=== PATIENT | male | born 1955 | race Caucasian/White ===

== ENCOUNTER 2021-08-26 13:26 | Inpatient (IN) | payer MEDICARE, SELFPAY ==
[2021-08-26] VITALS (12 sets, daily range): BP systolic 113–240; BP diastolic 55–108; PULSE 53–100; RESP 10–28; TEMP 36.1–36.6; O2SAT 91–100; BMI 18.3
--- NOTE | ~2021-08-26 | XR_ITS ---
EXAMINATION: XR CHEST CLINICAL INFORMATION: Stroke COMPARISON: None TECHNIQUE: Frontal view of the chest was obtained. FINDINGS: Cardiac silhouette is normal in size. Atherosclerotic disease of the aortic arch. Lungs are adequately aerated. Linear opacity of the right upper lung is most suggestive of scarring. There is no lobar consolidation. No pleural effusion or pneumothorax. Degenerative changes of the spine. XR/XR chest 1V IMPRESSION: No acute pulmonary pathology.
--- NOTE | ~2021-08-26 | CT_ITS ---
EXAMINATION: CT HEAD WITHOUT CONTRAST (STROKE PROTOCOL) CLINICAL INFORMATION: Stroke protocol. Bizarre behavior. Altered mental status. Transient weakness. COMPARISON: None TECHNIQUE: Contiguous axial imaging was performed from the skull base to vertex without intravenous administration of contrast. Exam is limited due to motion. This CT examination was performed using dose optimization techniques as appropriate, variously including the following: *Automated exposure control *Adjustment of mA and/or kV according to patient size (this includes techniques or standardized protocols for targeted exams where dose is matched to indication/reason for exam; i.e. extremities or head) *Use of iterative reconstruction technique DLP: 1749 mGy-cm FINDINGS: There is no intracranial hemorrhage, hematoma, or extra-axial fluid collection. The ventricles are normal in size. There is no hydrocephalus, edema, or mass effect. The rmairez-white matter differentiation appears symmetric. There is no acute infarct or mass lesion. The calvarium appears intact. There is no pneumocephalus or orbital emphysema. The visualized sinuses and middle ears and mastoid air cells show no significant mucosal thickening. There are no air-fluid levels. CT/CT head for stroke IMPRESSION: Limited exam due to motion. No acute findings. This critical result was discussed with Mookie Frank at 1358 hours on 08/26/2021. It was ascertained that the content and urgency of the report was understood at the time of direct communication.
--- NOTE | 2021-08-26 13:36 | ECG_ITS ---
Test Reason : ALTERED MENTAL STATUS Blood Pressure : / mmHG Vent. Rate : 070 BPM Atrial Rate : 070 BPM P-R Int : 144 ms QRS Dur : 084 ms QT Int : 432 ms P-R-T Axes : 081 -76 041 degrees QTc Int : 466 ms Normal sinus rhythm Left axis deviation Possible Lateral infarct , age undetermined Abnormal ECG No previous ECGs available Referred By: Mookie Frank Electronically Signed By:LEX FLORES MD
--- NOTE | 2021-08-26 13:42 | PC.NURSE ---
per ems, pt was found at a gas station he had reportedly been visiting since 0700 this am. per ems, the store clerks became concerned when pt was still at gas station and behaviors are all of a sudden erratic and behaviors abnormal from earlier encounters with him. per ems, ems first contact approx 1315 and pt appearing with slurred speech and erratic, combative behavior.
[2021-08-26 14:07] LABS: Glucose, Whole Blood 82 mg/dL (60-115)
[2021-08-26 14:23] LABS: MANUAL DIFF FLAG NO
[2021-08-26 14:24] LABS: Prothrombin Time Whole Bld POC 14.1 sec (11.1-13.5); ~PT, ~INR - Anti Coag Clinic 1.2 (0.9-1.1)
[2021-08-26 14:35] LABS: Ammonia 29 umol/L (13-55); INTERNATIONAL NORM RATIO 1.1 (0.9-1.1)
[2021-08-26 14:37] LABS: Basophils Percent Auto 0.4 % (0-2); Eosinophils Absolute Auto 0.2 X10*3/uL (0.0-0.4); Eosinophils Percent Auto 2.7 % (0-4); Hematocrit 30.9 % (42.0-52.0); Hemoglobin 10.6 g/dl (14.0-18.0); Imm Gran Abs Auto 0.07 X10*3/uL (0.00-0.03); Lymphocytes Absolute Auto 0.8 X10*3/uL (1.2-4.9); Lymphocytes Percent Auto 11.1 % (20-40); Mean Corpuscular HGB Conc 34.3 g/dl (31.0-36.0); Mean Corpuscular Hemoglobin 31.9 pg (27.0-33.0); Mean Corpuscular Volume 93.1 fL (80.0-98.0); Mean Platelet Volume 9.6 fL (9.4-12.4); Monocytes Absolute Auto 0.7 X10*3/uL (0.1-1.2); Monocytes Percent Auto 9.8 % (2-11); Neutrophils Absolute Auto 5.5 x10*3/uL (2.0-8.3); Platelet Count 198 X10*3/uL (160-400); Red Blood Count 3.32 X10*6/uL (4.60-5.80); Red Cell Distribution Width 13.4 % (11.0-16.0); White Blood Count 7.3 X10*3/uL (4.8-10.8)
[2021-08-26 14:38] LABS: Partial Thromboplastin Time 30.9 SEC (24.1-38.0)
[2021-08-26 14:39] LABS: Lactic Acid 1.1 mmol/L (0.5-2.0)
[2021-08-26 14:41] LABS: Ethanol < 10 mg/dL
[2021-08-26 14:43] LABS: Stroke Lab Use COMPLETE
[2021-08-26 14:45] LABS: Amphetamine Screen Urine Not Detected (Not Detect); Barbiturates, Urine Not Detected (Not Detect); Benzodiazepines Screen Urine Not Detected (Not Detect); Cannabinoid Screen Urine Not Detected (Not Detect); Cocaine Screen Urine Not Detected (Not Detect); Fentanyl, urine Not Detected (Not Detect); Opiate Screen Urine Not Detected (Not Detect); Phencyclidine Screen Urine Not Detected (Not Detect)
[2021-08-26 14:49] LABS: Troponin-I High Sensitivity 7.9 ng/L (<3.5-35.0)
[2021-08-26 14:51] LABS: Anion Gap 15 (12-20); Blood Urea Nitrogen 20 mg/dL (9-16); Calcium 9.4 mg/dL (8.4-10.2); Carbon Dioxide 24 mmol/L (22-29); Chloride 107 mmol/L (96-108); Creatinine Clr Calc Pharmacy 73.3; Estimated Glomerular Filt Rate > 60; Glucose Random 84 mg/dL (60-115); Potassium 3.6 mmol/L (3.3-5.1); Sodium 142 mmol/L (135-145)
[2021-08-26 14:52] LABS: COVID-19 Test Negative (Negative); IDNOW Serial# 16C4AD1C
--- NOTE | 2021-08-26 15:11 | ED.GENADULT ---
HPI - General Adult General Chief complaint: Altered Mental Status Stated complaint: ?stroke Time Seen by Provider: 08/26/21 13:35 Source: patient, EMS and police Mode of arrival: EMS Limitations: altered mental status History of Present Illness HPI narrative: 66 years old male who came in by EMS and police after found wandering in the street with erratic behavior, patient has been talking uninterruptedly. Patient initially came in as a stroke protocol, but neuro exam are intact with no weakness or numbness. Patient was found in the gas station since 7 in the morning acting erratically talking to himself and bystander called the police and EMS to bring him to the hospital, no source to obtain an accurate history on this patient. Never been in our hospital and no old record on this patient. Related Data Allergies Allergy/AdvReac Type Severity Reaction Status Date / Time No Known Allergies Allergy Verified 08/26/21 13:36 Review of Systems Review of Systems: Yes Unobtainable due to mental condition PMFSH Social History Social History Alcohol intake: unknown Patient Tobacco Use Status: Tobacco use Unknown Use of substances other than those prescribed or required for medical reasons: Unknown Physical Exam ED Vital Signs: Vital Signs - 24 hr 08/26/21 13:58 08/26/21 14:30 Temperature 97.9 F Pulse Rate 96 66 Respiratory Rate 18 24 H Blood Pressure 117/69 113/58 L Pulse Oximetry 97 100 BMI result Body Mass Index 18.3 Vital signs have been reviewed as appeared to be correct. Blood pressure normal. Heart rate normal. Respiration rate normal. Temperature normal. Oxygen saturation normal. Appearance: Alert. Oriented X2 to place and person.. No acute distress. Head: Normal external exam. Normocephalic. Atraumatic. No Andrew signs noted. No raccoon eyes noted Eyes: PERRLA. EOMI. Conjunctiva and sclera normal. Eyelids normal. ENT: TM's Normal. Pharynx normal. Uvula midline. Moist mucous membranes. No trismus noted. No drooling noted. No muffled voice noted. Neck: Normal inspection. Neck supple. FROM. No adenopathy. Thyroid Normal. No meningeal signs. No neck mass noted. CVS: Normal heart rate and rhythm. Heart sound normal. No murmurs noted. Pulses normal throughout. Respiratory: No respiratory distress. Painless inspiration. Breath sounds normal. No wheezes/rales/rhonchi noted. Chest nontender. No accessory muscle usage noted or decreased air movement noted. Abdomen: Soft and nontender. Bowel sounds normal in all 4 quadrants. No distention noted. No organomegaly noted. No visible injury noted. Back: No CVA tenderness. Full range of motion noted. Skin: Skin warm and dry. Normal skin color. Normal skin turgor. No rashes/lesions/lacerations noted. Extremities: No lower extremity edema. Extremities exhibit normal range of motion. Extremities nontender. Neuro: Oriented X [address] and person[address] Cranial nerve exam: II-XII are grossly intact No motor deficit. No sensory deficit. Reflexes normal. Course Course Course Narrative: assessment and plan. 66-year-old male came in with acute mental status change and erratic behavior, CPK is elevated with no signs of trauma, no neurological deficit except for change mental status. Will admit for IV hydration and monitoring mental status. Medical Decision Making Lab Data Lab results reviewed: Yes I reviewed the patient's lab results. Result diagrams: 08/26/21 14:10 08/26/21 14:10 Labs: Lab Results 08/26/21 08/26/21 08/26/21 Range/Units 14:03 14:07 14:10 WBC 7.3 (4.8-10.8) X10*3/uL RBC 3.32 L (4.60-5.80) X10*6/uL Hgb 10.6 L (14.0-18.0) g/dl Hct 30.9 L (42.0-52.0) % MCV 93.1 (80.0-98.0) fL MCH 31.9 (27.0-33.0) pg MCHC 34.3 (31.0-36.0) g/dl RDW 13.4 (11.0-16.0) % Plt Count 198 (160-400) X10*3/uL MPV 9.6 (9.4-12.4) fL Immature Gran % (Auto) 1.0 H (0.0-0.4) % Neut % (Auto) 75.0 H (45-73) % Lymph % (Auto) 11.1 L (20-40) % [place] % (Auto) 9.8 (2-11) % Eos % (Auto) 2.7 (0-4) % Baso % (Auto) 0.4 (0-2) % Lymph # (Auto) 0.8 L (1.2-4.9) X10*3/uL [place] # (Auto) 0.7 (0.1-1.2) X10*3/uL Eos # (Auto) 0.2 (0.0-0.4) X10*3/uL Baso # (Auto) 0.0 (0.0-0.2) X10*3/uL Abs Immat Gran (auto) 0.07 H (0.00-0.03) X10*3/uL Absolute Neuts (auto) 5.5 (2.0-8.3) x10*3/uL Absolute Nucleated RBC 0.000 (0.0-0.012) X10*3/uL Nucleated RBC % (auto) 0.0 (0.0-0.2) /100WBC PT (9.9-13.0) SEC Whole Blood PT 14.1 H (11.1-13.5) sec INR (0.9-1.1) Whole Blood INR 1.2 H (0.9-1.1) APTT (24.1-38.0) SEC Sodium (135-145) mmol/L Potassium (3.3-5.1) mmol/L Chloride (96-108) mmol/L Carbon Dioxide (22-29) mmol/L Anion Gap (12-20) BUN (9-16) mg/dL Creatinine (0.5-1.4) mg/dL Estim Creat Clear Calc Estimated GFR POC Glucose 82 (60-115) mg/dL Random Glucose (60-115) mg/dL Lactic Acid (0.5-2.0) mmol/L Calcium (8.4-10.2) mg/dL Ammonia (13-55) umol/L Total Creatine Kinase (38-174) U/L Troponin I High Sens (<3.5-35.0) ng/L Urine Opiates Screen (Not Detect) Urine Fentanyl Screen (Not Detect) Ur Barbiturates Screen (Not Detect) Ur Phencyclidine Scrn (Not Detect) Ur Amphetamines Screen (Not Detect) U Benzodiazepines Scrn (Not Detect) Urine Cocaine Screen (Not Detect) U Marijuana (THC) Screen (Not Detect) Ethyl Alcohol mg/dL COVID-19 (ELVIS) (Negative) COVID-19 Clin Com 08/26/21 08/26/21 08/26/21 Range/Units 14:10 14:10 14:10 WBC (4.8-10.8) X10*3/uL RBC (4.60-5.80) X10*6/uL Hgb (14.0-18.0) g/dl Hct (42.0-52.0) % MCV (80.0-98.0) fL MCH (27.0-33.0) pg MCHC (31.0-36.0) g/dl RDW (11.0-16.0) % Plt Count (160-400) X10*3/uL MPV (9.4-12.4) fL Immature Gran % (Auto) (0.0-0.4) % Neut % (Auto) (45-73) % Lymph % (Auto) (20-40) % [place] % (Auto) (2-11) % Eos % (Auto) (0-4) % Baso % (Auto) (0-2) % Lymph # (Auto) (1.2-4.9) X10*3/uL [place] # (Auto) (0.1-1.2) X10*3/uL Eos # (Auto) (0.0-0.4) X10*3/uL Baso # (Auto) (0.0-0.2) X10*3/uL Abs Immat Gran (auto) (0.00-0.03) X10*3/uL Absolute Neuts (auto) (2.0-8.3) x10*3/uL Absolute Nucleated RBC (0.0-0.012) X10*3/uL Nucleated RBC % (auto) (0.0-0.2) /100WBC PT 13.0 (9.9-13.0) SEC Whole Blood PT (11.1-13.5) sec INR 1.1 (0.9-1.1) Whole Blood INR (0.9-1.1) APTT 30.9 (24.1-38.0) SEC Sodium 142 (135-145) mmol/L Potassium 3.6 (3.3-5.1) mmol/L Chloride 107 (96-108) mmol/L Carbon Dioxide 24 (22-29) mmol/L Anion Gap 15 (12-20) BUN 20 H (9-16) mg/dL Creatinine 0.86 (0.5-1.4) mg/dL Estim Creat Clear Calc 73.3 Estimated GFR > 60 POC Glucose (60-115) mg/dL Random Glucose 84 (60-115) mg/dL Lactic Acid (0.5-2.0) mmol/L Calcium 9.4 (8.4-10.2) mg/dL Ammonia (13-55) umol/L Total Creatine Kinase 2455 H (38-174) U/L Troponin I High Sens 7.9 (<3.5-35.0) ng/L Urine Opiates Screen (Not Detect) Urine Fentanyl Screen (Not Detect) Ur Barbiturates Screen (Not Detect) Ur Phencyclidine Scrn (Not Detect) Ur Amphetamines Screen (Not Detect) U Benzodiazepines Scrn (Not Detect) Urine Cocaine Screen (Not Detect) U Marijuana (THC) Screen (Not Detect) Ethyl Alcohol mg/dL COVID-19 (ELVIS) (Negative) COVID-19 Clin Com 08/26/21 08/26/21 08/26/21 Range/Units 14:10 14:10 14:10 WBC (4.8-10.8) X10*3/uL RBC (4.60-5.80) X10*6/uL Hgb (14.0-18.0) g/dl Hct (42.0-52.0) % MCV (80.0-98.0) fL MCH (27.0-33.0) pg MCHC (31.0-36.0) g/dl RDW (11.0-16.0) % Plt Count (160-400) X10*3/uL MPV (9.4-12.4) fL Immature Gran % (Auto) (0.0-0.4) % Neut % (Auto) (45-73) % Lymph % (Auto) (20-40) % [place] % (Auto) (2-11) % Eos % (Auto) (0-4) % Baso % (Auto) (0-2) % Lymph # (Auto) (1.2-4.9) X10*3/uL [place] # (Auto) (0.1-1.2) X10*3/uL Eos # (Auto) (0.0-0.4) X10*3/uL Baso # (Auto) (0.0-0.2) X10*3/uL Abs Immat Gran (auto) (0.00-0.03) X10*3/uL Absolute Neuts (auto) (2.0-8.3) x10*3/uL Absolute Nucleated RBC (0.0-0.012) X10*3/uL Nucleated RBC % (auto) (0.0-0.2) /100WBC PT (9.9-13.0) SEC Whole Blood PT (11.1-13.5) sec INR (0.9-1.1) Whole Blood INR (0.9-1.1) APTT (24.1-38.0) SEC Sodium (135-145) mmol/L Potassium (3.3-5.1) mmol/L Chloride (96-108) mmol/L Carbon Dioxide (22-29) mmol/L Anion Gap (12-20) BUN (9-16) mg/dL Creatinine (0.5-1.4) mg/dL Estim Creat Clear Calc Estimated GFR POC Glucose (60-115) mg/dL Random Glucose (60-115) mg/dL Lactic Acid (0.5-2.0) mmol/L Calcium (8.4-10.2) mg/dL Ammonia 29 (13-55) umol/L Total Creatine Kinase (38-174) U/L Troponin I High Sens (<3.5-35.0) ng/L Urine Opiates Screen Not Detected (Not Detect) Urine Fentanyl Screen Not Detected (Not Detect) Ur Barbiturates Screen Not Detected (Not Detect) Ur Phencyclidine Scrn Not Detected (Not Detect) Ur Amphetamines Screen Not Detected (Not Detect) U Benzodiazepines Scrn Not Detected (Not Detect) Urine Cocaine Screen Not Detected (Not Detect) U Marijuana (THC) Screen Not Detected (Not Detect) Ethyl Alcohol mg/dL COVID-19 (ELVIS) Negative (Negative) COVID-19 Clin Com See Note 05/14/22 05/14/22 Range/Units 14:14 14:14 WBC (4.8-10.8) X10*3/uL RBC (4.60-5.80) X10*6/uL Hgb (14.0-18.0) g/dl Hct (42.0-52.0) % MCV (80.0-98.0) fL MCH (27.0-33.0) pg MCHC (31.0-36.0) g/dl RDW (11.0-16.0) % Plt Count (160-400) X10*3/uL MPV (9.4-12.4) fL Immature Gran % (Auto) (0.0-0.4) % Neut % (Auto) (45-73) % Lymph % (Auto) (20-40) % [place] % (Auto) (2-11) % Eos % (Auto) (0-4) % Baso % (Auto) (0-2) % Lymph # (Auto) (1.2-4.9) X10*3/uL [place] # (Auto) (0.1-1.2) X10*3/uL Eos # (Auto) (0.0-0.4) X10*3/uL Baso # (Auto) (0.0-0.2) X10*3/uL Abs Immat Gran (auto) (0.00-0.03) X10*3/uL Absolute Neuts (auto) (2.0-8.3) x10*3/uL Absolute Nucleated RBC (0.0-0.012) X10*3/uL Nucleated RBC % (auto) (0.0-0.2) /100WBC PT (9.9-13.0) SEC Whole Blood PT (11.1-13.5) sec INR (0.9-1.1) Whole Blood INR (0.9-1.1) APTT (24.1-38.0) SEC Sodium (135-145) mmol/L Potassium (3.3-5.1) mmol/L Chloride (96-108) mmol/L Carbon Dioxide (22-29) mmol/L Anion Gap (12-20) BUN (9-16) mg/dL Creatinine (0.5-1.4) mg/dL Estim Creat Clear Calc Estimated GFR POC Glucose (60-115) mg/dL Random Glucose (60-115) mg/dL Lactic Acid 1.1 (0.5-2.0) mmol/L Calcium (8.4-10.2) mg/dL Ammonia (13-55) umol/L Total Creatine Kinase (38-174) U/L Troponin I High Sens (<3.5-35.0) ng/L Urine Opiates Screen (Not Detect) Urine Fentanyl Screen (Not Detect) Ur Barbiturates Screen (Not Detect) Ur Phencyclidine Scrn (Not Detect) Ur Amphetamines Screen (Not Detect) U Benzodiazepines Scrn (Not Detect) Urine Cocaine Screen (Not Detect) U Marijuana (THC) Screen (Not Detect) Ethyl Alcohol < 10 mg/dL COVID-19 (ELVIS) (Negative) COVID-19 Clin Com Imaging Data Chest x-ray: Attestation: I personally reviewed and interpreted this imaging study as follows: My impression: No acute pulmonary pathology. CT scan - head: Attestation: I personally reviewed and interpreted this imaging study as follows: Radiologist's impression: Limited examination secondary to movement but no acute finding. ECG Data Attestation: I personally reviewed and interpreted this ECG as follows: Interpretation: Normal sinus rhythm at 70 beats per minutes, left axis deviation, normal intervals, no ST-T changes. Discharge Plan Discharge Clinical Impression: Altered mental status, Rhabdomyolysis Patient Disposition: Admitted As Inpatient
[2021-08-26] MEDS: 0.9 % Sodium Chloride 1,000 ML 999 ML IV (15:32)
--- NOTE | 2021-08-26 16:36 | PHA.MEDREC ---
Pharmacy Consult ? Medication Reconciliation Pharmacy has completed the medication reconciliation. Unable to attain medication history from patient due to AMS. Pharmacy reported most recent medication Vraylar 1.5 mg BIdDx 30 last filled 07/04/2021. Other maintenance medication include Aspirin 81 filled 06/05/21, Valacyclovir 500 mg x 90 days on 03/13/21, Divalproex x 90 on 12/30/20. Jenna Teresa, PharmD
[2021-08-26] MEDS: LORazepam 2 MG/ML VIAL IVPUSH (16:41)
--- NOTE | 2021-08-26 16:43 | P.HPHOSP_ITS ---
History of Present Illness Date of Service: 08/26/21 Chief Complaint: confusion History as per ED as patient is completely altered and is speaking nonsensically, with inappropriate sentences that are not relevant to the questions being asked. 66yo M brought in by EMS and police, found wandering around the streets [place] a [place] acting erratically and speaking gibberish. No focal motor findings. No record of this patient in our EHR. I looked him up in the [facility] EHR. He was admitted there from 05/25-06/06/21 for acute psychosis and carries diagnoses of bipolar-type schizoaffective disorder and alcohol use disorder. Supposed to be on valproate and cariprazine. CT head normal. Noted to have rhabdomyolysis with CPK of 2455. Serum creatinine normal at 0.86. Urine toxicology was negative. Notably, at the prior admission at [facility], he ingested some kind of homemade edible [cannabinoid?] susbstance. Review of Systems Review of Systems: Yes Unobtainable due to mental status [facility] Medical History (Updated 08/26/21 @ 16:56 by Lupe Rosario MD) Alcohol use with alcohol-induced disorder Schizoaffective disorder Schizoaffective disorder, bipolar type Pertinent family history: Pt unable to provide history. Above PMHx gleaned from [facility] EHR. Social History Alcohol intake: unknown Patient Tobacco Use Status: Tobacco use Unknown Use of substances other than those prescribed or required for medical reasons: Unknown Advance Directives: No Advance Directives Information Provided: No Narrative: per [facility] records he smokes 1/2 ppd Meds Allergies Allergy/AdvReac Type Severity Reaction Status Date / Time No Known Allergies Allergy Verified 08/26/21 13:36 Active Medications: Current Medications Enoxaparin Sodium (Enoxaparin Sodium 40 Mg/0.4 Ml Syringe) 40 mg SUBCUT Q24H IAN Thiamine HCl 200 mg/ Sodium (Chloride) 102 mls @ 204 mls/hr IV Q8H IAN Sodium Chloride (Ns) 1,000 mls @ 125 mls/hr IVCONT .Q8H IAN Ondansetron HCl (Ondansetron Hcl 4 Mg/2 Ml Vial) 4 mg IVPUSH Q8H PRN PRN Reason: Nausea and Vomiting Pharmacy Consult (Consult Rx Perform Med Rec) 1 each MISCELLANE ONCE PRN PRN Reason: Consult order Sodium Chloride (0.9 % Sodium Chloride Flush 3 Ml Syringe) 3 ml IVFLUSH QSHIFT [facility] Home Medications Medication Instructions Recorded Confirmed Last Taken Type No Known Home Meds 08/26/21 08/26/21 Unknown History Physical Exam Vital Signs and Narrative: Vital Signs: Last Vital Signs Temp 97.9 F 08/26/21 14:30 Pulse 66 08/26/21 14:30 Resp 24 H 08/26/21 14:30 BP 113/58 L 08/26/21 14:30 Pulse Ox 100 08/26/21 14:30 BMI result Body Mass Index 18.3 Gen: in no acute distress, disheveled HEENT: sclera anicteric, moist mucus membranes Neck: supple Lungs: clear to auscultation bilaterally Heart: regular rate and rhythm, no murmurs Abd: soft, non-tender, non-distended Ext: no edema Skin: warm/well-perfused Neuro: disoriented Psych: inappropriate sentences bordering on word salad, pressured speech, impaired insight Results Labs CBC and Chem 7: 08/26/21 14:10 08/26/21 14:10 Labs: Laboratory Results - last 24 hr 08/26/21 08/26/21 08/26/21 14:03 14:07 14:10 MCV 93.1 MCH 31.9 MCHC 34.3 RDW 13.4 Plt Count 198 MPV 9.6 Immature Gran % (Auto) 1.0 H Neut % (Auto) 75.0 H Lymph % (Auto) 11.1 L [place] % (Auto) 9.8 Eos % (Auto) 2.7 Baso % (Auto) 0.4 Lymph # (Auto) 0.8 L [place] # (Auto) 0.7 Eos # (Auto) 0.2 Baso # (Auto) 0.0 Abs Immat Gran (auto) 0.07 H Absolute Neuts (auto) 5.5 Absolute Nucleated RBC 0.000 Nucleated RBC % (auto) 0.0 PT Whole Blood PT 14.1 H INR Whole Blood INR 1.2 H APTT Anion Gap Estim Creat Clear Calc Estimated GFR POC Glucose 82 Random Glucose Lactic Acid Calcium Ammonia Total Creatine Kinase Troponin I High Sens Urine Opiates Screen Urine Fentanyl Screen Ur Barbiturates Screen Ur Phencyclidine Scrn Ur Amphetamines Screen U Benzodiazepines Scrn Urine Cocaine Screen U Marijuana (THC) Screen Ethyl Alcohol COVID-19 (ELVIS) COVID-19 [place] 08/26/21 08/26/21 08/26/21 14:10 14:10 14:10 MCV MCH MCHC RDW Plt Count MPV Immature Gran % (Auto) Neut % (Auto) Lymph % (Auto) [place] % (Auto) Eos % (Auto) Baso % (Auto) Lymph # (Auto) [place] # (Auto) Eos # (Auto) Baso # (Auto) Abs Immat Gran (auto) Absolute Neuts (auto) Absolute Nucleated RBC Nucleated RBC % (auto) PT 13.0 Whole Blood PT INR 1.1 Whole Blood INR APTT 30.9 Anion Gap 15 Estim Creat Clear Calc 73.3 Estimated GFR > 60 POC Glucose Random Glucose 84 Lactic Acid Calcium 9.4 Ammonia Total Creatine Kinase 2455 H Troponin I High Sens 7.9 Urine Opiates Screen Urine Fentanyl Screen Ur Barbiturates Screen Ur Phencyclidine Scrn Ur Amphetamines Screen U Benzodiazepines Scrn Urine Cocaine Screen U Marijuana (THC) Screen Ethyl Alcohol COVID-19 (ELVIS) COVID-[place] 08/26/21 08/26/21 08/26/21 14:10 14:10 14:10 MCV MCH MCHC RDW Plt Count MPV Immature Gran % (Auto) Neut % (Auto) Lymph % (Auto) [place] % (Auto) Eos % (Auto) Baso % (Auto) Lymph # (Auto) [place] # (Auto) Eos # (Auto) Baso # (Auto) Abs Immat Gran (auto) Absolute Neuts (auto) Absolute Nucleated RBC Nucleated RBC % (auto) PT Whole Blood PT INR Whole Blood INR APTT Anion Gap Estim Creat Clear Calc Estimated GFR POC Glucose Random Glucose Lactic Acid Calcium Ammonia 29 Total Creatine Kinase Troponin I High Sens Urine Opiates Screen Not Detected Urine Fentanyl Screen Not Detected Ur Barbiturates Screen Not Detected Ur Phencyclidine Scrn Not Detected Ur Amphetamines Screen Not Detected U Benzodiazepines Scrn Not Detected Urine Cocaine Screen Not Detected U Marijuana (THC) Screen Not Detected Ethyl Alcohol COVID-19 (ELVIS) Negative COVID-News[facility] See Note 08/26/21 08/26/21 14:14 14:14 MCV MCH MCHC RDW Plt Count MPV Immature Gran % (Auto) Neut % (Auto) Lymph % (Auto) [place] % (Auto) Eos % (Auto) Baso % (Auto) Lymph # (Auto) [place] # (Auto) Eos # (Auto) Baso # (Auto) Abs Immat Gran (auto) Absolute Neuts (auto) Absolute Nucleated RBC Nucleated RBC % (auto) PT Whole Blood PT INR Whole Blood INR APTT Anion Gap Estim Creat Clear Calc Estimated GFR POC Glucose Random Glucose Lactic Acid 1.1 Calcium Ammonia Total Creatine Kinase Troponin I High Sens Urine Opiates Screen Urine Fentanyl Screen Ur Barbiturates Screen Ur Phencyclidine Scrn Ur Amphetamines Screen U Benzodiazepines Scrn Urine Cocaine Screen U Marijuana (THC) Screen Ethyl Alcohol < 10 COVID-19 (ELVIS) COVID-19 Clin Com Imaging Radiologist's Impressions: Impressions Head CT 08/26/21 13:43 IMPRESSION: Limited exam due to motion. No acute findings. This critical result was discussed with Mookie Frank at 1358 hours on 08/26/2021. It was ascertained that the content and urgency of the report was understood at the time of direct communication. Chest X-Ray 08/26/21 14:55 IMPRESSION: No acute pulmonary pathology. Assessment and Plan (1) Altered mental status: Status: Acute (2) Rhabdomyolysis: Status: Acute (3) Schizoaffective disorder: Status: Acute Plan 66yo M with bipolar-type schizoaffective disorder, previously admitted to [facility] inpatient psychiatry in May for psychosis, brought in by EMS and law enforcement after found wandering in the streets and with incomprehensible speech. Found to have elevated CPK. # encephalopathy vs. decompensated bipolar-type schizoaffective disorder - will admit to [facility] and complete medical workup with LFTs, ammonia, RPR, HIV, B12 but ultimately I think this is all psychiatric in nature and he will need psychiatry evaluation and inpatient geriatric psychiatric care for psychosis/florid susie - treat presumptively for Wernicke-Korsakoff syndrome with IV thiamine; check B1 level - no contact listed in our system; in [facility], the emergency contact is listed as Chelsey Giles at [phone]. I left a message at that number to call back. # rhabdomyolysis - IV normal saline, recheck CPK in am # AUD - thiamine as above, watch for withdrawal symptoms # tobacco abuse - prn nicotine # VTE ppx - LMWH # code - full by default I anticipate that the patient will stay at least 2 midnights in hospital due to the above reasons. It is not reasonable or safe to care for them in a less acute setting. Quality Stroke Does the patient have a stroke diagnosis?: No VTE Prior VTE?: No VTE Risk Level:: Medical - moderate - high VTE Device Contraindication: N/A - Device Ordered VTE Drug Contraindication: N/A - Med Ordered
[2021-08-26] MEDS: Thiamine HCL 200 MG in 0.9 % Sodium Chloride 100 ML 204 MG IV (16:54)
[2021-08-26] MEDS: 0.9 % Sodium Chloride 1,000 ML 125 ML IVCONT (16:54)
--- NOTE | 2021-08-26 16:57 | PC.NURSE ---
1640: Pt became extremely agitated and remained confused with conversation. Pt hyperverbal with noted flight of ideas. Pt orientated to place and person only.
--- NOTE | 2021-08-26 17:20 | PC.NURSE ---
Contact made to hospitalist regarding unsafe behaviors and poor theraputic response to IVP Ativan. Plan at this time is to medicate with IM zyprexa.
[2021-08-26 18:18] LABS: Ammonia 68 umol/L (13-55)
--- NOTE | 2021-08-26 18:23 | PC.NURSE ---
Contact Made to MD Rosario, pt medicated with IM 5mg zyprexa for severe agitiation. Pt remains uncooperative and un-redirectable at this time. sitter remains at bedside.
[2021-08-26 18:26] LABS: Alanine Aminotransferase 110 U/L (0-40); Albumin Level 3.5 g/dL (3.5-5.0); Alkaline Phosphatase 113 U/L (39-117); Aspartate Amino Transferase 151 U/L (5-37); Bilirubin Direct 0.5 mg/dL (0.0-0.5); Total Protein 5.9 g/dL (6.5-8.0); Troponin-I High Sensitivity 6.9 ng/L (<3.5-35.0)
[2021-08-26 18:31] LABS: Osmolality, Serum 296 mosm/kg (281-305)
[2021-08-26 18:35] LABS: Valproate < 2.0 mcg/mL (50.0-100.0)
[2021-08-26 18:39] LABS: Procalcitonin 0.02 ng/mL
[2021-08-26 18:40] LABS: TSH reflex Free T4 3.91 uIU/mL (0.32-4.0)
[2021-08-26 18:45] LABS: Acetaminophen LAB < 1 mcg/mL (<30); Salicylate < 5.0 mg/dL (15-30)
--- NOTE | 2021-08-26 20:37 | PC.NURSE ---
Monitoring intermittent Bradycardia. No new orders.
--- NOTE | 2021-08-27 | ECG_ITS ---
Test Reason : BRADYCARDIA Blood Pressure : / mmHG Vent. Rate : 059 BPM Atrial Rate : 059 BPM P-R Int : 154 ms QRS Dur : 072 ms QT Int : 474 ms P-R-T Axes : 080 -85 -54 degrees QTc Int : 469 ms Poor data quality Sinus bradycardia with sinus arrhythmia Left axis deviation Low voltage QRS Inferior infarct , age undetermined Cannot rule out Anterior infarct (cited on or before 26-AUG-2021) Abnormal ECG When compared with ECG of 26-AUG-2021 14:20, Poor data quality in current ECG precludes serial comparison Referred By: Akbar Lanier Electronically Signed By:LEX FLORES MD
--- NOTE | 2021-08-27 00:04 | PC.NURSE ---
Patient's apical pulse is running into low 30's and 40's. Hospitalist made aware. Report from HERMANN Damico was that patient was medicated with Zyprexa for agitation. This film writer was told per MD that patient needed to have pacer pads placed.
--- NOTE | 2021-08-27 00:17 | PC.NURSE ---
Patient ordered for pacers and when I walked in the room he was at the end of the bed trying to get out. Patient wanted to pee and was unwilling to listen that he could not get out of bed to go to the bathroom and had to use the urinal. Housekeeping told to get a hospital bed with an alarm because patient is high risk for fall.
[2021-08-27] MEDS: Thiamine HCL 200 MG in 0.9 % Sodium Chloride 100 ML 204 MG IV ×3 (01:00→18:13)
[2021-08-27 01:26] VITALS: BP 124/38; PULSE 44; RESP 14
[2021-08-27 04:36] VITALS: PULSE 41; RESP 12; O2SAT 94
[2021-08-27] MEDS: 0.9 % Sodium Chloride Flush 3 ML SYRINGE IVFLUSH (07:32)
[2021-08-27] MEDS: 0.9 % Sodium Chloride 1,000 ML 125 ML IVCONT ×2 (07:32→17:39)
[2021-08-27 07:39] LABS: Anion Gap 15 (12-20); Blood Urea Nitrogen 15 mg/dL (9-16); Calcium 9.1 mg/dL (8.4-10.2); Carbon Dioxide 25 mmol/L (22-29); Chloride 110 mmol/L (96-108); Creatinine Clr Calc Pharmacy 92.7; Estimated Glomerular Filt Rate > 60; Glucose Random 65 mg/dL (60-115); Potassium 3.4 mmol/L (3.3-5.1); Sodium 147 mmol/L (135-145)
[2021-08-27 07:40] VITALS: BP 144/68; PULSE 53; RESP 13; O2SAT 96
[2021-08-27 08:13] LABS: Magnesium 1.8 mg/dL (1.6-2.6)
--- NOTE | 2021-08-27 08:39 | PC.NURSE ---
pt desat when asleep, placed on 2L NC
--- NOTE | 2021-08-27 09:34 | MHC.CM.ED ---
Per Dr Rosario, patient was recently at [facility]. Patient has never been to [facility]. Demographics information and HCP obtained from [facility] and put in chart. Continue to monitor for d/c needs.
--- NOTE | 2021-08-27 09:58 | PC.NURSE ---
pt requested urinal. missed urinal all together, what urine did end up in it pt dumped on himself when he crushed the urinal against his body. bed linens changed.
--- NOTE | 2021-08-27 10:05 | HO.PM.IMPN ---
Subjective Subjective Date of Service: 08/27/21 Interval History: Thoughts still very disorganized. Denies any ingestion of any substance. 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 His favorite composer is himself. Grandiose. Admits he doesn't take Depakote, for reasons that are beyond your ability as a general practitioner to understand . 1 dose of IM olanzapine yesterday for agitation. Currently calm. ROS unreliable. Review of Systems Review of Systems: Yes Unobtainable due to mental status Physical Exam Vital Signs: Vital Signs: Last Vital Signs Temp 96.9 F 08/26/21 22:19 Pulse 53 08/27/21 07:40 Resp 13 08/27/21 07:40 BP 144/68 H 08/27/21 07:40 Pulse Ox 96 08/27/21 07:40 BMI result Body Mass Index 18.3 Gen: in no acute distress, disheveled HEENT: sclera anicteric, moist mucus membranes Neck: supple Lungs: clear to auscultation bilaterally Heart: regular rate and rhythm, no murmurs Abd: soft, non-tender, non-distended Ext: no edema Skin: warm/well-perfused Neuro: disoriented Psych: pressured speech, impaired insight, grandiose ? Objective Data Active Medications Enoxaparin Sodium (Enoxaparin Sodium 40 Mg/0.4 Ml Syringe) 40 mg SUBCUT Q24H [facility] Last Admin: 08/26/21 18:22 Dose: Not Given Documented by: MARGE Non-Admin Reason: Agitation Thiamine HCl 200 mg/ Sodium (Chloride) 102 mls @ 204 mls/hr IV Q8H [facility] Last Admin: 08/27/21 09:51 Dose: 204 mls/hr Documented by: MAE Sodium Chloride (Ns) 1,000 mls @ 125 mls/hr IVCONT .Q8H [facility] Last Admin: 08/27/21 07:32 Dose: 125 mls/hr Documented by: MAE Nicotine Polacrilex (Nicotine Polacrilex 2 Mg Gum) 2 mg BUCCAL Q2H PRN PRN Reason: nicotine cravings Ondansetron HCl (Ondansetron Hcl 4 Mg/2 Ml Vial) 4 mg IVPUSH Q8H PRN PRN Reason: Nausea and Vomiting Pharmacy Consult (Consult Rx Perform Med Rec) 1 each MISCELLANE ONCE PRN PRN Reason: Consult order Sodium Chloride (0.9 % Sodium Chloride Flush 3 Ml Syringe) 3 ml IVFLUSH QSHIFT [facility] Last Admin: 08/27/21 07:32 Dose: 3 ml Documented by: MAE Labs CBC & Chem 7: 08/26/21 14:10 08/27/21 05:42 Labs: Laboratory Results - last 24 hr 08/26/21 08/26/21 08/26/21 14:03 14:07 14:10 MCV 93.1 MCH 31.9 MCHC 34.3 RDW 13.4 Plt Count 198 MPV 9.6 Immature Gran % (Auto) 1.0 H Neut % (Auto) 75.0 H Lymph % (Auto) 11.1 L [place] % (Auto) 9.8 Eos % (Auto) 2.7 Baso % (Auto) 0.4 Lymph # (Auto) 0.8 L [place] # (Auto) 0.7 Eos # (Auto) 0.2 Baso # (Auto) 0.0 Abs Immat Gran (auto) 0.07 H Absolute Neuts (auto) 5.5 Absolute Nucleated RBC 0.000 Nucleated RBC % (auto) 0.0 PT Whole Blood PT 14.1 H INR Whole Blood INR 1.2 H APTT Anion Gap Estim Creat Clear Calc Estimated GFR POC Glucose 82 Random Glucose Osmolality Lactic Acid Calcium Magnesium Total Bilirubin Direct Bilirubin AST ALT Alkaline Phosphatase Ammonia Total Creatine Kinase Troponin I High Sens C-Reactive Protein Total Protein Albumin Procalcitonin TSH Salicylates Urine Opiates Screen Urine Fentanyl Screen Acetaminophen Ur Barbiturates Screen Valproic Acid Ur Phencyclidine Scrn Ur Amphetamines Screen U Benzodiazepines Scrn Urine Cocaine Screen U Marijuana (THC) Screen Ethyl Alcohol COVID-19 ([facility]) COVID-19 Clin Com 08/26/21 08/26/21 08/26/21 14:10 14:10 14:10 MCV MCH MCHC RDW Plt Count MPV Immature Gran % (Auto) Neut % (Auto) Lymph % (Auto) [place] % (Auto) Eos % (Auto) Baso % (Auto) Lymph # (Auto) [place] # (Auto) Eos # (Auto) Baso # (Auto) Abs Immat Gran (auto) Absolute Neuts (auto) Absolute Nucleated RBC Nucleated RBC % (auto) PT 13.0 Whole Blood PT INR 1.1 Whole Blood INR APTT 30.9 Anion Gap 15 Estim Creat Clear Calc 73.3 Estimated GFR > 60 POC Glucose Random Glucose 84 Osmolality Lactic Acid Calcium 9.4 Magnesium Total Bilirubin Direct Bilirubin AST ALT Alkaline Phosphatase Ammonia Total Creatine Kinase 2455 H Troponin I High Sens 7.9 C-Reactive Protein Total Protein Albumin Procalcitonin TSH Salicylates Urine Opiates Screen Urine Fentanyl Screen Acetaminophen Ur Barbiturates Screen Valproic Acid Ur Phencyclidine Scrn Ur Amphetamines Screen U Benzodiazepines Scrn Urine Cocaine Screen U Marijuana (THC) Screen Ethyl Alcohol COVID-19 ([facility]) COVID-19 [employer] 08/26/21 08/26/21 08/26/21 14:10 14:10 14:10 MCV MCH MCHC RDW Plt Count MPV Immature Gran % (Auto) Neut % (Auto) Lymph % (Auto) [place] % (Auto) Eos % (Auto) Baso % (Auto) Lymph # (Auto) [place] # (Auto) Eos # (Auto) Baso # (Auto) Abs Immat Gran (auto) Absolute Neuts (auto) Absolute Nucleated RBC Nucleated RBC % (auto) PT Whole Blood PT INR Whole Blood INR APTT Anion Gap Estim Creat Clear Calc Estimated GFR POC Glucose Random Glucose Osmolality Lactic Acid Calcium Magnesium Total Bilirubin Direct Bilirubin AST ALT Alkaline Phosphatase Ammonia 29 Total Creatine Kinase Troponin I High Sens C-Reactive Protein Total Protein Albumin Procalcitonin TSH Salicylates Urine Opiates Screen Not Detected Urine Fentanyl Screen Not Detected Acetaminophen Ur Barbiturates Screen Not Detected Valproic Acid Ur Phencyclidine Scrn Not Detected Ur Amphetamines Screen Not Detected U Benzodiazepines Scrn Not Detected Urine Cocaine Screen Not Detected U Marijuana (THC) Screen Not Detected Ethyl Alcohol COVID-19 ([facility]) Negative COVID-19 [employer] See Note 08/26/21 08/26/21 08/26/21 14:14 14:14 17:47 MCV MCH MCHC RDW Plt Count MPV Immature Gran % (Auto) Neut % (Auto) Lymph % (Auto) [place] % (Auto) Eos % (Auto) Baso % (Auto) Lymph # (Auto) [place] # (Auto) Eos # (Auto) Baso # (Auto) Abs Immat Gran (auto) Absolute Neuts (auto) Absolute Nucleated RBC Nucleated RBC % (auto) PT Whole Blood PT INR Whole Blood INR APTT Anion Gap Estim Creat Clear Calc Estimated GFR POC Glucose Random Glucose Osmolality 296 Lactic Acid 1.1 Calcium Magnesium Total Bilirubin Direct Bilirubin AST ALT Alkaline Phosphatase Ammonia Total Creatine Kinase Troponin I High Sens C-Reactive Protein Total Protein Albumin Procalcitonin TSH Salicylates Urine Opiates Screen Urine Fentanyl Screen Acetaminophen Ur Barbiturates Screen Valproic Acid Ur Phencyclidine Scrn Ur Amphetamines Screen U Benzodiazepines Scrn Urine Cocaine Screen U Marijuana (THC) Screen Ethyl Alcohol < 10 COVID-19 ([facility]VIS) COVID-19 [employer] Com 08/26/21 08/26/21 08/26/21 17:47 17:47 17:47 MCV MCH MCHC RDW Plt Count MPV Immature Gran % (Auto) Neut % (Auto) Lymph % (Auto) [place] % (Auto) Eos % (Auto) Baso % (Auto) Lymph # (Auto) [place] # (Auto) Eos # (Auto) Baso # (Auto) Abs Immat Gran (auto) Absolute Neuts (auto) Absolute Nucleated RBC Nucleated RBC % (auto) PT Whole Blood PT INR Whole Blood INR APTT Anion Gap Estim Creat Clear Calc Estimated GFR POC Glucose Random Glucose Osmolality Lactic Acid Calcium Magnesium Total Bilirubin Direct Bilirubin AST ALT Alkaline Phosphatase Ammonia 68 H Total Creatine Kinase Troponin I High Sens C-Reactive Protein Total Protein Albumin Procalcitonin 0.02 TSH Salicylates Urine Opiates Screen Urine Fentanyl Screen Acetaminophen Ur Barbiturates Screen Valproic Acid < 2.0 L Ur Phencyclidine Scrn Ur Amphetamines Screen U Benzodiazepines Scrn Urine Cocaine Screen U Marijuana (THC) Screen Ethyl Alcohol COVID-19 ([facility]) COVID-19 [employer] Com 08/26/21 08/26/21 08/27/21 17:48 17:48 05:42 MCV MCH MCHC RDW Plt Count MPV Immature Gran % (Auto) Neut % (Auto) Lymph % (Auto) [place] % (Auto) Eos % (Auto) Baso % (Auto) Lymph # (Auto) [place] # (Auto) Eos # (Auto) Baso # (Auto) Abs Immat Gran (auto) Absolute Neuts (auto) Absolute Nucleated RBC Nucleated RBC % (auto) PT Whole Blood PT INR Whole Blood INR APTT Anion Gap 15 Estim Creat Clear Calc 92.7 Estimated GFR > 60 POC Glucose Random Glucose 65 Osmolality Lactic Acid Calcium 9.1 Magnesium 1.8 Total Bilirubin 1.0 Direct Bilirubin 0.5 AST 151 H ALT 110 H Alkaline Phosphatase 113 Ammonia Total Creatine Kinase 1304 H D Troponin I High Sens 6.9 C-Reactive Protein 1.60 H Total Protein 5.9 L Albumin 3.5 Procalcitonin TSH 3.91 Salicylates < 5.0 L Urine Opiates Screen Urine Fentanyl Screen Acetaminophen < 1 Ur Barbiturates Screen Valproic Acid Ur Phencyclidine Scrn Ur Amphetamines Screen U Benzodiazepines Scrn Urine Cocaine Screen U Marijuana (THC) Screen Ethyl Alcohol COVID-19 ([facility]) COVID-19 Clin Com Assessment and Plan (1) Schizoaffective disorder: Status: Acute (2) Alcohol use with alcohol-induced disorder: Status: Acute (3) Altered mental status: Status: Acute (4) Rhabdomyolysis: Status: Acute Plan hospital d#2 66yo M with bipolar-type schizoaffective disorder, previously admitted [place] [facility] in [place] for psychosis, brought in by EMS and law enforcement after found wandering in the streets and with incomprehensible speech.? Found to have elevated CPK. # decompensated bipolar-type schizoaffective disorder - pending psychiatry evaluation, will need inpatient geriatric psychiatric care for psychosis/florid susie - treating presumptively for Wernicke-Korsakoff syndrome with IV thiamine; check B1 level # rhabdomyolysis - continue IV normal saline, recheck CPK in am # transaminasemia - suspect due to EtOH or cross-reactivity with rhabdomyolysis, but will screen for HBV/HCV and recheck LFTs in AM # normocytic anemia - check B12/FA # AUD - thiamine as above, watch for withdrawal symptoms # tobacco abuse - prn nicotine # VTE ppx - LMWH In my clinical judgment, the patient requires continued hospitalization for the following reasons: IV hydration for rhabdomyolysis, inpatient psychiatric evaluation/care Quality Stroke Does the patient have a stroke diagnosis?: No VTE Prior VTE?: No VTE Risk Level:: Medical - moderate - high VTE Device Contraindication: N/A - Device Ordered VTE Drug Contraindication: N/A - Med Ordered
--- NOTE | 2021-08-27 13:34 | PM.CNCAR ---
History of Present Illness History of Present Illness Date of Service: 08/27/21 Requesting physician: Akbar Lanier Consult reason: other (Sinus bradycardia) Chief complaint: Rhabdomyolysis, encephalopathy Narrative: I was requested to see this patient because of noted overnight sinus bradycardia. This was while patient was sleeping. Patient also received olanzapine. At sleeping time heart rate dipped into 35 beats per minute. No pauses. While I went in to interview was sleeping his heart rate was in the 50s. When I woke him up and he was conversational heart rate went up to 70 beats per minute. He has had no recent lightheadedness or syncope. Patient brought in for psychiatric issues. Continues to have flight of ideas at this point time and does not provide any coherent history. Review of Systems Review of Systems: Yes Unobtainable due to mental status Neurologic: Reports confusion Psychiatric: Psychiatric: Reports confusion [facility] Past Medical History Medical History Alcohol use with alcohol-induced disorder Schizoaffective disorder Schizoaffective disorder, bipolar type Social History Social History Alcohol intake: unknown Patient Tobacco Use Status: Tobacco use Unknown Use of substances other than those prescribed or required for medical reasons: Unknown Advance Directives: No Advance Directives Information Provided: No Meds Allergies Allergy/AdvReac Type Severity Reaction Status Date / Time No Known Allergies Allergy Verified 08/26/21 13:36 Active Medications: Current Medications Enoxaparin Sodium (Enoxaparin Sodium 40 Mg/0.4 Ml Syringe) 40 mg SUBCUT Q24H [facility] Last Admin: 08/26/21 18:22 Dose: Not Given Documented by: Thiamine HCl 200 mg/ Sodium (Chloride) 102 mls @ 204 mls/hr IV Q8H [facility] Last Infusion: 08/27/21 10:57 Dose: Infused Documented by: Sodium Chloride (Ns) 1,000 mls @ 125 mls/hr IVCONT .Q8H [facility] Last Admin: 08/27/21 07:32 Dose: 125 mls/hr Documented by: Nicotine Polacrilex (Nicotine Polacrilex 2 Mg Gum) 2 mg BUCCAL Q2H PRN PRN Reason: nicotine cravings Ondansetron HCl (Ondansetron Hcl 4 Mg/2 Ml Vial) 4 mg IVPUSH Q8H PRN PRN Reason: Nausea and Vomiting Pharmacy Consult (Consult Rx Perform Med Rec) 1 each MISCELLANE ONCE PRN PRN Reason: Consult order Sodium Chloride (0.9 % Sodium Chloride Flush 3 Ml Syringe) 3 ml IVFLUSH QSHIFT [facility] Last Admin: 08/27/21 07:32 Dose: 3 ml Documented by: Home Medications Medication Instructions Recorded Confirmed Last Taken Type No Known Home Meds 08/26/21 08/26/21 Unknown History Physical Exam Vital Signs: Vital Signs: Last Vital Signs Temp 96.9 F 08/26/21 22:19 Pulse 53 08/27/21 07:40 Resp 13 08/27/21 07:40 BP 144/68 H 08/27/21 07:40 Pulse Ox 96 08/27/21 07:40 BMI result Body Mass Index 18.3 Const: General: cooperative, comfortable, no acute distress, alert, awake, confusion and poor hygiene Nutritional Appearance: thin Orientation/consciousness: confusion HEENT: Head: Yes normocephalic and Yes atraumatic Neck: Neck: Yes trachea midline, Yes supple and Yes no JVD Chest: Chest palpation & inspection: normal inspection of the chest Resp: Effort & Inspection: normal respiratory effort Auscultation: clear to auscultation bilaterally Cardio: Jugular venous distension: no JVD Palpation: normal PMI Rate: regular rate Rhythm: regular rhythm Heart sounds: S1 normal heart sound present, S2 normal heart sound present, no click, no gallops and no murmurs GI: Auscultation: normal bowel sounds Skin: General skin exam: no rashes or lesions noted Neuro: General: no focal motor deficits and confusion Extrem: General: Yes no clubbing, cyanosis or edema Objective Labs and Meds Result diagrams: 08/26/21 14:10 08/27/21 05:42 Lab results: Laboratory Results - last 24 hr 08/26/21 08/26/21 08/26/21 14:03 14:07 14:10 WBC 7.3 RBC 3.32 L Hgb 10.6 L Hct 30.9 L MCV 93.1 MCH 31.9 MCHC 34.3 RDW 13.4 Plt Count 198 MPV 9.6 Immature Gran % (Auto) 1.0 H Neut % (Auto) 75.0 H Lymph % (Auto) 11.1 L [place] % (Auto) 9.8 Eos % (Auto) 2.7 Baso % (Auto) 0.4 Lymph # (Auto) 0.8 L [place] # (Auto) 0.7 Eos # (Auto) 0.2 Baso # (Auto) 0.0 Abs Immat Gran (auto) 0.07 H Absolute Neuts (auto) 5.5 Absolute Nucleated RBC 0.000 Nucleated RBC % (auto) 0.0 PT Whole Blood PT 14.1 H INR Whole Blood INR 1.2 H APTT Sodium Potassium Chloride Carbon Dioxide Anion Gap BUN Creatinine Estim Creat Clear Calc Estimated GFR POC Glucose 82 Random Glucose Osmolality Lactic Acid Calcium Magnesium Total Bilirubin Direct Bilirubin AST ALT Alkaline Phosphatase Ammonia Total Creatine Kinase Troponin I High Sens C-Reactive Protein Total Protein Albumin Procalcitonin TSH Salicylates Urine Opiates Screen Urine Fentanyl Screen Acetaminophen Ur Barbiturates Screen Valproic Acid Ur Phencyclidine Scrn Ur Amphetamines Screen U Benzodiazepines Scrn Urine Cocaine Screen U Marijuana (THC) Screen Ethyl Alcohol COVID-19 ([facility]) COVID-[employer] 08/26/21 08/26/21 08/26/21 14:10 14:10 14:10 WBC RBC Hgb Hct MCV MCH MCHC RDW Plt Count MPV Immature Gran % (Auto) Neut % (Auto) Lymph % (Auto) [place] % (Auto) Eos % (Auto) Baso % (Auto) Lymph # (Auto) [place] # (Auto) Eos # (Auto) Baso # (Auto) Abs Immat Gran (auto) Absolute Neuts (auto) Absolute Nucleated RBC Nucleated RBC % (auto) PT 13.0 Whole Blood PT INR 1.1 Whole Blood INR APTT 30.9 Sodium 142 Potassium 3.6 Chloride 107 Carbon Dioxide 24 Anion Gap 15 BUN 20 H Creatinine 0.86 Estim Creat Clear Calc 73.3 Estimated GFR > 60 POC Glucose Random Glucose 84 Osmolality Lactic Acid Calcium 9.4 Magnesium Total Bilirubin Direct Bilirubin AST ALT Alkaline Phosphatase Ammonia Total Creatine Kinase 2455 H Troponin I High Sens 7.9 C-Reactive Protein Total Protein Albumin Procalcitonin TSH Salicylates Urine Opiates Screen Urine Fentanyl Screen Acetaminophen Ur Barbiturates Screen Valproic Acid Ur Phencyclidine Scrn Ur Amphetamines Screen U Benzodiazepines Scrn Urine Cocaine Screen U Marijuana (THC) Screen Ethyl Alcohol COVID-19 ([facility]) COVID-[employer] 08/26/21 08/26/21 08/26/21 14:10 14:10 14:10 WBC RBC Hgb Hct MCV MCH MCHC RDW Plt Count MPV Immature Gran % (Auto) Neut % (Auto) Lymph % (Auto) [place] % (Auto) Eos % (Auto) Baso % (Auto) Lymph # (Auto) [place] # (Auto) Eos # (Auto) Baso # (Auto) Abs Immat Gran (auto) Absolute Neuts (auto) Absolute Nucleated RBC Nucleated RBC % (auto) PT Whole Blood PT INR Whole Blood INR APTT Sodium Potassium Chloride Carbon Dioxide Anion Gap BUN Creatinine Estim Creat Clear Calc Estimated GFR POC Glucose Random Glucose Osmolality Lactic Acid Calcium Magnesium Total Bilirubin Direct Bilirubin AST ALT Alkaline Phosphatase Ammonia 29 Total Creatine Kinase Troponin I High Sens C-Reactive Protein Total Protein Albumin Procalcitonin TSH Salicylates Urine Opiates Screen Not Detected Urine Fentanyl Screen Not Detected Acetaminophen Ur Barbiturates Screen Not Detected Valproic Acid Ur Phencyclidine Scrn Not Detected Ur Amphetamines Screen Not Detected U Benzodiazepines Scrn Not Detected Urine Cocaine Screen Not Detected U Marijuana (THC) Screen Not Detected Ethyl Alcohol COVID-19 ([facility]) Negative COVID-19 [employer] See Note 08/26/21 08/26/21 08/26/21 14:14 14:14 17:47 WBC RBC Hgb Hct MCV MCH MCHC RDW Plt Count MPV Immature Gran % (Auto) Neut % (Auto) Lymph % (Auto) [place] % (Auto) Eos % (Auto) Baso % (Auto) Lymph # (Auto) [place] # (Auto) Eos # (Auto) Baso # (Auto) Abs Immat Gran (auto) Absolute Neuts (auto) Absolute Nucleated RBC Nucleated RBC % (auto) PT Whole Blood PT INR Whole Blood INR APTT Sodium Potassium Chloride Carbon Dioxide Anion Gap BUN Creatinine Estim Creat Clear Calc Estimated GFR POC Glucose Random Glucose Osmolality 296 Lactic Acid 1.1 Calcium Magnesium Total Bilirubin Direct Bilirubin AST ALT Alkaline Phosphatase Ammonia Total Creatine Kinase Troponin I High Sens C-Reactive Protein Total Protein Albumin Procalcitonin TSH Salicylates Urine Opiates Screen Urine Fentanyl Screen Acetaminophen Ur Barbiturates Screen Valproic Acid Ur Phencyclidine Scrn Ur Amphetamines Screen U Benzodiazepines Scrn Urine Cocaine Screen U Marijuana (THC) Screen Ethyl Alcohol < 10 COVID-19 ([facility]) COVID-19 [employer] 05/08/26/21 08/26/21 17:47 17:47 17:47 WBC RBC Hgb Hct MCV MCH MCHC RDW Plt Count MPV Immature Gran % (Auto) Neut % (Auto) Lymph % (Auto) [place] % (Auto) Eos % (Auto) Baso % (Auto) Lymph # (Auto) [place] # (Auto) Eos # (Auto) Baso # (Auto) Abs Immat Gran (auto) Absolute Neuts (auto) Absolute Nucleated RBC Nucleated RBC % (auto) PT Whole Blood PT INR Whole Blood INR APTT Sodium Potassium Chloride Carbon Dioxide Anion Gap BUN Creatinine Estim Creat Clear Calc Estimated GFR POC Glucose Random Glucose Osmolality Lactic Acid Calcium Magnesium Total Bilirubin Direct Bilirubin AST ALT Alkaline Phosphatase Ammonia 68 H Total Creatine Kinase Troponin I High Sens C-Reactive Protein Total Protein Albumin Procalcitonin 0.02 TSH Salicylates Urine Opiates Screen Urine Fentanyl Screen Acetaminophen Ur Barbiturates Screen Valproic Acid < 2.0 L Ur Phencyclidine Scrn Ur Amphetamines Screen U Benzodiazepines Scrn Urine Cocaine Screen U Marijuana (THC) Screen Ethyl Alcohol COVID-19 ([facility]) COVID-19 Clin Com 08/26/21 08/26/21 08/27/21 17:48 17:48 05:42 WBC RBC Hgb Hct MCV MCH MCHC RDW Plt Count MPV Immature Gran % (Auto) Neut % (Auto) Lymph % (Auto) [place] % (Auto) Eos % (Auto) Baso % (Auto) Lymph # (Auto) [place] # (Auto) Eos # (Auto) Baso # (Auto) Abs Immat Gran (auto) Absolute Neuts (auto) Absolute Nucleated RBC Nucleated RBC % (auto) PT Whole Blood PT INR Whole Blood INR APTT Sodium 147 H Potassium 3.4 Chloride 110 H Carbon Dioxide 25 Anion Gap 15 BUN 15 Creatinine 0.68 Estim Creat Clear Calc 92.7 Estimated GFR > 60 POC Glucose Random Glucose 65 Osmolality Lactic Acid Calcium 9.1 Magnesium 1.8 Total Bilirubin 1.0 Direct Bilirubin 0.5 AST 151 H ALT 110 H Alkaline Phosphatase 113 Ammonia Total Creatine Kinase 1304 H D Troponin I High Sens 6.9 C-Reactive Protein 1.60 H Total Protein 5.9 L Albumin 3.5 Procalcitonin TSH 3.91 Salicylates < 5.0 L Urine Opiates Screen Urine Fentanyl Screen Acetaminophen < 1 Ur Barbiturates Screen Valproic Acid Ur Phencyclidine Scrn Ur Amphetamines Screen U Benzodiazepines Scrn Urine Cocaine Screen U Marijuana (THC) Screen Ethyl Alcohol COVID-19 ([facility]) COVID-19 Clin Com Imaging Radiologist's impression: Impressions Head CT 08/26/21 13:43 IMPRESSION: Limited exam due to motion. No acute findings. This critical result was discussed with Mookie Frank at 1358 hours on 08/26/2021. It was ascertained that the content and urgency of the report was understood at the time of direct communication. Chest X-Ray 08/26/21 14:55 IMPRESSION: No acute pulmonary pathology. Assessment and Plan (1) Sinus bradycardia: Status: Acute Sinus bradycardia in this elderly man who was brought in for psychiatric disorder, noted only while he was asleep. His heart rate on arousal as well as with conversation increases easily into 70s. There are no clear significant pauses noted. There are no hemodynamic compromise. Patient has no symptoms of syncope or near-syncope recently. He also received olanzapine which is reported sometimes to cause bradycardia. I do not think this bradycardia is pathological and appears to be more physiological. At this point time no interventions required. Avoid rate lowering medications this gentleman. Will sign of the case. Thank you for allowing me to partake in his care Procedures Date of Service Date of Service: 08/27/21
--- NOTE | 2021-08-27 15:34 | PC.NURSE ---
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 he did request lunch and water which he ate and drank. pt is accepting of redirection and interventions
--- NOTE | 2021-08-27 15:49 | MHC.CM.PN ---
unablde to reach hcp or family members dc plan tbd at this time
--- NOTE | 2021-08-27 17:08 | PC.NURSE ---
liban fitch (sister) [phone]
--- NOTE | 2021-08-27 17:40 | PC.NURSE ---
pt abruptly stood up at bedside, peed in water pitcher and on floor. pt re-directable to bed. replaced cardiac stickers and anastacio which was wet.
[2021-08-27 18:09] VITALS: BP 112/90; PULSE 52; RESP 10; O2SAT 94
[2021-08-27] MEDS: Enoxaparin Sodium 40 MG/0.4 ML SYRINGE SUBCUT (18:13)
[2021-08-27 19:04] VITALS: BP 115/62; PULSE 67; RESP 16; TEMP 36.2; O2SAT 99
[2021-08-27] MEDS: traZODone HCL 50 MG TABLET PO (20:17)
[2021-08-27 23:32] VITALS: BP 116/75; PULSE 72; RESP 18; TEMP 37; O2SAT 100
--- NOTE | 2021-08-28 01:57 | PC.NURSE ---
At beginning of shift patient was very agitated, trying to walk to bathroom and very unsteady. When asked to be careful, patient urinated on the floor and was swinging his arms, yelling get away from me! Pt. very confused, irritable, expressing manic behaviors changing subjects quickly and unable to re-direct. Security called up to floor to assist with de-escalation. MD made aware and order for 50mg PO trazadone ordered. After much encouragement, education and explanation from nurse and security patient did take the PO medicine compliantly. However, still restless and needing frequent re-direction. 1:1 sitter placed. Pt. doing better with this but still requiring re-direction and education. Pt. is unsteady on his feet but also very resistive to care. Will continue to monitor and reassess.
[2021-08-28 07:28] LABS: HIV AB/AG Nonreactive (Nonreactive); HIV Num 1 0.06 S/CO (0.00-0.99)
[2021-08-28 07:55] LABS: Syphilis Screen Nonreactive (Nonreactive)
[2021-08-28 07:57] VITALS: BP 106/56; PULSE 70; RESP 18; TEMP 36.1; O2SAT 99
[2021-08-28 08:16] LABS: Folate 16.3 ng/mL (> or = 4.0)
[2021-08-28 08:36] LABS: Vitamin B12 1285 pg/mL (200-900)
[2021-08-28] MEDS: 0.9 % Sodium Chloride Flush 3 ML SYRINGE IVFLUSH (08:38)
[2021-08-28 09:43] LABS: Hematocrit 32.6 % (42.0-52.0); Hemoglobin 11.2 g/dl (14.0-18.0); Mean Corpuscular HGB Conc 34.4 g/dl (31.0-36.0); Mean Corpuscular Hemoglobin 31.7 pg (27.0-33.0); Mean Corpuscular Volume 92.4 fL (80.0-98.0); Mean Platelet Volume 9.2 fL (9.4-12.4); Platelet Count 193 X10*3/uL (160-400); Red Blood Count 3.53 X10*6/uL (4.60-5.80); Red Cell Distribution Width 13.7 % (11.0-16.0); White Blood Count 7.4 X10*3/uL (4.8-10.8)
[2021-08-28 10:08] LABS: Alanine Aminotransferase 97 U/L (0-40); Albumin Level 3.3 g/dL (3.5-5.0); Alkaline Phosphatase 126 U/L (39-117); Anion Gap 11 (12-20); Aspartate Amino Transferase 99 U/L (5-37); Bilirubin Total 0.7 mg/dL (0.0-1.0); Blood Urea Nitrogen 30 mg/dL (9-16); Calcium 8.8 mg/dL (8.4-10.2); Carbon Dioxide 29 mmol/L (22-29); Chloride 104 mmol/L (96-108); Creatinine Clr Calc Pharmacy 65.7; Estimated Glomerular Filt Rate > 60; Glucose Random 214 mg/dL (60-115); Potassium 3.3 mmol/L (3.3-5.1); Sodium 141 mmol/L (135-145); Total Protein 5.5 g/dL (6.5-8.0)
[2021-08-28 10:26] LABS: HBS Num1 7.59 mIU/mL (0-7.99); HBc Num1 0.05 S/CO (0.00-0.79); HBsAGNum1 0.24 S/CO (0.00-0.99); Hepatitis B Core Antibody Nonreactive (Nonreactive); Hepatitis B Surface Antigen Negative (Negative); ~HepC Num1 0.05 S/CO (0.00-0.79); ~Hepatitis B Surface Antibody NONREACTIVE (Nonreactive); ~Hepatitis C Antibody Nonreactive (Nonreactive)
--- NOTE | 2021-08-28 10:41 | PM.DS ---
DS: Providers Provider Date of Service: 08/28/21 Date of admission: 08/26/21 17:04 Date of discharge: 08/28/21 Primary care physician: Kinga Patrick MD Consults: 08/26/21 16:48 Consult to Psychiatry Routine Consulting Provider: Psych Covering Reason for consultation: completely altered. schizoaffective/bipolar, at [facility] 05/25-06/06/21, 08/27/21 00:25 Consult to Cardiology Routine Consulting Provider: Rayo De La Rosa Reason for consultation: Bradycardia 08/28/21 07:42 Consult to Psychiatry Stat Consulting Provider: Psych Covering Reason for consultation: 2nd request. pt with florid susie/schizoaffective 08/28/21 07:43 BHN [Consult to Crisis] Stat Reason for consultation: florid susie/ schizoaffective Consult to Care Team Stat Comment: Reason for consultation: florid susie/ schizoaffective DS: Diagnosis Discharge Diagnosis (1) Schizoaffective disorder: Status: Acute (2) Alcohol use with alcohol-induced disorder: Status: Acute (3) Rhabdomyolysis: Status: Acute (4) Bipolar affective, manic: Status: Acute (5) Sinus bradycardia: Status: Acute DS: Summary Hospital Course Hospital Course: from my admission H+P, 08/26/21 History as per ED as patient is completely altered and is speaking nonsensically, with inappropriate sentences that are not relevant to the questions being asked. 66yo M brought in by EMS and police, found wandering around the streets near a [place] acting erratically and speaking gibberish. No focal motor findings.? No record of this patient in our EHR.? I looked him up in the [facility] EHR.? He was admitted there from 05/25-06/06/21 for acute psychosis and carries diagnoses of bipolar-type schizoaffective disorder and alcohol use disorder.? Supposed to be on valproate and cariprazine. CT head normal.? Noted to have rhabdomyolysis with CPK of 2455.? Serum creatinine normal at 0.86.? Urine toxicology was negative.? Notably, at the prior admission at [facility], he ingested some kind of homemade edible [cannabinoid?] susbstance This 66yo M with bipolar-type schizoaffective disorder came in with pressured speech, grandiosity, and erratic behavior. He was admitted to the medical service for IV hydration for mild rhabdomyolysis without renal injury. He was also given IV thiamine given history of alcohol use disorder to treat any component of Wernicke-Korsakoff syndrome. Ultimately, though, his presentation was more consistent with decompensation of his schizoaffective disorder. He admitted to not taking his psychiatric medications. He had persistent, florid manic symptoms. He was transferred to Psychiatry for inpatient stabilization. Time Spent with Patient Time attestation: Total time spent providing and/or coordinating discharge services: Discharge coordination time: Greater than 30 minutes Quality: Safe Use of Opioids Does Pt have an Active Cancer Diagnosis on the Problem List?: No Quality: Stroke Does the patient have a stroke diagnosis?: No Physical Exam Vital Signs: Vital Signs: Last Vital Signs Temp 96.9 F 08/28/21 07:57 Pulse 70 08/28/21 07:57 Resp 18 08/28/21 07:57 BP 106/56 L 08/28/21 07:57 Pulse Ox 99 08/28/21 07:57 BMI result Body Mass Index 18.3 Gen: in no acute distress, disheveled HEENT: sclera anicteric, moist mucus membranes Neck: supple Lungs: clear to auscultation bilaterally Heart: regular rate and rhythm, no murmurs Abd: soft, non-tender, non-distended Ext: no edema Skin: warm/well-perfused Neuro: disoriented Psych: pressured speech, impaired insight, grandiose ? DS: Data Data Completed and Pending Completed studies during hospitalization [Text1]: Laboratory Results WBC 7.4 X10*3/uL (4.8-10.8) 08/28/21 09:36 RBC 3.53 X10*6/uL (4.60-5.80) L 08/28/21 09:36 Hgb 11.2 g/dl (14.0-18.0) L 08/28/21 09:36 Hct 32.6 % (42.0-52.0) L 08/28/21 09:36 MCV 92.4 fL (80.0-98.0) 08/28/21 09:36 MCH 31.7 pg (27.0-33.0) 08/28/21 09:36 MCHC 34.4 g/dl (31.0-36.0) 08/28/21 09:36 RDW 13.7 % (11.0-16.0) 08/28/21 09:36 Plt Count 193 X10*3/uL (160-400) 08/28/21 09:36 MPV 9.2 fL (9.4-12.4) L 08/28/21 09:36 Immature Gran % (Auto) 1.0 % (0.0-0.4) H 08/26/21 14:10 Neut % (Auto) 75.0 % (45-73) H 08/26/21 14:10 Lymph % (Auto) 11.1 % (20-40) L 08/26/21 14:10 [place] % (Auto) 9.8 % (2-11) 08/26/21 14:10 Eos % (Auto) 2.7 % (0-4) 08/26/21 14:10 Baso % (Auto) 0.4 % (0-2) 08/26/21 14:10 Lymph # (Auto) 0.8 X10*3/uL (1.2-4.9) L 08/26/21 14:10 [place] # (Auto) 0.7 X10*3/uL (0.1-1.2) 08/26/21 14:10 Eos # (Auto) 0.2 X10*3/uL (0.0-0.4) 08/26/21 14:10 Baso # (Auto) 0.0 X10*3/uL (0.0-0.2) 08/26/21 14:10 Abs Immat Gran (auto) 0.07 X10*3/uL (0.00-0.03) H 08/26/21 14:10 Absolute Neuts (auto) 5.5 x10*3/uL (2.0-8.3) 08/26/21 14:10 Absolute Nucleated RBC 0.000 X10*3/uL (0.0-0.012) 08/28/21 09:36 Nucleated RBC % (auto) 0.0 /100WBC (0.0-0.2) 08/28/21 09:36 PT 13.0 SEC (9.9-13.0) 08/26/21 14:10 Whole Blood PT 14.1 sec (11.1-13.5) H 08/26/21 14:07 INR 1.1 (0.9-1.1) 08/26/21 14:10 Whole Blood INR 1.2 (0.9-1.1) H 08/26/21 14:07 APTT 30.9 SEC (24.1-38.0) 08/26/21 14:10 Sodium 141 mmol/L (135-145) 08/28/21 09:36 Potassium 3.3 mmol/L (3.3-5.1) 08/28/21 09:36 Chloride 104 mmol/L (96-108) 08/28/21 09:36 Carbon Dioxide 29 mmol/L (22-29) 08/28/21 09:36 Anion Gap 11 (12-20) L 08/28/21 09:36 BUN 30 mg/dL (9-16) H D 08/28/21 09:36 Creatinine 0.96 mg/dL (0.5-1.4) 08/28/21 09:36 Estim Creat Clear Calc 65.7 08/28/21 09:36 Estimated GFR > 60 08/28/21 09:36 POC Glucose 82 mg/dL (60-115) 08/26/21 14:03 Random Glucose 214 mg/dL (60-115) H D 08/28/21 09:36 Osmolality 296 mosm/kg (281-305) 08/26/21 17:47 Lactic Acid 1.1 mmol/L (0.5-2.0) 08/26/21 14:14 Calcium 8.8 mg/dL (8.4-10.2) 08/28/21 09:36 Magnesium 1.8 mg/dL (1.6-2.6) 08/27/21 05:42 Total Bilirubin 0.7 mg/dL (0.0-1.0) 08/28/21 09:36 Direct Bilirubin 0.5 mg/dL (0.0-0.5) 08/26/21 17:48 AST 99 U/L (5-37) H 08/28/21 09:36 ALT 97 U/L (0-40) H 08/28/21 09:36 Alkaline Phosphatase 126 U/L (39-117) H 08/28/21 09:36 Ammonia 68 umol/L (13-55) H 08/26/21 17:47 Total Creatine Kinase 1009 U/L (38-174) H 08/28/21 09:36 Troponin I High Sens 6.9 ng/L (<3.5-35.0) 08/26/21 17:48 C-Reactive Protein 1.60 mg/dL (< or = 0.50) H 08/26/21 17:48 Total Protein 5.5 g/dL (6.5-8.0) L 08/28/21 09:36 Albumin 3.3 g/dL (3.5-5.0) L 08/28/21 09:36 Vitamin B12 1285 pg/mL (200-900) H 08/26/21 17:48 Folate 16.3 ng/mL (> or = 4.0) 08/27/21 05:42 Procalcitonin 0.02 ng/mL 08/26/21 17:47 TSH 3.91 uIU/mL (0.32-4.0) 08/26/21 17:48 Salicylates < 5.0 mg/dL (15-30) L 08/26/21 17:48 Urine Opiates Screen Not Detected (Not Detect) 08/26/21 14:10 Urine Fentanyl Screen Not Detected (Not Detect) 08/26/21 14:10 Acetaminophen < 1 mcg/mL (<30) 08/26/21 17:48 Ur Barbiturates Screen Not Detected (Not Detect) 08/26/21 14:10 Valproic Acid < 2.0 mcg/mL (50.0-100.0) L 08/26/21 17:47 Ur Phencyclidine Scrn Not Detected (Not Detect) 08/26/21 14:10 Ur Amphetamines Screen Not Detected (Not Detect) 08/26/21 14:10 U Benzodiazepines Scrn Not Detected (Not Detect) 08/26/21 14:10 Urine Cocaine Screen Not Detected (Not Detect) 08/26/21 14:10 U Marijuana (THC) Screen Not Detected (Not Detect) 08/26/21 14:10 Ethyl Alcohol < 10 mg/dL 08/26/21 14:14 T.pallidum Ab (EIA) Nonreactive (Nonreactive) 08/26/21 17:47 COVID-19 (ELVIS) Negative (Negative) 08/26/21 14:10 COVID-19 Clin Com See Note 05/14/22 14:10 Hep Bs Antigen Negative (Negative) 08/28/21 09:36 Hep Bs Antibody NONREACTIVE (Nonreactive) 08/28/21 09:36 Hep B Core Total Ab Nonreactive (Nonreactive) 08/28/21 09:36 Hepatitis C Ab (EIA) Nonreactive (Nonreactive) 08/28/21 09:36 HIV 1&2 Ab/P24 Ag 4thGn Nonreactive (Nonreactive) 08/26/21 17:[address] 08/26/21 13:43 IMPRESSION: Limited exam due to motion. No acute findings. This critical result was discussed with Mookie Frank at 1358 hours on 08/26/2021. It was ascertained that the content and urgency of the report was understood at the time of direct communication. Chest X-Ray 08/26/21 14:55 IMPRESSION: No acute pulmonary pathology. Discharge Plan Discharge Patient Disposition: Xfer Psychiatric Hosp Discharge Diagnosis: psychosis, susie, rhabdomyolysis, alcohol use disorder Referrals: Kinga Patrick MD [Primary Care Provider] - 1 Week Gen Callahan MD [Physician] - 1 Week Discharge Medications: New nicotine (polacrilex) 2 mg Gum 2 mg buccal Q2H PRN (Reason: nicotine cravings) Qty: 50 0RF thiamine mononitrate (vit B1) 100 mg tablet 100 mg PO DAILY Qty: 30 0RF Discharge Orders: Discharge Order (Routine); Ordered 08/28/21 Ordered By: Lupe Rosario Diet: advance to usual diet Activity on Discharge: As tolerated Stand Alone Forms: Patient Portal Discharge page Care Plan Goals: psychiatric stabilization Health Concerns: psychosis, susie, rhabdomyolysis, alcohol use disorder Plan of Treatment: inpatient psychiatry for stabilization take thiamine 100 mg daily and avoid alcohol quit smoking Assessment: See Discharge Summary Patient Instructions: Psychotic Disorder (DC)
[2021-08-28 11:13] VITALS: BP 124/63; PULSE 75; RESP 17; TEMP 36.1; O2SAT 95
--- NOTE | 2021-08-28 11:52 | MHC.CM.PN ---
PT TO BE TRANSFERRED TO [facility]
[2021-08-28 15:24] VITALS: BP 114/67; PULSE 75; RESP 14; TEMP 37; O2SAT 100
--- NOTE | 2021-08-28 15:39 | PC.NURSE ---
Pt restless and anxious this shift. Pacing and walking continuously around room. Continuously talking to sitter. Not making 100% sense in his conversation. 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 Dr Rosario aware. Awaiting Psych bed
--- NOTE | 2021-08-28 20:10 | P.HPPS_ITS ---
HPI Chief Complaint: Rhabdomyolysis, encephalopathy [facility] Medical History Alcohol use with alcohol-induced disorder Schizoaffective disorder Schizoaffective disorder, bipolar type Diagnostics Vital Signs (24Hr): Vital Signs - 24 hr 08/27/21 23:32 08/28/21 07:57 08/28/21 11:13 Temperature 98.6 F 96.9 F 96.9 F Pulse Rate 72 70 75 Respiratory Rate 18 18 17 Blood Pressure 116/75 106/56 L 124/63 Pulse Oximetry 100 99 95 08/28/21 15:24 Temperature 98.6 F Pulse Rate 75 Respiratory Rate 14 Blood Pressure 114/67 Pulse Oximetry 100 BMI result Body Mass Index 18.3 Labs Results: 08/28/21 09:36 08/28/21 09:36 Labs: Laboratory Results - last 48 hr 08/26/21 08/26/21 08/26/21 17:47 17:47 17:48 WBC RBC Hgb Hct MCV MCH MCHC RDW Plt Count MPV Absolute Nucleated RBC Nucleated RBC % (auto) Sodium Potassium Chloride Carbon Dioxide Anion Gap BUN Creatinine Estim Creat Clear Calc Estimated GFR Random Glucose Calcium Magnesium Total Bilirubin AST ALT Alkaline Phosphatase Total Creatine Kinase Total Protein Albumin Vitamin B12 1285 H Folate T.pallidum Ab (EIA) Nonreactive Hep Bs Antigen Hep Bs Antibody Hep B Core Total Ab Hepatitis C Ab (EIA) HIV 1&2 Ab/P24 Ag 4thGn Nonreactive 08/27/21 08/27/21 08/28/21 05:42 05:42 09:36 WBC RBC Hgb Hct MCV MCH MCHC RDW Plt Count MPV Absolute Nucleated RBC Nucleated RBC % (auto) Sodium 147 H 141 Potassium 3.4 3.3 Chloride 110 H 104 Carbon Dioxide 25 29 Anion Gap 15 11 L BUN 15 30 H D Creatinine 0.68 0.96 Estim Creat Clear Calc 92.7 65.7 Estimated GFR > 60 > 60 Random Glucose 65 214 H D Calcium 9.1 8.8 Magnesium 1.8 Total Bilirubin 0.7 AST 99 H ALT 97 H Alkaline Phosphatase 126 H Total Creatine Kinase 1304 H D 1009 H Total Protein 5.5 L Albumin 3.3 L Vitamin B12 Folate 16.3 T.pallidum Ab (EIA) Hep Bs Antigen Hep Bs Antibody Hep B Core Total Ab Hepatitis C Ab (EIA) HIV 1&2 Ab/P24 Ag 4thGn 08/28/21 08/28/21 09:36 09:36 WBC 7.4 RBC 3.53 L Hgb 11.2 L Hct 32.6 L MCV 92.4 MCH 31.7 MCHC 34.4 RDW 13.7 Plt Count 193 MPV 9.2 L Absolute Nucleated RBC 0.000 Nucleated RBC % (auto) 0.0 Sodium Potassium Chloride Carbon Dioxide Anion Gap BUN Creatinine Estim Creat Clear Calc Estimated GFR Random Glucose Calcium Magnesium Total Bilirubin AST ALT Alkaline Phosphatase Total Creatine Kinase Total Protein Albumin Vitamin B12 Folate T.pallidum Ab (EIA) Hep Bs Antigen Negative Hep Bs Antibody NONREACTIVE Hep B Core Total Ab Nonreactive Hepatitis C Ab (EIA) Nonreactive HIV 1&2 Ab/P24 Ag 4thGn Imaging Radiology Impressions: ITS Impressions Head CT 08/26/21 13:43 IMPRESSION: Limited exam due to motion. No acute findings. This critical result was discussed with Mookie Frank at 1358 hours on 08/26/2021. It was ascertained that the content and urgency of the report was understood at the time of direct communication. Chest X-Ray 08/26/21 14:55 IMPRESSION: No acute pulmonary pathology. Meds/Allergies Meds Home Medications Cariprazine (Cariprazine Hcl 1.5 Mg Capsule) 1.5 mg PO DAILY IAN Folic Acid (Folic Acid 1 Mg Tablet) 1 mg PO DAILY IAN Pyridoxine HCl (Pyridoxine Hcl (Vitamin B6) 50 Mg Tablet) 25 mg PO DAILY IAN Allergies Allergies Allergy/AdvReac Type Severity Reaction Status Date / Time No Known Allergies Allergy Verified 08/26/21 13:36
[2021-09-07 05:22] LABS: Vitamin B1 >1200 nmol/L (8-30)
== END 2021-08-28 18:07 | DRG 558 ==
LOC: HO.ED 16:56 → HO.EDOVER 17:05 → HO.IMC 08-27 17:18
PROVIDERS: Admitting Provider Family Medicine; Emergency Provider Emergency Medicine; PCP Internal Medicine; Visit Provider Family Medicine
DX: M62.82 Rhabdomyolysis (principal); F10.150 Alcohol abuse with alcohol-induced psychotic disorder with delusions; F25.0 Schizoaffective disorder, bipolar type; F17.200 Nicotine dependence, unspecified, uncomplicated; R00.1 Bradycardia, unspecified; Z20.822 Contact with and (suspected) exposure to COVID-19; Z91.14 Patient's other noncompliance with medication regimen; Z79.899 Other long term (current) drug therapy
CPT/HCPCS: 36415; 70450; 71045; 80048; 80053; 80076; 80143; 80164; 80179; 80307; 82077; 82140; 82550; 82607; 82746; 82947; 83605; 83735; 83930; 84145; 84425; 84443; 84484; 85025; 85027; 85610; 85730; 86140; 86704; 86706; 86780; 86803; 87040; 87340; 87389; 87635; 93005; 96361; 96374; 99285; J1650; J2060; J3411

== ENCOUNTER 2021-08-28 17:29 | Inpatient (IN) | payer MEDICARE, SELFPAY ==
--- NOTE | ~2021-08-28 | MR_ITS ---
EXAMINATION: MR BRAIN WITHOUT CONTRAST CLINICAL INFORMATION: Wernicke-Korsakoff syndrome COMPARISON: CT head from 08/26/2021. TECHNIQUE: MRI of the brain was obtained using routine sequences without contrast. FINDINGS: Moderately motion degraded exam. No focal restricted diffusion is demonstrated to suggest acute or subacute cerebral ischemia. No evidence of acute or chronic hemorrhagic products on heme-sensitive imaging. Scattered periventricular and deep white matter T2 FLAIR hyperintensities consistent with mild underlying microangiopathy. Proportional prominence of the ventricles and sulcal spaces without evidence of obstructive hydrocephalus. The third ventricle measures up to 1.1 cm in diameter. Prominent CSF space within the anterior aspect of the left middle cranial fossa, measuring 4.1 x 2.4 x 2.8 cm. The posterior callosal angle is normal (95 degrees) when measured on a corrected coronal image, orthogonal to the anterior commissure-posterior commissure line. No additional abnormal mass effect. No midline shift. Normal appearance of the pituitary gland. Normal positioning of the cerebellar tonsils. Normal arterial and venous vascular flow voids are present. Normal, homogeneous marrow signal. Mild mucosal thickening of the paranasal sinuses. No signal abnormalities within the mastoids. MR/MR head/brain wo con IMPRESSION: 1. No acute intracranial abnormalities. 2. Mild underlying microangiopathy. No parenchymal signal abnormalities to strongly correlate with Wernicke-Korsakoff syndrome. 3. Moderate generalized cerebral volume loss.
[2021-08-28 19:40] VITALS: BP 114/71; PULSE 92; TEMP 37
--- NOTE | 2021-08-29 01:02 | PC.ADMIT ---
A single, white, male aged 66 years was [facility] 1900 as a CV following referral from [facility] and CARE team. Pt has no previous admissions here, but is known to [employer] who have not heard from pt for about one year following a period of daily calls. Pt was brought to [facility] on 08/26/21 via EMS after bystanders had observed the pt at a gas station behaving erratically and talking to himself for hours. Pt reported he was locked out of his car but was unable to understand how he had come to the hospital. Pt was admitted to [facility] for rhabdomyolysis. Pt has a history of bipolar d/o and daily Etoh use. Pt disrobed in bedroom shortly after arrival and initially was refusing assistance putting on clothing. Pt's roommate had to be moved to another room because of the disrobing. Pt was very hyperverbal and spoke in loose associations while standing naked in the room with one hand covering his genitals and gesturing emphatically with the other hand. Pt denied SI/HI and said he can seek out help from staff. Pt denied pain. Pt declined offer of PRN seroquel to help with agitation and racing thoughts. Pt was unable to participate fully in the admission due to mental status. Pt had reported in the previous assessment that he had not consumed alcohol for a period of weeks and [facility] staff did not observe any withdrawal symptoms. Medical issues are an unknown at this time due to pt being a poor historian. Yjter-pl-Xdyyi done, treatment plan done and admission orders obtained. Pt is resting in room on 15 minute safety checks at this time.
--- NOTE | 2021-08-29 01:38 | P.HPPS_ITS ---
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 He presented to [facility] on 08/26/21 after being found wandering around the streets near a gas station acting erratically and speaking gibberish. Head CT was normal. Pt was found to have CPK of 2455. Utox was negative. Pt was medically admitted for IV hydration for mild rhabdomyolysis without renal injury.? He was also given IV thiamine given history of alcohol use disorder to treat any component of Wernicke- Korsakoff syndrome. On the medical floor, pt was noted to have had persistent, florid manic symptoms prompting this current psych admission.? Per CARE team caitlyn, at baseline pt is ?jovial? and often about yarsani themes. He has hx of daily alcohol use, hypomania, and med non-adherence. Pt lacks insight into his situation.? I attempted to evaluate the pt, however he was largely unintelligible, tangential, and with racing thoughts. He was found standing in his bathroom doorway naked. He was unable to participate in interview.? Past Psychiatric History: -Past meds: Depakote 500 mg QHS, vraylar 3 mg. -Pt recently seen at [facility] 06/06/21 for acute psychosis, admitted to [facility], was re-started on vraylar 1.5 mg but has been non-adherent. 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 However, unable to sustain employment due to his alcohol use. -Reports he resides alone and housing is stable and safe to return. -, for nine years, has two children. Estranged from family. Says he has a guru. Diagnostics Vital Signs (24Hr): Vital Signs - 24 hr 08/28/21 19:40 Temperature 98.6 F Pulse Rate 92 Blood Pressure 114/71 Meds/Allergies Meds Home Medications Acetaminophen (Acetaminophen 325 Mg Tablet) 650 mg PO Q6H PRN PRN Reason: Headache/Pain Mild Scale (1-3) Al Hydroxide/Mg Hydroxide (Magnesium Hydrox/Alum Hydrox 30 Ml Oral.Susp) 30 ml PO Q6H PRN PRN Reason: Heartburn/Nausea Cariprazine (Cariprazine Hcl 1.5 Mg Capsule) 1.5 mg PO DAILY [facility] Last Admin: 09/04/21 08:35 Dose: Not Given Documented by: Folic Acid (Folic Acid 1 Mg Tablet) 1 mg PO DAILY [facility] Last Admin: 09/04/21 08:25 Dose: 1 mg Documented by: Hydroxyzine HCl (Hydroxyzine Hcl 25 Mg Tablet) 25 mg PO Q6H PRN PRN Reason: Anxiety Last Admin: 09/03/21 22:18 Dose: 25 mg Documented by: Magnesium Hydroxide (Milk Of Magnesia 30 Ml Oral.Susp) 30 ml PO DAILY PRN PRN Reason: Constipation Multivitamins/Vitamin C (Multivitamin Tablet) 1 tab PO DAILY [facility] Last Admin: 09/04/21 08:25 Dose: 1 tab Documented by: Nicotine Polacrilex (Nicotine Polacrilex 2 Mg Gum) 2 mg BUCCAL Q2H PRN PRN Reason: nicotine cravings Quetiapine Fumarate (Quetiapine Fumarate 50 Mg Tablet) 50 mg PO BEDTIME PRN PRN Reason: sleep, agitation Last Admin: 09/03/21 22:26 Dose: 50 mg Documented by: Quetiapine Fumarate (Quetiapine Fumarate 50 Mg Tablet) 50 mg PO BID [facility] Last Admin: 09/03/21 22:16 Dose: 50 mg Documented by: Quetiapine Fumarate (Quetiapine Fumarate 25 Mg Tablet) 25 mg PO BID [facility] Last Admin: 09/04/21 08:36 Dose: Not Given Documented by: Thiamine HCl (Thiamine Hcl 100 Mg Tablet) 50 mg PO DAILY [facility] Last Admin: 09/04/21 08:25 Dose: 50 mg Documented by: Thiamine HCl (Thiamine Hcl 100 Mg Tablet) 100 mg PO DAILY [facility] Last Admin: 09/03/21 09:37 Dose: Not Given Documented by: Trazodone HCl (Trazodone Hcl 50 Mg Tablet) 50 mg PO BEDTIME PRN PRN Reason: Insomnia Last Admin: 09/04/21 00:25 Dose: 50 mg Documented by: Allergies Allergies Allergy/AdvReac Type Severity Reaction Status Date / Time No Known Allergies Allergy Verified 08/26/21 13:36 Mental Status Exam Mental Status Exam Narrative: A but not oriented to situation. Found naked standing in bathroom doorway, thin older adult male. Poor eye contact, inattentive. No Tics or Tremors. No abnormal involuntary movements. Somewhat agitated/ activated, nonsensical. Pressured speech, spontaneous with regular rate and rhythm, normal volume and prosody. No prolonged speech latency or dysarthria. Mood is [did not state], affect is anxious. No imminent safety concerns. Unable to assess if pt is having hallucinations. Thoughts are tangential, unintelligible. Has cognitive/ memory impairment due to chronic daily drinking. Insight/ Judgment limited/ poor. 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 He presented to [facility] on 08/26/21 after being found wandering around the streets near a gas station acting erratically and speaking gibberish. Head CT was normal. Utox was negative. Ethyl alcohol negative. Pt was medically admitted for IV hydration for mild rhabdomyolysis without renal injury.?Also given IV thiamine given history of alcohol use disorder to treat any component of Wernicke-Korsakoff syndrome. On the medical floor, pt was noted to have had persistent, florid manic symptoms prompting this current psych admission.? Plan: UA not ordered, will obtain. Will re-start vraylar at 1.5 mg QD. Will start thiamine, folic acid, multivitamin.? Q15 min safety checks, CV Monitor response to medications. Monitor for safety in the milieu. Discharge on stabilization. Patient seen. Chart reviewed. Discussed with team. Obtain collateral contact info?as needed Patient educated on: other Reason for continued inpatient stay Substantial Risk for: inability to function, rapid decompensation and med/psych decompensation
[2021-08-29 06:00] VITALS: BP 118/74; PULSE 96; RESP 18; TEMP 36.9; O2SAT 96
[2021-08-29] MEDS: Thiamine HCL 100 MG TABLET 50 MG PO (08:56)
[2021-08-29] MEDS: Multivitamin TABLET 1 TAB PO (08:56)
[2021-08-29] MEDS: Folic Acid 1 MG TABLET PO (08:56)
[2021-08-29 08:59] LABS: Estimated Average Glucose 108 mg/dL; Hemoglobin A1c % 5.4 %
[2021-08-29 09:21] LABS: Cholesterol 151 mg/dL; HDL Cholesterol 55 mg/dL; LDL Cholesterol Calculated 56 mg/dl; Magnesium 1.9 mg/dL (1.6-2.6); Triglycerides 200 mg/dL
[2021-08-29 09:33] LABS: Free T4 (Free Thyroxine) 0.94 ng/dL (0.71-1.85); Thyroid Stimulating Hormone 4.41 uIU/mL (0.32-4.0)
[2021-08-29 10:07] LABS: Folate 6.7 ng/mL (> or = 4.0); Vitamin B12 1006 pg/mL (200-900)
[2021-08-29] MEDS: Thiamine HCL 100 MG TABLET PO (12:24)
--- NOTE | 2021-08-29 15:19 | HO.PSYCHPN ---
Subjective Subjective Date of Service: 08/29/21 Reason For Visit: Psychotic, AUD Interim History: the patient was transferred from an Psychiatric Unit to the [facility] unit. On interview the patient was nonsensical and mostly word salad but he was very pleasant and cooperative, trying to fall over the interview. He denies new symptoms he states that he had a hard time trying to find olive oil l and he was worried about his next meal. Medication Compliance: Yes Side effects from medications: No Review of Systems Acute medical concerns: No Medical Review of Systems: unchanged Mental Status Exam Mental Status Exam Patient Appearance: Disheveled Patient Orientation: Person and Place Level of Consciousness: Awake Patient Behavior: Cooperative Mood Description: Happy Affect Description: Labile Patient Cognition Impaired: Yes Ability to Follow Directions: Fair Speech Pattern: Impoverished and Garbled Thought Process: Illogical and Word Salad Thought Content: positive for [place] and positive for Poverty of Content Judgement: Poor Diagnostics Vital Signs (24Hr): Vital Signs - 24 hr 08/28/21 19:40 08/29/21 06:00 Temperature 98.6 F 98.4 F Pulse Rate 92 96 Respiratory Rate 18 Blood Pressure 114/71 118/74 Pulse Oximetry 96 Labs Labs: Laboratory Results - last 48 hr 08/29/21 08/29/21 08/29/21 07:56 07:56 07:56 Estimat Average Glucose 108 Hemoglobin A1c % 5.4 Magnesium 1.9 Triglycerides 200 Cholesterol 151 LDL Cholesterol, Calc 56 HDL Cholesterol 55 Vitamin B12 1006 H Folate 6.7 TSH 4.41 H Free T4 0.94 Medications Medications Current Medications Acetaminophen (Acetaminophen 325 Mg Tablet) 650 mg PO Q6H PRN PRN Reason: Headache/Pain Mild Scale (1-3) Al Hydroxide/Mg Hydroxide (Magnesium Hydrox/Alum Hydrox 30 Ml Oral.Susp) 30 ml PO Q6H PRN PRN Reason: Heartburn/Nausea Cariprazine (Cariprazine Hcl 1.5 Mg Capsule) 1.5 mg PO DAILY [facility] Last Admin: 08/29/21 12:20 Dose: Not Given Documented by: Folic Acid (Folic Acid 1 Mg Tablet) 1 mg PO DAILY [facility] Last Admin: 08/29/21 08:56 Dose: 1 mg Documented by: Hydroxyzine HCl (Hydroxyzine Hcl 25 Mg Tablet) 25 mg PO Q6H PRN PRN Reason: Anxiety Magnesium Hydroxide (Milk Of Magnesia 30 Ml Oral.Susp) 30 ml PO DAILY PRN PRN Reason: Constipation Multivitamins/Vitamin C (Multivitamin Tablet) 1 tab PO DAILY [facility] Last Admin: 08/29/21 08:56 Dose: 1 tab Documented by: Nicotine Polacrilex (Nicotine Polacrilex 2 Mg Gum) 2 mg BUCCAL Q2H PRN PRN Reason: nicotine cravings Quetiapine Fumarate (Quetiapine Fumarate 50 Mg Tablet) 50 mg PO BEDTIME PRN PRN Reason: sleep, agitation Thiamine HCl (Thiamine Hcl 100 Mg Tablet) 50 mg PO DAILY [facility] Last Admin: 08/29/21 08:56 Dose: 50 mg Documented by: Thiamine HCl (Thiamine Hcl 100 Mg Tablet) 100 mg PO DAILY [facility] Last Admin: 08/29/21 12:24 Dose: 100 mg Documented by: Trazodone HCl (Trazodone Hcl 50 Mg Tablet) 50 mg PO BEDTIME PRN PRN Reason: Insomnia Allergies Allergies Allergy/AdvReac Type Severity Reaction Status Date / Time No Known Allergies Allergy Verified 08/26/21 13:36 Assessment & Plan Assessment & Plan (1) Alcohol use with alcohol-induced disorder: Status: Acute Code(s): F10.99 - Alcohol use, unspecified with unspecified alcohol-induced disorder (2) Schizoaffective disorder, bipolar type: Status: Acute Code(s): F25.0 - Schizoaffective disorder, bipolar type Plan Dank is a 66 yo male who carries a dx of AUD, schizoaffective disorder bipolar type, and 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 He presented to [facility] ED on 08/26/21 after being found wandering around the streets [place] acting erratically and speaking gibberish. Head CT was normal. Utox was negative. Ethyl alcohol negative. Pt was medically admitted for IV hydration for mild rhabdomyolysis without renal injury.?Also given IV thiamine given history of alcohol use disorder to treat any component of Wernicke-Korsakoff syndrome. On the medical floor, pt was noted to have had persistent, florid manic symptoms prompting this current psych admission.? Plan: UA not ordered, will obtain. Will re-start vraylar at 1.5 mg QD. Will start thiamine, folic acid, multivitamin.? Q15 min safety checks, CV Monitor response to medications. Monitor for safety in the milieu. Discharge on stabilization. Patient seen. Chart reviewed. Discussed with team. Obtain collateral contact info?as needed I spent __20____ minutes with the patient and/or on the patient floor today, greater than?50% of which was spent counseling/coordinating care. Reason for contiued inpatient stay Substantial Risk for: inability to function, rapid decompensation and med/psych decompensation
--- NOTE | 2021-08-29 16:27 | PC.NURSE ---
patient is a 66 y/o male who is a transfer from . Pt arrived to the unit on 12b. pt alert and oriented to self only, confused, incoherent and illogical. pt's speech is clear however rambling and nonsensical. pt ambulates independently w/strong and steady gait. pt appears hemodynamically stable.
[2021-08-30 07:05] VITALS: BP 120/74; PULSE 92; RESP 19; TEMP 36.3; O2SAT 98
[2021-08-30] MEDS: Cariprazine HCl 1.5 MG CAPSULE PO (08:31)
[2021-08-30] MEDS: Multivitamin TABLET 1 TAB PO (08:31)
[2021-08-30] MEDS: Folic Acid 1 MG TABLET PO (08:31)
[2021-08-30] MEDS: Thiamine HCL 100 MG TABLET 50 MG PO (08:32)
[2021-08-30] MEDS: Thiamine HCL 100 MG TABLET PO (08:32)
--- NOTE | 2021-08-30 11:38 | P.PNPSI_ITS ---
Subjective Subjective Date of Service: 08/30/21 Reason For Visit: Psychotic, AUD Subjective Notes: Section 12B Interim History: The nursing staff reported the patient has been pleasant and cooperative but with word salad, unable to provide meaningful information. He has been fully compliant with medications. On interview, the patient was confused pleasant and disorganized but later he was angry and irritable. The social media content manager will try to gather collateral information but apparently he was a diuretic psychiatric unit at [facility] on 2020. Mental Status Exam Mental Status Exam Patient Appearance: Disheveled Patient Orientation: Person Level of Consciousness: Disoriented and Restless Patient Behavior: Hyperactive and Cooperative Mood Description: Cheerful Affect Description: Labile Patient Cognition Impaired: Yes Ability to Follow Directions: Fair Speech Pattern: Garbled, Rambling and Cofabulation Hallucinations: None Delusions: Not Present Thought Process: Illogical Thought Content: positive for Loose Associations Judgement: Poor Diagnostics Vital Signs (24Hr): Vital Signs - 24 hr 08/30/21 07:05 Temperature 97.3 F Pulse Rate 92 Respiratory Rate 19 Blood Pressure 120/74 Pulse Oximetry 98 Labs Labs: Laboratory Results - last 48 hr 08/29/21 08/29/21 08/29/21 07:56 07:56 07:56 Estimat Average Glucose 108 Hemoglobin A1c % 5.4 Magnesium 1.9 Triglycerides 200 Cholesterol 151 LDL Cholesterol, Calc 56 HDL Cholesterol 55 Vitamin B12 1006 H Folate 6.7 TSH 4.41 H Free T4 0.94 Medications Medications Current Medications Acetaminophen (Acetaminophen 325 Mg Tablet) 650 mg PO Q6H PRN PRN Reason: Headache/Pain Mild Scale (1-3) Al Hydroxide/Mg Hydroxide (Magnesium Hydrox/Alum Hydrox 30 Ml Oral.Susp) 30 ml PO Q6H PRN PRN Reason: Heartburn/Nausea Cariprazine (Cariprazine Hcl 1.5 Mg Capsule) 1.5 mg PO DAILY [facility] Last Admin: 08/30/21 08:31 Dose: 1.5 mg Documented by: Folic Acid (Folic Acid 1 Mg Tablet) 1 mg PO DAILY [facility] Last Admin: 08/30/21 08:31 Dose: 1 mg Documented by: Hydroxyzine HCl (Hydroxyzine Hcl 25 Mg Tablet) 25 mg PO Q6H PRN PRN Reason: Anxiety Magnesium Hydroxide (Milk Of Magnesia 30 Ml Oral.Susp) 30 ml PO DAILY PRN PRN Reason: Constipation Multivitamins/Vitamin C (Multivitamin Tablet) 1 tab PO DAILY [facility] Last Admin: 08/30/21 08:31 Dose: 1 tab Documented by: Nicotine Polacrilex (Nicotine Polacrilex 2 Mg Gum) 2 mg BUCCAL Q2H PRN PRN Reason: nicotine cravings Quetiapine Fumarate (Quetiapine Fumarate 50 Mg Tablet) 50 mg PO BEDTIME PRN PRN Reason: sleep, agitation Thiamine HCl (Thiamine Hcl 100 Mg Tablet) 50 mg PO DAILY [facility] Last Admin: 08/30/21 08:32 Dose: 50 mg Documented by: Thiamine HCl (Thiamine Hcl 100 Mg Tablet) 100 mg PO DAILY [facility] Last Admin: 08/30/21 08:32 Dose: 100 mg Documented by: Trazodone HCl (Trazodone Hcl 50 Mg Tablet) 50 mg PO BEDTIME PRN PRN Reason: Insomnia Allergies Allergies Allergy/AdvReac Type Severity Reaction Status Date / Time No Known Allergies Allergy Verified 08/26/21 13:36 Assessment & Plan Assessment & Plan (1) Alcohol use with alcohol-induced disorder: Status: Acute Code(s): F10.99 - Alcohol use, unspecified with unspecified alcohol-induced disorder (2) Schizoaffective disorder, bipolar type: Status: Acute Code(s): F25.0 - Schizoaffective disorder, bipolar type Plan Dank is a 66 yo male who carries a dx of AUD, schizoaffective disorder bipolar type, and 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 He presented to [facility] on 08/26/21 after being found wandering around the streets near a [place] station acting erratically and speaking gibberish. Head CT was normal. Utox was negative. Ethyl alcohol negative. Pt was medically admitted for IV hydration for mild rhabdomyolysis without renal injury.?Also given IV thiamine given history of alcohol use disorder to treat any component of Wernicke-Korsakoff syndrome. On the medical floor, pt was noted to have had persistent, florid manic symptoms prompting this current psych admission.? Plan: 1. Continue same treatment. 2. MRI brain to rule out Wernicke-Korsakoff syndrome I spent __20____ minutes with the patient and/or on the patient floor today, greater than?50% of which was spent counseling/coordinating care. Reason for contiued inpatient stay Substantial Risk for: inability to function, rapid decompensation and med/psych decompensation
[2021-08-30 21:15] VITALS: BP 160/83; PULSE 90; TEMP 36.6; O2SAT 98
--- NOTE | 2021-08-31 02:21 | PC.NURSE ---
Security called at approximately 2300 because pt. went into room and became agitated because paper towel dispenser was not full. Patient's voice got louder. He began slamming door and kicked bedroom door closed. Staff unable to de-escalate pt. Security came and brought paper towels to pt. He was receptive to their presence and his behavior began to calm down. Security talked with pt. for about 10 minutes. Pt. stayed in room with door shut after. He could be heard self-dialoguing but was not disruptive. Pt. then went to bed and has been sleeping since about midnight.
[2021-08-31 06:00] VITALS: BP 111/67; PULSE 92; RESP 18; TEMP 36.4; O2SAT 100
[2021-08-31] MEDS: Thiamine HCL 100 MG TABLET PO (09:24)
[2021-08-31] MEDS: Thiamine HCL 100 MG TABLET 50 MG PO (09:24)
[2021-08-31] MEDS: Folic Acid 1 MG TABLET PO (09:24)
[2021-08-31] MEDS: Multivitamin TABLET 1 TAB PO (09:25)
[2021-08-31] MEDS: OLANZapine 10 MG VIAL IM (12:35)
--- NOTE | 2021-08-31 14:15 | PC.NURSE ---
Pt escalated with aggressive behaviors, yelling out and grabbing at people/belongings. Pt offered PRN and refused. Pt given 10mg olanzapine IM at 1225, for behaviors with positive effect.
--- NOTE | 2021-08-31 14:19 | PC.NURSE ---
Message left for NCP Raysa Amaro to report IM given to pt for behaviors.
[2021-08-31 14:22] VITALS: BMI 18.3
--- NOTE | 2021-08-31 15:53 | HO.PSYCHPN ---
Subjective Subjective Date of Service: 08/31/21 Reason For Visit: Psychotic, AUD Subjective Notes: Conditional Voluntary ( By healthcare proxy) Interim History: the patient has been grossly disorganized and agitated in the afternoon. He refused to take p.o. medications. Since he was unable to deescalate we needed to medicated IM with Zyprexa 5 mg p.o. q.h.s. with some improvement. He refused Ativan p.o.. The nursing staff reported the last night he refused all his medications he was agitated and he was kicking doors security was called and he deescalated. On interview, the patient was severely disorganized with word salad unable to be logical Mental Status Exam Mental Status Exam Patient Appearance: Disheveled Patient Orientation: Person Level of Consciousness: Restless Patient Behavior: Posturing Mood Description: Withdrawn Affect Description: Labile Patient Cognition Impaired: Yes Ability to Follow Directions: Poor Speech Pattern: Clear, Spontaneous Speech and Rambling Hallucinations: None Delusions: Bizarre Thought Process: Incoherent, Racing and Illogical Thought Content: positive for [place] and positive for Poverty of Content Judgement: Poor Diagnostics Vital Signs (24Hr): Vital Signs - 24 hr 08/30/21 21:15 08/31/21 06:00 Temperature 97.9 F 97.5 F Pulse Rate 90 92 Respiratory Rate 18 Blood Pressure 160/83 H 111/67 Pulse Oximetry 98 100 BMI result Body Mass Index 18.3 Medications Medications Current Medications Acetaminophen (Acetaminophen 325 Mg Tablet) 650 mg PO Q6H PRN PRN Reason: Headache/Pain Mild Scale (1-3) Al Hydroxide/Mg Hydroxide (Magnesium Hydrox/Alum Hydrox 30 Ml Oral.Susp) 30 ml PO Q6H PRN PRN Reason: Heartburn/Nausea Cariprazine (Cariprazine Hcl 1.5 Mg Capsule) 1.5 mg PO DAILY [facility] Last Admin: 08/31/21 09:54 Dose: Not Given Documented by: Folic Acid (Folic Acid 1 Mg Tablet) 1 mg PO DAILY [facility] Last Admin: 08/31/21 09:24 Dose: 1 mg Documented by: Hydroxyzine HCl (Hydroxyzine Hcl 25 Mg Tablet) 25 mg PO Q6H PRN PRN Reason: Anxiety Magnesium Hydroxide (Milk Of Magnesia 30 Ml Oral.Susp) 30 ml PO DAILY PRN PRN Reason: Constipation Multivitamins/Vitamin C (Multivitamin Tablet) 1 tab PO DAILY [facility] Last Admin: 08/31/21 09:25 Dose: 1 tab Documented by: Nicotine Polacrilex (Nicotine Polacrilex 2 Mg Gum) 2 mg BUCCAL Q2H PRN PRN Reason: nicotine cravings Quetiapine Fumarate (Quetiapine Fumarate 50 Mg Tablet) 50 mg PO BEDTIME PRN PRN Reason: sleep, agitation Quetiapine Fumarate (Quetiapine Fumarate 50 Mg Tablet) 50 mg PO BID [facility] Last Admin: 08/31/21 09:54 Dose: Not Given Documented by: Quetiapine Fumarate (Quetiapine Fumarate 25 Mg Tablet) 25 mg PO BID [facility] Last Admin: 08/31/21 09:54 Dose: Not Given Documented by: Thiamine HCl (Thiamine Hcl 100 Mg Tablet) 50 mg PO DAILY [facility] Last Admin: 08/31/21 09:24 Dose: 50 mg Documented by: Thiamine HCl (Thiamine Hcl 100 Mg Tablet) 100 mg PO DAILY [facility] Last Admin: 08/31/21 09:24 Dose: 100 mg Documented by: Trazodone HCl (Trazodone Hcl 50 Mg Tablet) 50 mg PO BEDTIME PRN PRN Reason: Insomnia Allergies Allergies Allergy/AdvReac Type Severity Reaction Status Date / Time No Known Allergies Allergy Verified 08/26/21 13:36 Assessment & Plan Assessment & Plan (1) Alcohol use with alcohol-induced disorder: Status: Acute Code(s): F10.99 - Alcohol use, unspecified with unspecified alcohol-induced disorder (2) Schizoaffective disorder, bipolar type: Status: Acute Code(s): F25.0 - Schizoaffective disorder, bipolar type Plan the patient is an elderly male with history of alcohol use disorder and schizoaffective disorder admitted for psychotic symptoms. Plan Continue Seroquel and encourage compliance. 2. Gather collateral information. 3. We found the healthcare proxy and he signed a conditional voluntary. I spent __20____ minutes with the patient and/or on the patient floor today, greater than?50% of which was spent counseling/coordinating care. Reason for contiued inpatient stay Substantial Risk for: harm to self, harm to others, inability to function, rapid decompensation and med/psych decompensation
--- NOTE | 2021-08-31 17:46 | PC.NURSE ---
Pt's HCP called back, advised pt received IM of 10 mg Olanzapine for aggressive behaviors.
[2021-08-31 19:53] VITALS: BP 131/77; PULSE 114; RESP 18; TEMP 36.6; O2SAT 99
[2021-09-01 07:45] VITALS: BP 137/82; PULSE 99; RESP 18; TEMP 35.9; O2SAT 99
[2021-09-01] MEDS: Thiamine HCL 100 MG TABLET 50 MG PO (08:17)
[2021-09-01] MEDS: Thiamine HCL 100 MG TABLET PO (08:18)
[2021-09-01 10:59] VITALS: BMI 18.3
--- NOTE | 2021-09-01 11:09 | MHC.CLN ---
NUTRITION PATIENT AT HIGH NUTRITIONAL RISK DUE TO BMI=18.3 AND IS 76% OF IBW. USUALLY EATS WELL PER STAFF. ADDING ENSURE BID TO PROVIDE ADDITIONAL [address]ALS, [address] TO FOLLOW FOR INTAKE AND WEIGHTS.
--- NOTE | 2021-09-01 16:02 | HO.PSYCHPN ---
Subjective Subjective Date of Service: 09/01/21 Reason For Visit: Psychotic, AUD Subjective Notes: Conditional Voluntary ( by healthcare proxy) Interim History: the nursing staff reported the patient gets agitated at times, he has been noncompliant with medications. Yesterday he needed an IM medication since he was unable to deescalate. He has been yelling at night and he has refused all his medications. On interview the patient had word salad but he expressed that he does not want antipsychotics. Her sister called reported that he seems to be highly functional and he has being having manic episodes since his early 20s. At this point probably he has Wernicke-Korsakoff syndrome Mental Status Exam Mental Status Exam Patient Appearance: Well Grooomed Patient Orientation: Person Level of Consciousness: Awake, Disoriented and Restless Patient Behavior: Belligerent, Distractible and Uncooperative Mood Description: Anxious and Apprehensive Affect Description: Labile Patient Cognition Impaired: Yes Ability to Follow Directions: Poor Speech Pattern: Monotone and Pressured Hallucinations: None Delusions: Paranoid Ideation and Thought Insert/Delete Thought Process: Illogical and Word Salad Thought Content: positive for [place] and positive for Poverty of Content Judgement: Fair Diagnostics Vital Signs (24Hr): Vital Signs - 24 hr 08/31/21 19:53 09/01/21 07:45 Temperature 97.8 F 96.6 F L Pulse Rate 114 H 99 Respiratory Rate 18 18 Blood Pressure 131/77 137/82 Pulse Oximetry 99 99 BMI result Body Mass Index 18.3 Medications Medications Current Medications Acetaminophen (Acetaminophen 325 Mg Tablet) 650 mg PO Q6H PRN PRN Reason: Headache/Pain Mild Scale (1-3) Al Hydroxide/Mg Hydroxide (Magnesium Hydrox/Alum Hydrox 30 Ml Oral.Susp) 30 ml PO Q6H PRN PRN Reason: Heartburn/Nausea Cariprazine (Cariprazine Hcl 1.5 Mg Capsule) 1.5 mg PO DAILY [facility] Last Admin: 09/01/21 08:24 Dose: Not Given Documented by: Folic Acid (Folic Acid 1 Mg Tablet) 1 mg PO DAILY [facility] Last Admin: 09/01/21 08:24 Dose: Not Given Documented by: Hydroxyzine HCl (Hydroxyzine Hcl 25 Mg Tablet) 25 mg PO Q6H PRN PRN Reason: Anxiety Magnesium Hydroxide (Milk Of Magnesia 30 Ml Oral.Susp) 30 ml PO DAILY PRN PRN Reason: Constipation Multivitamins/Vitamin C (Multivitamin Tablet) 1 tab PO DAILY [facility] Last Admin: 09/01/21 08:24 Dose: Not Given Documented by: Nicotine Polacrilex (Nicotine Polacrilex 2 Mg Gum) 2 mg BUCCAL Q2H PRN PRN Reason: nicotine cravings Quetiapine Fumarate (Quetiapine Fumarate 50 Mg Tablet) 50 mg PO BEDTIME PRN PRN Reason: sleep, agitation Quetiapine Fumarate (Quetiapine Fumarate 50 Mg Tablet) 50 mg PO BID [facility] Last Admin: 09/01/21 08:21 Dose: Not Given Documented by: Quetiapine Fumarate (Quetiapine Fumarate 25 Mg Tablet) 25 mg PO BID [facility] Last Admin: 09/01/21 08:21 Dose: Not Given Documented by: Thiamine HCl (Thiamine Hcl 100 Mg Tablet) 50 mg PO DAILY [facility] Last Admin: 09/01/21 08:17 Dose: 50 mg Documented by: Thiamine HCl (Thiamine Hcl 100 Mg Tablet) 100 mg PO DAILY [facility] Last Admin: 09/01/21 08:18 Dose: 100 mg Documented by: Trazodone HCl (Trazodone Hcl 50 Mg Tablet) 50 mg PO BEDTIME PRN PRN Reason: Insomnia Allergies Allergies Allergy/AdvReac Type Severity Reaction Status Date / Time No Known Allergies Allergy Verified 08/26/21 13:36 Assessment & Plan Assessment & Plan (1) Alcohol use with alcohol-induced disorder: Status: Acute Code(s): F10.99 - Alcohol use, unspecified with unspecified alcohol-induced disorder (2) Schizoaffective disorder, bipolar type: Status: Acute Code(s): F25.0 - Schizoaffective disorder, bipolar type Plan the patient is an elderly male with history of alcohol use disorder and schizoaffective disorder admitted for psychotic symptoms. Plan Continue Seroquel and encourage compliance. 2. Gather collateral information. 3. We found the healthcare proxy and he signed a conditional voluntary. I spent ___20___ minutes with the patient and/or on the patient floor today, greater than?50% of which was spent counseling/coordinating care. Reason for contiued inpatient stay Substantial Risk for: inability to function, rapid decompensation and med/psych decompensation
[2021-09-01 18:00] VITALS: RESP 18
[2021-09-02 09:18] VITALS: BP 140/74; PULSE 100; RESP 16; TEMP 36.5; O2SAT 99
[2021-09-02] MEDS: QUEtiapine Fumarate 50 MG TABLET PO (11:51)
--- NOTE | 2021-09-02 14:04 | HO.PSYCHPN ---
Subjective Subjective Date of Service: 09/02/21 Reason For Visit: Psychotic Subjective Notes: Conditional Voluntary Healthcare Proxy: Yes Interim History: patient presents is extremely pressured and disorganized speech. Internally preoccupied. Very poor sleep. Is eating and drinking. Very poor boundaries and does upset other patients. Unable to stay on topic. No evidence of SI or HI. Poor medication adherence Medication Compliance: No Side effects from medications: No Attending Groups: No Review of Systems Review of Systems nil new Mental Status Exam Mental Status Exam Narrative: with older than stated age. Disheveled. Hospital clothing. Mobilizing without difficulty. Very pressured with loosening of association and unable to stay on topic. Difficulty with intrusiveness. Internally preoccupied. No evidence of SI or HI. Insight and judgment poor Diagnostics Vital Signs (24Hr): Vital Signs - 24 hr 09/01/21 18:00 09/02/21 09:18 Temperature 97.7 F Pulse Rate 100 Respiratory Rate 18 16 Blood Pressure 140/74 H Pulse Oximetry 99 BMI result Body Mass Index 18.3 Medications Medications Current Medications Acetaminophen (Acetaminophen 325 Mg Tablet) 650 mg PO Q6H PRN PRN Reason: Headache/Pain Mild Scale (1-3) Al Hydroxide/Mg Hydroxide (Magnesium Hydrox/Alum Hydrox 30 Ml Oral.Susp) 30 ml PO Q6H PRN PRN Reason: Heartburn/Nausea Cariprazine (Cariprazine Hcl 1.5 Mg Capsule) 1.5 mg PO DAILY [facility] Last Admin: 09/02/21 11:55 Dose: Not Given Documented by: Folic Acid (Folic Acid 1 Mg Tablet) 1 mg PO DAILY [facility] Last Admin: 09/02/21 11:55 Dose: Not Given Documented by: Hydroxyzine HCl (Hydroxyzine Hcl 25 Mg Tablet) 25 mg PO Q6H PRN PRN Reason: Anxiety Magnesium Hydroxide (Milk Of Magnesia 30 Ml Oral.Susp) 30 ml PO DAILY PRN PRN Reason: Constipation Multivitamins/Vitamin C (Multivitamin Tablet) 1 tab PO DAILY [facility] Last Admin: 09/02/21 11:56 Dose: Not Given Documented by: Nicotine Polacrilex (Nicotine Polacrilex 2 Mg Gum) 2 mg BUCCAL Q2H PRN PRN Reason: nicotine cravings Quetiapine Fumarate (Quetiapine Fumarate 50 Mg Tablet) 50 mg PO BEDTIME PRN PRN Reason: sleep, agitation Quetiapine Fumarate (Quetiapine Fumarate 50 Mg Tablet) 50 mg PO BID [facility] Last Admin: 09/02/21 11:51 Dose: 50 mg Documented by: Quetiapine Fumarate (Quetiapine Fumarate 25 Mg Tablet) 25 mg PO BID [facility] Last Admin: 09/02/21 11:56 Dose: Not Given Documented by: Thiamine HCl (Thiamine Hcl 100 Mg Tablet) 50 mg PO DAILY [facility] Last Admin: 09/02/21 11:56 Dose: Not Given Documented by: Thiamine HCl (Thiamine Hcl 100 Mg Tablet) 100 mg PO DAILY [facility] Last Admin: 09/02/21 11:56 Dose: Not Given Documented by: Trazodone HCl (Trazodone Hcl 50 Mg Tablet) 50 mg PO BEDTIME PRN PRN Reason: Insomnia Allergies Allergies Allergy/AdvReac Type Severity Reaction Status Date / Time No Known Allergies Allergy Verified 08/26/21 13:36 Assessment & Plan Assessment & Plan (1) Alcohol use with alcohol-induced disorder: Status: Acute Code(s): F10.99 - Alcohol use, unspecified with unspecified alcohol-induced disorder (2) Schizoaffective disorder, bipolar type: Status: Acute Code(s): F25.0 - Schizoaffective disorder, bipolar type Plan the patient is an elderly male with history of alcohol use disorder and schizoaffective disorder admitted for psychotic symptoms. Plan Continue Seroquel and encourage compliance. 2. Gather collateral information. 3. We found the healthcare proxy and he signed a conditional voluntary. 09/02/2021: Primary team trying to work with patient and healthcare proxy regarding medication plan and adherence. No changes to same I spent minutes with the patient and/or on the patient floor today, greater than?50% of which was spent counseling/coordinating care. Reason for contiued inpatient stay Substantial Risk for: inability to function
[2021-09-02 18:00] VITALS: RESP 20
[2021-09-03] VITALS (14 sets, daily range): BP systolic 97; BP diastolic 57; PULSE 108; RESP 16–19; O2SAT 98
[2021-09-03] MEDS: OLANZapine 10 MG VIAL 5 MG IM (00:24)
--- NOTE | 2021-09-03 01:06 | PC.NURSE ---
Medication restraint.Patient given Olanzapine 5 mg IM at right deltoid muscle at 0024h due to pt. is hitting, yelling, swearing, disruptive and banging the berg and actively responding to internal stimuli.All attempts to decrease agitation were ineffective.No hold was required and Pt. was seen by hospitalist following injection at 0038h. Allowed for initial sets of vital signs but refusing additional VS. Offered food and accepted, pending effects of medication, currently in the hallway responding to internal stimuli.
--- NOTE | 2021-09-03 06:03 | PM.EVENT ---
Event Note Date of Service: 09/03/21 Event Note: Agitation: Patient was a stated dating; patient received IM Zyprexa per psychiatric team. [id number] evaluation was done. Exam benign.
[2021-09-03] MEDS: OLANZapine 10 MG VIAL IM (08:12)
--- NOTE | 2021-09-03 09:10 | PC.NURSE ---
Medication restraint administered at 08:12. Patient was given Olanzapine 10 mg IM. Patient became increasingly agitated with no precipitating factors. Patient was observed yelling at staff and peers. Had his watch wrapped in hand with the face of the watch laying across knuckles and threatening staff. Patient was swinging a necklace around toward staff and peers. Then approached another patient and was face to face with a peer and continued to whisper into their ear and touch their shoulder Patient was unable to take the redirection offered by staff. Was offered food and beverage, P.O meds, 1:1 with staff with no effect. Security was present during restraining. Dr. Yadiel Rocha examined the patient at 0857. Patient refused vital signs after restraint. Respirations were noted at 17 breath per minute. Patient was in no acute distress not or reported.Will continue to monitor.
--- NOTE | 2021-09-03 09:16 | MHC.PM.REST ---
Restraint Documentation Date of Service: 09/03/21 Time of Documentation: 09:16 Current Situation: After assessment of the patient, a review of the pertinent medical record and a discussion with nursing staff, I feel the patient requires a restrain intervention. Physically threatening towards staff and patients. Utilizing jewelry as a weapon. Not responding to verbal support or deescalation. Decline PO medications. IM Zyprexa 10mg given at 0812 with security support. Face to face exam took place at 0857. Remains frustrated, threatening, intimidating. Reaction To: Aggressive towards staff and patients Medical Condition: unremarkable Behavioral State: ongoing agitation, intimidating towards staff and patients Continued Need: Will require another IM restraint. Refusing PO medications. Demanding discharge. Threatening. Will give haldol 5mg IM and Benadryl 50mg IM
[2021-09-03] MEDS: Haloperidol Lactate 5 MG/ML VIAL IM (10:30)
[2021-09-03] MEDS: diphenhydrAMINE HCL 50 MG/ML VIAL IM (10:30)
--- NOTE | 2021-09-03 10:55 | PC.NURSE ---
Medication restraint administered at 10:30. Patient was given Haldol 5 mg IM and Benadryl 50 mg IM.. Patient became increasingly agitated with no precipitating factors. Patient was observed yelling at staff and peers. Patient charged at a staff member accusing her of having his watch, which then he proceeded to start pushing furniture at the staff member in an aggressive manner. Patient was punching doors around the unit. Was standing at the entrance door to nurses station yelling and pulling on the door handle to enter the nurses station, blocking staff from entering or exiting. Patient was verbally aggressive towards peers.? Patient was unable to take the redirection offered by staff. Patient was offered Food and beverage, P.O meds, 1:1 with staff, fresh air break, walks with staff offered, and change of activity all with no effect. Security was present during restraining. Dr. Yadiel Rocha examined the patient at 10:35. Patient refused vital signs after restraint. Respirations were noted at 17 breath per minute. Patient was in no acute distress not or reported. Will continue to monitor.
--- NOTE | 2021-09-03 11:27 | MHC.PM.REST ---
Restraint Documentation Date of Service: 09/03/21 Current Situation: After assessment of the patient, a review of the pertinent medical record and a discussion with nursing staff, I feel the patient requires a restrain intervention. Aggressive and threatening to patients, staff, water bottle as weapon, not responding to redirection, de escalation, declining PO medications. IM haldol 5mg and Benadryl 50mg IM given at 1030 with security support. Health Psychologist saw patient for face to face at 1035- mobile, hyper verbal, no medical of physical concerns noted Reaction To: Aggressive and threatening to patients, staff, water bottle as weapon, not responding to redirection, de escalation, declining PO medications. IM haldol 5mg and Benadryl 50mg IM given with security support Medical Condition: fair Behavioral State: Aggressive and threatening to patients, staff, water bottle as weapon, not responding to redirection, de escalation, declining PO medications. IM haldol 5mg and Benadryl 50mg IM given with security support Continued Need: one time medication restraint
--- NOTE | 2021-09-03 11:39 | HO.PSYCHPN ---
Subjective Subjective Date of Service: 09/03/21 Reason For Visit: Psychotic Interim History: See restraint notes. Has required 2 x IM this morning- aggressive, agitated, threatening. IM zyprexa 10mg at 0812. Haldol 5mg and benadryl 50mg IM at 1030. Also received zyprexa 5mg IM around midnight Medication Compliance: No Side effects from medications: No Review of Systems Acute medical concerns: No Mental Status Exam Mental Status Exam Narrative: Agitated, pressured, threatening. No insight. Diagnostics Vital Signs (24Hr): Vital Signs - 24 hr 09/02/21 18:00 09/03/21 08:40 Respiratory Rate 20 17 BMI result Body Mass Index 18.3 Medications Medications Current Medications Acetaminophen (Acetaminophen 325 Mg Tablet) 650 mg PO Q6H PRN PRN Reason: Headache/Pain Mild Scale (1-3) Al Hydroxide/Mg Hydroxide (Magnesium Hydrox/Alum Hydrox 30 Ml Oral.Susp) 30 ml PO Q6H PRN PRN Reason: Heartburn/Nausea Cariprazine (Cariprazine Hcl 1.5 Mg Capsule) 1.5 mg PO DAILY [facility] Last Admin: 09/03/21 09:36 Dose: Not Given Documented by: Folic Acid (Folic Acid 1 Mg Tablet) 1 mg PO DAILY [facility] Last Admin: 09/03/21 09:36 Dose: Not Given Documented by: Hydroxyzine HCl (Hydroxyzine Hcl 25 Mg Tablet) 25 mg PO Q6H PRN PRN Reason: Anxiety Magnesium Hydroxide (Milk Of Magnesia 30 Ml Oral.Susp) 30 ml PO DAILY PRN PRN Reason: Constipation Multivitamins/Vitamin C (Multivitamin Tablet) 1 tab PO DAILY [facility] Last Admin: 09/03/21 09:36 Dose: Not Given Documented by: Nicotine Polacrilex (Nicotine Polacrilex 2 Mg Gum) 2 mg BUCCAL Q2H PRN PRN Reason: nicotine cravings Quetiapine Fumarate (Quetiapine Fumarate 50 Mg Tablet) 50 mg PO BEDTIME PRN PRN Reason: sleep, agitation Quetiapine Fumarate (Quetiapine Fumarate 50 Mg Tablet) 50 mg PO BID [facility] Last Admin: 09/03/21 09:37 Dose: Not Given Documented by: Quetiapine Fumarate (Quetiapine Fumarate 25 Mg Tablet) 25 mg PO BID [facility] Last Admin: 09/03/21 09:37 Dose: Not Given Documented by: Thiamine HCl (Thiamine Hcl 100 Mg Tablet) 50 mg PO DAILY [facility] Last Admin: 09/03/21 09:37 Dose: Not Given Documented by: Thiamine HCl (Thiamine Hcl 100 Mg Tablet) 100 mg PO DAILY [facility] Last Admin: 09/03/21 09:37 Dose: Not Given Documented by: Trazodone HCl (Trazodone Hcl 50 Mg Tablet) 50 mg PO BEDTIME PRN PRN Reason: Insomnia Allergies Allergies Allergy/AdvReac Type Severity Reaction Status Date / Time No Known Allergies Allergy Verified 08/26/21 13:36 Assessment & Plan Assessment & Plan (1) Alcohol use with alcohol-induced disorder: Status: Acute Code(s): F10.99 - Alcohol use, unspecified with unspecified alcohol-induced disorder (2) Schizoaffective disorder, bipolar type: Status: Acute Code(s): F25.0 - Schizoaffective disorder, bipolar type Plan the patient is an elderly male with history of alcohol use disorder and schizoaffective disorder admitted for psychotic symptoms. Plan Continue Seroquel and encourage compliance. 2. Gather collateral information. 3. We found the healthcare proxy and he signed a conditional voluntary. 09/03/2021: Encourage medications. Has required IM restraint x 2 today. Primary team trying to work with patient and healthcare proxy regarding medication plan and adherence. No changes to same I spent minutes with the patient and/or on the patient floor today, greater than?50% of which was spent counseling/coordinating care. Reason for contiued inpatient stay Substantial Risk for: harm to others
[2021-09-03] MEDS: LORazepam 2 MG/ML VIAL IM (13:31)
--- NOTE | 2021-09-03 13:35 | MHC.PM.REST ---
Restraint Documentation Date of Service: 09/03/21 Current Situation: After assessment of the patient, a review of the pertinent medical record and a discussion with nursing staff, I feel the patient requires a restrain intervention. Very recent significant aggression towards staff. Escalating, intrusive, loud, hostile. Not responding to redirection or open to PO medications. Based off recent behavior and current presentation, is an imminent danger to others. Received zyprexa 10mg IM at 0812, Haldol 5mg and Benadryl 50mg IM at 1030. Gave ativan 2mg IM at 1331. No immediate physical concerns Reaction To: Very recent significant aggression towards staff. Escalating, intrusive, loud, hostile. Not responding to redirection or open to PO medications. Based off recent behavior and current presentation, is an imminent danger to others. Received zyprexa 10mg IM at 0812, Haldol 5mg and Benadryl 50mg IM at 1030. Gave ativan 2mg IM at 1331. Medical Condition: Unremarkable. Talking. Mobile. Alert. Behavioral State: Very recent significant aggression towards staff. Escalating, intrusive, loud, hostile. Not responding to redirection or open to PO medications. Based off recent behavior and current presentation, is an imminent danger to others. Received zyprexa 10mg IM at 0812, Haldol 5mg and Benadryl 50mg IM at 1030. Gave ativan 2mg IM at 1331. Continued Need: see above. 1 x intervention
--- NOTE | 2021-09-03 13:50 | PC.NURSE ---
Medication restraint administered at 13:31. Patient was given Lorazepam 2 mg IM.. Patient became increasingly agitated with no precipitating factors. Patient was observed yelling at staff and peers. Patient charged at a patient and visitor on the unit and was verbally aggressive towards the visitor and patient. Patient was observed to be intrusive. Patient was punching the top of the glass at the nurses station. Told this RN ?It is a promise I will kick your ass?. Patient frequently trying to touch staff. Patient was verbally aggressive towards peers.? Patient was unable to take the redirection offered by staff. Was offered food and beverage, P.O meds, 1:1 with staff, fresh air break, and change of activity all with no effect, sensory. Security was present during restraining. Dr. Yadiel Rocha examined the patient at 13:35. Patient refused vital signs after restraint. Respirations were noted at 19 breath per minute. Patient was in no acute distress not or reported. Will continue to monitor.
--- NOTE | 2021-09-03 15:44 | PC.NURSE ---
Patient is observed napping in his bed. Respirations are noted at 16 breaths per minute.
--- NOTE | 2021-09-03 15:51 | PC.NURSE ---
Health care proxy was attempted to be contacted at [phone] two times to inform of recent restraints. Both attempts at contact were unsuccessful.
--- NOTE | 2021-09-03 18:19 | HO.HSGERICON ---
History of Present Illness Data of Consult Service Date: 09/03/21 Primary Care Provider: Unknown Physician HPI Reason for consult: Fall 66-year-old male admitted to [facility] exhibiting aggressive behavior. Medicated with Zyprexa 10 mg at a weight 100 Haldol 5/Benadryl 50 at 10:30 and Ativan 2 mg at 13:30. Staff noted urine on the floor during checks and abrasion on patient's forehead. Call to assess. Patient mumbling nonsensically agitated not redirectable Review of Systems Review of Systems: [facility] Medical History Alcohol use with alcohol-induced disorder Schizoaffective disorder Schizoaffective disorder, bipolar type Social History Household Members: Unknown / Unable to assess Housing: Unknown / Unable to assess Do you presently have visiting nurse or other home services: No Unable to assess alcohol history related to: Unable to respond and Unknown Alcohol intake: unknown Patient Tobacco Use Status: Tobacco use Unknown Years Smoked: Unknown; pt unable to participate due to mental status. Frequency of e-Cigarette/Vaping Use: Unknown; pt unable to participate due to mental status. Patient Interested in Nicotine Replacement: No (Unknown; pt unable to participate due to mental status.) Patient Given Instructions on How to Stop Smoking: Yes (Unknown; pt unable to participate due to mental status.) Date Education Initiated: 08/28/21 Use of substances other than those prescribed or required for medical reasons: Unknown Last Used Substance Other:: Unknown; pt unable to participate due to mental status. Currently Displaying Signs/Symptoms of Drug Intoxication Withdrawal: No Other Past Substance Use Problem:: Unknown; pt unable to participate due to mental status. Do you feel safe in your current relationship?: No Current Relationship Spiritual Healthcare Practices: Unknown; pt unable to participate due to mental status. [facility] Practices: Unknown; pt unable to participate due to mental status. Cultural Healthcare Practices: Unknown; pt unable to participate due to mental status. Advance Directives: No Advance Directives Information Provided: No Advance Directives on File: No Do you have thoughts of harming others: None Do you have a plan to hurt others: No Plan Recently lost weight without trying: Unsure service: No Sexual orientation: Don't Know Meds Allergies Allergy/AdvReac Type Severity Reaction Status Date / Time No Known Allergies Allergy Verified 08/26/21 13:36 Active Medications: Current Medications Acetaminophen (Acetaminophen 325 Mg Tablet) 650 mg PO Q6H PRN PRN Reason: Headache/Pain Mild Scale (1-3) Al Hydroxide/Mg Hydroxide (Magnesium Hydrox/Alum Hydrox 30 Ml Oral.Susp) 30 ml PO Q6H PRN PRN Reason: Heartburn/Nausea Cariprazine (Cariprazine Hcl 1.5 Mg Capsule) 1.5 mg PO DAILY [facility] Last Admin: 09/03/21 09:36 Dose: Not Given Documented by: Folic Acid (Folic Acid 1 Mg Tablet) 1 mg PO DAILY [facility] Last Admin: 09/03/21 09:36 Dose: Not Given Documented by: Hydroxyzine HCl (Hydroxyzine Hcl 25 Mg Tablet) 25 mg PO Q6H PRN PRN Reason: Anxiety Magnesium Hydroxide (Milk Of Magnesia 30 Ml Oral.Susp) 30 ml PO DAILY PRN PRN Reason: Constipation Multivitamins/Vitamin C (Multivitamin Tablet) 1 tab PO DAILY [facility] Last Admin: 09/03/21 09:36 Dose: Not Given Documented by: Nicotine Polacrilex (Nicotine Polacrilex 2 Mg Gum) 2 mg BUCCAL Q2H PRN PRN Reason: nicotine cravings Quetiapine Fumarate (Quetiapine Fumarate 50 Mg Tablet) 50 mg PO BEDTIME PRN PRN Reason: sleep, agitation Quetiapine Fumarate (Quetiapine Fumarate 50 Mg Tablet) 50 mg PO BID [facility] Last Admin: 09/03/21 09:37 Dose: Not Given Documented by: Quetiapine Fumarate (Quetiapine Fumarate 25 Mg Tablet) 25 mg PO BID [facility] Last Admin: 09/03/21 09:37 Dose: Not Given Documented by: Thiamine HCl (Thiamine Hcl 100 Mg Tablet) 50 mg PO DAILY [facility] Last Admin: 09/03/21 09:37 Dose: Not Given Documented by: Thiamine HCl (Thiamine Hcl 100 Mg Tablet) 100 mg PO DAILY [facility] Last Admin: 09/03/21 09:37 Dose: Not Given Documented by: Trazodone HCl (Trazodone Hcl 50 Mg Tablet) 50 mg PO BEDTIME PRN PRN Reason: Insomnia Assessment and Plan (1) Alcohol use with alcohol-induced disorder: Status: Acute (2) Schizoaffective disorder, bipolar type: Status: Acute Plan 66-year-old male with history of alcohol use in the backdrop of schizophrenia requiring sedation due to danger to self and others. Appears to have slipped in urine striking head; no loss of consciousness noted. At this point in time he is moving about the room; he is not redirectable; he is agitated and physically aggressive to staff. Advised RN to call covering psych for restraint order as the patient is a danger to self and certainly to the staff. No indication for CT scan of the head at this time; patient would require conscious sedation to achieve exam; currently his neuro exam does not warrant it. Nursing will observe and call if issues Physical Exam Vital Signs: Last Vital Signs Temp 97.7 F 09/02/21 09:18 Pulse 100 09/02/21 09:18 Resp 18 09/03/21 14:16 BP 140/74 H 09/02/21 09:18 Pulse Ox 99 09/02/21 09:18 BMI result Body Mass Index 18.3 Const Other: Belligerent HENMT Other: Abrasion over left eye; no palpable bony tenderness Neuro Other: Cranial nerves 2-12 were grossly intact as tested; motor was 5/5 all extremities. Agitated combative with staff Cranial nerves: Yes CN's II-XII intact bilaterally
--- NOTE | 2021-09-03 19:23 | PC.NURSE ---
Unwitnessed fall: Patient was found in bed on routine checks with laceration to left forehead. Egg shaped lump observed on left side of forehead. Patient observed to be soaked in urine. Patient refused vital signs. Patient allowed laceration to be cleaned and to be cleaned up with clean dry clothes and red high fall risk socks placed on the patient. . Hospitalist Gary Garduno notified and saw patient, Psychiatrist Yadiel Rocha notified, nursing farm management supervisor notified. Patient was placed on 1:1 for safety. Neuro checks q2 hours initiated per protocol.
[2021-09-03] MEDS: QUEtiapine Fumarate 25 MG TABLET PO (22:15)
[2021-09-03] MEDS: QUEtiapine Fumarate 50 MG TABLET PO ×2 (22:16→22:26)
[2021-09-03] MEDS: hydrOXYzine HCL 25 MG TABLET PO (22:18)
[2021-09-04] MEDS: traZODone HCL 50 MG TABLET PO (00:25)
--- NOTE | 2021-09-04 03:05 | PC.NURSE ---
At approximately 2145, the sitter reported the patient got up from the bed very quickly and impulsively from the side of the bed closest to the window. The patient fell on his right side. The sitter and RN assisted patient to a standing position and allowed for assistance, but once up pt became very agitated and resistive to care. Pt. refuses vital signs. There is a small abrasion on the right shoulder with scant bloody drainage. Pt. refused to allow RN to cleanse the area. Pt. swatted at staff trying to assist pt to put pants on. Security called to assist. Dr. Rocha notified. No new orders. Chief Operator aware of incident. VS obtained at 2228 because patient refused at time of incident. HR108, RR16, BP 95/57, O2 sat 98% on RA. Incident report entered.?
[2021-09-04 06:00] VITALS: BP 122/66; PULSE 87; RESP 18; TEMP 36.3; O2SAT 100
[2021-09-04] MEDS: Thiamine HCL 100 MG TABLET 50 MG PO (08:25)
[2021-09-04] MEDS: Folic Acid 1 MG TABLET PO (08:25)
[2021-09-04] MEDS: Multivitamin TABLET 1 TAB PO (08:25)
[2021-09-04] MEDS: Thiamine HCL 100 MG TABLET PO (10:52)
--- NOTE | 2021-09-04 11:18 | MHC.CLN ---
F/U DIET=REGULAR WITH ENSURE BID. SUPPLEMENT PROVIDES 700 KCALS, 40 G PROTEIN. STAFF REPORTS THAT PATENT EATING OK. NO NEW NUTRITION INTERVENTIONS. NO NEW WEIGHT. RD TO FOLLOW FOR INTAKE AND WEIGHTS.
--- NOTE | 2021-09-04 17:16 | P.PNPSI_ITS ---
Subjective Subjective Date of Service: 09/04/21 Reason For Visit: Psychotic Interim History: Patient seen and discussed with team. Patient evaluated today and upon interview he is found in his room, naked with a blanket wrapped around his waist. Says his mood is poor. He is mostly nonsens ical, Wants more of illumination. He is not oriented to place or situation, asks if he is at [facility] or [facility] and says You know I stumbled into this? He requires redirection, per staff he is not sleeping, agitated at times, self dialoguing into the night, intrusive with other pts, loud. He has had minimal benefit on IM medication for agitation. Medication Compliance: Intermittent Review of Systems Acute medical concerns: No Medical Review of Systems: unchanged Mental Status Exam Mental Status Exam Narrative: Patient Appearance:?Disheveled Patient Orientation:?Person and Situation Level of Consciousness:?Disoriented, Restless and Inappropriate Patient Behavior:?Guarded, Talkative and Aggressive Mood Description:?Elated Affect Description:?Labile Patient Cognition Impaired:?Yes Ability to Follow Directions:?Poor Speech Pattern:?Impoverished Hallucinations:?Auditory Delusions:?Paranoid Ideation and Grandiose Thought Process:?Illogical and Word Salad Thought Content:?positive for Circumstantial and positive for Poverty of Content Judgment:?Poor Diagnostics Vital Signs (24Hr): Vital Signs - 24 hr 09/03/21 22:28 09/04/21 06:00 Temperature 97.3 F Pulse Rate 108 H 87 Respiratory Rate 16 18 Blood Pressure 97/57 L 122/66 Pulse Oximetry 98 100 BMI result Body Mass Index 18.3 Medications Medications Current Medications Acetaminophen (Acetaminophen 325 Mg Tablet) 650 mg PO Q6H PRN PRN Reason: Headache/Pain Mild Scale (1-3) Al Hydroxide/Mg Hydroxide (Magnesium Hydrox/Alum Hydrox 30 Ml Oral.Susp) 30 ml PO Q6H PRN PRN Reason: Heartburn/Nausea Cariprazine (Cariprazine Hcl 1.5 Mg Capsule) 1.5 mg PO DAILY [facility] Last Admin: 09/04/21 08:35 Dose: Not Given Documented by: Folic Acid (Folic Acid 1 Mg Tablet) 1 mg PO DAILY [facility] Last Admin: 09/04/21 08:25 Dose: 1 mg Documented by: Hydroxyzine HCl (Hydroxyzine Hcl 25 Mg Tablet) 25 mg PO Q6H PRN PRN Reason: Anxiety Last Admin: 09/03/21 22:18 Dose: 25 mg Documented by: Magnesium Hydroxide (Milk Of Magnesia 30 Ml Oral.Susp) 30 ml PO DAILY PRN PRN Reason: Constipation Multivitamins/Vitamin C (Multivitamin Tablet) 1 tab PO DAILY [facility] Last Admin: 09/04/21 08:25 Dose: 1 tab Documented by: Nicotine Polacrilex (Nicotine Polacrilex 2 Mg Gum) 2 mg BUCCAL Q2H PRN PRN Reason: nicotine cravings Quetiapine Fumarate (Quetiapine Fumarate 50 Mg Tablet) 50 mg PO BEDTIME PRN PRN Reason: sleep, agitation Last Admin: 09/03/21 22:26 Dose: 50 mg Documented by: Quetiapine Fumarate (Quetiapine Fumarate 50 Mg Tablet) 50 mg PO BID [facility] Last Admin: 09/04/21 09:22 Dose: Not Given Documented by: Quetiapine Fumarate (Quetiapine Fumarate 25 Mg Tablet) 25 mg PO BID [facility] Last Admin: 09/04/21 08:36 Dose: Not Given Documented by: Thiamine HCl (Thiamine Hcl 100 Mg Tablet) 50 mg PO DAILY [facility] Last Admin: 09/04/21 08:25 Dose: 50 mg Documented by: Thiamine HCl (Thiamine Hcl 100 Mg Tablet) 100 mg PO DAILY [facility] Last Admin: 09/04/21 10:52 Dose: 100 mg Documented by: Trazodone HCl (Trazodone Hcl 50 Mg Tablet) 50 mg PO BEDTIME PRN PRN Reason: Insomnia Last Admin: 09/04/21 00:25 Dose: 50 mg Documented by: Allergies Allergies Allergy/AdvReac Type Severity Reaction Status Date / Time No Known Allergies Allergy Verified 08/26/21 13:36 Assessment & Plan Assessment & Plan (1) Alcohol use with alcohol-induced disorder: Status: Acute Code(s): F10.99 - Alcohol use, unspecified with unspecified alcohol-induced disorder (2) Schizoaffective disorder, bipolar type: Status: Acute Code(s): F25.0 - Schizoaffective disorder, bipolar type Plan Dank is a 66 yo male who carries a dx of AUD, schizoaffective disorder bipolar type, and 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 He presented to [facility] ED on 08/26/21 after being found wandering around the streets [place] acting erratically and speaking gibberish. Head CT was normal. Utox was negative. Ethyl alcohol negative. Pt was medically admitted for IV hydration for mild rhabdomyolysis without renal injury.?Also given IV thiamine given history of alcohol use disorder to treat any component of Wernicke-Korsakoff syndrome. On the medical floor, pt was noted to have had persistent, florid manic symptoms prompting this current psych admission.? Plan: UA not ordered, will obtain. Will re-start vraylar at 1.5 mg QD. Will start thiamine, folic acid, multivitamin.? Q15 min safety checks, CV Monitor response to medications. Monitor for safety in the milieu. Discharge on stabilization. Patient seen. Chart reviewed. Discussed with team. Obtain collateral contact info?as needed 09/04: No med changes I spent minutes with the patient and/or on the patient floor today, greater than?50% of which was spent counseling/coordinating care. Patient educated on: other Reason for contiued inpatient stay Substantial Risk for: inability to function and med/psych decompensation
[2021-09-04 18:00] VITALS: BP 138/64; PULSE 83; RESP 16; TEMP 36.2; O2SAT 100
--- NOTE | 2021-09-04 22:30 | PC.NURSE ---
pt encountered talking on phone attempting to reach [place] police dept. pt is disheveled and rambling about how all these psychiatric medications have poisoned him. his speech is rapid and a flight of ideas is quite evident. at this time pt declines scheduled seroquel and prn medications.
--- NOTE | 2021-09-04 23:59 | PC.NURSE ---
pt continues with self dialoguing. he is ranting about how one neighbor is plotting against him. he states that she will flush her toilet at the exact moment he flushes his own toilet. according to the patient this intentional practice has caused plumbing issues for him. his stories are immense and fragmented. he talks about going to [employer] and working in the [employer]
[2021-09-05 07:05] VITALS: BP 123/71; PULSE 99; RESP 18; TEMP 36.4; O2SAT 97
[2021-09-05] MEDS: Multivitamin TABLET 1 TAB PO (09:02)
--- NOTE | 2021-09-05 16:58 | P.PNPSI_ITS ---
Subjective Subjective Date of Service: 09/05/21 Reason For Visit: Psychotic Subjective Notes: Conditional Voluntary Interim History: the nursing staff reported the patient has been agitated, grossly disorganized and refusing medications. Apparently, Zyprexa has not healed in to much. The nursing staff reported that he has been up since 03:00 o'clock in the morning but he was common cooperative. Yesterday, he call several times to 911 and talk with the [facility] police department so they have to turn of the telephone. on interview, he was grossly disorganized Mental Status Exam Mental Status Exam Patient Appearance: Disheveled Patient Orientation: Person Level of Consciousness: Appropriate Patient Behavior: Guarded, Talkative and Suspicious Mood Description: Withdrawn and Hostile Affect Description: Constricted Patient Cognition Impaired: Yes Ability to Follow Directions: Fair Speech Pattern: Impoverished, Cofabulation and Inappropriate Hallucinations: Auditory Delusions: Paranoid Ideation Thought Process: Word Salad Thought Content: positive for [place] and positive for Poverty of Content Judgement: Fair Diagnostics Vital Signs (24Hr): Vital Signs - 24 hr 09/04/21 18:00 09/05/21 07:05 Temperature 97.2 F 97.6 F Pulse Rate 83 99 Respiratory Rate 16 18 Blood Pressure 138/64 123/71 Pulse Oximetry 100 97 BMI result Body Mass Index 18.3 Medications Medications Current Medications Acetaminophen (Acetaminophen 325 Mg Tablet) 650 mg PO Q6H PRN PRN Reason: Headache/Pain Mild Scale (1-3) Al Hydroxide/Mg Hydroxide (Magnesium Hydrox/Alum Hydrox 30 Ml Oral.Susp) 30 ml PO Q6H PRN PRN Reason: Heartburn/Nausea Folic Acid (Folic Acid 1 Mg Tablet) 1 mg PO DAILY [facility] Last Admin: 09/05/21 10:04 Dose: Not Given Documented by: Hydroxyzine HCl (Hydroxyzine Hcl 25 Mg Tablet) 25 mg PO Q6H PRN PRN Reason: Anxiety Last Admin: 09/03/21 22:18 Dose: 25 mg Documented by: Magnesium Hydroxide (Milk Of Magnesia 30 Ml Oral.Susp) 30 ml PO DAILY PRN PRN Reason: Constipation Multivitamins/Vitamin C (Multivitamin Tablet) 1 tab PO DAILY [facility] Last Admin: 09/05/21 09:02 Dose: 1 tab Documented by: Nicotine Polacrilex (Nicotine Polacrilex 2 Mg Gum) 2 mg BUCCAL Q2H PRN PRN Reason: nicotine cravings Quetiapine Fumarate (Quetiapine Fumarate 50 Mg Tablet) 50 mg PO BEDTIME PRN PRN Reason: sleep, agitation Last Admin: 09/03/21 22:26 Dose: 50 mg Documented by: Quetiapine Fumarate (Quetiapine Fumarate 50 Mg Tablet) 50 mg PO BID [facility] Last Admin: 09/05/21 10:04 Dose: Not Given Documented by: Quetiapine Fumarate (Quetiapine Fumarate 25 Mg Tablet) 25 mg PO BID [facility] Last Admin: 09/05/21 10:04 Dose: Not Given Documented by: Thiamine HCl (Thiamine Hcl 100 Mg Tablet) 50 mg PO DAILY [facility] Last Admin: 09/05/21 10:04 Dose: Not Given Documented by: Thiamine HCl (Thiamine Hcl 100 Mg Tablet) 100 mg PO DAILY [facility] Last Admin: 09/05/21 10:04 Dose: Not Given Documented by: Trazodone HCl (Trazodone Hcl 50 Mg Tablet) 50 mg PO BEDTIME PRN PRN Reason: Insomnia Last Admin: 09/04/21 00:25 Dose: 50 mg Documented by: Allergies Allergies Allergy/AdvReac Type Severity Reaction Status Date / Time No Known Allergies Allergy Verified 08/26/21 13:36 Assessment & Plan Assessment & Plan (1) Alcohol use with alcohol-induced disorder: Status: Acute Code(s): F10.99 - Alcohol use, unspecified with unspecified alcohol-induced disorder (2) Schizoaffective disorder, bipolar type: Status: Acute Code(s): F25.0 - Schizoaffective disorder, bipolar type Plan Dank is a 66 yo male who carries a dx of AUD, schizoaffective disorder bipolar type, and 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 He presented to [facility] on 08/26/21 after being found wandering around the streets [place] station acting erratically and speaking gibberish. Head CT was normal. Utox was negative. Ethyl alcohol negative. Pt was medically admitted for IV hydration for mild rhabdomyolysis without renal injury.?Also given IV thiamine given history of alcohol use disorder to treat any component of Wernicke-Korsakoff syndrome. On the medical floor, pt was noted to have had persistent, florid manic symptoms prompting this current psych admission.? Plan: UA not ordered, will obtain. Will re-start vraylar at 1.5 mg QD. Will start thiamine, folic acid, multivitamin.? Q15 min safety checks, CV Monitor response to medications. Monitor for safety in the milieu. Discharge on stabilization. Patient seen. Chart reviewed. Discussed with team. Obtain collateral contact info?as needed I spent ___20___ minutes with the patient and/or on the patient floor today, greater than?50% of which was spent counseling/coordinating care. Reason for contiued inpatient stay Substantial Risk for: inability to function, rapid decompensation and med/psych decompensation
[2021-09-05 20:45] VITALS: BP 139/66; PULSE 100; RESP 18; TEMP 36.4; O2SAT 97
[2021-09-05 22:26] LABS: Glucose, Whole Blood 103 mg/dL (60-115)
[2021-09-05] MEDS: QUEtiapine Fumarate 50 MG TABLET PO (23:16)
--- NOTE | 2021-09-05 23:22 | PC.NURSE ---
Pt only accepted 50mg of scheduled Risperdal, refusing the 25mg tablet after multiple attempts of administering. Patient was getting in HEAD WAITER's space and squaring up, not accepting redirection, Security was called to escort patient to his room. Patient only stayed in room 15 minutes before he came out back into the kitchen area; remained manic, hyperverbal, nonstop self-dialoguing.
[2021-09-06] MEDS: OLANZapine 10 MG VIAL IM (02:10)
[2021-09-06 02:15] VITALS: BP 137/81; PULSE 110; RESP 20; TEMP 36.6; O2SAT 96
[2021-09-06 02:30] VITALS: RESP 22; TEMP 36.1
--- NOTE | 2021-09-06 02:43 | PC.NURSE ---
Medication restraint administered at 0210. Patient was given Olanzapine 10mg IM to left deltoid. Patient had been manic self-dialoguing throughout the shift; angry and adversarial toward staff, intrusive to fellow patients and staff. . Pt observed yelling and verbally aggressive toward staff. at staff and peers. Patient trying to open doors to offices, then scaled plexiglass at nurses station to grab papers behind the Nurses Station. Patient was unable to take the redirection offered. Offered multiple snacks and fluids. Offered and refused PO medications; staff offered 1:1, attempted to allow personal space in the sensory room, offered multiple distraction and sensory activities, all with no effect. Security was present during restraint. Patient independently sat in a chair and did not need to be physically held for IM.. Hospitalist Dr. Lanier came to unit and examined patient @0225. Patient allowed for vital signs to be obtained at 0215: BP 137/81, HR 110, Temp 97.8, Respiration 20. Refusing further vitals signs to be obtained. Patient is currently in his room, up and down from bed, unsteady on his feet; continues to become agitated with staff attempting to assist him; intermittently yelling and continues to self-dialogue. On 5 minute safety checks. No acute distress noted at this time. Will continue to monitor for safety.
[2021-09-06 02:45] VITALS: RESP 18
[2021-09-06 03:05] VITALS: BP 139/85; PULSE 102; RESP 18; TEMP 36.2; O2SAT 96
[2021-09-06] MEDS: Acetaminophen 325 MG TABLET 650 MG PO (04:26)
--- NOTE | 2021-09-06 08:18 | P.PNPSI_ITS ---
Subjective Subjective Date of Service: 09/06/21 Reason For Visit: Psychotic Subjective Notes: Conditional Voluntary Interim History: The nursing staff reported the patient refused his medications in the morning. His speech remains incoherent and he has not stop talking since early this morning and he had become louder. Yesterday he become more louder and eventually in the evening he needed to be medicated with Zyprexa 10 mg IM but it seems that he does not work, it sedated is slightly but he still grossly disorganized. On interview, the patient was and coherent he wanted not to take any antipsychotics. Yesterday we had a meeting with her sister and she reported that he received care at [facility] in [place] a few months ago. Mental Status Exam Mental Status Exam Patient Appearance: Disheveled Patient Orientation: Person and Situation Level of Consciousness: Disoriented, Restless and Inappropriate Patient Behavior: Guarded, Talkative and Aggressive Mood Description: Elated Affect Description: Labile Patient Cognition Impaired: Yes Ability to Follow Directions: Poor Speech Pattern: Impoverished Hallucinations: Auditory Delusions: Paranoid Ideation and Grandiose Thought Process: Illogical and Word Salad Thought Content: positive for [place] and positive for Poverty of Content Judgement: Poor Diagnostics Vital Signs (24Hr): Vital Signs - 24 hr 09/05/21 20:45 09/06/21 02:15 09/06/21 02:30 Temperature 97.6 F 97.8 F 96.9 F Pulse Rate 100 110 H Respiratory Rate 18 20 22 H Blood Pressure 139/66 137/81 Pulse Oximetry 97 96 09/06/21 02:45 09/06/21 03:05 Temperature 97.2 F Pulse Rate 102 H Respiratory Rate 18 18 Blood Pressure 139/85 Pulse Oximetry 96 BMI result Body Mass Index 18.3 Labs Labs: Laboratory Results - last 48 hr 09/05/21 22:21 POC Glucose 103 Medications Medications Current Medications Acetaminophen (Acetaminophen 325 Mg Tablet) 650 mg PO Q6H PRN PRN Reason: Headache/Pain Mild Scale (1-3) Last Admin: 09/06/21 04:26 Dose: 650 mg Documented by: Al Hydroxide/Mg Hydroxide (Magnesium Hydrox/Alum Hydrox 30 Ml Oral.Susp) 30 ml PO Q6H PRN PRN Reason: Heartburn/Nausea Folic Acid (Folic Acid 1 Mg Tablet) 1 mg PO DAILY [facility] Last Admin: 09/05/21 10:04 Dose: Not Given Documented by: Hydroxyzine HCl (Hydroxyzine Hcl 25 Mg Tablet) 25 mg PO Q6H PRN PRN Reason: Anxiety Last Admin: 09/03/21 22:18 Dose: 25 mg Documented by: Magnesium Hydroxide (Milk Of Magnesia 30 Ml Oral.Susp) 30 ml PO DAILY PRN PRN Reason: Constipation Multivitamins/Vitamin C (Multivitamin Tablet) 1 tab PO DAILY [facility] Last Admin: 09/05/21 09:02 Dose: 1 tab Documented by: Nicotine Polacrilex (Nicotine Polacrilex 2 Mg Gum) 2 mg BUCCAL Q2H PRN PRN Reason: nicotine cravings Quetiapine Fumarate (Quetiapine Fumarate 50 Mg Tablet) 50 mg PO BEDTIME PRN PRN Reason: sleep, agitation Last Admin: 09/03/21 22:26 Dose: 50 mg Documented by: Quetiapine Fumarate (Quetiapine Fumarate 50 Mg Tablet) 50 mg PO BID [facility] Last Admin: 09/05/21 23:16 Dose: 50 mg Documented by: Quetiapine Fumarate (Quetiapine Fumarate 25 Mg Tablet) 25 mg PO BID [facility] Last Admin: 09/05/21 23:19 Dose: Not Given Documented by: Thiamine HCl (Thiamine Hcl 100 Mg Tablet) 50 mg PO DAILY [facility] Last Admin: 09/05/21 10:04 Dose: Not Given Documented by: Thiamine HCl (Thiamine Hcl 100 Mg Tablet) 100 mg PO DAILY [facility] Last Admin: 09/05/21 10:04 Dose: Not Given Documented by: Trazodone HCl (Trazodone Hcl 50 Mg Tablet) 50 mg PO BEDTIME PRN PRN Reason: Insomnia Last Admin: 09/04/21 00:25 Dose: 50 mg Documented by: Allergies Allergies Allergy/AdvReac Type Severity Reaction Status Date / Time No Known Allergies Allergy Verified 08/26/21 13:36 Assessment & Plan Assessment & Plan (1) Alcohol use with alcohol-induced disorder: Status: Acute Code(s): F10.99 - Alcohol use, unspecified with unspecified alcohol-induced disorder (2) Schizoaffective disorder, bipolar type: Status: Acute Code(s): F25.0 - Schizoaffective disorder, bipolar type Plan Dank is a 66 yo male who carries a dx of AUD, schizoaffective disorder bipolar type, and 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 He presented to [facility] on 08/26/21 after being found wandering around the streets [place] a [place] station acting erratically and speaking gibberish. Head CT was normal. Utox was negative. Ethyl alcohol negative. Pt was medically admitted for IV hydration for mild rhabdomyolysis without renal injury.?Also given IV thiamine given history of alcohol use disorder to treat any component of Wernicke-Korsakoff syndrome. On the medical floor, pt was noted to have had persistent, florid manic symptoms prompting this current psych admission.? Plan: 1. D/C Seroquel since it is not helping him. 2. Start Risperdal 1 mg p.o. t.i.d.. 3. In case of agitation we will not stay use Zyprexa IM, we will use Haldol or Thorazine. 4. Encourage compliance. I spent ___20___ minutes with the patient and/or on the patient floor today, greater than?50% of which was spent counseling/coordinating care. Informed Consent: does not understand Reason for contiued inpatient stay Substantial Risk for: harm to others, inability to function, rapid decompensation and med/psych decompensation
[2021-09-06 08:55] VITALS: BP 147/67; PULSE 93; RESP 18; TEMP 36.6; O2SAT 100
--- NOTE | 2021-09-06 14:15 | MHC.CLN ---
F/U DIET=REGULAR WITH ENSURE BID. SUPPLEMENT PROVIDES 700 KCALS, 40 G PROTEIN. CONTINUES WITH BEHAVIORS. NO NEW NUTRITION INTERVENTIONS. RD TO FOLLOW WEEKLY.
[2021-09-06 19:30] VITALS: BP 140/69; PULSE 109; RESP 20; O2SAT 98
[2021-09-06] MEDS: risperiDONE 1 MG TABLET PO ×2 (20:49→23:03)
[2021-09-06] MEDS: Nicotine Polacrilex 2 MG GUM BUCCAL (20:49)
[2021-09-07 06:00] VITALS: BP 119/57; PULSE 105; RESP 18; TEMP 36.4; O2SAT 97
[2021-09-07 07:00] VITALS: BMI 18.6
[2021-09-07] MEDS: Thiamine HCL 100 MG TABLET 50 MG PO (08:56)
[2021-09-07] MEDS: Multivitamin TABLET 1 TAB PO (08:56)
[2021-09-07] MEDS: risperiDONE 1 MG TABLET PO ×2 (08:56→22:30)
[2021-09-07] MEDS: Thiamine HCL 100 MG TABLET PO (08:56)
[2021-09-07] MEDS: Folic Acid 1 MG TABLET PO (08:56)
--- NOTE | 2021-09-07 13:35 | HO.PSYCHPN ---
Subjective Subjective Date of Service: 09/07/21 Reason For Visit: Psychotic Subjective Notes: Conditional Voluntary Interim History: The nursing staff reported that the patient has been awake nearly all night, disorganized. He took Risperdal. On interview, he was grossly manic and disorganized but he stated that he can take Thorazine and I started 50 mg at hs. Mental Status Exam Mental Status Exam Patient Appearance: Appropriate Patient Orientation: Person Level of Consciousness: Awake Patient Behavior: Cooperative Mood Description: Expansive Affect Description: Labile Patient Cognition Impaired: Yes Ability to Follow Directions: Fair Speech Pattern: Impoverished, Rambling and Loud Hallucinations: Auditory Delusions: Paranoid Ideation and Grandiose Thought Process: Distracted and Word Salad Thought Content: positive for Loose Associations and positive for Disorganized Judgement: Poor Diagnostics Vital Signs (24Hr): Vital Signs - 24 hr 09/06/21 19:30 Pulse Rate 109 H Respiratory Rate 20 Blood Pressure 140/69 H Pulse Oximetry 98 BMI result Body Mass Index 18.3 Labs Labs: Laboratory Results - last 48 hr 09/05/21 22:21 POC Glucose 103 Medications Medications Current Medications Acetaminophen (Acetaminophen 325 Mg Tablet) 650 mg PO Q6H PRN PRN Reason: Headache/Pain Mild Scale (1-3) Last Admin: 09/06/21 04:26 Dose: 650 mg Documented by: Al Hydroxide/Mg Hydroxide (Magnesium Hydrox/Alum Hydrox 30 Ml Oral.Susp) 30 ml PO Q6H PRN PRN Reason: Heartburn/Nausea Chlorpromazine HCl (Chlorpromazine Hcl 25 Mg Tablet) 50 mg PO BEDTIME [facility] Chlorpromazine HCl (Chlorpromazine Hcl 25 Mg Tablet) 25 mg PO Q6H PRN PRN Reason: Psychosis Folic Acid (Folic Acid 1 Mg Tablet) 1 mg PO DAILY [facility] Last Admin: 09/07/21 08:56 Dose: 1 mg Documented by: Hydroxyzine HCl (Hydroxyzine Hcl 25 Mg Tablet) 25 mg PO Q6H PRN PRN Reason: Anxiety Last Admin: 09/03/21 22:18 Dose: 25 mg Documented by: Magnesium Hydroxide (Milk Of Magnesia 30 Ml Oral.Susp) 30 ml PO DAILY PRN PRN Reason: Constipation Multivitamins/Vitamin C (Multivitamin Tablet) 1 tab PO DAILY [facility] Last Admin: 09/07/21 08:56 Dose: 1 tab Documented by: Nicotine Polacrilex (Nicotine Polacrilex 2 Mg Gum) 2 mg BUCCAL Q2H PRN PRN Reason: nicotine cravings Last Admin: 09/06/21 20:49 Dose: 2 mg Documented by: Quetiapine Fumarate (Quetiapine Fumarate 50 Mg Tablet) 50 mg PO BEDTIME PRN PRN Reason: sleep, agitation Last Admin: 09/03/21 22:26 Dose: 50 mg Documented by: Risperidone (Risperidone 1 Mg Tablet) 1 mg PO TID [facility] Last Admin: 09/07/21 08:56 Dose: 1 mg Documented by: Thiamine HCl (Thiamine Hcl 100 Mg Tablet) 50 mg PO DAILY [facility] Last Admin: 09/07/21 08:56 Dose: 50 mg Documented by: Thiamine HCl (Thiamine Hcl 100 Mg Tablet) 100 mg PO DAILY [facility] Last Admin: 09/07/21 08:56 Dose: 100 mg Documented by: Trazodone HCl (Trazodone Hcl 50 Mg Tablet) 50 mg PO BEDTIME PRN PRN Reason: Insomnia Last Admin: 09/04/21 00:25 Dose: 50 mg Documented by: Allergies Allergies Allergy/AdvReac Type Severity Reaction Status Date / Time No Known Allergies Allergy Verified 08/26/21 13:36 Assessment & Plan Assessment & Plan (1) Alcohol use with alcohol-induced disorder: Status: Acute Code(s): F10.99 - Alcohol use, unspecified with unspecified alcohol-induced disorder (2) Schizoaffective disorder, bipolar type: Status: Acute Code(s): F25.0 - Schizoaffective disorder, bipolar type Plan Dank is a 66 yo male who carries a dx of AUD, schizoaffective disorder bipolar type, and 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 He presented to [facility] on 08/26/21 after being found wandering around the streets [place] acting erratically and speaking gibberish. Head CT was normal. Utox was negative. Ethyl alcohol negative. Pt was medically admitted for IV hydration for mild rhabdomyolysis without renal injury.?Also given IV thiamine given history of alcohol use disorder to treat any component of Wernicke-Korsakoff syndrome. On the medical floor, pt was noted to have had persistent, florid manic symptoms prompting this current psych admission.? Plan: 1. Keep Risperdal 1 mg po tid 2. Add Thorazine 50 mg po qhs. 3. Family meeting tomorrow. I spent minutes with the patient and/or on the patient floor today, greater than?50% of which was spent counseling/coordinating care. Reason for contiued inpatient stay Substantial Risk for: harm to self, harm to others, inability to function, rapid decompensation and med/psych decompensation
[2021-09-07] MEDS: chlorproMAZINE HCl 25 MG TABLET PO (15:00)
[2021-09-07 22:37] VITALS: BP 102/56; PULSE 89; RESP 16; TEMP 36.6; O2SAT 96
[2021-09-08] MEDS: chlorproMAZINE HCl 25 MG TABLET PO ×2 (00:10→16:14)
[2021-09-08 08:00] VITALS: BP 139/69; PULSE 70; RESP 18; TEMP 36.2; O2SAT 100
[2021-09-08] MEDS: Multivitamin TABLET 1 TAB PO (08:02)
[2021-09-08] MEDS: risperiDONE 1 MG TABLET PO ×3 (08:02→21:10)
[2021-09-08] MEDS: Folic Acid 1 MG TABLET PO (08:02)
[2021-09-08] MEDS: Thiamine HCL 100 MG TABLET 50 MG PO (08:02)
[2021-09-08] MEDS: Thiamine HCL 100 MG TABLET PO (08:03)
--- NOTE | 2021-09-08 15:16 | P.PNPSI_ITS ---
Subjective Subjective Date of Service: 09/08/21 Reason For Visit: Psychotic Subjective Notes: Conditional Voluntary Interim History: The nursing staff reported the patient has been disorganized, manic and psychotic. Even though, since we started Risperdal and he has been partially compliant with this, he is slightly better. He agreed to take Thorazine as a p.r.n.. On interview, the patient is still disorganized, with flight of ideas and loose of associations. He agreed to take medications. The marriage and family social worker reported that we will contact his family for a few admission of his healthcare proxy. The patient has a long history of alcohol use disorder he looks very pale, he agreed to do blood work tomorrow morning. Mental Status Exam Mental Status Exam Patient Appearance: Well Grooomed Patient Orientation: Person and Situation Level of Consciousness: Awake Patient Behavior: Cooperative Mood Description: Labile Affect Description: Elated and Apprehensive Patient Cognition Impaired: Yes Ability to Follow Directions: Poor Speech Pattern: Rapid, Excited and Poor Articulation Hallucinations: Auditory Delusions: Paranoid Ideation and Grandiose Thought Process: Illogical and Word Salad Thought Content: positive for [place] and positive for Poverty of Content Judgement: Poor Diagnostics Vital Signs (24Hr): Vital Signs - 24 hr 09/07/21 22:37 09/08/21 08:00 Temperature 97.8 F 97.1 F Pulse Rate 89 70 Respiratory Rate 16 18 Blood Pressure 102/56 L 139/69 Pulse Oximetry 96 100 BMI result Body Mass Index 18.6 Medications Medications Current Medications Acetaminophen (Acetaminophen 325 Mg Tablet) 650 mg PO Q6H PRN PRN Reason: Headache/Pain Mild Scale (1-3) Last Admin: 09/06/21 04:26 Dose: 650 mg Documented by: Al Hydroxide/Mg Hydroxide (Magnesium Hydrox/Alum Hydrox 30 Ml Oral.Susp) 30 ml PO Q6H PRN PRN Reason: Heartburn/Nausea Chlorpromazine HCl (Chlorpromazine Hcl 25 Mg Tablet) 50 mg PO BEDTIME [facility] Last Admin: 09/07/21 22:31 Dose: Not Given Documented by: Chlorpromazine HCl (Chlorpromazine Hcl 25 Mg Tablet) 25 mg PO Q6H PRN PRN Reason: Psychosis Last Admin: 09/08/21 00:10 Dose: 25 mg Documented by: Folic Acid (Folic Acid 1 Mg Tablet) 1 mg PO DAILY [facility] Last Admin: 09/08/21 08:02 Dose: 1 mg Documented by: Hydroxyzine HCl (Hydroxyzine Hcl 25 Mg Tablet) 25 mg PO Q6H PRN PRN Reason: Anxiety Last Admin: 09/03/21 22:18 Dose: 25 mg Documented by: Magnesium Hydroxide (Milk Of Magnesia 30 Ml Oral.Susp) 30 ml PO DAILY PRN PRN Reason: Constipation Multivitamins/Vitamin C (Multivitamin Tablet) 1 tab PO DAILY [facility] Last Admin: 09/08/21 08:02 Dose: 1 tab Documented by: Nicotine Polacrilex (Nicotine Polacrilex 2 Mg Gum) 2 mg BUCCAL Q2H PRN PRN Reason: nicotine cravings Last Admin: 09/06/21 20:49 Dose: 2 mg Documented by: Quetiapine Fumarate (Quetiapine Fumarate 50 Mg Tablet) 50 mg PO BEDTIME PRN PRN Reason: sleep, agitation Last Admin: 09/03/21 22:26 Dose: 50 mg Documented by: Risperidone (Risperidone 1 Mg Tablet) 1 mg PO TID [facility] Last Admin: 09/08/21 14:14 Dose: 1 mg Documented by: Thiamine HCl (Thiamine Hcl 100 Mg Tablet) 50 mg PO DAILY [facility] Last Admin: 09/08/21 08:02 Dose: 50 mg Documented by: Thiamine HCl (Thiamine Hcl 100 Mg Tablet) 100 mg PO DAILY [facility] Last Admin: 09/08/21 08:03 Dose: 100 mg Documented by: Trazodone HCl (Trazodone Hcl 50 Mg Tablet) 50 mg PO BEDTIME PRN PRN Reason: Insomnia Last Admin: 09/04/21 00:25 Dose: 50 mg Documented by: Allergies Allergies Allergy/AdvReac Type Severity Reaction Status Date / Time No Known Allergies Allergy Verified 08/26/21 13:36 Assessment & Plan Assessment & Plan (1) Alcohol use with alcohol-induced disorder: Status: Acute Code(s): F10.99 - Alcohol use, unspecified with unspecified alcohol-induced disorder (2) Schizoaffective disorder, bipolar type: Status: Acute Code(s): F25.0 - Schizoaffective disorder, bipolar type An Weems is a 66 yo male who carries a dx of AUD, schizoaffective disorder bipolar type, and 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 He presented to [facility] on 05/14/22 after being found wandering around the streets [place] acting erratically and speaking gibberish. Head CT was normal. Utox was negative. Ethyl alcohol negative. Pt was medically admitted for IV hydration for mild rhabdomyolysis without renal injury.?Also given IV thiamine given history of alcohol use disorder to treat any component of Wernicke-Korsakoff syndrome. On the medical floor, pt was noted to have had persistent, florid manic symptoms prompting this current psych admission.? Plan: 1. Keep Risperdal 1 mg po tid 2. Add Thorazine 50 mg po qhs. 3. Family meeting tomorrow. 4. Blood work tomorrow morning I spent ___20___ minutes with the patient and/or on the patient floor today, greater than?50% of which was spent counseling/coordinating care. Reason for contiued inpatient stay Substantial Risk for: inability to function, rapid decompensation and med/psych decompensation
[2021-09-08 18:00] VITALS: BP 133/63; PULSE 108; RESP 16; TEMP 36.2; O2SAT 98
[2021-09-08] MEDS: chlorproMAZINE HCl 25 MG TABLET 50 MG PO (21:08)
[2021-09-09] MEDS: chlorproMAZINE HCl 25 MG TABLET PO ×2 (03:04→23:24)
[2021-09-09 07:22] LABS: MANUAL DIFF FLAG NO
[2021-09-09 07:24] LABS: Basophils Percent Auto 0.4 % (0-2); Eosinophils Absolute Auto 0.1 X10*3/uL (0.0-0.4); Eosinophils Percent Auto 1.4 % (0-4); Hematocrit 26.6 % (42.0-52.0); Imm Gran Abs Auto 0.04 X10*3/uL (0.00-0.03); Imm Gran Pct Auto 0.5 % (0.0-0.4); Lymphocytes Absolute Auto 1.1 X10*3/uL (1.2-4.9); Lymphocytes Percent Auto 14.2 % (20-40); Mean Corpuscular HGB Conc 33.8 g/dl (31.0-36.0); Mean Corpuscular Hemoglobin 32.3 pg (27.0-33.0); Mean Corpuscular Volume 95.3 fL (80.0-98.0); Mean Platelet Volume 8.8 fL (9.4-12.4); Monocytes Absolute Auto 0.6 X10*3/uL (0.1-1.2); Monocytes Percent Auto 7.6 % (2-11); Neutrophils Absolute Auto 5.9 x10*3/uL (2.0-8.3); Neutrophils Percent Auto 75.9 % (45-73); Platelet Count 186 X10*3/uL (160-400); Red Blood Count 2.79 X10*6/uL (4.60-5.80); Red Cell Distribution Width 15.1 % (11.0-16.0); White Blood Count 7.8 X10*3/uL (4.8-10.8)
[2021-09-09 07:40] LABS: Estimated Average Glucose 105 mg/dL; Hemoglobin A1c % 5.3 %
--- NOTE | 2021-09-09 07:50 | HO.PSYCHPN ---
Subjective Subjective Date of Service: 09/09/21 Reason For Visit: Psychotic Subjective Notes: Conditional Voluntary Interim History: The nursing staff reported that the patient has been grossly manic and disorganized, self dialoguing, non-stop talking. He refused Thorazine 75 mg (50 and 25 PRN). We discussed options and I D/Luis Eduardo Thorazine 50 mg. Still grossly manic and disorganized, compliant with Risperdal. Medication Compliance: Intermittent Side effects from medications: No Attending Groups: No Review of Systems Acute medical concerns: No Medical Review of Systems: unchanged Mental Status Exam Mental Status Exam Patient Appearance: Appropriate Patient Orientation: Person and Place Level of Consciousness: Disoriented and Restless Patient Behavior: Guarded and Suspicious Mood Description: Withdrawn Affect Description: Labile Patient Cognition Impaired: Yes Ability to Follow Directions: Poor Speech Pattern: Rambling and Rapid Hallucinations: Auditory and Visual Delusions: Paranoid Ideation and Grandiose Perceptual Disturbances: Hallucinations Thought Process: Racing, Illogical and Word Salad Thought Content: positive for [place] and positive for Poverty of Content Judgement: Fair Diagnostics Vital Signs (24Hr): Vital Signs - 24 hr 09/08/21 08:00 09/08/21 18:00 Temperature 97.1 F 97.2 F Pulse Rate 70 108 H Respiratory Rate 18 16 Blood Pressure 139/69 133/63 Pulse Oximetry 100 98 BMI result Body Mass Index 18.6 Labs Results: 09/09/21 07:18 09/09/21 07:18 Labs: Laboratory Results - last 48 hr 09/09/21 09/09/21 07:18 07:18 WBC 7.8 RBC 2.79 L D Hgb 9.0 L Hct 26.6 L MCV 95.3 MCH 32.3 MCHC 33.8 RDW 15.1 Plt Count 186 MPV 8.8 L Immature Gran % (Auto) 0.5 H Neut % (Auto) 75.9 H Lymph % (Auto) 14.2 L [place] % (Auto) 7.6 Eos % (Auto) 1.4 Baso % (Auto) 0.4 Lymph # (Auto) 1.1 L [place] # (Auto) 0.6 Eos # (Auto) 0.1 Baso # (Auto) 0.0 Abs Immat Gran (auto) 0.04 H Absolute Neuts (auto) 5.9 Absolute Nucleated RBC 0.000 Nucleated RBC % (auto) 0.0 Estimat Average Glucose 105 Hemoglobin A1c % 5.3 Medications Medications Current Medications Acetaminophen (Acetaminophen 325 Mg Tablet) 650 mg PO Q6H PRN PRN Reason: Headache/Pain Mild Scale (1-3) Last Admin: 09/06/21 04:26 Dose: 650 mg Documented by: Al Hydroxide/Mg Hydroxide (Magnesium Hydrox/Alum Hydrox 30 Ml Oral.Susp) 30 ml PO Q6H PRN PRN Reason: Heartburn/Nausea Chlorpromazine HCl (Chlorpromazine Hcl 25 Mg Tablet) 50 mg PO BEDTIME [facility] Last Admin: 09/08/21 21:08 Dose: 50 mg Documented by: Chlorpromazine HCl (Chlorpromazine Hcl 25 Mg Tablet) 25 mg PO Q6H PRN PRN Reason: Psychosis Last Admin: 09/09/21 03:04 Dose: 25 mg Documented by: Folic Acid (Folic Acid 1 Mg Tablet) 1 mg PO DAILY [facility] Last Admin: 09/08/21 08:02 Dose: 1 mg Documented by: Hydroxyzine HCl (Hydroxyzine Hcl 25 Mg Tablet) 25 mg PO Q6H PRN PRN Reason: Anxiety Last Admin: 09/03/21 22:18 Dose: 25 mg Documented by: Magnesium Hydroxide (Milk Of Magnesia 30 Ml Oral.Susp) 30 ml PO DAILY PRN PRN Reason: Constipation Multivitamins/Vitamin C (Multivitamin Tablet) 1 tab PO DAILY [facility] Last Admin: 09/08/21 08:02 Dose: 1 tab Documented by: Nicotine Polacrilex (Nicotine Polacrilex 2 Mg Gum) 2 mg BUCCAL Q2H PRN PRN Reason: nicotine cravings Last Admin: 09/06/21 20:49 Dose: 2 mg Documented by: Quetiapine Fumarate (Quetiapine Fumarate 50 Mg Tablet) 50 mg PO BEDTIME PRN PRN Reason: sleep, agitation Last Admin: 09/03/21 22:26 Dose: 50 mg Documented by: Risperidone (Risperidone 1 Mg Tablet) 1 mg PO TID [facility] Last Admin: 09/08/21 21:10 Dose: 1 mg Documented by: Thiamine HCl (Thiamine Hcl 100 Mg Tablet) 50 mg PO DAILY [facility] Last Admin: 09/08/21 08:02 Dose: 50 mg Documented by: Thiamine HCl (Thiamine Hcl 100 Mg Tablet) 100 mg PO DAILY [facility] Last Admin: 09/08/21 08:03 Dose: 100 mg Documented by: Trazodone HCl (Trazodone Hcl 50 Mg Tablet) 50 mg PO BEDTIME PRN PRN Reason: Insomnia Last Admin: 09/04/21 00:25 Dose: 50 mg Documented by: Allergies Allergies Allergy/AdvReac Type Severity Reaction Status Date / Time No Known Allergies Allergy Verified 08/26/21 13:36 Assessment & Plan Assessment & Plan (1) Alcohol use with alcohol-induced disorder: Status: Acute Code(s): F10.99 - Alcohol use, unspecified with unspecified alcohol-induced disorder (2) Schizoaffective disorder, bipolar type: Status: Acute Code(s): F25.0 - Schizoaffective disorder, bipolar type Plan Dank is a 66 yo male who carries a dx of AUD, schizoaffective disorder bipolar type, and 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 He presented to [facility] ED on 08/26/21 after being found wandering around the streets [place] acting erratically and speaking gibberish. Head CT was normal. Utox was negative. Ethyl alcohol negative. Pt was medically admitted for IV hydration for mild rhabdomyolysis without renal injury.?Also given IV thiamine given history of alcohol use disorder to treat any component of Wernicke-Korsakoff syndrome. On the medical floor, pt was noted to have had persistent, florid manic symptoms prompting this current psych admission.? Plan: 1. Keep Risperdal 1 mg po tid 2. D/C Thorazine 50 mg po qhs. 3. F/U bloodwork I spent __20____ minutes with the patient and/or on the patient floor today, greater than?50% of which was spent counseling/coordinating care. Reason for contiued inpatient stay Substantial Risk for: inability to function, rapid decompensation and med/psych decompensation
[2021-09-09 07:55] LABS: Alanine Aminotransferase 38 U/L (0-40); Alkaline Phosphatase 102 U/L (39-117); Anion Gap 9 (12-20); Aspartate Amino Transferase 31 U/L (5-37); Bilirubin Direct 0.2 mg/dL (0.0-0.5); Bilirubin Total 0.5 mg/dL (0.0-1.0); Blood Urea Nitrogen 28 mg/dL (9-16); Carbon Dioxide 27 mmol/L (22-29); Chloride 110 mmol/L (96-108); Cholesterol 128 mg/dL; Estimated Glomerular Filt Rate > 60; Glucose Random 76 mg/dL (60-115); HDL Cholesterol 54 mg/dL; LDL Cholesterol Calculated 64 mg/dl; Potassium 4.1 mmol/L (3.3-5.1); Sodium 142 mmol/L (135-145); Total Protein 5.1 g/dL (6.5-8.0); Triglycerides 50 mg/dL
[2021-09-09 08:00] VITALS: BP 108/59; PULSE 98; RESP 18; TEMP 35.9; O2SAT 96
[2021-09-09 08:11] LABS: Thyroid Stimulating Hormone 2.05 uIU/mL (0.32-4.0)
[2021-09-09] MEDS: Thiamine HCL 100 MG TABLET 50 MG PO (08:24)
[2021-09-09] MEDS: risperiDONE 1 MG TABLET PO ×3 (08:24→22:00)
[2021-09-09] MEDS: Multivitamin TABLET 1 TAB PO (08:24)
[2021-09-09] MEDS: Thiamine HCL 100 MG TABLET PO (08:25)
[2021-09-09] MEDS: Folic Acid 1 MG TABLET PO (08:25)
[2021-09-09 15:10] LABS: Appearance Urine CLEAR; Color Urine YELLOW; Glucose Urine UA NEG (NEG); Leukocyte Esterase Urine NEG (NEG); Nitrite Urine NEG (NEG); Specific Gravity - Urine 1.015 (1.005-1.025); Urine Blood NEG (NEG); Urine Ketones 5 MG/DL (NEG); Urine Protein NEG (NEG-TRACE)
[2021-09-09 19:27] VITALS: BP 152/69; PULSE 115; RESP 18; TEMP 36.6; O2SAT 100
[2021-09-09] MEDS: chlorproMAZINE HCl 25 MG TABLET 50 MG PO (20:33)
[2021-09-10] MEDS: Acetaminophen 325 MG TABLET 650 MG PO (01:13)
[2021-09-10 08:00] VITALS: BP 135/80; PULSE 99; RESP 18; TEMP 35.9; O2SAT 97
[2021-09-10] MEDS: Thiamine HCL 100 MG TABLET 50 MG PO (08:46)
[2021-09-10] MEDS: Folic Acid 1 MG TABLET PO (08:47)
[2021-09-10] MEDS: risperiDONE 1 MG TABLET PO ×3 (08:47→20:41)
[2021-09-10] MEDS: Thiamine HCL 100 MG TABLET PO (08:47)
[2021-09-10] MEDS: Multivitamin TABLET 1 TAB PO (08:47)
--- NOTE | 2021-09-10 09:39 | HO.PSYCHPN ---
Subjective Subjective Date of Service: 09/10/21 Reason For Visit: Psychotic Subjective Notes: Conditional Voluntary Interim History: The nursing staff reported the patient slept only 1 hour. His refuse Seroquel p.r.n. but he took Thorazine. He has remained manic, hyperverbal, disorganized. On interview the patient remains grossly disorganized but he is compliant with Risperdal. Medication Compliance: Intermittent Mental Status Exam Mental Status Exam Patient Appearance: Appropriate Patient Orientation: Person Level of Consciousness: Restless Patient Behavior: Suspicious Mood Description: Elated Affect Description: Labile Patient Cognition Impaired: Yes Ability to Follow Directions: Fair Speech Pattern: Rapid and Loud Hallucinations: Auditory Delusions: Paranoid Ideation and Grandiose Thought Process: Racing and Illogical Thought Content: positive for Poverty of Content Judgement: Poor Diagnostics Vital Signs (24Hr): Vital Signs - 24 hr 09/09/21 19:27 Temperature 97.9 F Pulse Rate 115 H Respiratory Rate 18 Blood Pressure 152/69 H Pulse Oximetry 100 BMI result Body Mass Index 18.6 Labs Results: 09/09/21 07:18 09/09/21 07:18 Labs: Laboratory Results - last 48 hr 09/09/21 09/09/21 09/09/21 07:18 07:18 07:18 WBC 7.8 RBC 2.79 L D Hgb 9.0 L Hct 26.6 L MCV 95.3 MCH 32.3 MCHC 33.8 RDW 15.1 Plt Count 186 MPV 8.8 L Immature Gran % (Auto) 0.5 H Neut % (Auto) 75.9 H Lymph % (Auto) 14.2 L [place] % (Auto) 7.6 Eos % (Auto) 1.4 Baso % (Auto) 0.4 Lymph # (Auto) 1.1 L [place] # (Auto) 0.6 Eos # (Auto) 0.1 Baso # (Auto) 0.0 Abs Immat Gran (auto) 0.04 H Absolute Neuts (auto) 5.9 Absolute Nucleated RBC 0.000 Nucleated RBC % (auto) 0.0 Sodium 142 Potassium 4.1 D Chloride 110 H Carbon Dioxide 27 Anion Gap 9 L BUN 28 H Creatinine 0.80 Estim Creat Clear Calc 78.0 Estimated GFR > 60 Random Glucose 76 D Estimat Average Glucose 105 Hemoglobin A1c % 5.3 Calcium 9.0 Total Bilirubin 0.5 Direct Bilirubin 0.2 AST 31 D ALT 38 Alkaline Phosphatase 102 Total Protein 5.1 L Albumin 3.0 L Triglycerides 50 Cholesterol 128 LDL Cholesterol, Calc 64 HDL Cholesterol 54 TSH 2.05 Urine Color Urine Appearance Urine pH Ur Specific [place] Urine Protein Urine Glucose (UA) Urine Ketones Urine Blood Urine Nitrite Ur Leukocyte Esterase 09/09/21 14:45 WBC RBC Hgb Hct MCV MCH MCHC RDW Plt Count MPV Immature Gran % (Auto) Neut % (Auto) Lymph % (Auto) [place] % (Auto) Eos % (Auto) Baso % (Auto) Lymph # (Auto) [place] # (Auto) Eos # (Auto) Baso # (Auto) Abs Immat Gran (auto) Absolute Neuts (auto) Absolute Nucleated RBC Nucleated RBC % (auto) Sodium Potassium Chloride Carbon Dioxide Anion Gap BUN Creatinine Estim Creat Clear Calc Estimated GFR Random Glucose Estimat Average Glucose Hemoglobin A1c % Calcium Total Bilirubin Direct Bilirubin AST ALT Alkaline Phosphatase Total Protein Albumin Triglycerides Cholesterol LDL Cholesterol, Calc HDL Cholesterol TSH Urine Color YELLOW Urine Appearance CLEAR Urine pH 6.0 Ur Specific [place] 1.015 Urine Protein NEG Urine Glucose (UA) NEG Urine Ketones 5 Urine Blood NEG Urine Nitrite NEG Ur Leukocyte Esterase NEG Medications Medications Current Medications Acetaminophen (Acetaminophen 325 Mg Tablet) 650 mg PO Q6H PRN PRN Reason: Headache/Pain Mild Scale (1-3) Last Admin: 09/10/21 01:13 Dose: 650 mg Documented by: Al Hydroxide/Mg Hydroxide (Magnesium Hydrox/Alum Hydrox 30 Ml Oral.Susp) 30 ml PO Q6H PRN PRN Reason: Heartburn/Nausea Chlorpromazine HCl (Chlorpromazine Hcl 25 Mg Tablet) 50 mg PO BEDTIME [facility] Last Admin: 09/09/21 20:33 Dose: 50 mg Documented by: Chlorpromazine HCl (Chlorpromazine Hcl 25 Mg Tablet) 25 mg PO Q6H PRN PRN Reason: Psychosis Last Admin: 09/09/21 23:24 Dose: 25 mg Documented by: Folic Acid (Folic Acid 1 Mg Tablet) 1 mg PO DAILY [facility] Last Admin: 09/10/21 08:47 Dose: 1 mg Documented by: Hydroxyzine HCl (Hydroxyzine Hcl 25 Mg Tablet) 25 mg PO Q6H PRN PRN Reason: Anxiety Last Admin: 09/03/21 22:18 Dose: 25 mg Documented by: Magnesium Hydroxide (Milk Of Magnesia 30 Ml Oral.Susp) 30 ml PO DAILY PRN PRN Reason: Constipation Multivitamins/Vitamin C (Multivitamin Tablet) 1 tab PO DAILY [facility] Last Admin: 09/10/21 08:47 Dose: 1 tab Documented by: Nicotine Polacrilex (Nicotine Polacrilex 2 Mg Gum) 2 mg BUCCAL Q2H PRN PRN Reason: nicotine cravings Last Admin: 09/06/21 20:49 Dose: 2 mg Documented by: Risperidone (Risperidone 1 Mg Tablet) 1 mg PO TID [facility] Last Admin: 09/10/21 08:47 Dose: 1 mg Documented by: Thiamine HCl (Thiamine Hcl 100 Mg Tablet) 100 mg PO DAILY [facility] Last Admin: 09/10/21 08:47 Dose: 100 mg Documented by: Trazodone HCl (Trazodone Hcl 50 Mg Tablet) 50 mg PO BEDTIME PRN PRN Reason: Insomnia Last Admin: 09/04/21 00:25 Dose: 50 mg Documented by: Allergies Allergies Allergy/AdvReac Type Severity Reaction Status Date / Time No Known Allergies Allergy Verified 08/26/21 13:36 Assessment & Plan Assessment & Plan (1) Alcohol use with alcohol-induced disorder: Status: Acute Code(s): F10.99 - Alcohol use, unspecified with unspecified alcohol-induced disorder (2) Schizoaffective disorder, bipolar type: Status: Acute Code(s): F25.0 - Schizoaffective disorder, bipolar type Plan Dank is a 66 yo male who carries a dx of AUD, schizoaffective disorder bipolar type, and 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 He presented to [facility] on 08/26/21 after being found wandering around the streets [place] acting erratically and speaking gibberish. Head CT was normal. Utox was negative. Ethyl alcohol negative. Pt was medically admitted for IV hydration for mild rhabdomyolysis without renal injury.?Also given IV thiamine given history of alcohol use disorder to treat any component of Wernicke-Korsakoff syndrome. On the medical floor, pt was noted to have had persistent, florid manic symptoms prompting this current psych admission.? Plan: 1. Keep Risperdal 1 mg po tid 2. D/C Thorazine 50 mg po qhs. D/C Seroquel PRN 3. F/U bloodwork I spent __20____ minutes with the patient and/or on the patient floor today, greater than?50% of which was spent counseling/coordinating care. Reason for contiued inpatient stay Substantial Risk for: inability to function, rapid decompensation and med/psych decompensation
[2021-09-10 19:28] VITALS: BP 156/72; PULSE 111; RESP 18; TEMP 36.6; O2SAT 100
[2021-09-10] MEDS: chlorproMAZINE HCl 25 MG TABLET 50 MG PO (21:17)
[2021-09-11] MEDS: Acetaminophen 325 MG TABLET 650 MG PO ×2 (01:26→21:19)
--- NOTE | 2021-09-11 08:01 | P.PNPSI_ITS ---
Subjective Subjective Date of Service: 09/11/21 Reason For Visit: Psychotic Subjective Notes: Conditional Voluntary Interim History: The nursing staff reported the patient has been talking to himself self dialogue in with a sporadic outburst but overall last night he slept much better. On interview the patient was still disorganized but it seems that he is slightly better since Risperdal was started. He stated that he is going to stay here to get better and keep taking Risperdal. Mental Status Exam Mental Status Exam Patient Appearance: Appropriate Patient Orientation: Person and Situation Level of Consciousness: Awake Patient Behavior: Guarded and Wandering Mood Description: Euphoric Affect Description: Labile Patient Cognition Impaired: No Ability to Follow Directions: Good Speech Pattern: Clear Hallucinations: Auditory Delusions: Paranoid Ideation and Grandiose Thought Process: Illogical and Word Salad Thought Content: positive for [place] and positive for Circumstantial Judgement: Fair Diagnostics Vital Signs (24Hr): Vital Signs - 24 hr 09/10/21 19:28 Temperature 97.8 F Pulse Rate 111 H Respiratory Rate 18 Blood Pressure 156/72 H Pulse Oximetry 100 BMI result Body Mass Index 18.6 Labs Results: 09/09/21 07:18 09/09/21 07:18 Labs: Laboratory Results - last 48 hr 09/09/21 09/09/21 07:18 14:45 TSH 2.05 Urine Color YELLOW Urine Appearance CLEAR Urine pH 6.0 Ur Specific [place] 1.015 Urine Protein NEG Urine Glucose (UA) NEG Urine Ketones 5 Urine Blood NEG Urine Nitrite NEG Ur Leukocyte Esterase NEG Medications Medications Current Medications Acetaminophen (Acetaminophen 325 Mg Tablet) 650 mg PO Q6H PRN PRN Reason: Headache/Pain Mild Scale (1-3) Last Admin: 09/11/21 01:26 Dose: 650 mg Documented by: Al Hydroxide/Mg Hydroxide (Magnesium Hydrox/Alum Hydrox 30 Ml Oral.Susp) 30 ml PO Q6H PRN PRN Reason: Heartburn/Nausea Chlorpromazine HCl (Chlorpromazine Hcl 25 Mg Tablet) 50 mg PO BEDTIME [facility] Last Admin: 09/10/21 21:17 Dose: 50 mg Documented by: Chlorpromazine HCl (Chlorpromazine Hcl 25 Mg Tablet) 25 mg PO Q6H PRN PRN Reason: Psychosis Last Admin: 09/09/21 23:24 Dose: 25 mg Documented by: Folic Acid (Folic Acid 1 Mg Tablet) 1 mg PO DAILY [facility] Last Admin: 09/10/21 08:47 Dose: 1 mg Documented by: Hydroxyzine HCl (Hydroxyzine Hcl 25 Mg Tablet) 25 mg PO Q6H PRN PRN Reason: Anxiety Last Admin: 09/03/21 22:18 Dose: 25 mg Documented by: Magnesium Hydroxide (Milk Of Magnesia 30 Ml Oral.Susp) 30 ml PO DAILY PRN PRN Reason: Constipation Multivitamins/Vitamin C (Multivitamin Tablet) 1 tab PO DAILY [facility] Last Admin: 09/10/21 08:47 Dose: 1 tab Documented by: Nicotine Polacrilex (Nicotine Polacrilex 2 Mg Gum) 2 mg BUCCAL Q2H PRN PRN Reason: nicotine cravings Last Admin: 09/06/21 20:49 Dose: 2 mg Documented by: Risperidone (Risperidone 1 Mg Tablet) 1 mg PO TID [facility] Last Admin: 09/10/21 20:41 Dose: 1 mg Documented by: Thiamine HCl (Thiamine Hcl 100 Mg Tablet) 100 mg PO DAILY [facility] Last Admin: 09/10/21 08:47 Dose: 100 mg Documented by: Trazodone HCl (Trazodone Hcl 50 Mg Tablet) 50 mg PO BEDTIME PRN PRN Reason: Insomnia Last Admin: 09/04/21 00:25 Dose: 50 mg Documented by: Allergies Allergies Allergy/AdvReac Type Severity Reaction Status Date / Time No Known Allergies Allergy Verified 08/26/21 13:36 Assessment & Plan Assessment & Plan (1) Alcohol use with alcohol-induced disorder: Status: Acute Code(s): F10.99 - Alcohol use, unspecified with unspecified alcohol-induced disorder (2) Schizoaffective disorder, bipolar type: Status: Acute Code(s): F25.0 - Schizoaffective disorder, bipolar type An Weems is a 66 yo male who carries a dx of AUD, schizoaffective disorder bipolar type, and 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 He presented to [facility] ED on after being found wandering around the streets [place] a [place] acting erratically and speaking gibberish. Head CT was normal. Utox was negative. Ethyl alcohol negative. Pt was medically admitted for IV hydration for mild rhabdomyolysis without renal injury.?Also given IV thiamine given history of alcohol use disorder to treat any component of Wernicke-Korsakoff syndrome. On the medical floor, pt was noted to have had persistent, florid manic symptoms prompting this current psych admission.? Plan: 1. Keep Risperdal 1 mg po tid 2. D/C Thorazine 50 mg po qhs. D/C Seroquel PRN 3. Bloodwork without major changes. I spent ___20___ minutes with the patient and/or on the patient floor today, greater than?50% of which was spent counseling/coordinating care. Reason for contiued inpatient stay Substantial Risk for: inability to function, rapid decompensation and med/psych decompensation
[2021-09-11 08:22] VITALS: BP 137/72; PULSE 111; RESP 17; TEMP 35.6; O2SAT 97
[2021-09-11] MEDS: Thiamine HCL 100 MG TABLET PO (08:23)
[2021-09-11] MEDS: Folic Acid 1 MG TABLET PO (08:23)
[2021-09-11] MEDS: Multivitamin TABLET 1 TAB PO (08:24)
[2021-09-11] MEDS: risperiDONE 1 MG TABLET PO ×3 (08:24→19:53)
[2021-09-11 18:00] VITALS: BP 142/72; PULSE 99; RESP 17; TEMP 35.9; O2SAT 100
[2021-09-11] MEDS: chlorproMAZINE HCl 25 MG TABLET 50 MG PO (19:53)
[2021-09-11] MEDS: traZODone HCL 50 MG TABLET PO (21:19)
[2021-09-12 07:35] VITALS: BP 142/69; PULSE 94; RESP 18; O2SAT 100
[2021-09-12] MEDS: Folic Acid 1 MG TABLET PO (08:22)
[2021-09-12] MEDS: risperiDONE 1 MG TABLET PO ×3 (08:22→19:55)
[2021-09-12] MEDS: Thiamine HCL 100 MG TABLET PO (08:22)
[2021-09-12] MEDS: Multivitamin TABLET 1 TAB PO (08:22)
[2021-09-12 10:58] LABS: COVID-19 Test Positive (Negative); IDNOW Serial# 16C4AD1C
[2021-09-12 12:51] VITALS: BP 114/65; PULSE 104; TEMP 37.2; O2SAT 90
--- NOTE | 2021-09-12 15:19 | P.PNPSI_ITS ---
Subjective Subjective Date of Service: 09/12/21 Reason For Visit: Psychotic Subjective Notes: Conditional Voluntary Interim History: The nursing staff reported the patient has been hyperverbal, intrusive but medication compliant. He has been pacing and wandering, talking to himself he has been perseverative using alcohol Saturday so for COVID. He slept only 2 hours last night. On interview the patient was restless with pressured speech but slightly better Mental Status Exam Mental Status Exam Patient Appearance: Appropriate Patient Orientation: Person Level of Consciousness: Restless Patient Behavior: Talkative and Avoidant Mood Description: Cheerful and Labile Affect Description: Elated Patient Cognition Impaired: Yes Ability to Follow Directions: Fair Speech Pattern: Rapid Hallucinations: Auditory Delusions: Paranoid Ideation and Grandiose Thought Process: Illogical Thought Content: positive for [place] Judgement: Poor Diagnostics Vital Signs (24Hr): Vital Signs - 24 hr 09/11/21 18:00 09/12/21 07:35 09/12/21 12:51 Temperature 96.7 F L 99 F Pulse Rate 99 94 104 H Respiratory Rate 17 18 Blood Pressure 142/72 H 142/69 H 114/65 Pulse Oximetry 100 100 90 L BMI result Body Mass Index 18.6 Labs Results: 09/09/21 07:18 09/09/21 07:18 Labs: Laboratory Results - last 48 hr 09/12/21 10:35 COVID-19 ([facility]) Positive A COVID-19 Clin Com See Note Medications Medications Current Medications Acetaminophen (Acetaminophen 325 Mg Tablet) 650 mg PO Q6H PRN PRN Reason: Headache/Pain Mild Scale (1-3) Last Admin: 09/11/21 21:19 Dose: 650 mg Documented by: Al Hydroxide/Mg Hydroxide (Magnesium Hydrox/Alum Hydrox 30 Ml Oral.Susp) 30 ml PO Q6H PRN PRN Reason: Heartburn/Nausea Chlorpromazine HCl (Chlorpromazine Hcl 25 Mg Tablet) 50 mg PO BEDTIME [facility] Last Admin: 09/11/21 19:53 Dose: 50 mg Documented by: Chlorpromazine HCl (Chlorpromazine Hcl 25 Mg Tablet) 25 mg PO Q6H PRN PRN Reason: Psychosis Last Admin: 09/09/21 23:24 Dose: 25 mg Documented by: Folic Acid (Folic Acid 1 Mg Tablet) 1 mg PO DAILY [facility] Last Admin: 09/12/21 08:22 Dose: 1 mg Documented by: Hydroxyzine HCl (Hydroxyzine Hcl 25 Mg Tablet) 25 mg PO Q6H PRN PRN Reason: Anxiety Last Admin: 09/03/21 22:18 Dose: 25 mg Documented by: Magnesium Hydroxide (Milk Of Magnesia 30 Ml Oral.Susp) 30 ml PO DAILY PRN PRN Reason: Constipation Multivitamins/Vitamin C (Multivitamin Tablet) 1 tab PO DAILY [facility] Last Admin: 09/12/21 08:22 Dose: 1 tab Documented by: Nicotine Polacrilex (Nicotine Polacrilex 2 Mg Gum) 2 mg BUCCAL Q2H PRN PRN Reason: nicotine cravings Last Admin: 09/06/21 20:49 Dose: 2 mg Documented by: Risperidone (Risperidone 1 Mg Tablet) 1 mg PO TID [facility] Last Admin: 09/12/21 08:22 Dose: 1 mg Documented by: Thiamine HCl (Thiamine Hcl 100 Mg Tablet) 100 mg PO DAILY [facility] Last Admin: 09/12/21 08:22 Dose: 100 mg Documented by: Trazodone HCl (Trazodone Hcl 50 Mg Tablet) 50 mg PO BEDTIME PRN PRN Reason: Insomnia Last Admin: 09/11/21 21:19 Dose: 50 mg Documented by: Allergies Allergies Allergy/AdvReac Type Severity Reaction Status Date / Time No Known Allergies Allergy Verified 08/26/21 13:36 Assessment & Plan Assessment & Plan (1) Alcohol use with alcohol-induced disorder: Status: Acute Code(s): F10.99 - Alcohol use, unspecified with unspecified alcohol-induced disorder (2) Schizoaffective disorder, bipolar type: Status: Acute Code(s): F25.0 - Schizoaffective disorder, bipolar type Plan Dank is a 66 yo male who carries a dx of AUD, schizoaffective disorder bipolar type, and 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 He presented to [facility] on 08/26/21 after being found wandering around the streets [place] acting erratically and speaking gibberish. Head CT was normal. Utox was negative. Ethyl alcohol negative. Pt was medically admitted for IV hydration for mild rhabdomyolysis without renal injury.?Also given IV thiamine given history of alcohol use disorder to treat any component of Wernicke-Korsakoff syndrome. On the medical floor, pt was noted to have had persistent, florid manic symptoms prompting this current psych admission.? Plan: 1. Keep Risperdal 1 mg po tid 2. D/C Thorazine 50 mg po qhs. D/C Seroquel PRN 3. Bloodwork without major changes. 4. COVID-19 protocol since the patient came up positive I spent __20____ minutes with the patient and/or on the patient floor today, greater than?50% of which was spent counseling/coordinating care. Reason for contiued inpatient stay Substantial Risk for: inability to function, rapid decompensation and med/psych decompensation
[2021-09-12 15:56] VITALS: BP 143/62; PULSE 115; RESP 18; TEMP 37.9; O2SAT 95
[2021-09-12] MEDS: Acetaminophen 325 MG TABLET 650 MG PO (16:10)
[2021-09-12] MEDS: chlorproMAZINE HCl 25 MG TABLET 50 MG PO (19:55)
[2021-09-12 21:29] VITALS: BP 124/65; PULSE 102; RESP 17; TEMP 38.2; O2SAT 92
[2021-09-13 08:45] VITALS: BP 114/53; PULSE 109; RESP 16; TEMP 37.6; O2SAT 96
[2021-09-13] MEDS: Folic Acid 1 MG TABLET PO (09:29)
[2021-09-13] MEDS: risperiDONE 1 MG TABLET PO ×3 (09:29→21:24)
[2021-09-13] MEDS: Multivitamin TABLET 1 TAB PO (09:29)
[2021-09-13] MEDS: Thiamine HCL 100 MG TABLET PO (09:29)
[2021-09-13] MEDS: Acetaminophen 325 MG TABLET 650 MG PO ×2 (10:44→21:25)
--- NOTE | 2021-09-13 10:45 | MHC.CLN ---
F/U SHOWS FAVORABLE WEIGHT GAIN OF APPROX 2 POUNDS SINCE ADM. BMI=18.6. COVID POSITIVE. CONTINUE REGULAR DIET WITH ENSURE BID. SUPPLEMENT PROVIDES ADDITIONAL 700 KCALS, 40 GRAMS PROTEIN. ENCOURAGE INAKE OF MEALS AND SUPPLEMENT ABLE.
--- NOTE | 2021-09-13 11:05 | PC.NURSE ---
Unable to reach HCP To update on pt.'s Covid positive status. Left message to call facility.
--- NOTE | 2021-09-13 12:15 | HO.PSYCHPN ---
Subjective Subjective Date of Service: 09/13/21 Reason For Visit: Psychotic Subjective Notes: Conditional Voluntary Interim History: The nursing staff reported that the patient has less word salad, he has been cooperative with the COVID protocol. He he had fever 103 and he has been compliant with treatment. On interview the patient was resting in his bed pleasantly confused and psychotic. Mental Status Exam Mental Status Exam Patient Appearance: Appropriate Patient Orientation: Person and Situation Level of Consciousness: Awake Patient Behavior: Guarded Mood Description: Constricted Affect Description: Calm Patient Cognition Impaired: Yes Ability to Follow Directions: Good Speech Pattern: Clear Hallucinations: Auditory Delusions: Paranoid Ideation Thought Process: Illogical Thought Content: positive for Disoriented Judgement: Fair Diagnostics Vital Signs (24Hr): Vital Signs - 24 hr 09/12/21 12:51 09/12/21 15:56 09/12/21 21:29 Temperature 99 F 100.3 F 100.8 F H Pulse Rate 104 H 115 H 102 H Respiratory Rate 18 17 Blood Pressure 114/65 143/62 H 124/65 Pulse Oximetry 90 L 95 92 09/13/21 08:45 Temperature 99.7 F Pulse Rate 109 H Respiratory Rate 16 Blood Pressure 114/53 L Pulse Oximetry 96 BMI result Body Mass Index 18.6 Labs Results: 09/09/21 07:18 09/09/21 07:18 Labs: Laboratory Results - last 48 hr 09/12/21 10:35 COVID-19 ([facility]) Positive A COVID-19 Clin Com See Note Medications Medications Current Medications Acetaminophen (Acetaminophen 325 Mg Tablet) 650 mg PO Q6H PRN PRN Reason: Headache/Pain Mild Scale (1-3) Last Admin: 09/13/21 10:44 Dose: 650 mg Documented by: Al Hydroxide/Mg Hydroxide (Magnesium Hydrox/Alum Hydrox 30 Ml Oral.Susp) 30 ml PO Q6H PRN PRN Reason: Heartburn/Nausea Chlorpromazine HCl (Chlorpromazine Hcl 25 Mg Tablet) 50 mg PO BEDTIME [facility] Last Admin: 09/12/21 19:55 Dose: 50 mg Documented by: Chlorpromazine HCl (Chlorpromazine Hcl 25 Mg Tablet) 25 mg PO Q6H PRN PRN Reason: Psychosis Last Admin: 09/09/21 23:24 Dose: 25 mg Documented by: Folic Acid (Folic Acid 1 Mg Tablet) 1 mg PO DAILY [facility] Last Admin: 09/13/21 09:29 Dose: 1 mg Documented by: Hydroxyzine HCl (Hydroxyzine Hcl 25 Mg Tablet) 25 mg PO Q6H PRN PRN Reason: Anxiety Last Admin: 09/03/21 22:18 Dose: 25 mg Documented by: Magnesium Hydroxide (Milk Of Magnesia 30 Ml Oral.Susp) 30 ml PO DAILY PRN PRN Reason: Constipation Multivitamins/Vitamin C (Multivitamin Tablet) 1 tab PO DAILY [facility] Last Admin: 09/13/21 09:29 Dose: 1 tab Documented by: Nicotine Polacrilex (Nicotine Polacrilex 2 Mg Gum) 2 mg BUCCAL Q2H PRN PRN Reason: nicotine cravings Last Admin: 09/06/21 20:49 Dose: 2 mg Documented by: Risperidone (Risperidone 1 Mg Tablet) 1 mg PO TID [facility] Last Admin: 09/13/21 09:29 Dose: 1 mg Documented by: Thiamine HCl (Thiamine Hcl 100 Mg Tablet) 100 mg PO DAILY [facility] Last Admin: 09/13/21 09:29 Dose: 100 mg Documented by: Trazodone HCl (Trazodone Hcl 50 Mg Tablet) 50 mg PO BEDTIME PRN PRN Reason: Insomnia Last Admin: 09/11/21 21:19 Dose: 50 mg Documented by: Allergies Allergies Allergy/AdvReac Type Severity Reaction Status Date / Time No Known Allergies Allergy Verified 08/26/21 13:36 Assessment & Plan Assessment & Plan (1) Alcohol use with alcohol-induced disorder: Status: Acute Code(s): F10.99 - Alcohol use, unspecified with unspecified alcohol-induced disorder (2) Schizoaffective disorder, bipolar type: Status: Acute Code(s): F25.0 - Schizoaffective disorder, bipolar type Plan Dank is a 66 yo male who carries a dx of AUD, schizoaffective disorder bipolar type, and 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 He presented to [facility] [place] [facility] on [place]/26/21 after being found wandering around the streets [place] acting erratically and speaking gibberish. Head CT was normal. Utox was negative. Ethyl alcohol negative. Pt was medically admitted for IV hydration for mild rhabdomyolysis without renal injury.?Also given IV thiamine given history of alcohol use disorder to treat any component of Wernicke-Korsakoff syndrome. On the medical floor, pt was noted to have had persistent, florid manic symptoms prompting this current psych admission.? Plan: 1. Keep Risperdal 1 mg po tid 2. D/C Thorazine 50 mg po qhs. D/C Seroquel PRN 3. Bloodwork without major changes. 4. COVID-19 protocol since the patient came up positive I spent ___30___ minutes with the patient and/or on the patient floor today, greater than?50% of which was spent counseling/coordinating care. Reason for contiued inpatient stay Substantial Risk for: inability to function, rapid decompensation and med/psych decompensation
--- NOTE | 2021-09-13 14:57 | PC.NURSE ---
MORATAYA attempted to engage patient in 1:1 treatment however both times MORATAYA approached patient he was sleeping or on the phone.
[2021-09-13 17:00] VITALS: BP 129/59; PULSE 102; RESP 16; TEMP 37.3; O2SAT 99
[2021-09-13 21:00] VITALS: BP 121/65; PULSE 104; RESP 18; TEMP 36.6; O2SAT 96
[2021-09-14 04:21] VITALS: BP 120/70; PULSE 100; RESP 20; TEMP 37.1; O2SAT 99
[2021-09-14 07:50] VITALS: BP 123/60; PULSE 63; RESP 18; TEMP 36.7; O2SAT 96
[2021-09-14] MEDS: Thiamine HCL 100 MG TABLET PO (08:27)
[2021-09-14] MEDS: Folic Acid 1 MG TABLET PO (08:27)
[2021-09-14] MEDS: Multivitamin TABLET 1 TAB PO (08:27)
[2021-09-14] MEDS: risperiDONE 1 MG TABLET PO ×3 (08:28→20:10)
[2021-09-14 13:00] VITALS: BP 146/68; PULSE 120; RESP 18; TEMP 37.2; O2SAT 96
--- NOTE | 2021-09-14 18:08 | P.PNPSI_ITS ---
Subjective Subjective Date of Service: 09/14/21 Reason For Visit: Psychotic Interim History: Patient seen and discussed with team. Down to Q15 min checks. Sleeping better.? Patient evaluated today and upon interview pt is self dialoguing non-stop but he is pleasant, eating dinner. Per pt, I'll tell you how pleased i am to be here. Thought content is on hospital treatment, says Risperdal 1 mg three times a day seems to be the ticket to function with a high degree of proficiency. Pt knows the date. Says he feels safe. Mental Status Exam Mental Status Exam Narrative: Patient Appearance:?Appropriate Patient Orientation:?Person and Situation Level of Consciousness:?Awake Patient Behavior:?Guarded Mood Description:?Constricted Affect Description:?Calm Patient Cognition Impaired:?Yes Ability to Follow Directions:?Good Speech Pattern:?Clear Hallucinations:?Auditory Delusions:?Paranoid Ideation Thought Process:?Illogical Thought Content:?positive for Disoriented Judgement:?Fair Diagnostics Vital Signs (24Hr): Vital Signs - 24 hr 09/13/21 21:00 09/14/21 04:21 09/14/21 07:50 Temperature 97.9 F 98.7 F 98.1 F Pulse Rate 104 H 100 63 Respiratory Rate 18 20 18 Blood Pressure 121/65 120/70 123/60 Pulse Oximetry 96 99 96 09/14/21 13:00 Temperature 99.0 F Pulse Rate 120 H Respiratory Rate 18 Blood Pressure 146/68 H Pulse Oximetry 96 BMI result Body Mass Index 18.6 Labs Results: 09/09/21 07:18 09/09/21 07:18 Medications Medications Current Medications Acetaminophen (Acetaminophen 325 Mg Tablet) 650 mg PO Q6H PRN PRN Reason: Headache/Pain Mild Scale (1-3) Last Admin: 09/13/21 21:25 Dose: 650 mg Documented by: Al Hydroxide/Mg Hydroxide (Magnesium Hydrox/Alum Hydrox 30 Ml Oral.Susp) 30 ml PO Q6H PRN PRN Reason: Heartburn/Nausea Chlorpromazine HCl (Chlorpromazine Hcl 25 Mg Tablet) 50 mg PO BEDTIME [facility] Last Admin: 09/13/21 21:32 Dose: Not Given Documented by: Chlorpromazine HCl (Chlorpromazine Hcl 25 Mg Tablet) 25 mg PO Q6H PRN PRN Reason: Psychosis Last Admin: 09/09/21 23:24 Dose: 25 mg Documented by: Folic Acid (Folic Acid 1 Mg Tablet) 1 mg PO DAILY [facility] Last Admin: 09/14/21 08:27 Dose: 1 mg Documented by: Hydroxyzine HCl (Hydroxyzine Hcl 25 Mg Tablet) 25 mg PO Q6H PRN PRN Reason: Anxiety Last Admin: 09/03/21 22:18 Dose: 25 mg Documented by: Magnesium Hydroxide (Milk Of Magnesia 30 Ml Oral.Susp) 30 ml PO DAILY PRN PRN Reason: Constipation Multivitamins/Vitamin C (Multivitamin Tablet) 1 tab PO DAILY [facility] Last Admin: 09/14/21 08:27 Dose: 1 tab Documented by: Nicotine Polacrilex (Nicotine Polacrilex 2 Mg Gum) 2 mg BUCCAL Q2H PRN PRN Reason: nicotine cravings Last Admin: 09/06/21 20:49 Dose: 2 mg Documented by: Risperidone (Risperidone 1 Mg Tablet) 1 mg PO TID [facility] Last Admin: 09/14/21 14:26 Dose: 1 mg Documented by: Thiamine HCl (Thiamine Hcl 100 Mg Tablet) 100 mg PO DAILY [facility] Last Admin: 09/14/21 08:27 Dose: 100 mg Documented by: Trazodone HCl (Trazodone Hcl 50 Mg Tablet) 50 mg PO BEDTIME PRN PRN Reason: Insomnia Last Admin: 09/11/21 21:19 Dose: 50 mg Documented by: Allergies Allergies Allergy/AdvReac Type Severity Reaction Status Date / Time No Known Allergies Allergy Verified 08/26/21 13:36 Assessment & Plan Assessment & Plan (1) Alcohol use with alcohol-induced disorder: Status: Acute Code(s): F10.99 - Alcohol use, unspecified with unspecified alcohol-induced disorder (2) Schizoaffective disorder, bipolar type: Status: Acute Code(s): F25.0 - Schizoaffective disorder, bipolar type An Weems is a 66 yo male who carries a dx of AUD, schizoaffective disorder bipolar type, and 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 He presented to [facility] [place] [facility] on 08/26/21 after being found wandering around the streets [place] acting erratically and speaking gibberish. Head CT was normal. Utox was negative. Ethyl alcohol negative. Pt was medically admitted for IV hydration for mild rhabdomyolysis without renal injury.?Also given IV thiamine given history o f alcohol use disorder to treat any component of Wernicke-Korsakoff syndrome. On the medical floor, pt was noted to have had persistent, florid manic symptoms prompting this current psych admission.? Plan: 1. Keep Risperdal 1 mg po tid 2. D/C Thorazine 50 mg po qhs. D/C Seroquel PRN 3. Bloodwork without major changes. 4. COVID-19 protocol since the patient came up positive I spent minutes with the patient and/or on the patient floor today, greater than?50% of which was spent counseling/coordinating care. Patient educated on: other Reason for contiued inpatient stay Substantial Risk for: inability to function, rapid decompensation and med/psych decompensation
[2021-09-14] MEDS: chlorproMAZINE HCl 25 MG TABLET 50 MG PO (20:10)
[2021-09-14] MEDS: Acetaminophen 325 MG TABLET 650 MG PO (20:40)
[2021-09-14 21:00] VITALS: BP 122/59; PULSE 104; RESP 20; TEMP 37.3; O2SAT 96
[2021-09-15] MEDS: Acetaminophen 325 MG TABLET 650 MG PO ×3 (02:59→20:26)
[2021-09-15 04:02] VITALS: BP 130/80; PULSE 88; RESP 18; TEMP 36.6; O2SAT 99
[2021-09-15] MEDS: Thiamine HCL 100 MG TABLET PO (08:31)
[2021-09-15] MEDS: Folic Acid 1 MG TABLET PO (08:31)
[2021-09-15] MEDS: Multivitamin TABLET 1 TAB PO (08:31)
[2021-09-15] MEDS: risperiDONE 1 MG TABLET PO ×3 (08:31→20:35)
[2021-09-15 08:36] VITALS: BP 118/61; PULSE 86; RESP 18; TEMP 36.1; O2SAT 99
--- NOTE | 2021-09-15 09:50 | P.PNPSI_ITS ---
Subjective Subjective Date of Service: 09/15/21 Reason For Visit: Psychotic Subjective Notes: Conditional Voluntary Interim History: the nursing staff reported the patient has been self dialogue in, disorganized but with better ADL less and more come. Yesterday he slept only 2 hours. His vital signs are stable no new fever. The social organization professor reported the family is moving to get affirmed healthcare proxy. On interview the patient is still manic and psychotic but easily redirectable. Mental Status Exam Mental Status Exam Patient Appearance: Appropriate Patient Orientation: Person and Situation Level of Consciousness: Awake and Restless Patient Behavior: Cooperative, Anxious and Good Eye Contact Mood Description: Withdrawn Affect Description: Labile Patient Cognition Impaired: Yes Ability to Follow Directions: Fair Speech Pattern: Rapid and Animated Hallucinations: Auditory Delusions: Paranoid Ideation Thought Process: Illogical Thought Content: positive for [place] and positive for Poverty of Content Judgement: Fair Diagnostics Vital Signs (24Hr): Vital Signs - 24 hr 09/14/21 13:00 09/14/21 21:00 09/15/21 04:02 Temperature 99.0 F 99.1 F 98 F Pulse Rate 120 H 104 H 88 Respiratory Rate 18 20 18 Blood Pressure 146/68 H 122/59 L 130/80 Pulse Oximetry 96 96 99 09/15/21 08:36 Temperature 97 F Pulse Rate 86 Respiratory Rate 18 Blood Pressure 118/61 Pulse Oximetry 99 BMI result Body Mass Index 18.6 Labs Results: 09/09/21 07:18 09/09/21 07:18 Medications Medications Current Medications Acetaminophen (Acetaminophen 325 Mg Tablet) 650 mg PO Q6H PRN PRN Reason: Headache/Pain Mild Scale (1-3) Last Admin: 09/15/21 02:59 Dose: 650 mg Documented by: Al Hydroxide/Mg Hydroxide (Magnesium Hydrox/Alum Hydrox 30 Ml Oral.Susp) 30 ml PO Q6H PRN PRN Reason: Heartburn/Nausea Chlorpromazine HCl (Chlorpromazine Hcl 25 Mg Tablet) 50 mg PO BEDTIME [facility] Last Admin: 09/14/21 20:10 Dose: 25 mg Documented by: Chlorpromazine HCl (Chlorpromazine Hcl 25 Mg Tablet) 25 mg PO Q6H PRN PRN Reason: Psychosis Last Admin: 09/09/21 23:24 Dose: 25 mg Documented by: Folic Acid (Folic Acid 1 Mg Tablet) 1 mg PO DAILY [facility] Last Admin: 09/15/21 08:31 Dose: 1 mg Documented by: Hydroxyzine HCl (Hydroxyzine Hcl 25 Mg Tablet) 25 mg PO Q6H PRN PRN Reason: Anxiety Last Admin: 09/03/21 22:18 Dose: 25 mg Documented by: Magnesium Hydroxide (Milk Of Magnesia 30 Ml Oral.Susp) 30 ml PO DAILY PRN PRN Reason: Constipation Multivitamins/Vitamin C (Multivitamin Tablet) 1 tab PO DAILY [facility] Last Admin: 09/15/21 08:31 Dose: 1 tab Documented by: Nicotine Polacrilex (Nicotine Polacrilex 2 Mg Gum) 2 mg BUCCAL Q2H PRN PRN Reason: nicotine cravings Last Admin: 09/06/21 20:49 Dose: 2 mg Documented by: Risperidone (Risperidone 1 Mg Tablet) 1 mg PO TID [facility] Last Admin: 09/15/21 08:31 Dose: 1 mg Documented by: Thiamine HCl (Thiamine Hcl 100 Mg Tablet) 100 mg PO DAILY [facility] Last Admin: 09/15/21 08:31 Dose: 100 mg Documented by: Trazodone HCl (Trazodone Hcl 50 Mg Tablet) 50 mg PO BEDTIME PRN PRN Reason: Insomnia Last Admin: 09/11/21 21:19 Dose: 50 mg Documented by: Allergies Allergies Allergy/AdvReac Type Severity Reaction Status Date / Time No Known Allergies Allergy Verified 08/26/21 13:36 Assessment & Plan Assessment & Plan (1) Alcohol use with alcohol-induced disorder: Status: Acute Code(s): F10.99 - Alcohol use, unspecified with unspecified alcohol-induced disorder (2) Schizoaffective disorder, bipolar type: Status: Acute Code(s): F25.0 - Schizoaffective disorder, bipolar type Plan Dank is a 66 yo male who carries a dx of AUD, schizoaffective disorder bipolar type, and 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 He presented to [facility] [place] [facility] on 08/26/21 after being found wandering around the streets [place] acting erratically and speaking gibberish. Head CT was normal. Utox was negative . Ethyl alcohol negative. Pt was medically admitted for IV hydration for mild rhabdomyolysis without renal injury.?Also given IV thiamine given history of alcohol use disorder to treat any component of Wernicke-Korsakoff syndrome. On the medical floor, pt was noted to have had persistent, florid manic symptoms prompting this current psych admission.? Plan: 1. Keep Risperdal 1 mg po tid 2. D/C Thorazine 50 mg po qhs. D/C Seroquel PRN 3. Bloodwork without major changes. 4. COVID-19 protocol since the patient came up positive I spent __20____ minutes with the patient and/or on the patient floor today, greater than?50% of which was spent counseling/coordinating care. Reason for contiued inpatient stay Substantial Risk for: inability to function, rapid decompensation and med/psych decompensation
[2021-09-15 13:39] VITALS: BP 137/65; PULSE 84; RESP 16; TEMP 36.4; O2SAT 100
[2021-09-15 17:00] VITALS: BP 127/60; PULSE 95; RESP 16; TEMP 36.3; O2SAT 97
[2021-09-15] MEDS: chlorproMAZINE HCl 25 MG TABLET PO (20:57)
[2021-09-16 07:58] VITALS: BP 124/71; PULSE 89; RESP 17; TEMP 36.6; O2SAT 95
[2021-09-16] MEDS: Multivitamin TABLET 1 TAB PO (07:59)
[2021-09-16] MEDS: risperiDONE 1 MG TABLET PO ×3 (07:59→20:28)
[2021-09-16] MEDS: Thiamine HCL 100 MG TABLET PO (07:59)
[2021-09-16] MEDS: Folic Acid 1 MG TABLET PO (07:59)
--- NOTE | 2021-09-16 10:49 | P.PNPSI_ITS ---
Subjective Subjective Date of Service: 09/16/21 Reason For Visit: Psychotic Subjective Notes: Conditional Voluntary Healthcare Proxy: No Guardianship: No Medical Problems Affecting Mental Status: Yes Interim History: Patient was seen and discussed in rounds today. He is a fall risk. He is on 5 minute checks. Continues to have symptoms of psychosis and responding to internal stimuli. He is med compliant. He appears to have improved with rest present on. No complaints or side effects. No changes were made Review of Systems COVID positive Review of Systems Review of Systems Yes Unobtainable due to mental status Mental Status Exam Mental Status Exam Patient Appearance: Appropriate Patient Orientation: Person and Situation Level of Consciousness: Awake and Restless Patient Behavior: Cooperative, Anxious and Good Eye Contact Mood Description: Withdrawn Affect Description: Labile Patient Cognition Impaired: Yes Ability to Follow Directions: Fair Speech Pattern: Rapid and Animated Hallucinations: Auditory Delusions: Paranoid Ideation Thought Process: Illogical Thought Content: positive for [place] and positive for Poverty of Content Judgement: Fair Diagnostics Vital Signs (24Hr): Vital Signs - 24 hr 09/15/21 13:39 09/15/21 17:00 09/16/21 07:58 Temperature 97.5 F 97.3 F 97.8 F Pulse Rate 84 95 89 Respiratory Rate 16 16 17 Blood Pressure 137/65 127/60 124/71 Pulse Oximetry 100 97 95 BMI result Body Mass Index 18.6 Labs Results: 09/09/21 07:18 09/09/21 07:18 Medications Medications Current Medications Acetaminophen (Acetaminophen 325 Mg Tablet) 650 mg PO Q6H PRN PRN Reason: Headache/Pain Mild Scale (1-3) Last Admin: 09/15/21 20:26 Dose: 650 mg Documented by: Al Hydroxide/Mg Hydroxide (Magnesium Hydrox/Alum Hydrox 30 Ml Oral.Susp) 30 ml PO Q6H PRN PRN Reason: Heartburn/Nausea Chlorpromazine HCl (Chlorpromazine Hcl 25 Mg Tablet) 50 mg PO BEDTIME [facility] Last Admin: 09/15/21 22:26 Dose: Not Given Documented by: Chlorpromazine HCl (Chlorpromazine Hcl 25 Mg Tablet) 25 mg PO Q6H PRN PRN Reason: Psychosis Last Admin: 09/15/21 20:57 Dose: 25 mg Documented by: Folic Acid (Folic Acid 1 Mg Tablet) 1 mg PO DAILY [facility] Last Admin: 09/16/21 07:59 Dose: 1 mg Documented by: Hydroxyzine HCl (Hydroxyzine Hcl 25 Mg Tablet) 25 mg PO Q6H PRN PRN Reason: Anxiety Last Admin: 09/03/21 22:18 Dose: 25 mg Documented by: Magnesium Hydroxide (Milk Of Magnesia 30 Ml Oral.Susp) 30 ml PO DAILY PRN PRN Reason: Constipation Multivitamins/Vitamin C (Multivitamin Tablet) 1 tab PO DAILY [facility] Last Admin: 09/16/21 07:59 Dose: 1 tab Documented by: Nicotine Polacrilex (Nicotine Polacrilex 2 Mg Gum) 2 mg BUCCAL Q2H PRN PRN Reason: nicotine cravings Last Admin: 09/06/21 20:49 Dose: 2 mg Documented by: Risperidone (Risperidone 1 Mg Tablet) 1 mg PO TID [facility] Last Admin: 09/16/21 07:59 Dose: 1 mg Documented by: Thiamine HCl (Thiamine Hcl 100 Mg Tablet) 100 mg PO DAILY [facility] Last Admin: 09/16/21 07:59 Dose: 100 mg Documented by: Trazodone HCl (Trazodone Hcl 50 Mg Tablet) 50 mg PO BEDTIME PRN PRN Reason: Insomnia Last Admin: 09/11/21 21:19 Dose: 50 mg Documented by: Allergies Allergies Allergy/AdvReac Type Severity Reaction Status Date / Time No Known Allergies Allergy Verified 08/26/21 13:36 Assessment & Plan Assessment & Plan (1) Alcohol use with alcohol-induced disorder: Status: Acute Code(s): F10.99 - Alcohol use, unspecified with unspecified alcohol-induced disorder (2) Schizoaffective disorder, bipolar type: Status: Acute Code(s): F25.0 - Schizoaffective disorder, bipolar type Plan Dank is a 66 yo male who carries a dx of AUD, schizoaffective disorder bipolar type, and 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 He presented to [facility] [place] [facility] on 08/26/21 after being found wandering around the streets [place] acting erratically and speaking gibberish. Head CT was normal. Utox was negative. Ethyl alcohol negative. Pt was medically admitted for IV hydration for mild rhabdomyolysis without renal injury.?Also given IV thiamine given history of alcohol use disorder to treat any component of Wernicke-Korsakoff syndrome. On the medical floor, pt was noted to have had persistent, florid manic symptoms prompting this current psych admission.? Plan: 1. Keep Risperdal 1 mg po tid 2. D/C Thorazine 50 mg po qhs. D/C Seroquel PRN 3. Bloodwork without major changes. 4. COVID-19 protocol since the patient came up positive Six/force: Continue current regimen and plan I spent minutes with the patient and/or on the patient floor today, greater than?50% of which was spent counseling/coordinating care. Reason for contiued inpatient stay Substantial Risk for: inability to function
[2021-09-16 13:00] VITALS: BP 148/66; PULSE 93; RESP 18; TEMP 36.2; O2SAT 99
[2021-09-16] MEDS: Acetaminophen 325 MG TABLET 650 MG PO (15:07)
[2021-09-16 16:46] VITALS: PULSE 81; TEMP 36.9; O2SAT 100
[2021-09-16] MEDS: chlorproMAZINE HCl 25 MG TABLET 50 MG PO (20:28)
[2021-09-16 21:00] VITALS: BP 154/66; PULSE 86; RESP 22; TEMP 36.4; O2SAT 97
[2021-09-17] MEDS: Acetaminophen 325 MG TABLET 650 MG PO ×2 (04:49→14:21)
[2021-09-17 04:58] VITALS: TEMP 36.4
[2021-09-17 08:44] VITALS: BP 147/73; PULSE 89; RESP 17; O2SAT 100
[2021-09-17] MEDS: Folic Acid 1 MG TABLET PO (08:45)
[2021-09-17] MEDS: Multivitamin TABLET 1 TAB PO (08:45)
[2021-09-17] MEDS: risperiDONE 1 MG TABLET PO ×3 (08:45→21:09)
[2021-09-17] MEDS: Thiamine HCL 100 MG TABLET PO (08:46)
--- NOTE | 2021-09-17 08:57 | P.PNPSI_ITS ---
Subjective Subjective Date of Service: 09/17/21 Reason For Visit: Psychotic Subjective Notes: Conditional Voluntary Interim History: Patient was seen and discussed in rounds today. Records and plans were reviewed. He continues to be hyper verbal, tangential and circumstantial. Episodes of irritability. He has been refusing the nighttime Thorazine, stating that he should not be on 50 mg and only on 25 mg. I did change the dose for now. Eating adequately. No other complaints. No additional changes Review of Systems Review of Systems Yes Unobtainable due to mental status Mental Status Exam Mental Status Exam Patient Appearance: Appropriate Patient Orientation: Person and Situation Level of Consciousness: Awake and Restless Patient Behavior: Cooperative, Anxious and Good Eye Contact Mood Description: Withdrawn Affect Description: Labile Patient Cognition Impaired: Yes Ability to Follow Directions: Fair Speech Pattern: Rapid and Animated Hallucinations: Auditory Delusions: Paranoid Ideation Thought Process: Illogical Thought Content: positive for [place] and positive for Poverty of Content Judgement: Fair Diagnostics Vital Signs (24Hr): Vital Signs - 24 hr 09/16/21 13:00 09/16/21 16:46 09/16/21 21:00 Temperature 97.2 F 98.4 F 97.6 F Pulse Rate 93 81 86 Respiratory Rate 18 22 H Blood Pressure 148/66 H 154/66 H Pulse Oximetry 99 100 97 09/17/21 04:58 09/17/21 08:44 Temperature 97.6 F Pulse Rate 89 Respiratory Rate 17 Blood Pressure 147/73 H Pulse Oximetry 100 BMI result Body Mass Index 18.6 Labs Results: 09/09/21 07:18 09/09/21 07:18 Medications Medications Current Medications Acetaminophen (Acetaminophen 325 Mg Tablet) 650 mg PO Q6H PRN PRN Reason: Headache/Pain Mild Scale (1-3) Last Admin: 09/17/21 04:49 Dose: 650 mg Documented by: Al Hydroxide/Mg Hydroxide (Magnesium Hydrox/Alum Hydrox 30 Ml Oral.Susp) 30 ml PO Q6H PRN PRN Reason: Heartburn/Nausea Chlorpromazine HCl (Chlorpromazine Hcl 25 Mg Tablet) 25 mg PO Q6H PRN PRN Reason: Psychosis Last Admin: 09/15/21 20:57 Dose: 25 mg Documented by: Chlorpromazine HCl (Chlorpromazine Hcl 25 Mg Tablet) 25 mg PO BEDTIME IAN Folic Acid (Folic Acid 1 Mg Tablet) 1 mg PO DAILY [facility] Last Admin: 09/17/21 08:45 Dose: 1 mg Documented by: Hydroxyzine HCl (Hydroxyzine Hcl 25 Mg Tablet) 25 mg PO Q6H PRN PRN Reason: Anxiety Last Admin: 09/03/21 22:18 Dose: 25 mg Documented by: Magnesium Hydroxide (Milk Of Magnesia 30 Ml Oral.Susp) 30 ml PO DAILY PRN PRN Reason: Constipation Multivitamins/Vitamin C (Multivitamin Tablet) 1 tab PO DAILY [facility] Last Admin: 09/17/21 08:45 Dose: 1 tab Documented by: Nicotine Polacrilex (Nicotine Polacrilex 2 Mg Gum) 2 mg BUCCAL Q2H PRN PRN Reason: nicotine cravings Last Admin: 09/06/21 20:49 Dose: 2 mg Documented by: Risperidone (Risperidone 1 Mg Tablet) 1 mg PO TID [facility] Last Admin: 09/17/21 08:45 Dose: 1 mg Documented by: Thiamine HCl (Thiamine Hcl 100 Mg Tablet) 100 mg PO DAILY [facility] Last Admin: 09/17/21 08:46 Dose: 100 mg Documented by: Trazodone HCl (Trazodone Hcl 50 Mg Tablet) 50 mg PO BEDTIME PRN PRN Reason: Insomnia Last Admin: 09/11/21 21:19 Dose: 50 mg Documented by: Allergies Allergies Allergy/AdvReac Type Severity Reaction Status Date / Time No Known Allergies Allergy Verified 08/26/21 13:36 Assessment & Plan Assessment & Plan (1) Alcohol use with alcohol-induced disorder: Status: Acute Code(s): F10.99 - Alcohol use, unspecified with unspecified alcohol-induced disorder (2) Schizoaffective disorder, bipolar type: Status: Acute Code(s): F25.0 - Schizoaffective disorder, bipolar type An Weems is a 66 yo male who carries a dx of AUD, schizoaffective disorder bipolar type, and 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 He presented to [facility] [place] ED on 08/26/21 after being found wandering around the streets [place] a [place] acting erratically and speaking gibberish. Head CT was normal. Utox was negative. Ethyl alcohol negative. Pt was medically admitted for IV hydration for mild rhabdomyolysis without renal injury.?Also given IV thiamine given history of alcohol use disorder to treat any component of Wernicke-Korsakoff syndrome. On the medical floor, pt was noted to have had persistent, florid manic symptoms prompting this current psych admission.? Plan: 1. Keep Risperdal 1 mg po tid 2. D/C Thorazine 50 mg po qhs. D/C Seroquel PRN 3. Bloodwork without major changes. 4. COVID-19 protocol since the patient came up positive 09/16: Continue current regimen and plan 09/17: Continue current plans and regimen. Decrease a chest Thorazine to 25 mg I spent minutes with the patient and/or on the patient floor today, greater than?50% of which was spent counseling/coordinating care. Reason for contiued inpatient stay Substantial Risk for: inability to function
[2021-09-17 13:00] VITALS: PULSE 88; TEMP 36.7; O2SAT 100
[2021-09-17] MEDS: chlorproMAZINE HCl 25 MG TABLET PO ×2 (17:54→21:09)
[2021-09-17 21:00] VITALS: BP 151/68; PULSE 83; RESP 20; TEMP 36.6; O2SAT 98
[2021-09-18 07:45] VITALS: BP 144/63; PULSE 74; RESP 16; TEMP 36.7; O2SAT 99
[2021-09-18] MEDS: Thiamine HCL 100 MG TABLET PO (08:16)
[2021-09-18] MEDS: Multivitamin TABLET 1 TAB PO (08:16)
[2021-09-18] MEDS: Folic Acid 1 MG TABLET PO (08:16)
[2021-09-18] MEDS: risperiDONE 1 MG TABLET PO ×2 (08:16→17:18)
[2021-09-18] MEDS: Acetaminophen 325 MG TABLET 650 MG PO ×2 (10:56→18:56)
[2021-09-18 13:00] VITALS: BP 160/70; PULSE 95; RESP 16; TEMP 36; O2SAT 97
--- NOTE | 2021-09-18 13:18 | P.PNPSI_ITS ---
Subjective Subjective Date of Service: 09/18/21 Reason For Visit: Psychotic Subjective Notes: Conditional Voluntary Interim History: The nursing staff reported that the patient remains manic with fast speech, irritability but yesterday he slept 6 hours. He tested positive to COVID but so far his vital signs are stable and there is no active symptoms. Yesterday his Thorazine was lowered to 25 mg p.o. q.h.s.. On interview the patient remains manic but less disorganized. Now his speech is slightly more coherent but he is posturing and internally preocupied.. Mental Status Exam Mental Status Exam Patient Appearance: Appropriate Patient Orientation: Person Level of Consciousness: Restless Patient Behavior: Appropriate Mood Description: Withdrawn Affect Description: Constricted Patient Cognition Impaired: Yes Ability to Follow Directions: Fair Speech Pattern: Clear Hallucinations: Auditory Delusions: Paranoid Ideation and Grandiose Thought Process: Illogical and Distracted Thought Content: positive for [place], positive for Poverty of Content and positive for Loose Associations Judgement: Fair Diagnostics Vital Signs (24Hr): Vital Signs - 24 hr 09/17/21 21:00 09/18/21 07:45 Temperature 98 F 98.1 F Pulse Rate 83 74 Respiratory Rate 20 16 Blood Pressure 151/68 H 144/63 H Pulse Oximetry 98 99 BMI result Body Mass Index 18.6 Labs Results: 09/09/21 07:18 09/09/21 07:18 Medications Medications Current Medications Acetaminophen (Acetaminophen 325 Mg Tablet) 650 mg PO Q6H PRN PRN Reason: Headache/Pain Mild Scale (1-3) Last Admin: 09/18/21 10:56 Dose: 650 mg Documented by: Al Hydroxide/Mg Hydroxide (Magnesium Hydrox/Alum Hydrox 30 Ml Oral.Susp) 30 ml PO Q6H PRN PRN Reason: Heartburn/Nausea Chlorpromazine HCl (Chlorpromazine Hcl 25 Mg Tablet) 25 mg PO Q6H PRN PRN Reason: Psychosis Last Admin: 09/17/21 17:54 Dose: 25 mg Documented by: Chlorpromazine HCl (Chlorpromazine Hcl 25 Mg Tablet) 25 mg PO BEDTIME IAN Last Admin: 09/17/21 21:09 Dose: 25 mg Documented by: Folic Acid (Folic Acid 1 Mg Tablet) 1 mg PO DAILY IAN Last Admin: 09/18/21 08:16 Dose: 1 mg Documented by: Hydroxyzine HCl (Hydroxyzine Hcl 25 Mg Tablet) 25 mg PO Q6H PRN PRN Reason: Anxiety Last Admin: 09/03/21 22:18 Dose: 25 mg Documented by: Magnesium Hydroxide (Milk Of Magnesia 30 Ml Oral.Susp) 30 ml PO DAILY PRN PRN Reason: Constipation Multivitamins/Vitamin C (Multivitamin Tablet) 1 tab PO DAILY [facility] Last Admin: 09/18/21 08:16 Dose: 1 tab Documented by: Nicotine Polacrilex (Nicotine Polacrilex 2 Mg Gum) 2 mg BUCCAL Q2H PRN PRN Reason: nicotine cravings Last Admin: 09/06/21 20:49 Dose: 2 mg Documented by: Risperidone (Risperidone 1 Mg Tablet) 1 mg PO TID [facility] Last Admin: 09/18/21 08:16 Dose: 1 mg Documented by: Thiamine HCl (Thiamine Hcl 100 Mg Tablet) 100 mg PO DAILY [facility] Last Admin: 09/18/21 08:16 Dose: 100 mg Documented by: Trazodone HCl (Trazodone Hcl 50 Mg Tablet) 50 mg PO BEDTIME PRN PRN Reason: Insomnia Last Admin: 09/11/21 21:19 Dose: 50 mg Documented by: Allergies Allergies Allergy/AdvReac Type Severity Reaction Status Date / Time No Known Allergies Allergy Verified 08/26/21 13:36 Assessment & Plan Assessment & Plan (1) Alcohol use with alcohol-induced disorder: Status: Acute Code(s): F10.99 - Alcohol use, unspecified with unspecified alcohol-induced disorder (2) Schizoaffective disorder, bipolar type: Status: Acute Code(s): F25.0 - Schizoaffective disorder, bipolar type An Weems is a 66 yo male who carries a dx of AUD, schizoaffective disorder bipolar type, and 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 He [place] [facility] [place] after being found wandering around the streets [place] a [place] station acting erratically and speaking gibberish. Head CT was normal. Utox was negative. Ethyl alcohol negative. Pt was medically admitted for IV hydration for mild rhabdomyolysis without renal injury.?Also given IV thiamine given history of alcohol use disorder to treat any component of Wernicke-Korsakoff syndrome. On the medical floor, pt was noted to have had persistent, florid manic symptoms prompting this current psych admission.? Plan: 1. Keep Risperdal 1 mg po tid 2. D/C Thorazine 50 mg po qhs. D/C Seroquel PRN 3. Bloodwork without major changes. 4. COVID-19 protocol since the patient came up positive I spent ___20___ minutes with the patient and/or on the patient floor today, greater than?50% of which was spent counseling/coordinating care. Informed Consent: understands Reason for contiued inpatient stay Substantial Risk for: inability to function, rapid decompensation and med/psych decompensation
[2021-09-18 17:44] VITALS: BP 146/67; PULSE 93; RESP 16; TEMP 36.9; O2SAT 99
[2021-09-18 21:10] VITALS: BP 165/76; PULSE 93; RESP 20; TEMP 37.1; O2SAT 99
[2021-09-18] MEDS: chlorproMAZINE HCl 25 MG TABLET PO (21:17)
[2021-09-18] MEDS: risperiDONE 2 MG TABLET PO (21:17)
[2021-09-19] MEDS: chlorproMAZINE HCl 25 MG TABLET PO ×2 (00:38→20:00)
[2021-09-19] MEDS: traZODone HCL 50 MG TABLET PO (02:59)
[2021-09-19] MEDS: Multivitamin TABLET 1 TAB PO (08:56)
[2021-09-19] MEDS: Thiamine HCL 100 MG TABLET PO (08:56)
[2021-09-19] MEDS: Folic Acid 1 MG TABLET PO (08:56)
[2021-09-19] MEDS: risperiDONE 1 MG TABLET PO ×2 (08:56→18:19)
[2021-09-19 09:00] VITALS: BP 129/60; PULSE 99; RESP 18; TEMP 36.8; O2SAT 98
--- NOTE | 2021-09-19 13:28 | P.PNPSI_ITS ---
Subjective Subjective Date of Service: 09/19/21 Reason For Visit: Psychotic Subjective Notes: Conditional Voluntary and 3 Day Interim History: The nursing staff reported the patient remains hyperverbal, manic but cooperative. Last night he slept only 3 hours with trazodone. The social work administrator talk to his brother regarding affirmed healthcare proxy and 80 some pr ocess fine now. Today, the patient signed a 3 day notice I will he looked still manic and psychotic, but not with word salad at this moment. Later he resigned the 3 day notice, he is confused with the affrimation of the HCP. Mental Status Exam Mental Status Exam Patient Appearance: Appropriate Patient Orientation: Person Level of Consciousness: Awake Patient Behavior: Guarded and Suspicious Mood Description: Withdrawn Affect Description: Labile Patient Cognition Impaired: Yes Ability to Follow Directions: Fair Speech Pattern: Impoverished and Rapid Hallucinations: Auditory Delusions: Paranoid Ideation Thought Process: Incoherent, Distracted and Evasive Thought Content: positive for Poverty of Content Judgement: Poor Diagnostics Vital Signs (24Hr): Vital Signs - 24 hr 09/18/21 17:44 09/18/21 21:10 09/19/21 09:00 Temperature 98.5 F 98.8 F 98.3 F Pulse Rate 93 93 99 Respiratory Rate 16 20 18 Blood Pressure 146/67 H 165/76 H 129/60 Pulse Oximetry 99 99 98 BMI result Body Mass Index 18.6 Labs Results: 09/09/21 07:18 09/09/21 07:18 Medications Medications Current Medications Acetaminophen (Acetaminophen 325 Mg Tablet) 650 mg PO Q6H PRN PRN Reason: Headache/Pain Mild Scale (1-3) Last Admin: 09/18/21 18:56 Dose: 650 mg Documented by: Al Hydroxide/Mg Hydroxide (Magnesium Hydrox/Alum Hydrox 30 Ml Oral.Susp) 30 ml PO Q6H PRN PRN Reason: Heartburn/Nausea Chlorpromazine HCl (Chlorpromazine Hcl 25 Mg Tablet) 25 mg PO Q6H PRN PRN Reason: Psychosis Last Admin: 09/19/21 00:38 Dose: 25 mg Documented by: Chlorpromazine HCl (Chlorpromazine Hcl 25 Mg Tablet) 25 mg PO BEDTIME IAN Last Admin: 09/18/21 21:17 Dose: 25 mg Documented by: Folic Acid (Folic Acid 1 Mg Tablet) 1 mg PO DAILY [facility] Last Admin: 09/19/21 08:56 Dose: 1 mg Documented by: Hydroxyzine HCl (Hydroxyzine Hcl 25 Mg Tablet) 25 mg PO Q6H PRN PRN Reason: Anxiety Last Admin: 09/03/21 22:18 Dose: 25 mg Documented by: Magnesium Hydroxide (Milk Of Magnesia 30 Ml Oral.Susp) 30 ml PO DAILY PRN PRN Reason: Constipation Multivitamins/Vitamin C (Multivitamin Tablet) 1 tab PO DAILY [facility] Last Admin: 09/19/21 08:56 Dose: 1 tab Documented by: Nicotine Polacrilex (Nicotine Polacrilex 2 Mg Gum) 2 mg BUCCAL Q2H PRN PRN Reason: nicotine cravings Last Admin: 09/06/21 20:49 Dose: 2 mg Documented by: Risperidone (Risperidone 1 Mg Tablet) 1 mg PO BID@0800,1700 [facility] Last Admin: 09/19/21 08:56 Dose: 1 mg Documented by: Risperidone (Risperidone 2 Mg Tablet) 2 mg PO BEDTIME [facility] Last Admin: 09/18/21 21:17 Dose: 2 mg Documented by: Thiamine HCl (Thiamine Hcl 100 Mg Tablet) 100 mg PO DAILY [facility] Last Admin: 09/19/21 08:56 Dose: 100 mg Documented by: Trazodone HCl (Trazodone Hcl 50 Mg Tablet) 50 mg PO BEDTIME PRN PRN Reason: Insomnia Last Admin: 09/19/21 02:59 Dose: 50 mg Documented by: Allergies Allergies Allergy/AdvReac Type Severity Reaction Status Date / Time No Known Allergies Allergy Verified 08/26/21 13:36 Assessment & Plan Assessment & Plan (1) Alcohol use with alcohol-induced disorder: Status: Acute Code(s): F10.99 - Alcohol use, unspecified with unspecified alcohol-induced disorder (2) Schizoaffective disorder, bipolar type: Status: Acute Code(s): F25.0 - Schizoaffective disorder, bipolar type An Weems is a 66 yo male who carries a dx of AUD, schizoaffective disorder bipolar type, and 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 He presented to [facility] on 0 08/26/21 after being found wandering around the streets [place] acting erratically and speaking gibberish. Head CT was normal. Utox was negative. Ethyl alcohol negative. Pt was medically admitted for IV hydration for mild rhabdomyolysis without renal injury.?Also given IV thiamine given history of alcohol use disorder to treat any component of Wernicke-Korsakoff syndrome. On the medical floor, pt was noted to have had persistent, florid manic symptoms prompting this current psych admission.? Plan: 1. Keep Risperdal 1 mg po tid 2. D/C Thorazine 50 mg po qhs. D/C Seroquel PRN 3. Bloodwork without major changes. 4. COVID-19 protocol since the patient came up positive I spent __20____ minutes with the patient and/or on the patient floor today, greater than?50% of which was spent counseling/coordinating care. Reason for contiued inpatient stay Substantial Risk for: inability to function, rapid decompensation and med/psych decompensation
[2021-09-19 17:00] VITALS: BP 142/68; PULSE 80; RESP 18; TEMP 36.9; O2SAT 98
[2021-09-19] MEDS: risperiDONE 2 MG TABLET PO (20:00)
[2021-09-19 21:00] VITALS: BP 144/65; PULSE 93; RESP 18; TEMP 37.3; O2SAT 97
[2021-09-20] MEDS: Acetaminophen 325 MG TABLET 650 MG PO ×2 (03:24→17:00)
[2021-09-20 05:00] VITALS: BP 103/51; PULSE 84; RESP 18; TEMP 36.8; O2SAT 95
[2021-09-20] MEDS: Folic Acid 1 MG TABLET PO (08:24)
[2021-09-20] MEDS: risperiDONE 1 MG TABLET PO ×2 (08:24→17:00)
[2021-09-20] MEDS: Thiamine HCL 100 MG TABLET PO (08:24)
[2021-09-20] MEDS: Multivitamin TABLET 1 TAB PO (08:24)
[2021-09-20 08:35] VITALS: BP 134/61; PULSE 94; RESP 16; TEMP 36.5; O2SAT 99
--- NOTE | 2021-09-20 11:25 | MHC.CLN ---
F/U APPEARS TO BE EATING WELL. BMI=18.7. COVID POSITIVE. CONTINUE REGULAR DIET WITH ENSURE BID. SUPPLEMENT PROVIDES ADDITIONAL 700 KCALS, 40 GRAMS PROTEIN. ENCOURAGE INTAKE OF MEALS AND SUPPLEMENT ABLE.
--- NOTE | 2021-09-20 13:38 | P.PNPSI_ITS ---
Subjective Subjective Date of Service: 09/20/21 Reason For Visit: Psychotic Subjective Notes: Conditional Voluntary Interim History: The nursing staff reported the patient called able well because he was looking for his car keys. The social sciences chair reported that the contact the family and apparently the car keys are safe on her sister's place. The patient has been seen by the staff more pleasant and cooperative, self dialogue in but less than before. He is scheduled for a permission of healthcare proxy for next Saturday. On interview the patient remains psychotic with disorganized thought process but more easily redirectable. We discussed the possibility of an MRI head and he agreed To rule out Wernicke-Korsakoff syndrome. Mental Status Exam Mental Status Exam Patient Appearance: Appropriate Patient Orientation: Person and Situation Level of Consciousness: Awake Patient Behavior: Guarded and Suspicious Mood Description: Withdrawn Affect Description: Labile Patient Cognition Impaired: Yes Ability to Follow Directions: Fair Speech Pattern: Clear Hallucinations: None Delusions: Paranoid Ideation and Grandiose Thought Process: Distracted and Evasive Thought Content: positive for [place], positive for Poverty of Content and positive for Loose Associations Judgement: Fair Diagnostics Vital Signs (24Hr): Vital Signs - 24 hr 09/19/21 17:00 09/19/21 21:00 09/20/21 05:00 Temperature 98.4 F 99.2 F 98.3 F Pulse Rate 80 93 84 Respiratory Rate 18 18 18 Blood Pressure 142/68 H 144/65 H 103/51 L Pulse Oximetry 98 97 95 Oxygen Delivery Method Room Air Room Air Room Air 09/20/21 08:35 Temperature 97.7 F Pulse Rate 94 Respiratory Rate 16 Blood Pressure 134/61 Pulse Oximetry 99 Oxygen Delivery Method Room Air BMI result Body Mass Index 18.6 Labs Results: 09/09/21 07:18 09/09/21 07:18 Medications Medications Current Medications Acetaminophen (Acetaminophen 325 Mg Tablet) 650 mg PO Q6H PRN PRN Reason: Headache/Pain Mild Scale (1-3) Last Admin: 09/20/21 03:24 Dose: 650 mg Al Hydroxide/Mg Hydroxide (Magnesium Hydrox/Alum Hydrox 30 Ml Oral.Susp) 30 ml PO Q6H PRN PRN Reason: Heartburn/Nausea Chlorpromazine HCl (Chlorpromazine Hcl 25 Mg Tablet) 25 mg PO Q6H PRN PRN Reason: Psychosis Last Admin: 09/19/21 00:38 Dose: 25 mg Chlorpromazine HCl (Chlorpromazine Hcl 25 Mg Tablet) 25 mg PO BEDTIME IAN Last Admin: 09/19/21 20:00 Dose: 25 mg Folic Acid (Folic Acid 1 Mg Tablet) 1 mg PO DAILY IAN Last Admin: 09/20/21 08:24 Dose: 1 mg Hydroxyzine HCl (Hydroxyzine Hcl 25 Mg Tablet) 25 mg PO Q6H PRN PRN Reason: Anxiety Last Admin: 09/03/21 22:18 Dose: 25 mg Magnesium Hydroxide (Milk Of Magnesia 30 Ml Oral.Susp) 30 ml PO DAILY PRN PRN Reason: Constipation Multivitamins/Vitamin C (Multivitamin Tablet) 1 tab PO DAILY I[facility] Last Admin: 09/20/21 08:24 Dose: 1 tab Nicotine Polacrilex (Nicotine Polacrilex 2 Mg Gum) 2 mg BUCCAL Q2H PRN PRN Reason: nicotine cravings Last Admin: 09/06/21 20:49 Dose: 2 mg Risperidone (Risperidone 1 Mg Tablet) 1 mg PO BID@0800,1700 [facility] Last Admin: 09/20/21 08:24 Dose: 1 mg Risperidone (Risperidone 2 Mg Tablet) 2 mg PO BEDTIME IAN Last Admin: 09/19/21 20:00 Dose: 2 mg Thiamine HCl (Thiamine Hcl 100 Mg Tablet) 100 mg PO DAILY [facility] Last Admin: 09/20/21 08:24 Dose: 100 mg Trazodone HCl (Trazodone Hcl 50 Mg Tablet) 50 mg PO BEDTIME PRN PRN Reason: Insomnia Last Admin: 09/19/21 02:59 Dose: 50 mg Allergies Allergies Allergy/AdvReac Type Severity Reaction Status Date / Time No Known Allergies Allergy Verified 08/26/21 13:36 Assessment & Plan Assessment & Plan (1) Alcohol use with alcohol-induced disorder: Status: Acute Code(s): F10.99 - Alcohol use, unspecified with unspecified alcohol-induced disorder (2) Schizoaffective disorder, bipolar type: Status: Acute Code(s): F25.0 - Schizoaffective disorder, bipolar type Plan Dank is a 66 yo male who carries a dx of AUD, schizoaffective disorder bipolar type, and 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 He presented to [facility] ED on 08/26/21 after being found wandering around the streets [place] a [place] acting erratically and speaking gibberish. Head CT was normal. Utox was negative. Ethyl alcohol negative. Pt was medically admitted for IV hydration for mild rhabdomyolysis without renal injury.?Also given IV thiamine given history of alcohol use disorder to treat any component of Wernicke-Korsakoff syndrome. On the medical floor, pt was noted to have had persistent, florid manic symptoms prompting this current psych admission.? Plan: 1. Keep Risperdal 1 mg po tid 2. D/C Thorazine 50 mg po qhs. D/C Seroquel PRN 3. Bloodwork without major changes. 4. COVID-19 protocol since the patient came up positive 5. MRI head without contrast to rule out Wernicke-Korsakoff syndrome, to see mammillary bodies I spent ___20___ minutes with the patient and/or on the patient floor today, greater than?50% of which was spent counseling/coordinating care. Reason for contiued inpatient stay Substantial Risk for: inability to function, rapid decompensation and med/psych decompensation
[2021-09-20 14:34] VITALS: BP 149/67; PULSE 94; RESP 16; TEMP 36.8; O2SAT 100
--- NOTE | 2021-09-20 15:12 | P.CONHOSP_ITS ---
History of Present Illness Data of Consult Service Date: 09/20/21 Requesting physician: Miguel Chin Primary Care Provider: Unknown Physician HPI Reason for consult: lower extremity edema 66-year-old male developed bilateral asymptomatic lower extremity edema without history. When queried he states this has happened before and is self limited. Able to give a concise history regarding this edema Review of Systems Review of Systems: denies chest pain Denies shortness of breath Denies nausea vomiting diarrhea Denies fever chills PMFSH Medical History Alcohol use with alcohol-induced disorder Schizoaffective disorder Schizoaffective disorder, bipolar type Sinus bradycardia Social History Household Members: Unknown / Unable to assess Housing: Unknown / Unable to assess Do you presently have visiting nurse or other home services: No Unable to assess alcohol history related to: Unable to respond and Unknown Alcohol intake: unknown Patient Tobacco Use Status: Tobacco use Unknown Years Smoked: Unknown; pt unable to participate due to mental status. Frequency of e-Cigarette/Vaping Use: Unknown; pt unable to participate due to mental status. Patient Interested in Nicotine Replacement: No (Unknown; pt unable to participate due to mental status.) Patient Given Instructions on How to Stop Smoking: Yes (Unknown; pt unable to participate due to mental status.) Date Education Initiated: 08/28/21 Use of substances other than those prescribed or required for medical reasons: Unknown Last Used Substance Other:: Unknown; pt unable to participate due to mental status. Currently Displaying Signs/Symptoms of Drug Intoxication Withdrawal: No Other Past Substance Use Problem:: Unknown; pt unable to participate due to mental status. Do you feel safe in your current relationship?: No Current Relationship Spiritual Healthcare Practices: Unknown; pt unable to participate due to mental status. [facility] Practices: Unknown; pt unable to participate due to mental status. Cultural Healthcare Practices: Unknown; pt unable to participate due to mental status. Advance Directives: No Advance Directives Information Provided: No Advance Directives on File: No Do you have thoughts of harming others: None Do you have a plan to hurt others: No Plan Recently lost weight without trying: Unsure service: No Sexual orientation: Don't Know Meds Allergies Allergy/AdvReac Type Severity Reaction Status Date / Time No Known Allergies Allergy Verified 08/26/21 13:36 Active Medications: Current Medications Acetaminophen (Acetaminophen 325 Mg Tablet) 650 mg PO Q6H PRN PRN Reason: Headache/Pain Mild Scale (1-3) Last Admin: 09/20/21 03:24 Dose: 650 mg Al Hydroxide/Mg Hydroxide (Magnesium Hydrox/Alum Hydrox 30 Ml Oral.Susp) 30 ml PO Q6H PRN PRN Reason: Heartburn/Nausea Chlorpromazine HCl (Chlorpromazine Hcl 25 Mg Tablet) 25 mg PO Q6H PRN PRN Reason: Psychosis Last Admin: 09/19/21 00:38 Dose: 25 mg Chlorpromazine HCl (Chlorpromazine Hcl 25 Mg Tablet) 25 mg PO BEDTIME [facility] Last Admin: 09/19/21 20:00 Dose: 25 mg Folic Acid (Folic Acid 1 Mg Tablet) 1 mg PO DAILY [facility] Last Admin: 09/20/21 08:24 Dose: 1 mg Hydroxyzine HCl (Hydroxyzine Hcl 25 Mg Tablet) 25 mg PO Q6H PRN PRN Reason: Anxiety Last Admin: 09/03/21 22:18 Dose: 25 mg Magnesium Hydroxide (Milk Of Magnesia 30 Ml Oral.Susp) 30 ml PO DAILY PRN PRN Reason: Constipation Multivitamins/Vitamin C (Multivitamin Tablet) 1 tab PO DAILY [facility] Last Admin: 09/20/21 08:24 Dose: 1 tab Nicotine Polacrilex (Nicotine Polacrilex 2 Mg Gum) 2 mg BUCCAL Q2H PRN PRN Reason: nicotine cravings Last Admin: 09/06/21 20:49 Dose: 2 mg Risperidone (Risperidone 1 Mg Tablet) 1 mg PO BID@0800,1700 [facility] Last Admin: 09/20/21 08:24 Dose: 1 mg Risperidone (Risperidone 2 Mg Tablet) 2 mg PO BEDTIME [facility] Last Admin: 09/19/21 20:00 Dose: 2 mg Thiamine HCl (Thiamine Hcl 100 Mg Tablet) 100 mg PO DAILY [facility] Last Admin: 09/20/21 08:24 Dose: 100 mg Trazodone HCl (Trazodone Hcl 50 Mg Tablet) 50 mg PO BEDTIME PRN PRN Reason: Insomnia Last Admin: 09/19/21 02:59 Dose: 50 mg Physical Exam Vital Signs and Narrative: Vital Signs: Last Vital Signs Temp 98.2 F 09/20/21 14:34 Pulse 94 09/20/21 14:34 Resp 16 09/20/21 14:34 BP 149/67 H 09/20/21 14:34 Pulse Ox 100 09/20/21 14:34 O2 Del Method 09/20/21 14:34 BMI result Body Mass Index 18.6 Const: Other: no acute distress Resp: Other: clear to auscultation bilaterally no rales rhonchi or wheezes Cardio: Other: no S4; positive S1-S2; no S3 murmurs rubs or gallops Extrem: Other: 1+ edema bilaterally; calfs soft Results Labs CBC and Chem 7: 09/09/21 07:18 09/09/21 07:18 Assessment and Plan (1) Dependent edema: Status: Acute Plan 66-year-old male admitted with schizoaffective 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 Believe this to be dependent edema. Ask staff to examine legs 1st thing in the morning before patient arises. If edema improves would do nothing to treat. Will follow up with staff
[2021-09-20 18:00] VITALS: BP 136/63; PULSE 102; RESP 18; TEMP 37.1; O2SAT 99
[2021-09-20] MEDS: risperiDONE 2 MG TABLET PO (21:02)
[2021-09-20] MEDS: chlorproMAZINE HCl 25 MG TABLET PO (21:03)
[2021-09-21] MEDS: Acetaminophen 325 MG TABLET 650 MG PO (05:38)
[2021-09-21 07:45] VITALS: BP 132/62; PULSE 85; RESP 16; TEMP 36.3; O2SAT 98
[2021-09-21] MEDS: risperiDONE 1 MG TABLET PO (08:47)
[2021-09-21] MEDS: Thiamine HCL 100 MG TABLET PO (08:47)
[2021-09-21] MEDS: Multivitamin TABLET 1 TAB PO (08:47)
[2021-09-21] MEDS: Folic Acid 1 MG TABLET PO (08:47)
[2021-09-21 13:04] VITALS: BMI 21.0
[2021-09-21 13:46] VITALS: BP 133/69; PULSE 100; RESP 16; TEMP 36.7; O2SAT 99
--- NOTE | 2021-09-21 15:08 | P.PNPSI_ITS ---
Subjective Subjective Date of Service: 09/21/21 Reason For Visit: Psychotic Subjective Notes: Conditional Voluntary Interim History: the nursing staff reported that the patient has been can uncooperative in the last 24 hours. He has been more coherent and he has asked for Tylenol for headaches. Yesterday we order an MRI that came within normal limits no evidence of Wernicke-Korsakoff or destruction of mammillary bodies. On interview the patient was pleasant and cooperative and he agreed to the plan to change all the Risperdal at bedtime. Mental Status Exam Mental Status Exam Patient Appearance: Well Grooomed Patient Orientation: Person Level of Consciousness: Awake Patient Behavior: Guarded and Talkative Mood Description: Appropriate Affect Description: Constricted and Labile Patient Cognition Impaired: Yes Ability to Follow Directions: Good Speech Pattern: Clear Hallucinations: Auditory Delusions: Paranoid Ideation and Grandiose Thought Process: Distracted Thought Content: positive for [place] and positive for Poverty of Content Judgement: Fair Diagnostics Vital Signs (24Hr): Vital Signs - 24 hr 09/20/21 18:00 09/21/21 07:45 09/21/21 13:46 Temperature 98.8 F 97.3 F 98.0 F Pulse Rate 102 H 85 100 Respiratory Rate 18 16 16 Blood Pressure 136/63 132/62 133/69 Pulse Oximetry 99 98 99 Oxygen Delivery Method Room Air Room Air Room Air BMI result Body Mass Index 21.0 Labs Results: 09/09/21 07:18 09/09/21 07:18 Imaging Radiology Impressions: ITS Impressions Brain MRI 09/20/21 17:57 IMPRESSION: 1. No acute intracranial abnormalities. 2. Mild underlying microangiopathy. No parenchymal signal abnormalities to strongly correlate with Wernicke-Korsakoff syndrome. 3. Moderate generalized cerebral volume loss. Medications Medications Current Medications Acetaminophen (Acetaminophen 325 Mg Tablet) 650 mg PO Q6H PRN PRN Reason: Headache/Pain Mild Scale (1-3) Last Admin: 09/21/21 05:38 Dose: 650 mg Al Hydroxide/Mg Hydroxide (Magnesium Hydrox/Alum Hydrox 30 Ml Oral.Susp) 30 ml PO Q6H PRN PRN Reason: Heartburn/Nausea Chlorpromazine HCl (Chlorpromazine Hcl 25 Mg Tablet) 25 mg PO Q6H PRN PRN Reason: Psychosis Last Admin: 09/19/21 00:38 Dose: 25 mg Chlorpromazine HCl (Chlorpromazine Hcl 25 Mg Tablet) 25 mg PO BEDTIME [facility] Last Admin: 09/20/21 21:03 Dose: 25 mg Folic Acid (Folic Acid 1 Mg Tablet) 1 mg PO DAILY [facility] Last Admin: 09/21/21 08:47 Dose: 1 mg Hydroxyzine HCl (Hydroxyzine Hcl 25 Mg Tablet) 25 mg PO Q6H PRN PRN Reason: Anxiety Last Admin: 09/03/21 22:18 Dose: 25 mg Magnesium Hydroxide (Milk Of Magnesia 30 Ml Oral.Susp) 30 ml PO DAILY PRN PRN Reason: Constipation Multivitamins/Vitamin C (Multivitamin Tablet) 1 tab PO DAILY [facility] Last Admin: 09/21/21 08:47 Dose: 1 tab Nicotine Polacrilex (Nicotine Polacrilex 2 Mg Gum) 2 mg BUCCAL Q2H PRN PRN Reason: nicotine cravings Last Admin: 09/06/21 20:49 Dose: 2 mg Risperidone (Risperidone 2 Mg Tablet) 4 mg PO BEDTIME [facility] Thiamine HCl (Thiamine Hcl 100 Mg Tablet) 100 mg PO DAILY [facility] Last Admin: 09/21/21 08:47 Dose: 100 mg Trazodone HCl (Trazodone Hcl 50 Mg Tablet) 50 mg PO BEDTIME PRN PRN Reason: Insomnia Last Admin: 09/19/21 02:59 Dose: 50 mg Allergies Allergies Allergy/AdvReac Type Severity Reaction Status Date / Time No Known Allergies Allergy Verified 08/26/21 13:36 Assessment & Plan Assessment & Plan (1) Dependent edema: Status: Acute Code(s): R60.9 - Edema, unspecified Plan 66-year-old male admitted with schizoaffective 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 Believe this to be dependent edema. Ask staff to examine legs 1st thing in the morning before patient arises. If edema improves would do nothing to treat. Will follow up with staff Plan 1. Change Risperdal to 4 mg p.o. q.h.s. I spent ___20___ minutes with the patient and/or on the patient floor today, greater than?50% of which was spent counseling/coordinating care. Reason for contiued inpatient stay Substantial Risk for: inability to function, rapid decompensation and med/psych decompensation
[2021-09-21 17:00] VITALS: BP 151/69; PULSE 94; TEMP 37.3; O2SAT 98
[2021-09-21] MEDS: chlorproMAZINE HCl 25 MG TABLET PO (20:16)
[2021-09-21] MEDS: risperiDONE 2 MG TABLET 4 MG PO (20:17)
[2021-09-22 05:00] VITALS: BP 120/55; PULSE 89; RESP 18; TEMP 36.8; O2SAT 98
[2021-09-22] MEDS: Folic Acid 1 MG TABLET PO (07:53)
[2021-09-22] MEDS: Multivitamin TABLET 1 TAB PO (07:54)
[2021-09-22] MEDS: Thiamine HCL 100 MG TABLET PO (07:54)
[2021-09-22 07:56] VITALS: BP 126/62; PULSE 91; RESP 16; TEMP 36.6; O2SAT 97
--- NOTE | 2021-09-22 11:17 | HO.PSYCHPN ---
Subjective Subjective Date of Service: 09/22/21 Reason For Visit: Psychotic Subjective Notes: Conditional Voluntary Interim History: the nursing staff reported the patient has been compliant with his treatment still he is confused, hyperverbal and with manic symptoms. But he is by far more organized in we compared from admission that he had more salad. Today we will have permission of healthcare proxy. At this moment the patient does not have full capacity to take all his informed decisions and he will need a healthcare proxy. Mental Status Exam Mental Status Exam Patient Appearance: Well Grooomed Patient Orientation: Person and Situation Level of Consciousness: Awake Patient Behavior: Cooperative Mood Description: Withdrawn Affect Description: Constricted Patient Cognition Impaired: Yes Ability to Follow Directions: Good Speech Pattern: Clear Memory Description: Intact Hallucinations: Auditory Delusions: Grandiose Thought Process: Racing Thought Content: positive for [place] Judgement: Fair Diagnostics Vital Signs (24Hr): Vital Signs - 24 hr 09/21/21 13:46 09/21/21 17:00 09/22/21 05:00 Temperature 98.0 F 99.1 F 98.2 F Pulse Rate 100 94 89 Respiratory Rate 16 18 Blood Pressure 133/69 151/69 H 120/55 L Pulse Oximetry 99 98 98 Oxygen Delivery Method Room Air Room Air Room Air 09/22/21 07:56 Temperature 97.8 F Pulse Rate 91 Respiratory Rate 16 Blood Pressure 126/62 Pulse Oximetry 97 Oxygen Delivery Method Room Air BMI result Body Mass Index 21.0 Labs Results: 09/09/21 07:18 09/09/21 07:18 Imaging Radiology Impressions: ITS Impressions Brain MRI 09/20/21 17:57 IMPRESSION: 1. No acute intracranial abnormalities. 2. Mild underlying microangiopathy. No parenchymal signal abnormalities to strongly correlate with Wernicke-Korsakoff syndrome. 3. Moderate generalized cerebral volume loss. Medications Medications Current Medications Acetaminophen (Acetaminophen 325 Mg Tablet) 650 mg PO Q6H PRN PRN Reason: Headache/Pain Mild Scale (1-3) Last Admin: 09/21/21 05:38 Dose: 650 mg Al Hydroxide/Mg Hydroxide (Magnesium Hydrox/Alum Hydrox 30 Ml Oral.Susp) 30 ml PO Q6H PRN PRN Reason: Heartburn/Nausea Chlorpromazine HCl (Chlorpromazine Hcl 25 Mg Tablet) 25 mg PO Q6H PRN PRN Reason: Psychosis Last Admin: 09/19/21 00:38 Dose: 25 mg Chlorpromazine HCl (Chlorpromazine Hcl 25 Mg Tablet) 25 mg PO BEDTIME [facility] Last Admin: 09/21/21 20:16 Dose: 25 mg Folic Acid (Folic Acid 1 Mg Tablet) 1 mg PO DAILY [facility] Last Admin: 09/22/21 07:53 Dose: 1 mg Hydroxyzine HCl (Hydroxyzine Hcl 25 Mg Tablet) 25 mg PO Q6H PRN PRN Reason: Anxiety Last Admin: 09/03/21 22:18 Dose: 25 mg Magnesium Hydroxide (Milk Of Magnesia 30 Ml Oral.Susp) 30 ml PO DAILY PRN PRN Reason: Constipation Multivitamins/Vitamin C (Multivitamin Tablet) 1 tab PO DAILY [facility] Last Admin: 09/22/21 07:54 Dose: 1 tab Nicotine Polacrilex (Nicotine Polacrilex 2 Mg Gum) 2 mg BUCCAL Q2H PRN PRN Reason: nicotine cravings Last Admin: 09/06/21 20:49 Dose: 2 mg Risperidone (Risperidone 2 Mg Tablet) 4 mg PO BEDTIME [facility] Last Admin: 09/21/21 20:17 Dose: 4 mg Thiamine HCl (Thiamine Hcl 100 Mg Tablet) 100 mg PO DAILY [facility] Last Admin: 09/22/21 07:54 Dose: 100 mg Trazodone HCl (Trazodone Hcl 50 Mg Tablet) 50 mg PO BEDTIME PRN PRN Reason: Insomnia Last Admin: 09/19/21 02:59 Dose: 50 mg Allergies Allergies Allergy/AdvReac Type Severity Reaction Status Date / Time No Known Allergies Allergy Verified 08/26/21 13:36 Assessment & Plan Assessment & Plan (1) Dependent edema: Status: Acute Code(s): R60.9 - Edema, unspecified Plan 66-year-old male admitted with schizoaffective 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 Believe this to be dependent edema. Ask staff to examine legs 1st thing in the morning before patient arises. If edema improves would do nothing to treat. Will follow up with staff Plan 1. Change Risperdal to 4 mg p.o. q.h.s. I spent __20____ minutes with the patient and/or on the patient floor today, greater than?50% of which was spent counseling/coordinating care. Reason for contiued inpatient stay Substantial Risk for: inability to function, rapid decompensation and med/psych decompensation
[2021-09-22 13:56] VITALS: BP 130/60; PULSE 99; RESP 16; TEMP 36.8; O2SAT 97
[2021-09-22 20:07] VITALS: BP 139/67; PULSE 87; RESP 17; TEMP 37.1; O2SAT 99
[2021-09-22] MEDS: risperiDONE 2 MG TABLET 4 MG PO (22:05)
[2021-09-22] MEDS: chlorproMAZINE HCl 25 MG TABLET PO (22:05)
--- NOTE | 2021-09-23 09:03 | HO.PSYCHPN ---
Subjective Subjective Date of Service: 09/23/21 Reason For Visit: Psychotic Interim History: Pt in bed, reports he is resting and would like to continue napping. He denies SI/HI. 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 Per nursing, residual paranoia but improved hygine and overall organization. No behavioral concerns. Medication Compliance: Yes Side effects from medications: No Review of Systems Review of Systems denies chest pain Denies shortness of breath Denies nausea vomiting diarrhea Denies fever chills Yes Unobtainable due to mental status Mental Status Exam Mental Status Exam Narrative: Patient Appearance:?Appropriate Patient Orientation:?Person and Situation Level of Consciousness:?Awake Patient Behavior:?Guarded Mood Description:?Constricted Affect Description:?Calm Patient Cognition Impaired:?Yes Ability to Follow Directions:?Good Speech Pattern:?Clear Hallucinations:?Auditory Delusions:?Paranoid Ideation Thought Process:?Illogical Thought Content:?positive for Disoriented Judgement:?Fair Patient Appearance: Well Grooomed Patient Orientation: Person and Situation Level of Consciousness: Awake Patient Behavior: Cooperative Mood Description: Withdrawn Affect Description: Constricted Patient Cognition Impaired: Yes Ability to Follow Directions: Good Speech Pattern: Clear Memory Description: Intact Diagnostics Vital Signs (24Hr): Vital Signs - 24 hr 09/24/21 21:00 Temperature 98.6 F Pulse Rate 97 Respiratory Rate 18 Blood Pressure 121/59 L Pulse Oximetry 98 Oxygen Delivery Method Room Air BMI result Body Mass Index 21.0 Labs Results: 09/09/21 07:18 09/09/21 07:18 Imaging Radiology Impressions: ITS Impressions Brain MRI 09/20/21 17:57 IMPRESSION: 1. No acute intracranial abnormalities. 2. Mild underlying microangiopathy. No parenchymal signal abnormalities to strongly correlate with Wernicke-Korsakoff syndrome. 3. Moderate generalized cerebral volume loss. Medications Medications Current Medications Acetaminophen (Acetaminophen 325 Mg Tablet) 650 mg PO Q6H PRN PRN Reason: Headache/Pain Mild Scale (1-3) Last Admin: 09/24/21 22:41 Dose: 650 mg Al Hydroxide/Mg Hydroxide (Magnesium Hydrox/Alum Hydrox 30 Ml Oral.Susp) 30 ml PO Q6H PRN PRN Reason: Heartburn/Nausea Chlorpromazine HCl (Chlorpromazine Hcl 25 Mg Tablet) 25 mg PO Q6H PRN PRN Reason: Psychosis Last Admin: 09/23/21 09:13 Dose: 25 mg Chlorpromazine HCl (Chlorpromazine Hcl 25 Mg Tablet) 25 mg PO BEDTIME [facility] Last Admin: 09/24/21 21:49 Dose: 25 mg Folic Acid (Folic Acid 1 Mg Tablet) 1 mg PO DAILY [facility] Last Admin: 09/24/21 08:27 Dose: 1 mg Hydroxyzine HCl (Hydroxyzine Hcl 25 Mg Tablet) 25 mg PO Q6H PRN PRN Reason: Anxiety Last Admin: 09/03/21 22:18 Dose: 25 mg Magnesium Hydroxide (Milk Of Magnesia 30 Ml Oral.Susp) 30 ml PO DAILY PRN PRN Reason: Constipation Multivitamins/Vitamin C (Multivitamin Tablet) 1 tab PO DAILY [facility] Last Admin: 09/24/21 08:27 Dose: 1 tab Nicotine Polacrilex (Nicotine Polacrilex 2 Mg Gum) 2 mg BUCCAL Q2H PRN PRN Reason: nicotine cravings Last Admin: 09/06/21 20:49 Dose: 2 mg Risperidone (Risperidone 2 Mg Tablet) 4 mg PO BEDTIME [facility] Last Admin: 09/24/21 21:49 Dose: 4 mg Thiamine HCl (Thiamine Hcl 100 Mg Tablet) 100 mg PO DAILY [facility] Last Admin: 09/24/21 08:27 Dose: 100 mg Trazodone HCl (Trazodone Hcl 50 Mg Tablet) 50 mg PO BEDTIME PRN PRN Reason: Insomnia Last Admin: 09/19/21 02:59 Dose: 50 mg Allergies Allergies Allergy/AdvReac Type Severity Reaction Status Date / Time No Known Allergies Allergy Verified 08/26/21 13:36 Assessment & Plan Assessment & Plan (1) Dependent edema: Status: Acute Code(s): R60.9 - Edema, unspecified Plan 66-year-old male admitted with schizoaffective 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 Believe this to be dependent edema. Ask staff to examine legs 1st thing in the morning before patient arises. If edema improves would do nothing to treat. Will follow up with staff Plan 1. Change Risperdal to 4 mg p.o. q.h.s. 09/23 continue current medications I spent minutes with the patient and/or on the patient floor today, greater than?50% of which was spent counseling/coordinating care. Reason for contiued inpatient stay Substantial Risk for: inability to function
[2021-09-23] MEDS: Thiamine HCL 100 MG TABLET PO (09:13)
[2021-09-23] MEDS: Folic Acid 1 MG TABLET PO (09:13)
[2021-09-23] MEDS: Multivitamin TABLET 1 TAB PO (09:13)
[2021-09-23] MEDS: chlorproMAZINE HCl 25 MG TABLET PO ×2 (09:13→21:27)
[2021-09-23 09:16] VITALS: BP 140/64; PULSE 99; RESP 18; TEMP 36.3; O2SAT 99
[2021-09-23 19:24] VITALS: BP 143/63; PULSE 99; RESP 16; TEMP 37.6; O2SAT 99
[2021-09-23] MEDS: risperiDONE 2 MG TABLET 4 MG PO (21:27)
[2021-09-24 06:00] VITALS: BP 117/59; PULSE 93; RESP 18; TEMP 36.5; O2SAT 99
[2021-09-24] MEDS: Multivitamin TABLET 1 TAB PO (08:27)
[2021-09-24] MEDS: Folic Acid 1 MG TABLET PO (08:27)
[2021-09-24] MEDS: Thiamine HCL 100 MG TABLET PO (08:27)
--- NOTE | 2021-09-24 09:05 | HO.PSYCHPN ---
Subjective Subjective Date of Service: 09/24/21 Reason For Visit: Psychotic Subjective Notes: Conditional Voluntary Interim History: Pt more visible today. He reports doing well. He reports he has accepted the fact that he has to take psychotropic medications. He reports dry mouth related to medications. He denies SI/HI. He reports yesterday he was feeling saddened as he remember friend who . No behavioral concerns. Medication Compliance: Yes Side effects from medications: No Review of Systems Review of Systems denies chest pain Denies shortness of breath Denies nausea vomiting diarrhea Denies fever chills Yes Unobtainable due to mental status Mental Status Exam Mental Status Exam Narrative: Patient Appearance:?Appropriate Patient Orientation:?Person and Situation Level of Consciousness:?Awake Patient Behavior:?Guarded Mood Description:?Constricted Affect Description:?Calm Patient Cognition Impaired:?Yes Ability to Follow Directions:?Good Speech Pattern:?Clear Hallucinations:?Auditory Delusions:?Paranoid Ideation Thought Process:?Illogical Thought Content:?positive for Disoriented Judgement:?Fair Patient Appearance: Well Grooomed Patient Orientation: Person and Situation Level of Consciousness: Awake Patient Behavior: Cooperative Mood Description: Withdrawn Affect Description: Constricted Patient Cognition Impaired: Yes Ability to Follow Directions: Good Speech Pattern: Clear Memory Description: Intact Diagnostics Vital Signs (24Hr): Vital Signs - 24 hr 09/24/21 21:00 Temperature 98.6 F Pulse Rate 97 Respiratory Rate 18 Blood Pressure 121/59 L Pulse Oximetry 98 Oxygen Delivery Method Room Air BMI result Body Mass Index 21.0 Labs Results: 09/09/21 07:18 09/09/21 07:18 Imaging Radiology Impressions: ITS Impressions Brain MRI 09/20/21 17:57 IMPRESSION: 1. No acute intracranial abnormalities. 2. Mild underlying microangiopathy. No parenchymal signal abnormalities to strongly correlate with Wernicke-Korsakoff syndrome. 3. Moderate generalized cerebral volume loss. Medications Medications Current Medications Acetaminophen (Acetaminophen 325 Mg Tablet) 650 mg PO Q6H PRN PRN Reason: Headache/Pain Mild Scale (1-3) Last Admin: 09/24/21 22:41 Dose: 650 mg Al Hydroxide/Mg Hydroxide (Magnesium Hydrox/Alum Hydrox 30 Ml Oral.Susp) 30 ml PO Q6H PRN PRN Reason: Heartburn/Nausea Chlorpromazine HCl (Chlorpromazine Hcl 25 Mg Tablet) 25 mg PO Q6H PRN PRN Reason: Psychosis Last Admin: 09/23/21 09:13 Dose: 25 mg Chlorpromazine HCl (Chlorpromazine Hcl 25 Mg Tablet) 25 mg PO BEDTIME [facility] Last Admin: 09/24/21 21:49 Dose: 25 mg Folic Acid (Folic Acid 1 Mg Tablet) 1 mg PO DAILY [facility] Last Admin: 09/24/21 08:27 Dose: 1 mg Hydroxyzine HCl (Hydroxyzine Hcl 25 Mg Tablet) 25 mg PO Q6H PRN PRN Reason: Anxiety Last Admin: 09/03/21 22:18 Dose: 25 mg Magnesium Hydroxide (Milk Of Magnesia 30 Ml Oral.Susp) 30 ml PO DAILY PRN PRN Reason: Constipation Multivitamins/Vitamin C (Multivitamin Tablet) 1 tab PO DAILY [facility] Last Admin: 09/24/21 08:27 Dose: 1 tab Nicotine Polacrilex (Nicotine Polacrilex 2 Mg Gum) 2 mg BUCCAL Q2H PRN PRN Reason: nicotine cravings Last Admin: 09/06/21 20:49 Dose: 2 mg Risperidone (Risperidone 2 Mg Tablet) 4 mg PO BEDTIME [facility] Last Admin: 09/24/21 21:49 Dose: 4 mg Thiamine HCl (Thiamine Hcl 100 Mg Tablet) 100 mg PO DAILY [facility] Last Admin: 09/24/21 08:27 Dose: 100 mg Trazodone HCl (Trazodone Hcl 50 Mg Tablet) 50 mg PO BEDTIME PRN PRN Reason: Insomnia Last Admin: 09/19/21 02:59 Dose: 50 mg Allergies Allergies Allergy/AdvReac Type Severity Reaction Status Date / Time No Known Allergies Allergy Verified 08/26/21 13:36 Assessment & Plan Assessment & Plan (1) Dependent edema: Status: Acute Code(s): R60.9 - Edema, unspecified Plan 66-year-old male admitted with schizoaffective 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 Believe this to be dependent edema. Ask staff to examine legs 1st thing in the morning before patient arises. If edema improves would do nothing to treat. Will follow up with staff Plan 1. Change Risperdal to 4 mg p.o. q.h.s. 09/23 continue current medications 09/24 continue current medications, asks for lower dose of prn thorazine I spent minutes with the patient and/or on the patient floor today, greater than?50% of which was spent counseling/coordinating care. Reason for contiued inpatient stay Substantial Risk for: inability to function
[2021-09-24 21:00] VITALS: BP 121/59; PULSE 97; RESP 18; TEMP 37; O2SAT 98
[2021-09-24] MEDS: risperiDONE 2 MG TABLET 4 MG PO (21:49)
[2021-09-24] MEDS: chlorproMAZINE HCl 25 MG TABLET PO (21:49)
[2021-09-24] MEDS: Acetaminophen 325 MG TABLET 650 MG PO (22:41)
[2021-09-25 07:45] VITALS: BP 135/68; PULSE 111; RESP 14; TEMP 36.6; O2SAT 99
[2021-09-25] MEDS: Multivitamin TABLET 1 TAB PO (08:23)
[2021-09-25] MEDS: Thiamine HCL 100 MG TABLET PO (08:23)
[2021-09-25] MEDS: Folic Acid 1 MG TABLET PO (08:23)
--- NOTE | 2021-09-25 08:51 | PC.NURSE ---
This RN reported all VS taken on this day at 0745, to Dr. Chin via tiger text.
--- NOTE | 2021-09-25 13:06 | HO.PSYCHPN ---
Subjective Subjective Date of Service: 09/25/21 Reason For Visit: Psychotic Subjective Notes: Conditional Voluntary Interim History: the healthcare proxy was affirmed. The patient remains manic with racing thoughts but more redirectable than before. Still his speech is fast and his thought process is disorganized at times but he is by far much better. On interview the patient denies new symptoms Mental Status Exam Mental Status Exam Patient Appearance: Well Grooomed Patient Orientation: Person and Situation Level of Consciousness: Awake Patient Behavior: Talkative and Cooperative Mood Description: Withdrawn Affect Description: Calm Patient Cognition Impaired: No Ability to Follow Directions: Good Speech Pattern: Clear and Rapid Hallucinations: None Delusions: Grandiose Thought Process: Racing, Distracted and Evasive Thought Content: positive for [place] and positive for Poverty of Content Judgement: Fair Diagnostics Vital Signs (24Hr): Vital Signs - 24 hr 09/24/21 21:00 09/25/21 07:45 Temperature 98.6 F 97.9 F Pulse Rate 97 111 H Respiratory Rate 18 14 Blood Pressure 121/59 L 135/68 Pulse Oximetry 98 99 Oxygen Delivery Method Room Air Room Air BMI result Body Mass Index 21.0 Labs Results: 09/09/21 07:18 09/09/21 07:18 Imaging Radiology Impressions: ITS Impressions Brain MRI 09/20/21 17:57 IMPRESSION: 1. No acute intracranial abnormalities. 2. Mild underlying microangiopathy. No parenchymal signal abnormalities to strongly correlate with Wernicke-Korsakoff syndrome. 3. Moderate generalized cerebral volume loss. Medications Medications Current Medications Acetaminophen (Acetaminophen 325 Mg Tablet) 650 mg PO Q6H PRN PRN Reason: Headache/Pain Mild Scale (1-3) Last Admin: 09/24/21 22:41 Dose: 650 mg Al Hydroxide/Mg Hydroxide (Magnesium Hydrox/Alum Hydrox 30 Ml Oral.Susp) 30 ml PO Q6H PRN PRN Reason: Heartburn/Nausea Chlorpromazine HCl (Chlorpromazine Hcl 25 Mg Tablet) 25 mg PO BEDTIME [facility] Last Admin: 09/24/21 21:49 Dose: 25 mg Chlorpromazine HCl (Chlorpromazine Hcl 25 Mg Tablet) 12.5 mg PO Q6H PRN PRN Reason: Psychosis Folic Acid (Folic Acid 1 Mg Tablet) 1 mg PO DAILY [facility] Last Admin: 09/25/21 08:23 Dose: 1 mg Hydroxyzine HCl (Hydroxyzine Hcl 25 Mg Tablet) 25 mg PO Q6H PRN PRN Reason: Anxiety Last Admin: 09/03/21 22:18 Dose: 25 mg Magnesium Hydroxide (Milk Of Magnesia 30 Ml Oral.Susp) 30 ml PO DAILY PRN PRN Reason: Constipation Multivitamins/Vitamin C (Multivitamin Tablet) 1 tab PO DAILY [facility] Last Admin: 09/25/21 08:23 Dose: 1 tab Nicotine Polacrilex (Nicotine Polacrilex 2 Mg Gum) 2 mg BUCCAL Q2H PRN PRN Reason: nicotine cravings Last Admin: 09/06/21 20:49 Dose: 2 mg Risperidone (Risperidone 2 Mg Tablet) 4 mg PO BEDTIME [facility] Last Admin: 09/24/21 21:49 Dose: 4 mg Thiamine HCl (Thiamine Hcl 100 Mg Tablet) 100 mg PO DAILY [facility] Last Admin: 09/25/21 08:23 Dose: 100 mg Trazodone HCl (Trazodone Hcl 50 Mg Tablet) 50 mg PO BEDTIME PRN PRN Reason: Insomnia Last Admin: 09/19/21 02:59 Dose: 50 mg Allergies Allergies Allergy/AdvReac Type Severity Reaction Status Date / Time No Known Allergies Allergy Verified 08/26/21 13:36 Assessment & Plan Assessment & Plan (1) Dependent edema: Status: Acute Code(s): R60.9 - Edema, unspecified Plan 66-year-old male admitted with schizoaffective 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 Believe this to be dependent edema. Ask staff to examine legs 1st thing in the morning before patient arises. If edema improves would do nothing to treat. Will follow up with staff Plan 1. Change Risperdal to 4 mg p.o. q.h.s. 2. MOCA test soon I spent __20____ minutes with the patient and/or on the patient floor today, greater than?50% of which was spent counseling/coordinating care. Reason for contiued inpatient stay Substantial Risk for: inability to function, rapid decompensation and med/psych decompensation
[2021-09-25 18:00] VITALS: BP 157/70; PULSE 101; TEMP 36.9; O2SAT 97
[2021-09-25] MEDS: diphenhydrAMINE HCL 25 MG TABLET PO (21:04)
[2021-09-25] MEDS: risperiDONE 2 MG TABLET 4 MG PO (21:04)
[2021-09-25] MEDS: chlorproMAZINE HCl 25 MG TABLET PO (21:04)
[2021-09-26 07:45] VITALS: BP 130/61; PULSE 106; RESP 17; TEMP 36.3; O2SAT 97
[2021-09-26] MEDS: Folic Acid 1 MG TABLET PO (08:24)
[2021-09-26] MEDS: diphenhydrAMINE HCL 25 MG TABLET PO ×3 (08:24→22:08)
[2021-09-26] MEDS: Thiamine HCL 100 MG TABLET PO (08:24)
[2021-09-26] MEDS: Multivitamin TABLET 1 TAB PO (08:24)
--- NOTE | 2021-09-26 12:35 | PC.NURSE ---
[facility] cognitive assessment administered this date, environment modified to decrease auditory and visual distraction for most objective outcome. Pt s score 30/30 is indicative of normal cognition. Pts attending nurse, MD, protective services social worker, and OTR notified of pt result.
--- NOTE | 2021-09-26 15:59 | P.PNPSI_ITS ---
Subjective Subjective Date of Service: 09/26/21 Reason For Visit: Psychotic Subjective Notes: Conditional Voluntary Interim History: The nursing staff reported the patient has been more cooperative and pleasant, he looks less disorganized. The occupational therapist did a [place] test and he scored 30/30. On assessment the patient is logical and goal oriented, his thought process is by far much clear. He requested to change Risperdal to b.i.d. since he reported heartburn. The patient at this moment has capacity to take informed decisions. Mental Status Exam Mental Status Exam Patient Appearance: Well Grooomed Patient Orientation: Person Level of Consciousness: Awake Patient Behavior: Cooperative Mood Description: Constricted Affect Description: Calm Patient Cognition Impaired: No Ability to Follow Directions: Good Speech Pattern: Clear Memory Description: Intact Hallucinations: None Delusions: Not Present Thought Process: Linear Thought Content: positive for [place] Judgement: Fair Diagnostics Vital Signs (24Hr): Vital Signs - 24 hr 09/25/21 18:00 09/26/21 07:45 Temperature 98.4 F 97.4 F Pulse Rate 101 H 106 H Respiratory Rate 17 Blood Pressure 157/70 H 130/61 Pulse Oximetry 97 97 Oxygen Delivery Method Room Air Room Air BMI result Body Mass Index 21.0 Labs Results: 09/09/21 07:18 09/09/21 07:18 Imaging Radiology Impressions: ITS Impressions Brain MRI 09/20/21 17:57 IMPRESSION: 1. No acute intracranial abnormalities. 2. Mild underlying microangiopathy. No parenchymal signal abnormalities to strongly correlate with Wernicke-Korsakoff syndrome. 3. Moderate generalized cerebral volume loss. Medications Medications Current Medications Acetaminophen (Acetaminophen 325 Mg Tablet) 650 mg PO Q6H PRN PRN Reason: Headache/Pain Mild Scale (1-3) Last Admin: 09/24/21 22:41 Dose: 650 mg Al Hydroxide/Mg Hydroxide (Magnesium Hydrox/Alum Hydrox 30 Ml Oral.Susp) 30 ml PO Q6H PRN PRN Reason: Heartburn/Nausea Chlorpromazine HCl (Chlorpromazine Hcl 25 Mg Tablet) 25 mg PO BEDTIME [facility] Last Admin: 09/25/21 21:04 Dose: 25 mg Chlorpromazine HCl (Chlorpromazine Hcl 25 Mg Tablet) 12.5 mg PO Q6H PRN PRN Reason: Psychosis Diphenhydramine HCl (Diphenhydramine Hcl 25 Mg Tablet) 25 mg PO TID [facility] Last Admin: 09/26/21 15:38 Dose: 25 mg Folic Acid (Folic Acid 1 Mg Tablet) 1 mg PO DAILY [facility] Last Admin: 09/26/21 08:24 Dose: 1 mg Hydroxyzine HCl (Hydroxyzine Hcl 25 Mg Tablet) 25 mg PO Q6H PRN PRN Reason: Anxiety Last Admin: 09/03/21 22:18 Dose: 25 mg Magnesium Hydroxide (Milk Of Magnesia 30 Ml Oral.Susp) 30 ml PO DAILY PRN PRN Reason: Constipation Multivitamins/Vitamin C (Multivitamin Tablet) 1 tab PO DAILY [facility] Last Admin: 09/26/21 08:24 Dose: 1 tab Nicotine Polacrilex (Nicotine Polacrilex 2 Mg Gum) 2 mg BUCCAL Q2H PRN PRN Reason: nicotine cravings Last Admin: 09/06/21 20:49 Dose: 2 mg Risperidone (Risperidone 2 Mg Tablet) 4 mg PO BEDTIME [facility] Last Admin: 09/25/21 21:04 Dose: 4 mg Thiamine HCl (Thiamine Hcl 100 Mg Tablet) 100 mg PO DAILY [facility] Last Admin: 09/26/21 08:24 Dose: 100 mg Trazodone HCl (Trazodone Hcl 50 Mg Tablet) 50 mg PO BEDTIME PRN PRN Reason: Insomnia Last Admin: 09/19/21 02:59 Dose: 50 mg Allergies Allergies Allergy/AdvReac Type Severity Reaction Status Date / Time No Known Allergies Allergy Verified 08/26/21 13:36 Assessment & Plan Assessment & Plan (1) Dependent edema: Status: Acute Code(s): R60.9 - Edema, unspecified Plan 66-year-old male admitted with schizoaffective 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 Believe this to be dependent edema. Ask staff to examine legs 1st thing in the morning before patient arises. If edema improves would do nothing to treat. Will follow up with staff Plan 1. Change Risperdal to 4 mg p.o. q.h.s. 2. MOCA test soon I spent ___20___ minutes with the patient and/or on the patient floor today, greater than?50% of which was spent counseling/coordinating care. Informed Consent: understands Reason for contiued inpatient stay Substantial Risk for: inability to function, rapid decompensation and med/psych decompensation
[2021-09-26 18:00] VITALS: BP 153/71; PULSE 90; RESP 17; TEMP 36.6; O2SAT 99
[2021-09-26] MEDS: risperiDONE 2 MG TABLET PO (22:04)
[2021-09-26] MEDS: Acetaminophen 325 MG TABLET 650 MG PO (22:08)
[2021-09-27 07:40] VITALS: BP 143/65; PULSE 99; RESP 18; TEMP 36.4; O2SAT 98
[2021-09-27] MEDS: Multivitamin TABLET 1 TAB PO (08:32)
[2021-09-27] MEDS: Folic Acid 1 MG TABLET PO (08:32)
[2021-09-27] MEDS: Thiamine HCL 100 MG TABLET PO (08:32)
[2021-09-27] MEDS: diphenhydrAMINE HCL 25 MG TABLET PO ×3 (08:32→20:21)
[2021-09-27] MEDS: risperiDONE 2 MG TABLET PO ×2 (08:32→20:20)
--- NOTE | 2021-09-27 10:46 | MHC.CLN ---
F/U NO REPORTED CONCERNS WITH CURRENT DIET. BMI=21.0, 87% IBW. SHOWS SIGNIFICANT WEIGHT GAIN DURING ADMISSION. CONTINUE REGULAR DIET WITH ENSURE BID. SUPPLEMENT PROVIDES ADDITIONAL 700 KCALS, 40 GRAMS PROTEIN. ENCOURAGE INTAKE OF MEALS AND SUPPLEMENT ABLE.
[2021-09-27] MEDS: Acetaminophen 325 MG TABLET 650 MG PO ×2 (13:45→20:20)
--- NOTE | 2021-09-27 16:19 | P.PNPSI_ITS ---
Subjective Subjective Date of Service: 09/27/21 Reason For Visit: Psychotic Subjective Notes: Conditional Voluntary Interim History: the nursing staff reported the patient has been fully compliant with treatment. He has court a [place] of 30/30 and his thought process is more linear. Yesterday we revoked the healthcare proxy since he now he can take informed decisions. On interview the patient reports that he is doing fine his thought process is more linear. He advocated for a discharge soon as possible Mental Status Exam Mental Status Exam Patient Appearance: Well Grooomed Patient Orientation: Person and Situation Level of Consciousness: Awake Patient Behavior: Cooperative Mood Description: Calm Affect Description: Constricted Patient Cognition Impaired: No Ability to Follow Directions: Good Speech Pattern: Clear Hallucinations: None Delusions: Not Present Thought Process: Goal Oriented Thought Content: positive for Circumstantial Judgement: Fair Diagnostics Vital Signs (24Hr): Vital Signs - 24 hr 09/26/21 18:00 09/27/21 07:40 Temperature 97.8 F 97.6 F Pulse Rate 90 99 Respiratory Rate 17 18 Blood Pressure 153/71 H 143/65 H Pulse Oximetry 99 98 Oxygen Delivery Method Room Air Room Air BMI result Body Mass Index 21.0 Labs Results: 09/09/21 07:18 09/09/21 07:18 Imaging Radiology Impressions: ITS Impressions Brain MRI 09/20/21 17:57 IMPRESSION: 1. No acute intracranial abnormalities. 2. Mild underlying microangiopathy. No parenchymal signal abnormalities to strongly correlate with Wernicke-Korsakoff syndrome. 3. Moderate generalized cerebral volume loss. Medications Medications Current Medications Acetaminophen (Acetaminophen 325 Mg Tablet) 650 mg PO Q6H PRN PRN Reason: Headache/Pain Mild Scale (1-3) Last Admin: 09/27/21 13:45 Dose: 650 mg Al Hydroxide/Mg Hydroxide (Magnesium Hydrox/Alum Hydrox 30 Ml Oral.Susp) 30 ml PO Q6H PRN PRN Reason: Heartburn/Nausea Chlorpromazine HCl (Chlorpromazine Hcl 25 Mg Tablet) 12.5 mg PO Q6H PRN PRN Reason: Psychosis Diphenhydramine HCl (Diphenhydramine Hcl 25 Mg Tablet) 25 mg PO TID [facility] Last Admin: 09/27/21 15:16 Dose: 25 mg Folic Acid (Folic Acid 1 Mg Tablet) 1 mg PO DAILY [facility] Last Admin: 09/27/21 08:32 Dose: 1 mg Hydroxyzine HCl (Hydroxyzine Hcl 25 Mg Tablet) 25 mg PO Q6H PRN PRN Reason: Anxiety Last Admin: 09/03/21 22:18 Dose: 25 mg Magnesium Hydroxide (Milk Of Magnesia 30 Ml Oral.Susp) 30 ml PO DAILY PRN PRN Reason: Constipation Multivitamins/Vitamin C (Multivitamin Tablet) 1 tab PO DAILY [facility] Last Admin: 09/27/21 08:32 Dose: 1 tab Nicotine Polacrilex (Nicotine Polacrilex 2 Mg Gum) 2 mg BUCCAL Q2H PRN PRN Reason: nicotine cravings Last Admin: 09/06/21 20:49 Dose: 2 mg Risperidone (Risperidone 2 Mg Tablet) 2 mg PO BID [facility] Last Admin: 09/27/21 08:32 Dose: 2 mg Thiamine HCl (Thiamine Hcl 100 Mg Tablet) 100 mg PO DAILY [facility] Last Admin: 09/27/21 08:32 Dose: 100 mg Trazodone HCl (Trazodone Hcl 50 Mg Tablet) 50 mg PO BEDTIME PRN PRN Reason: Insomnia Last Admin: 09/19/21 02:59 Dose: 50 mg Allergies Allergies Allergy/AdvReac Type Severity Reaction Status Date / Time No Known Allergies Allergy Verified 08/26/21 13:36 Assessment & Plan Assessment & Plan (1) Dependent edema: Status: Acute Code(s): R60.9 - Edema, unspecified Plan 66-year-old male admitted with schizoaffective 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 Believe this to be dependent edema. Ask staff to examine legs 1st thing in the morning before patient arises. If edema improves would do nothing to treat. Will follow up with staff Plan 1. Change Risperdal to 4 mg p.o. q.h.s. 2. MOCA 3030 I spent ___20___ minutes with the patient and/or on the patient floor today, greater than?50% of which was spent counseling/coordinating care. Informed Consent: understands Reason for contiued inpatient stay Substantial Risk for: inability to function, rapid decompensation and med/psych decompensation
[2021-09-27 18:00] VITALS: BP 104/79; PULSE 108; RESP 16; TEMP 36.2; O2SAT 95
[2021-09-27] MEDS: chlorproMAZINE HCl 25 MG TABLET 12.5 MG PO (23:25)
[2021-09-28] MEDS: chlorproMAZINE HCl 25 MG TABLET 12.5 MG PO (05:04)
[2021-09-28] MEDS: Acetaminophen 325 MG TABLET 650 MG PO (05:07)
[2021-09-28 05:19] VITALS: BP 154/69; PULSE 94; RESP 16; O2SAT 100
[2021-09-28 07:15] VITALS: BP 130/70; PULSE 103; RESP 18; TEMP 36.7; O2SAT 97
--- NOTE | 2021-09-28 08:22 | PM.PSYDC ---
DS: Providers Provider Date of Service: 09/28/21 Date of admission: 08/28/21 17:29 Date of discharge: 09/28/21 Primary care physician: Unknown Physician Consults: 09/17/21 13:17 Consult to Hospitalist Routine Consulting Provider: Hospitalist Reason For Exam: +2 pitting edema new onset BLE Attending physician on discharge: Miguel Chin DS: Diagnosis Discharge Diagnosis (1) Schizoaffective disorder, bipolar type: Status: Acute (2) Alcohol use with alcohol-induced disorder: Status: Acute (3) Altered mental status: Status: Acute DS: Medications Discharge Medications Home Medications: Previous Rx's Medication Instructions Recorded nicotine (polacrilex) 2 mg gum 2 mg buccal Q2H PRN nicotine 08/28/21 cravings #50 ea thiamine mononitrate (vit B1) 100 100 mg PO DAILY #30 tabs 08/28/21 mg tablet Mental Status Exam Mental Status Exam Patient Appearance: Well Grooomed Patient Orientation: Person and Situation Level of Consciousness: Awake Patient Behavior: Cooperative Mood Description: Calm Affect Description: Cheerful Patient Cognition Impaired: No Ability to Follow Directions: Good Speech Pattern: Rapid Hallucinations: None Delusions: Not Present Thought Process: Linear Thought Content: positive for [place] and positive for Circumstantial Judgement: Fair Data Imaging Diagnostic Imaging Impressions Brain MRI 09/20/21 17:57 IMPRESSION: 1. No acute intracranial abnormalities. 2. Mild underlying microangiopathy. No parenchymal signal abnormalities to strongly correlate with Wernicke-Korsakoff syndrome. 3. Moderate generalized cerebral volume loss. DS: Summary Hospital Course Hospital Course: The patient was admitted from the community due to disorganized thought process, susie and a past history of alcohol abuse, unable to take care of himself. Please see HPI of the admission note for further details. On admission, the patient was grossly disorganized, his speech was wart salad, unable to provide any coherent statement. According to the collateral information, the patient was on Vraylar another medication that he was noncompliant. Due to the grossly disorganized thought process, we started on antipsychotics. We tried initially Zyprexa with very poor results and later changed to Seroquel with similar affect. Finally we tried Seroquel titrated up slowly up to 4 mg a day with a good response. The patient slowly regain his logical thought process but he was still hypomanic with fast speech. According to the staff who knows him from before this is his baseline. We thought about the possibility Wernicke-Korsakoff syndrome since the patient has been drinking alcohol heavily most of his life. We did an MRI and there was no evidence of mammillary bodies destruction. We did also [place] test and he has court . Since the patient's mood mood and thought process improve, discharge planning was discussed. While he was grossly psychotic, we decided to affirm his healthcare proxy and he sister is now his affirmed healthcare proxy. Time spent discussing smoking cessation with patient: 3 to 10 minutes Status at Discharge Cognitive/behavioral status at discharge: At baseline now Functional status at discharge: independent ambulation Overall status at discharge: patient is back to baseline Time Spent with Patient Time attestation: Total time spent providing and/or coordinating discharge services: Time spent: Less than 30 minutes Discharge Plan Discharge Patient Disposition: Home, Self-Care Discharge Diagnosis: schizoaffective disorder bipolar type. Alcohol use disorder Referrals: Physician,Unknown J [Primary Care Provider] - 1 Week Discharge Medications: New diphenhydramine HCl [Allergy Relief(diphenhydramin)] 25 mg Tablet 25 mg PO TID PRN (Reason: allergy symptoms) Qty: 90 0RF acetaminophen 325 mg Tablet 650 mg PO Q6H PRN (Reason: Headache/Pain Mild Scale (1-3)) Qty: 60 0RF trazodone 50 mg Tablet 50 mg PO BEDTIME PRN (Reason: Insomnia) 30 Days Qty: 30 0RF risperidone 2 mg Tablet 2 mg PO BID 30 Days Qty: 60 0RF chlorpromazine 25 mg Tablet 12.5 mg PO Q6H PRN (Reason: Psychosis) 30 Days Qty: 60 0RF folic acid 1 mg Tablet 1 mg PO DAILY 30 Days Qty: 30 0RF multivitamin [Daily-[place]] Tablet 1 tab PO DAILY 30 Days Qty: 30 0RF Continued thiamine mononitrate (vit B1) 100 mg tablet 100 mg PO DAILY 30 Days Qty: 30 0RF Discontinued nicotine (polacrilex) 2 mg Gum 2 mg buccal Q2H PRN (Reason: nicotine cravings) Qty: 50 0RF Discharge Orders: Discharge Order (Routine); Ordered 09/28/21 Ordered By: Miguel Chin Diet: advance to usual diet Activity on Discharge: As tolerated Stand Alone Forms: Patient Portal Discharge page Care Plan Goals: care plan goals achieved in this admission Health Concerns: follow with primary care physician Plan of Treatment: outpatient treatment Assessment: elderly male with a history of schizoaffective disorder bipolar type, alcohol use disorder and poor compliance admitted for grossly psychotic symptoms in the context of noncompliance and poor social support. At this moment stable back to baseline, with no evidence of cognitive impairment
[2021-09-28] MEDS: Thiamine HCL 100 MG TABLET PO (08:39)
[2021-09-28] MEDS: diphenhydrAMINE HCL 25 MG TABLET PO (08:39)
[2021-09-28] MEDS: Multivitamin TABLET 1 TAB PO (08:39)
[2021-09-28] MEDS: risperiDONE 2 MG TABLET PO (08:39)
[2021-09-28] MEDS: Folic Acid 1 MG TABLET PO (08:40)
--- NOTE | 2021-09-28 09:27 | PC.NURSE ---
Patient is alert and oriented x4. Memory appears intact. Patient is pleasant, cooperative and compliant with meds and care. Patient denies anxiety, depression, SI/HI/AVH. Speech is clear, coherent. Patient reports readiness for discharge and also aware of plan post discharge. All referrals completed, patient is aware. Education provided to patient and concerns addressed.
== END 2021-09-28 11:15 | disposition home or self-care (01) | DRG 885 ==
LOC: HO.PM5 18:16 → HO.PGERI 08-29 13:22
PROVIDERS: Registered Nurse; Admitting Provider Psychiatry & Neurology Psychiatry; Visit Provider Psychiatry & Neurology Psychiatry
DX: F25.0 Schizoaffective disorder, bipolar type (principal); U07.1 COVID-19; F10.10 Alcohol abuse, uncomplicated; R60.9 Edema, unspecified; F17.210 Nicotine dependence, cigarettes, uncomplicated; Z71.6 Tobacco abuse counseling; Z79.899 Other long term (current) drug therapy
CPT/HCPCS: 36415; 70551; 80048; 80061; 80076; 81003; 82607; 82746; 82947; 83036; 83735; 84439; 84443; 85025; 87635; J1200; J2060; Q0163

== ENCOUNTER 2022-10-01 14:22 | Inpatient (IN) | payer MEDICARE, SELFPAY ==
--- NOTE | ~2022-10-01 | XR_ITS ---
EXAMINATION: XR HAND, LEFT CLINICAL INFORMATION: Rule out fracture COMPARISON: None available. TECHNIQUE: PA, lateral, and oblique views of the left hand. FINDINGS: There is flexion of the PIP joint of the fifth finger. There is question of evidence of old trauma at the PIP joint of the fifth finger. No acute fracture is seen. There is cortical thickening and irregularity of the radial and volar side of the proximal phalanx of the fifth finger, question related to old trauma versus possible infection. Clinical correlation recommended.. There is adjacent periarticular soft tissue swelling. Bone alignment is otherwise normal. Joint spaces and soft tissues are otherwise normal. XR/XR hand LT 2V IMPRESSION: No acute fracture. Slight flexion at the PIP joint of the fifth finger and periarticular soft tissue swelling. Question evidence of old trauma. Irregular periosteal or thickening of the proximal phalanx, question related to old trauma versus infection. Clinical correlation recommended.
--- OUTSIDE RECORDS SUMMARY | 2022-10-01 14:24 | XMS_ITS | Continuity of Care Document ---
Author Name Unknown Organization [facility] [address] [facility] [address] Address [address] [place] [address]- Care Team Providers Care Inspection Machine Tender Name Role Phone Darnell RAMÍREZ, Kinga Mcgrath Primary Care Physician ( [phone] Encounter [facility] Date(s): 04/20/21 - 05/20/21 [facility] [address] [address] [place] [address]- Allergies, Adverse Reactions, Alerts No Known Allergies Immunizations Given and Recorded Vaccine Date Status Refusal Reason SARS-CoV-2 (COVID-19) mRNA BNT-162b2 vac 08/10/20 Recorded SARS-CoV-2 (COVID-19) mRNA BNT-162b2 vac 07/20/20 Recorded zoster vaccine, inactivated 07/05/20 Recorded zoster vaccine, inactivated 10/21/19 Recorded pneumococcal 23-valent vaccine 07/05/20 Recorded pneumococcal 23-valent vaccine 08/28/13 Recorded influenza virus vaccine, inactivated 12/29/19 Jesus rded influenza virus vaccine, inactivated 02/04/19 Jesus rded pneumococcal 13-valent vaccine 08/18/18 Recorded tetanus/diphtheria/pertussis, acel(Tdap) 03/26/17 Recorded tetanus/diphtheria/pertussis, acel(Tdap) 10/21/09 Recorded hepatitis B adult vaccine 05/25/10 Recorded hepatitis B adult vaccine 12/23/09 Recorded hepatitis B adult vaccine 11/17/09 Recorded hepatitis B adult vaccine 05/30/06 Recorded hepatitis B adult vaccine 12/28/05 Recorded hepatitis B adult vaccine 11/27/05 Recorded influ virus vac, H1N1, inactive(oldterm) 03/28/09 Recorded Medications Depakote ER 500 mg oral tablet, extended release 3 tablet = 1,500 mg, By Mouth, Daily at bedtime, # 120 tablet, 0 Refills, Maintenance, 06/19/13 16:50:17 EST, ER Tablet, [id number] Start Date: 06/19/13 Status: Ordered Problem List Condition Effective Dates Status Health Status Inform ant Mild bipolar I disorder, cur rent or most recent episode depressed, with anxious distress(Confirmed) Active Social History Social History Type Response Smoking Status 10 or more cigarette s (1/2 pack or more)/day in last 30 days entered on: 05/15/21 Sex
--- OUTSIDE RECORDS SUMMARY | 2022-10-01 14:24 | XMS_ITS | Continuity of Care Document ---
Author Name Unknown Organization [facility] Address [address] [place] [address]- Care Team Providers Care Entry Level Account Representative Name Role Phone Darnell RAMÍREZ, Kinga Mcgrath Primary Care Physician Encounter [facility] Date(s): 05/16/21 - 06/15/21 [facility] [address] [place] [address]- Allergies, Adverse Reactions, Alerts No Known Allergies [...] virus vac, H1N1, inactive(oldterm) 03/28/09 Recorded Medications aspirin 81 mg oral delayed release tablet 81 mg, By Mouth, Daily, # 30 tablet, Refills 0, Tot. Refills 0, Maintenance, 06/05/21 11:19:00 EST,Route to Pharmacy Electronically, [id number], Partial fill upon patient request if the prescription is for a schedule II opioid drug., 182, cm,... Start Date: 06/05/21 Status: Ordered calamine topical - lotion See Instructions, PRN Itch, Topically 2 times a day, # 120 mL, 0 Refills, Acute 07/04/21 6:00:00 EDT, 06/05/21 11:19:00 EST, Lotion, [id number], Partial fill upon patient request if the prescription is for a schedule II opioid drug., Topically... Start Date: 06/05/21 Stop Date: 07/04/21 Status: Ordered multivitamin Multiple Vitamins oral capsule 1 capsule, By Mouth, Daily, # 30 capsule, 0 Refills, Maintenance, 06/05/21 11:19:00 EST, Capsule, [id number], Partial fill upon patient request if the prescription is for a schedule II opioiddrug., 1 capsule By Mouth Daily, dimitri Francois, 06/04/21... Start Date: 06/05/21 Status: Ordered naproxen 250 mg oral tablet 500 mg, 2, tablet, By Mouth, Every 12 hours, PRN, # 40 tablet, Refills 0, Tot. Refills 0, Acute 07/03/21 6:00:00 EDT, Other, 06/05/21 11:19:00 EST, Route to Pharmacy Electronically, [id number], Partial fill upon patient request if the prescrip... Start Date: 06/05/21 Stop Date: 07/03/21 Status: Ordered olanzapine 5 mg oral tablet, disintegrating = 5 mg, By Mouth, 2 times a day, PRN Agitation, # 20 tablet, 0 Refills, Maintenance, 06/05/21 11:21:00 EST, DIS Tablet, [id number], Partial fill upon patient request if the prescription is for a schedule II opioid drug., 182dimitri, 06/04/21 15:0... Start Date: 06/05/21 Status: Ordered traZODone 50 mg oral tablet 25 mg, 0.5, tablet, By Mouth, Daily at bedtime, PRN, # 30 tablet, Refills 0, Tot. Refills 0, Maintenance, Insomnia, 06/05/21 11:21:00 EST, Route to Pharmacy Electronically, [id number], Partial fill upon patient request if the prescription is f... Start Date: 06/05/21 Status: Ordered Problem List Condition Effective Dates Status Health Status Inform ant Mild bipolar I disorder, cur rent or most recent episode depressed, with anxious distress(Confirmed) Active Social History Social History Type Response Smoking Status 10 or more cigarette s (1/2 pack or more)/day in last 30 days entered on: 05/15/21 Sex
--- OUTSIDE RECORDS SUMMARY | 2022-10-01 14:24 | XMS_ITS | Continuity of Care Document ---
Author Name Unknown Organization [facility] Primary [place] Address [address] [place] [address]- Care Team Providers Care Boiler/Chiller Technician Name Role Phone Darnell RAMÍREZ, Kinga Mcgrath Primary Care Physician ( [phone] Encounter [facility] Date(s): 12/29/20 - 01/28/21 [facility] Care [place] [address] [place] [address]- Allergies, Adverse Reactions, Alerts Substance Reaction Severity Status NKA Active Immunizations Given and Recorded Vaccine Date Status Refusal Reason SARS-CoV-2 (COVID-19) mRNA BNT-162b2 vac 08/10/20 Recorded SARS-CoV-2 (COVID-19) mRNA BNT-162k5 vac 07/20/20 Recorded zoster vaccine, inactivated 07/05/20 [...] Maintenance, 06/19/13 16:50:17 EST, ER Tablet, [id number] Start Date: 06/19/13 Status: Ordered Problem List Condition Effective Dates Status Health Status Inform ant Mild bipolar I disorder, cur rent or most recent episode depressed, with anxious distress(Confirmed) Active Social History Social History Type Response Smoking Status Former smoker, quit more than 30 days ago; Other: quit 10 years ago; entered on: 09/20/20 Sex
--- OUTSIDE RECORDS SUMMARY | 2022-10-01 14:24 | XMS_ITS | Continuity of Care Document ---
Author Name Unknown Organization [facility] ter Address [address] [place] [address]- Care Team Providers Care Customer Operations Associate Name Role Phone Simeon RAMÍREZ, Srinath Cote Primary Care Physician Encounter [facility] Date(s): 08/22/22 - 08/22/[address] [address]- Discharge Disposition: Transfer to [facility] Facility Attending Physician: Aba Krishna MD Admitting Physician: Aba Krishna MD Referring Physician: Not on Staff, Referring MD Allergies, Adverse Reactions, Alerts No Known Allergies Immunizations Given and Recorded Vaccine Date Status Refusal Reason influenza virus vaccine, inactivated 12/27/21 Jesus rded influenza virus vaccine, inactivated 12/14/20 Jesus rded influenza virus vaccine, inactivated 12/29/19 Jesus rded influenza virus vaccine, inactivated 02/04/19 Jesus rded influenza virus vaccine, inactivated 01/29/18 Jesus rded influenza virus vaccine, inactivated 01/14/17 Jesus rded influenza virus vaccine, inactivated 02/13/16 Jesus rded influenza virus vaccine, inactivated 01/26/15 Jesus rded influenza virus vaccine, inactivated 04/26/14 Jesus rded influenza virus vaccine, inactivated 02/22/12 Jesus rded influenza virus vaccine, inactivated 01/17/11 Jesus rded influenza virus vaccine, inactivated 01/20/10 Jesus rded influenza virus vaccine, inactivated 03/28/09 Jesus rded influenza virus vaccine, inactivated 01/17/07 Jesus rded [id number] 12y+ bivalent booster vax 12/27/21 Recorded SARS-CoV-2 mRNA (jozhtog-rtvo-fghvk) vax 10/24/21 Recorded pneumococcal 23-valent vaccine 12/14/20 Recorded pneumococcal 23-valent vaccine 07/05/20 Recorded pneumococcal 23-valent vaccine 08/28/13 Recorded SARS-CoV-2 (COVID-19) mRNA BNT-162b2 vac 12/14/20 Recorded SARS-CoV-2 (COVID-19) mRNA BNT-162b2 vac 08/10/20 Recorded SARS-CoV-2 (COVID-19) mRNA BNT-162b2 vac 07/20/20 Recorded zoster vaccine, inactivated 07/05/20 Recorded zoster vaccine, inactivated 10/21/19 Recorded pneumococcal 13-valent vaccine 08/18/18 Recorded tetanus/diphtheria/pertussis, acel(Tdap) 03/26/17 Recorded tetanus/diphtheria/pertussis, acel(Tdap) 10/21/09 Recorded hepatitis B adult vaccine 05/25/10 Recorded hepatitis B adult vaccine 12/23/09 Recorded hepatitis B adult vaccine 11/17/09 Recorded hepatitis B adult vaccine 05/30/06 Recorded hepatitis B adult vaccine 12/28/05 Recorded hepatitis B adult vaccine 11/27/05 Recorded influ virus vac, H1N1, inactive(oldterm) 03/28/09 Recorded Medications divalproex sodium 250 mg oral enteric coated tablet = 250 mg, By Mouth, Daily, # 30 tablet, 0 Refills, Maintenance, 07/25/22 10:31:00 EDT, Tablet, [facility]/pharmacy #[id number], Partial fill upon patient request if the prescription is for a schedule II opioid drug., 183, cm, 07/24/22 20:11:00 EDT, Height, 70.2, k... Start Date: 07/25/22 Status: Ordered divalproex sodium 250 mg oral enteric coated tablet = 250 mg, By Mouth, Daily at bedtime, # 30 tablet, 0 Refills, Maintenance, 07/25/22 10:31:00 EDT, Tablet, [id number], Partial fill upon patient request if the prescription is for a schedule II opioid drug., 183, cm, 07/24/22 20:11:00 EDT, Heig... Start Date: 07/25/22 Status: Ordered duloxetine 20 mg oral enteric coated capsule 1 capsule = 20 mg, By Mouth, 2 times a day, # 60 capsule, 0 Refills, Maintenance, 07/25/22 10:32:00EDT, Capsule, [id number], Partial fill upon patient request if the prescription is for a schedule II opioid drug., 183, cm, 07/24/22 20:11:00 E... Start Date: 07/25/22 Status: Ordered mirtazapine 15 mg oral tablet 1 tablet = 15 mg, By Mouth, Daily at bedtime, # 30 tablet, 0 Refills, Maintenance, 07/25/22 10:32:00 EDT, Tablet, [facility]/pharmacy #[id number], Partial fill upon patient request if the prescription is for a schedule II opioid drug., 183, cm, 07/24/22 20:11:00 E... Start Date: 07/25/22 Status: Ordered Nicotine 2 mg gum = 2 mg, Chew, Every hour, PRN Other, Nicotine Withdrawal Symptoms (NOT to exceed 24 pieces per day), # 10 each, 0 Refills, Acute 08/24/22 6:00:00 EDT, 07/25/22 10:31:00 EDT, Gum, [facility]/pharmacy #[id number], Partial fill upon patient request if the prescriptio... Start Date: 07/25/22 Stop Date: 08/24/22 Status: Ordered risperiDONE 0.5 mg oral tablet, disintegrating = 0.5 mg, By Mouth, 2 times a day, PRN Agitation, # 30 tablet, 0 Refills, Maintenance, 07/25/22 10:32:00 EDT, DIS Tablet, [facility]/pharmacy #[id number], Partial fill upon patient request if the prescription is for a schedule II opioid drug., 183, cm, 07/24/22 20... Start Date: 07/25/22 Status: Ordered risperiDONE 1 mg oral tablet 2 mg, 2, tablet, By Mouth, 2 times a day, # 120 tablet, Refills 0, Tot. Refills 0, Maintenance, 07/25/22 10:31:00 EDT, Route to Pharmacy Electronically, [facility]/pharmacy #[id number], Partial fill upon patient request if the prescription is for a schedule II opi... Start Date: 07/25/22 Status: Ordered traZODone 50 mg oral tablet 25 mg, 0.5, tablet, By Mouth, Daily at bedtime, PRN, # 30 tablet, Refills 0, Tot. Refills 0, Maintenance, Insomnia, 06/05/21 11:21:00 EST, Route to Pharmacy Electronically, [facility]/pharmacy #[id number], Partial fill upon patient request if the prescription is f... Start Date: 06/05/21 Status: Ordered Vitamin B1 100 mg oral tablet 100 mg, 1, tablet, By Mouth, Daily, # 10 tablet, Refills 0, Maintenance, 06/27/22 23:26:00 EDT, Partial fill upon patient request if the prescription is for a schedule II opioid drug. Start Date: 06/27/22 Stop Date: 07/07/22 Status: Ordered Problem List Condition Confirmation Course Effective Dates Status H ealth Status Informant Alcohol use Confirmed Active Schizoaffective disorder, bipolar type Confirmed Active Vital Signs Most recent to oldest [Reference Range]: 1 Oxygen Saturation [94-100 %] 96 % (08/22/22 10:04 AM) Pulse Rate [55-90 bpm] 76 bpm (08/22/22 10:04 AM) Blood Pressure [90-138/55-84 mm Hg] 134/ 57mm Hg (08/22/22 10:04 AM) Respiratory Rate [16-30 br/min] 18 br/mi n (08/22/22 10:04 AM) Temperature [96.8-100.4 DegF] 97.6 DegF (08/22/22 10:04 AM) Mode of Delivery (Oxygen) Room air (08/22/22 10:04 AM) Blood pressure sites Arm, left (08/22/22 10:04 AM) Temperature Route Oral (08/22/22 10:04 AM) Social History Social History Type Response Smoking Status Not obtained due to cognitive impairment entered on: 06/30/22 Sex EKG study * Event Display: ECG 12-Lead Authored Date: Please click on pdf link to open report * Event Display: ECG 12-Lead Authored Date: Ventricular Rate: 76 BPM Atrial Rate: 76 BPM P-R Interval: 150 ms QRS Duration: 108 ms Q-T Interval: 388 ms QTC Calculation(Bazett): 436 ms P Greene: 82 degrees R Greene: -69 degrees T Greene: 65 degrees Normal sinus rhythm Left axis deviation Pulmonary disease pattern Minimal voltage criteria for LVH, may be normal variant ( [place] product ) Septal infarct , age undetermined Abnormal ECG When compared with ECG of 22-AUG-2022 10:51, MANUAL COMPARISON REQUIRED, DATA IS UNCONFIRMED Confirmed by EDWIN MCKEON MD ([id number]) on 08/22/2022 4:03:27 PM [place]: EDWIN MCKEON MD * Event Display: ECG 12-Lead Authored Date: Please click on pdf link to open report * Event Display: ECG 12-Lead Authored Date: Ventricular Rate: 80 BPM Atrial Rate: 80 BPM P-R Interval: 150 ms QRS Duration: 104 ms Q-T Interval: 390 ms QTC Calculation(Bazett): 449 ms P Greene: 74 degrees R Greene: -71 degrees T Greene: 53 degrees Normal sinus rhythm Left axis deviation Minimal voltage criteria for LVH, may be normal variant ( [place] product ) Abnormal ECG When compared with ECG of 18-JUL-2022 09:53, Nonspecific T wave abnormality has replaced inverted T waves in Lateral leads Confirmed by EDWIN MCKEON MD ([id number]) on 08/22/2022 4:03:19 PM [place]: EDWIN MCKEON MD Patient Care team information Care Team Personnel Name: Katelyn Yadav RN Position: [facility] RN Member Role: Primary Care Nurse Name: Srinath Hendrix MD Position: [facility] Outreach Member Role: PCP Address: Address: [address] [place] [address] Name: Sandra Newman Position: [facility] RN Member Role: Primary Care Nurse Name: Lorie Mistry RN Position: S RN Member Role: Primary Care Nurse Name: Sue Blanchard RN Position: S RN Member Role: Primary Care Nurse Name: Lisbeth Gay RN Position: S RN Member Role: Primary Care Nurse Name: Darius Kent RN Position: S RN Member Role: Primary Care Nurse Name: Megan Luevano RN Position: S RN Member Role: Primary Care Nurse Name: Maci Agosto RN Position: S RN Member Role: [facility] Care [facility] Attending Position: [facility] ED Attendings Patient Name: Aba Krishna MD Position: [facility] ED Medicine MD Member Role: Admitting Physician Address: Address: [address] [place] [address]- Name: Heather Berry RN Position: S ED RN W/OE and Tasks Member Role: Patient Care Provider Care Team Related Persons Name: TWILA DIAMOND Address: [address] [place] [address] Name: BRIANA TENORIO Address: home [address] [place] [address] Name: ESEQUIEL HESTER Address: home [address] [place] [address] Name: DAO BURTON Address: home [address] [place] [address]
--- OUTSIDE RECORDS SUMMARY | 2022-10-01 14:24 | XMS_ITS | Continuity of Care Document ---
Author Name Unknown Organization [facility] Primary [facility] [place] Address [address] [place] [address]- Care Team Providers Care Hydro Generation Supervisor Name Role Phone Darnell RAMÍREZ, Kinga Mcgrath Primary Care Physician Encounter [facility] Date(s): 02/23/21 - 03/25/21 [facility] Care [place] [address] [place] [address]- Allergies, Adverse Reactions, Alerts Substance Reaction Severity Status NKA Active Immunizations Given and Recorded Vaccine Date Status Refusal Reason SARS-CoV-2 (COVID-19) mRNA BNT-162b2 vac 08/10/20 Recorded SARS-CoV-2 (COVID-19) mRNA BNT-162a7 vac 07/20/20 Recorded zoster vaccine, inactivated 07/05/20 [...] Maintenance, 06/19/13 16:50:17 EST, ER Tablet, [id number] Start Date: 06/19/13 Status: Ordered Problem List Condition Effective Dates Status Health Status Inform ant Mild bipolar I disorder, cur rent or most recent episode depressed, with anxious distress(Confirmed) Active Social History Social History Type Response Smoking Status Former smoker, quit more than 30 days ago; Other: quit 10 years ago; entered on: 09/20/20 Sex
--- OUTSIDE RECORDS SUMMARY | 2022-10-01 14:24 | XMS_ITS | Continuity of Care Document ---
Author Name Unknown Organization [facility] Primary [facility] [place] Address [address] [place] [address]- Care Team Providers Care Medical Office Rep Name Role Phone Darnell RAMÍREZ, Kinga Mcgrath Primary Care Physician Encounter [facility] Date(s): 09/28/21 - 10/28/21 [facility] Care [place] [address] [place] [address]- Allergies, Adverse Reactions, Alerts No Known Allergies [...] 182, cm,... Start Date: 06/05/21 Status: Ordered multivitamin Multiple Vitamins oral capsule 1 capsule, By Mouth, Daily, # 30 capsule, 0 Refills, Maintenance, 06/05/21 11:19:00 EST, Capsule, [id number], Partial fill upon patient request if the prescription is for a schedule II opioiddrug., 1 capsule By Mouth Daily, 182, cm, 06/04/21... Start Date: 06/05/21 Status: Ordered olanzapine 5 mg oral tablet, disintegrating = 5 mg, By Mouth, 2 times a day, PRN Agitation, # 20 tablet, 0 Refills, Maintenance, 06/05/21 11:21:00 EST, DIS Tablet, [id number], Partial fill upon patient request if the prescription is for a schedule II opioid drug., 182, cm, 06/04/21 15:0... Start Date: 06/05/21 Status: Ordered traZODone 50 mg oral tablet 25 mg, 0.5, tablet, By Mouth, Daily at bedtime, PRN, # 30 tablet, Refills 0, Tot. Refills 0, Maintenance, Insomnia, 06/05/21 11:21:00 EST, Route to Pharmacy Electronically, [id number], [...]
--- OUTSIDE RECORDS SUMMARY | 2022-10-01 14:25 | XMS_ITS | Continuity of Care Document ---
Author Name Unknown Organization [facility] Primary [facility] [place] Address [address] [place] [address]- Care Team Providers Care Drier Operator Head Name Role Phone Simeon RAMÍREZ, Srinath Cote Primary Care Physician Encounter [facility] [id number] Date(s): 08/23/22 - 09/22/22 [facility] Primary [facility] [place] [address] [place] [address]- Allergies, Adverse Reactions, Alerts No Known Allergies [...] influenza virus vaccine, inactivated 01/17/07 Jesus rded [id number] 12y+ bivalent booster vax 12/27/21 Recorded SARS-CoV-2 mRNA (ctjsltz-usqu-qemvs) vax 10/24/21 Recorded pneumococcal 23-valent vaccine 12/14/20 [...] 0 Refills, Maintenance, 07/25/22 10:32:00 EDT, Tablet, [id number], Partial fill upon patient request if the prescription is for a schedule II opioid drug., 183, cm, 07/24/22 20:11:00 E... Start Date: 07/25/22 Status: Ordered risperiDONE 0.5 mg oral tablet, disintegrating = 0.5 mg, By Mouth, 2 times a day, PRN Agitation, # 30 tablet, 0 Refills, Maintenance, 07/25/22 10:32:00 EDT, DIS Tablet, [id number], Partial fill upon patient request if the prescription is for a schedule II opioid drug., 183, cm, 07/24/22 20... Start Date: 07/25/22 Status: Ordered risperiDONE 1 mg oral tablet 2 mg, 2, tablet, By Mouth, 2 times a day, # 120 tablet, Refills 0, Tot. Refills 0, Maintenance, 07/25/22 10:31:00 EDT, Route to Pharmacy Electronically, [id number], Partial [...] Active Schizoaffective disorder, bipolar type Confirmed Active Social History Social History Type Response Smoking Status Not obtained due to cognitive impairment entered on: 06/30/22 Sex Patient Care team information Care Team Personnel Name: Katelyn Yadav RN Position: S RN Member Role: Primary Care Nurse Name: Srinath Hendrix MD Position: S Outreach Member Role: PCP Address: Address: [address] [place] [id number] Name: Sandra Newman Position: S RN Member Role: Primary Care Nurse Name: Lorie Mistry RN Position: S RN Member Role: Primary Care Nurse Name: Sue Blanchard RN Position: [facility] RN Member Role: Primary Care Nurse Name: Lisbeth Gay RN Position: S RN Member Role: Primary Care Nurse Name: Darius Kent RN Position: S RN Member Role: Primary Care Nurse Name: Megan Luevano RN Position: S RN Member Role: Primary Care Nurse Name: Maci Agosto RN Position: [facility] RN Member Role: Primary Care Nurse Care Team Related Persons Name: TWILA DIAMOND Address: home [address] [place] [address] Name: BRIANA TENORIO Address: [address] [place] [address] Name: ESEQUIEL HESTER Address: [address] [place] [address] Name: DAO BURTON Address: [address] [place] [address]
--- OUTSIDE RECORDS SUMMARY | 2022-10-01 14:25 | XMS_ITS | Continuity of Care Document ---
Author Name Unknown Organization [facility] Address [address] [place] [address]- Care Team Providers Care Soft Metals Hand Engraver Name Role Phone Simeon RAMÍREZ, Srinath Cote Primary Care Physician [phone] Encounter [facility] Date(s): 09/07/22 - 09/08/[address] [address]- Encounter Diagnosis Altered mental state(Final) - 09/07/22 Discharge Disposition: Transfer to Psych Facility Attending Physician: Skinny Nash MD Admitting Physician: Skinny Nash MD Referring Physician: Not on Staff, Referring [...] influenza virus vaccine, inactivated 01/17/07 Jesus rded [id number] 12y+ bivalent booster vax 12/27/21 Recorded SARS-CoV-2 mRNA (acbtxnt-onpx-iifpj) vax 10/24/21 Recorded pneumococcal 23-valent vaccine 12/14/20 [...] virus vac, H1N1, inactive(oldterm) 03/28/09 Recorded Medications Acetaminophen Tablet 650 mg, Tablet, By Mouth, Every 8 hours, PRN for Pain , Moderate, STAT, 09/07/22 18:48:00 EDT Start Date: 09/07/22 Stop Date: 09/09/22 Status: Discontinued divalproex sodium 250 mg oral enteric coated [...] for a schedule II opioid drug., 183, dimitri, 07/24/22 20:11:00 E... Start Date: 07/25/22 Status: Ordered mirtazapine 15 mg oral tablet 1 tablet = 15 mg, By Mouth, Daily at bedtime, # 30 tablet, 0 Refills, Maintenance, 07/25/22 10:32:00 EDT, Tablet, [facility]/pharmacy #[id number], Partial fill upon patient request if the prescription is for a schedule II opioid drug., 183, dimitri, 07/24/22 20:11:00 E... Start Date: 07/25/22 Status: Ordered risperiDONE 0.5 mg oral tablet, disintegrating = 0.5 mg, By Mouth, 2 times a day, PRN Agitation, # 30 tablet, 0 Refills, Maintenance, 07/25/22 10:32:00 EDT, DIS Tablet, [id number], Partial fill upon patient request if the prescription is for a schedule II opioid drug., dimitri Barker, 07/24/22 20... Start Date: 07/25/22 Status: Ordered [...] Most recent to oldest [Reference Range]: 1 2 3 Height 183 cm (09/07/22 6:26 PM) Weight 77.6 kg (09/07/22 6:26 PM) Oxygen Saturation [94-100 %] 96 % (09/08/22 2:34 PM) 94 % (09/08/22 10:04 AM) 99 % (09/08/22 1:00 AM) Pulse Rate [55-90 bpm] 73 bpm (09/08/22 2:34 PM) 69 bpm (09/08/22 10:04 AM) 83 bpm (09/08/22 1:00 AM) Blood Pressure [90-138/55-84 mm Hg] 123/52mm Hg (09/08/22 2:34 PM) 114/53mm Hg (09/08/22 10:04 AM) 126/92mm Hg (09/08/22 1:00 AM) Respiratory Rate [16-30 br/min] 14 br/min *L* (09/08/22 2:34 PM) 14 br/min *L* (09/08/22 10:04 AM) 16 br/min (09/08/22 8:36 AM) Temperature [96.8-100.4 DegF] 97.9 DegF (09/08/22 2:34 PM) 97.9 DegF (09/08/22 10:04 AM) 96.9 DegF (09/07/22 11:00 PM) Mode of Delivery (Oxygen) Room air (09/08/22 2:34 PM) Room air (09/08/22 10:04 AM) Room air (09/08/22 1:00 AM) Temperature Route Axillary (09/08/22 2:34 PM) Oral (09/08/22 10:04 AM) Temporal (09/07/22 11:00 PM) Dry Weight 77.6 kg (09/07/22 6:26 PM) Social History Social History Type Response Smoking Status Not obtained due to cognitive impairment entered on: 06/30/22 Sex Patient Care team information Care Team Personnel Name: Katelyn Yadav RN Position: [facility] RN Member Role: Primary Care Nurse Name: Srinath Hendrix MD Position: [facility] Outreach Member Role: PCP Address: Address: [address] [place] [address]- Name: Sandra Newman Position: [facility] RN Member Role: Primary Care Nurse Name: Lorie Mistry RN Position: [facility] RN Member Role: Primary Care Nurse Name: Sue Blanchard RN Position: [facility] RN Member Role: Primary Care Nurse Name: Lisbeth Gay RN Position: [facility] RN Member Role: Primary Care Nurse Name: Darius Kent RN Position: [facility] RN Member Role: Primary Care Nurse Name: Megan Luevano RN Position: [facility] RN Member Role: Primary Care Nurse Name: Maci Agosto RN Position: [facility] RN Member Role: Primary Care Nurse Name: Etta Cunningham RN Position: [facility] ED RN W/OE and Tasks Member Role: Patient Care Provider Name: Ondina Rivas Position: [facility] ED [facility] Member Role: Patient Care Provider Name: Skinny Nash MD Position: [facility] ED Medicine MD Member Role: Admitting Physician Address: Address: [address] [facility] [place] [address]- Care Team Related Persons Name: TWILA DIAMOND Address: [address] [place] [address] Name: BRIANA TENORIO Address: [address] [place] [address] Name: ESEQUIEL HESTER Address: [address] [place] [address] Name: DAO BURTON Address: [address] [place] [address]
--- OUTSIDE RECORDS SUMMARY | 2022-10-01 14:25 | XMS_ITS | Continuity of Care Document ---
Author Name Unknown Organization [facility] Address [address] [place] [address]- Care Team Providers Care Ultrasound Specialist Name Role Phone Kinga Patrick MD Primary Care Physician ( [phone] [place] [facility] 01/19/21 [facility] [address] [place] [address]- Attending Physician: Donato Doss MD Admitting Physician: Donato Doss MD Referring Physician: Kinga Patrick MD Allergies, Adverse Reactions, Alerts Substance Reaction Severity [...] ER 500 mg oral tablet, extended release 4 tablet = 2,000 mg, By Mouth, Daily at bedtime, # 120 tablet, 0 Refills, Maintenance, 06/19/13 16:50:17, ER Tablet, 4 tablet By Mouth Daily at bedtime Start Date: 06/19/13 Status: Ordered Problem List Condition Effective Dates Status Health Status Inform ant Mild bipolar I disorder, cur rent or most recent episode depressed, with anxious distress(Confirmed) Active Social History Social History Type Response Smoking Status Former smoker, quit more than 30 days ago; Other: quit 10 years ago; entered on: 09/20/20 Sex
--- OUTSIDE RECORDS SUMMARY | 2022-10-01 14:25 | XMS_ITS | Continuity of Care Document ---
Author Name Unknown Organization [facility] [place] Address [address] [place] [address]- Care Team Providers Care Manager Multicultural Name Role Phone Simeon RAMÍREZ, Srinath Cote Primary Care Physician [phone] Encounter [facility] Date(s): 08/02/22 - 09/01/22 [facility] [place] [address] [place] [address]- Allergies, Adverse Reactions, Alerts No Known Allergies [...] influenza virus vaccine, inactivated 01/17/07 Jesus rded [id number] 12y+ bivalent booster vax 12/27/21 Recorded SARS-CoV-2 mRNA (fhwnyem-woqo-cuzna) vax 10/24/21 Recorded pneumococcal 23-valent vaccine 12/14/20 [...] S Outreach Member Role: PCP Address: Address: [address] [place] [id number] Name: Sandra Newman Position: S RN Member [...] S RN Member Role: Primary Care Nurse Care Team Related Persons Name: TWILA DIAMOND Address: home [address] [place] [address] Name: BRIANA TENORIO Address: [address] [place] [address] Name: ESEQUIEL HESTER Address: [address] [place] [address] Name: DAO BURTON Address: home [address] [place] [address]
--- OUTSIDE RECORDS SUMMARY | 2022-10-01 14:25 | XMS_ITS | Continuity of Care Document ---
Author Name Unknown Organization [facility] Primary [place] [facility] [place] Address [address] [place] [address]- Care Team Providers Care Director Of [facility] Name Role Phone Simeon RAMÍREZ, Srinath Cote Primary Care Physician Encounter [facility] NBR [id number] Date(s): 07/20/22 - 08/29/22 [facility] [address] [place] [address]- Attending Physician: Darnell RAMÍREZ, Kinga Mcgrath Allergies, Adverse Reactions, Alerts No Known Allergies [...] influenza virus vaccine, inactivated 01/17/07 Jesus rded [id number] 12y+ bivalent booster vax 12/27/21 Recorded SARS-CoV-2 mRNA (ppsbvaj-gwmo-zhawj) vax 10/24/21 Recorded pneumococcal 23-valent vaccine 12/14/20 [...] 07/25/22 10:31:00 EDT, Route to Pharmacy Electronically, [facility]/pharmacy #[id number], Partial fill upon patient request [...] S Outreach Member Role: PCP Address: Address: [address] [place] [address] Name: Sandra Newman Position: S RN Member [...] Persons Name: TWILA DIAMOND Address: home [address] [place] [address] Name: BRIANA TENORIO Address: home [address] [place] [address] Name: ESEQUIEL HESTER Address: home [address] [place] [address] Name: DAO BURTON Address: home [address] [place] [address]
--- OUTSIDE RECORDS SUMMARY | 2022-10-01 14:25 | XMS_ITS | Continuity of Care Document ---
Author Name Unknown Organization [facility] Primary [facility] e [place] Address [address] [place] [address]- Care Team Providers Care Knot Borer Name Role Phone Darnell RAMÍREZ, Kinga Mcgrath Primary Care Physician Encounter [facility] Date(s): 01/24/21 - 02/23/21 [facility] [address] [place] [address]- Attending Physician: Fabio Marshall Admitting Physician: Fabio Marshall Referring Physician: AdmFabio eldridge Allergies, Adverse Reactions, Alerts Substance Reaction Severity [...] Maintenance, 06/19/13 16:50:17 EST, ER Tablet, [id number] Start Date: 06/19/13 Status: Ordered Problem List Condition Effective Dates Status Health Status Inform ant Mild bipolar I disorder, cur rent or most recent episode depressed, with anxious distress(Confirmed) Active Social History Social History Type Response Smoking Status Former smoker, quit more than 30 days ago; Other: quit 10 years ago; entered on: 09/20/20 Sex
--- OUTSIDE RECORDS SUMMARY | 2022-10-01 14:25 | XMS_ITS | Continuity of Care Document ---
Author Name Unknown Organization [facility] Primary [facility] e [place] Address [address] [place] [address]- Care Team Providers Care Healthcare Economics Manager Name Role Phone Kinga Patrick MD Primary Care Physician Encounter [facility] NBR [id number] Date(s): 10/05/21 - 02/02/22 [facility] Care [facility]il [address] [place] [address]- Attending Physician: Kinga Patrick MD Allergies, Adverse Reactions, Alerts No Known [...] influenza virus vaccine, inactivated 01/17/07 Jesus rded [id number] 12y+ bivalent booster vax 12/27/21 Recorded SARS-CoV-2 mRNA (ggljfgo-gqhf-kykou) vax 10/24/21 Recorded pneumococcal 23-valent vaccine 12/14/20 [...] Maintenance, 06/05/21 11:19:00 EST,Route to Pharmacy Electronically, [facility]/pharmacy #[id number], Partial fill upon patient request if the prescription is for a schedule II opioid drug., 182, cm,... Start Date: 06/05/21 Status: Ordered chlorproMAZINE 25 mg oral tablet See Instructions, 1 tablet prn q 6 hours, 0 Refills, Maintenance, 12/15/21 9:31:00 EDT, Partial fill upon patient request if the prescription is for a schedule II opioid drug. Start Date: 12/15/21 Status: Ordered multivitamin Multiple Vitamins oral capsule 1 capsule, By Mouth, Daily, # 30 capsule, 0 Refills, Maintenance, 06/05/21 11:19:00 EST, Capsule, [facility]/pharmacy #[id number], Partial fill upon patient request if [...] 06/04/21 15:0... Start Date: 06/05/21 Status: Ordered risperiDONE 2 mg oral tablet Refills 0, Maintenance, 12/15/21 9:29:00 EDT, Partial fill upon patient request if the prescriptionis for a schedule II opioid drug. Start Date: 12/15/21 Status: Ordered traZODone 50 mg oral tablet 25 mg, 0.5, tablet, By Mouth, Daily at bedtime, PRN, # 30 tablet, Refills 0, Tot. Refills 0, Maintenance, Insomnia, 06/05/21 11:21:00 EST, Route to Pharmacy Electronically, [facility]/pharmacy #[id number], Partial fill upon patient request if the prescription is f... Start Date: 06/05/21 Status: Ordered valACYclovir 500 mg oral tablet 1, tablet, By Mouth, Daily at bedtime, # 90 tablet, Refills 1, Route to Pharmacy Electronically, [facility] STORE [id number], 177.8, cm, 01/24/21 10:25:00 EDT, Height Start Date: 03/13/21 Status: Ordered Problem List Condition Confirmation Course Effective Dates Status Health St atus Informant Mild bipolar I disorder, current or most recent episode depressed, with anxious distress Confirmed Active Social History Social History Type Response Smoking Status 10 or more cigarette s (1/2 pack or more)/day in last 30 days entered on: 05/15/21 Sex Patient Care team information Personnel Name: Darnell RAMÍREZ, Kinga Mcgrath Address: Address: [address] [place] [id number]
--- OUTSIDE RECORDS SUMMARY | 2022-10-01 14:25 | XMS_ITS | Continuity of Care Document ---
Author Name Unknown Organization [facility] Primary Car e [place] Address [address] [place] [address]- Care Team Providers Care Doweling Machine Operator Name Role Phone Darnell RAMÍREZ, Kinga Mcgrath Primary Care Physician En[facility] Date(s): 03/20/21 - 04/19/21 [facility] Care [place] [address] [place] [address]- Allergies, Adverse Reactions, Alerts Substance Reaction Severity [...] Maintenance, 06/19/13 16:50:17 EST, ER Tablet, [id number] Start Date: 06/19/13 Status: Ordered Problem List Condition Effective Dates Status Health Status Inform ant Mild bipolar I disorder, cur rent or most recent episode depressed, with anxious distress(Confirmed) Active Social History Social History Type Response Smoking Status Former smoker, quit more than 30 days ago; Other: quit 10 years ago; entered on: 09/20/20 Sex
--- OUTSIDE RECORDS SUMMARY | 2022-10-01 14:25 | XMS_ITS | Continuity of Care Document ---
Author Name Unknown Organization [facility] Address [address] [place] [address]- Care Team Providers Care Marble Rubber Name Role Phone Srinath Hendrix MD Primary Care Physician [phone] Encounter [facility] Date(s): 07/31/22 - 08/01/[address] [address]- Encounter Diagnosis Alcohol intoxication(Final) - 07/31/22 Discharge Disposition: Transfer to [facility] Facility Attending Physician: Jay Toro MD Admitting Physician: Jay Toro MD Referring Physician: Not on Staff, Referring [...] influenza virus vaccine, inactivated 01/17/07 Jesus rded [id number] 12y+ bivalent booster vax 12/27/21 Recorded SARS-CoV-2 mRNA (wrymgmr-rhly-ihfqx) vax 10/24/21 Recorded pneumococcal 23-valent vaccine 12/14/20 [...] hours, PRN for Pain , Moderate, STAT, 07/31/22 12:27:00 EDT Start Date: 07/31/22 Stop Date: 08/02/22 Status: Discontinued divalproex sodium 250 mg oral enteric coated tablet = 250 mg, By Mouth, Daily, # 30 tablet, 0 Refills, Maintenance, 07/25/22 10:31:00 EDT, Tablet, [facility]/pharmacy #[id number], Partial fill upon patient request if [...] capsule, 0 Refills, Maintenance, 07/25/22 10:32:00EDT, Capsule, [facility]/pharmacy #[id number], Partial fill upon patient request if the prescription is for a schedule II opioid drug., 183, cm, 07/24/22 20:11:00 E... Start Date: 07/25/22 Status: Ordered mirtazapine 15 mg oral tablet 1 tablet = 15 mg, By Mouth, Daily at bedtime, # 30 tablet, 0 Refills, Maintenance, 07/25/22 10:32:00 EDT, Tablet, [facility]/pharmacy #[id number], Partial fill upon patient request if the prescription is for a schedule II opioid drug., 183, dimitri, 07/24/22 20:11:00 E... Start Date: 07/25/22 Status: Ordered Nicotine 2 mg gum = 2 mg, Chew, Every hour, PRN Other, Nicotine Withdrawal Symptoms (NOT to exceed 24 pieces per day), # 10 each, 0 Refills, Acute 08/24/22 6:00:00 EDT, 07/25/22 10:31:00 EDT, Gum, [facility]/pharmacy #[id number], Partial fill upon patient request if the prescriptio... Start Date: 07/25/22 Stop Date: 08/24/22 Status: Ordered risperiDONE 0.5 mg oral tablet, disintegrating = 0.5 mg, By Mouth, 2 times a day, PRN Agitation, # 30 tablet, 0 Refills, Maintenance, 07/25/22 10:32:00 EDT, DIS Tablet, [facility]/pharmacy #[id number], Partial fill upon patient request if the prescription is for a schedule II opioid drug., 183, dimitri, 07/24/22 20... Start Date: 07/25/22 Status: Ordered risperiDONE 1 mg oral tablet 2 mg, 2, tablet, By Mouth, 2 times a day, # 120 tablet, Refills 0, Tot. Refills 0, Maintenance, 07/25/22 10:31:00 EDT, Route to Pharmacy Electronically, [facility]/pharmacy #[id number], Partial fill upon patient request if the prescription is for a schedule II opi... Start Date: 07/25/22 Status: Ordered traZODone 50 mg oral tablet 25 mg, 0.5, tablet, By Mouth, Daily at bedtime, PRN, # 30 tablet, Refills 0, Tot. Refills 0, Maintenance, Insomnia, 06/05/21 11:21:00 EST, Route to Pharmacy Electronically, [facility]/pharmacy #[id number], Partial fill upon patient request if [...] Range]: 1 2 3 Height 183 cm (08/01/22 2:05 PM) 183 cm (08/01/22 8:22 AM) 183 cm (07/31/22 8:13 PM) Weight 77.6 kg (07/31/22 8:13 PM) 77.6 kg (07/31/22 12:49 PM) Oxygen Saturation [94-100 %] 98 % (08/01/22 2:05 PM) 97 % (08/01/22 8:22 AM) 96 % (07/31/22 8:13 PM) Pulse Rate [55-90 bpm] 85 bpm (08/01/22 2:05 PM) 64 bpm (08/01/22 8:22 AM) 98 bpm *H* (08/01/22 4:10 AM) Body Mass Index [18.5-24.99 kg/m2] 23.17 kg/m2 (07/31/22 8:13 PM) Blood Pressure [90-138/55-84 mm Hg] 143/72mm Hg *H* (08/01/22 2:05 PM) 122/54mm Hg (08/01/22 8:22 AM) 148/80mm Hg *H* (08/01/22 4:10 AM) Respiratory Rate [16-30 br/min] 20 br/min (08/01/22 2:05 PM) 16 br/min (08/01/22 8:22 AM) 17 br/min (08/01/22 5:22 AM) Temperature [96.8-100.4 DegF] 97.8 DegF (08/01/22 2:05 PM) 98.4 DegF (07/31/22 8:13 PM) 98.1 DegF (07/31/22 11:00 AM) Liters per Minute 0 L/min (08/01/22 2:05 PM) 0 L/min (08/01/22 8:22 AM) Mode of Delivery (Oxygen) Room air (08/01/22 2:05 PM) Room air (08/01/22 8:22 AM) Room air (07/31/22 8:13 PM) Blood pressure sites Arm, right (08/01/22 2:05 PM) Arm, right (08/01/22 8:22 AM) Arm, right (07/31/22 8:13 PM) Temperature Route Temporal (08/01/22 2:05 PM) Temporal (07/31/22 8:13 PM) Oral (07/31/22 11:00 AM) Dry Weight 77.6 kg (07/31/22 8:13 PM) 77.6 kg (07/31/22 12:49 PM) Social History Social History Type Response Smoking Status Not obtained due to cognitive impairment entered on: 06/30/22 Sex Patient Care team information Care Team Personnel Name: Katelyn Yadav RN Position: [facility] RN Member Role: Primary Care Nurse Name: Srinath Hendrix MD Position: [facility] Outreach Member Role: PCP Address: Address: [address] [place] [id number] Name: Tory Rangel RN Position: S RN Member Role: Primary Care Nurse Name: Sandra Newman Position: S RN Member Role: Primary Care Nurse Name: Lorie Mistry RN Position: S RN Member Role: Primary Care Nurse Name: Sue Blanchard RN Position: S RN Member Role: Primary Care Nurse Name: Lisbeth Gay RN Position: S RN Member Role: Primary Care Nurse Name: Darius Kent RN Position: [facility] RN Member Role: Primary Care Nurse Name: Megan Luevano RN Position: [facility] RN Member Role: Primary Care Nurse Name: Maci Agosto RN Position: [facility] RN Member Role: Primary Care Nurse Name: Jessica Watts RN Position: [facility] ED RN W/OE and Tasks Member Role: Patient Care Provider Name: Jay Toro MD Position: [facility] ED Medicine MD Member Role: Admitting Physician Address: Address: [address] [place] [address] [place] [address]- Name: Anuj Bhat Position: [facility] ED TA [facility] Member Role: ED Associate Care Team Related Persons Name: TWILA DIAMOND Address: home [address] [place] [address] Name: BRIANA TENORIO Address: home [address] [place] [address] Name: ESEQUIEL HESTER Address: home [address] [place] [address] Name: DAO BURTON Address: home [address] [place] [address]
--- OUTSIDE RECORDS SUMMARY | 2022-10-01 14:25 | XMS_ITS | Continuity of Care Document ---
Author Name Unknown Organization [facility] Primary [facility] [address] Address [address] [place] [address]- Care Team Providers Care Baggage Smasher Name Role Phone Simeon RAMÍREZ, Srinath Cote Primary Care Physician [phone] Encounter [facility] NBR [id number] Date(s): 07/30/22 - 08/29/22 [facility] [address] [place] [address]- Attending Physician: Fabio Marshall Admitting Physician: Fabio Marshall Referring Physician: AdmtrFabio Allergies, Adverse Reactions, Alerts No Known Allergies [...] influenza virus vaccine, inactivated 01/17/07 Jesus rded [id number] 12y+ bivalent booster vax 12/27/21 Recorded SARS-CoV-2 mRNA (tqizpyb-kfpm-rmvxl) vax 10/24/21 Recorded pneumococcal 23-valent vaccine 12/14/20 [...] 0 Refills, Maintenance, 07/25/22 10:32:00 EDT, Tablet, [facility]/pharmacy #[id number], Partial fill upon patient request if the prescription is for a schedule II opioid drug., 183, cm, 07/24/22 20:11:00 E... Start Date: 07/25/22 Status: Ordered risperiDONE 0.5 mg oral tablet, disintegrating = 0.5 mg, By Mouth, 2 times a day, PRN Agitation, # 30 tablet, 0 Refills, Maintenance, 07/25/22 10:32:00 EDT, DIS Tablet, [facility]/pharmacy #[id number], Partial fill upon patient request if the prescription is for a schedule II opioid drug., 183, cm, 07/24/22 20... Start Date: 07/25/22 Status: Ordered risperiDONE 1 mg oral tablet 2 mg, 2, tablet, By Mouth, 2 times a day, # 120 tablet, Refills 0, Tot. Refills 0, Maintenance, 07/25/22 10:31:00 EDT, Route to Pharmacy Electronically, [facility]/pharmacy #[id number], Partial fill upon patient request if the prescription is for a schedule II opi... Start Date: 07/25/22 Status: Ordered traZODone 50 mg oral tablet 25 mg, 0.5, tablet, By Mouth, Daily at bedtime, PRN, # 30 tablet, Refills 0, Tot. Refills 0, Maintenance, Insomnia, 06/05/21 11:21:00 EST, Route to Pharmacy Electronically, [facility]/pharmacy #[id number], Partial fill upon patient request [...] Care Nurse Name: Srinath Hendrix MD Position: [facility] Outreach Member Role: PCP Address: Address: [address] [place] [id number] Name: Sandra Newman Position: S RN Member [...] Persons Name: TWILA DIAMOND Address: home [address] [place] [address] Name: BRIANA TENORIO Address: home [address] [place] [address] Name: ESEQUILE HESTER Address: home [address] [place] [address] Name: DAO BURTON Address: home [address] [place] [address]
--- OUTSIDE RECORDS SUMMARY | 2022-10-01 14:25 | XMS_ITS | Continuity of Care Document ---
Author Name Unknown Organization [facility] Primary Car [facility] [place] Address [address] [place] [address]- Care Team Providers Care Paper Baler Name Role Phone Darnlel RAMÍREZ, Kinga Mcgrath Primary Care Physician Encounter [facility] Date(s): 03/15/21 - 04/14/21 [facility] Care [place] [address] [place] [address]- Allergies, Adverse Reactions, Alerts Substance Reaction Severity [...] Maintenance, 06/19/13 16:50:17 EST, ER Tablet, [id number] Start Date: 06/19/13 Status: Ordered Problem List Condition Effective Dates Status Health Status Inform ant Mild bipolar I disorder, cur rent or most recent episode depressed, with anxious distress(Confirmed) Active Social History Social History Type Response Smoking Status Former smoker, quit more than 30 days ago; Other: quit 10 years ago; entered on: 09/20/20 Sex
--- OUTSIDE RECORDS SUMMARY | 2022-10-01 14:25 | XMS_ITS | Continuity of Care Document ---
Author Name Unknown Organization [facility] Address [address] [place] [address]- Care Team Providers Care Senior Piping Designer Name Role Phone Darnell RAMÍREZ, Kinga Mcgrath Primary Care Physician Encounter [facility] Date(s): 04/27/21 - 05/27/21 [facility] [address] [place] [place] [address]- Attending Physician: Fabio Marshall Admitting Physician: Admtr, Ar8 Referring Physician: Admtr, Ar8 Allergies, Adverse Reactions, Alerts No Known Allergies [...] Refills, Maintenance, 06/19/13 16:50:17 EST, ER Tablet, [facility]/pharmacy #[id number] Start Date: 06/19/13 Status: Ordered melatonin 5 mg oral tablet 1 tablet = 5 mg, By Mouth, Daily at bedtime, PRN for insomnia, # 60 tablet, 0 Refills, Maintenance,05/21/21 7:53:00 EST, Tablet, Partial fill upon patient request if the prescription is for a schedule II opioid drug. Start Date: 05/21/21 Status: Ordered Vitamin D3 1000 intl units oral tablet 1 tablet = 25 mcg, By Mouth, Daily, # 30 tablet, 0 Refills, Maintenance, 05/24/21 20:05:00 EST, Tablet, Partial fill upon patient request if the prescription is for a schedule II opioid drug. Start Date: 05/24/21 Status: Ordered Problem List Condition Effective Dates Status Health Status Inform ant Mild bipolar I disorder, cur rent or most recent episode depressed, with anxious distress(Confirmed) Active Social History Social History Type Response Smoking Status 10 or more cigarette s (1/2 pack or more)/day in last 30 days entered on: 05/15/21 Sex
--- OUTSIDE RECORDS SUMMARY | 2022-10-01 14:25 | XMS_ITS | Continuity of Care Document ---
Author Name Unknown Organization [facility] Primary Car e [place] Address [address] [place] [address]- Care Team Providers Care Cabinet Assembler Name Role Phone Simeon RAMÍREZ, Srinath Cote Primary Care Physician En[facility] Date(s): 08/06/22 - 09/05/22 [facility] Primary Care [place] [address] [place] [address]- Allergies, Adverse Reactions, Alerts No Known Allergies [...] influenza virus vaccine, inactivated 01/17/07 Jesus rded [id number] 12y+ bivalent booster vax 12/27/21 Recorded SARS-CoV-2 mRNA (okwpwzu-vqhj-dbhru) vax 10/24/21 Recorded pneumococcal 23-valent vaccine 12/14/20 [...] S Outreach Member Role: PCP Address: Address: [address] [place] [id number] Name: Sandra Newman Position: S RN [...] Persons Name: TWILA DIAMOND Address: home [address] [place] [address] Name: BRIANA TENORIO Address: [address] [place] [address] Name: ESEQUIEL HESTER Address: home [address] [place] [address] Name: DAO BURTON Address: home [address] [place] [address]
--- OUTSIDE RECORDS SUMMARY | 2022-10-01 14:25 | XMS_ITS | Continuity of Care Document ---
Author Name Unknown Organization [facility] Primary [facility] [place] Address [address] [place] [address]- Care Team Providers Care Ekg Manager Name Role Phone Darnell RAMÍREZ, Kinga Mcgrath Primary Care Physician Encounter [facility] Date(s): 12/12/20 - 01/11/21 [facility] Care [place] [address] [place], [place] [address] Allergies, Adverse Reactions, Alerts Substance Reaction Severity Status NKA Active Immunizations Given and Recorded Vaccine Date Status Refusal Reason SARS-CoV-2 (COVID-19) mRNA BNT-162b2 vac 08/10/20 Recorded SARS-CoV-2 (COVID-19) mRNA BNT-162n2 vac 07/20/20 Recorded zoster vaccine, inactivated 07/05/20 [...]
--- OUTSIDE RECORDS SUMMARY | 2022-10-01 14:25 | XMS_ITS | Continuity of Care Document ---
Author Name Unknown Organization [facility] Primary Car e [place] Address [address] [place] [address]- Care Team Providers Care Mill Attendant Name Role Phone Darnell RAMÍREZ, Kinga Mcgrath Primary Care Physician Encounter [facility] Date(s): 09/28/21 - 10/28/21 [facility] Care [address] [place] [address]- Allergies, Adverse Reactions, Alerts No Known Allergies [...]
--- OUTSIDE RECORDS SUMMARY | 2022-10-01 14:25 | XMS_ITS | Continuity of Care Document ---
Author Name Unknown Organization [facility] Primary [place] Address [address] [place] [address]- Care Team Providers Care Semiconductor Wafers Tester Name Role Phone Darnell RAMÍREZ, Kinga Mcgrath Primary Care Physician Encounter [facility] Date(s): 09/19/20 - 10/19/20 [facility] Care [place] [address] [place], [place] [address] Allergies, Adverse Reactions, Alerts Substance Reaction Severity [...]
--- OUTSIDE RECORDS SUMMARY | 2022-10-01 14:25 | XMS_ITS | Continuity of Care Document ---
Author Name Unknown Organization [facility] Primary Car e [place] Address [address] [place] [address]- Care Team Providers Care Terminal Supervisor Name Role Phone Simeon RAMÍREZ, Srinath Cote Primary Care Physician [phone] Encounter [facility] NBR [id number] Date(s): 08/22/22 - 09/21/22 [facility] Primary Care [place] [address] [place] [address]- Allergies, Adverse Reactions, Alerts No Known Allergies [...] influenza virus vaccine, inactivated 01/17/07 Jesus rded [id number] 12y+ bivalent booster vax 12/27/21 Recorded SARS-CoV-2 mRNA (zfolqcp-vstb-ajnfj) vax 10/24/21 Recorded pneumococcal 23-valent vaccine 12/14/20 [...] S Outreach Member Role: PCP Address: Address: [address] [place] [id number] Name: Sandra Newman Position: S RN Member Role: Primary Care Nurse Name: Lorie Mistry RN Position: S RN Member Role: Primary Care Nurse Name: Sue Blanchard RN Position: [facility] RN Member Role: Primary Care Nurse Name: Lisbeth Gay RN Position: S RN Member Role: Primary Care Nurse Name: Darius eKnt RN Position: S RN Member Role: Primary Care Nurse Name: Megan Luevano RN Position: S RN Member Role: Primary Care Nurse Name: Maci Agosto RN Position: [facility] RN Member Role: Primary Care Nurse Care Team Related Persons Name: TWILA DIAMOND Address: [address] [place] [address] Name: BRIANA TENORIO Address: [address] [place] [address] Name: ESEQUIEL HESTER Address: [address] [place] [address] Name: DAO BURTON Address: [address] [place] [address]
--- OUTSIDE RECORDS SUMMARY | 2022-10-01 14:25 | XMS_ITS | Continuity of Care Document ---
Author Name Unknown Organization [facility] Primary [place] Address [address] [place] [address]- Care Team Providers Care Back Tender Insulation Board Name Role Phone Simeon RAMÍREZ, Srinath Cote Primary Care Physician [phone] Encounter [facility] Date(s): 08/08/22 - 09/07/22 [facility] Primary Care [place] [address] [place] [address]- Allergies, Adverse Reactions, Alerts No Known Allergies [...] influenza virus vaccine, inactivated 01/17/07 Jesus rded [id number] 12y+ bivalent booster vax 12/27/21 Recorded SARS-CoV-2 mRNA (xderfac-uiae-klvqj) vax 10/24/21 Recorded pneumococcal 23-valent vaccine 12/14/20 [...] S Outreach Member Role: PCP Address: Address: [address] [place] [id number] Name: Sandra Newman Position: S [...] Persons Name: TWILA DIAMOND Address: home [address] [place] [address] Name: BRIANA TENORIO Address: [address] [place] [address] Name: ESEQUIEL HESTER Address: [address] [place] [address] Name: DAO BURTON Address: [address] [place] [address]
--- OUTSIDE RECORDS SUMMARY | 2022-10-01 14:25 | XMS_ITS | Continuity of Care Document ---
Author Name Unknown Organization [facility] Primary Car [address] [place] Address [address] [place] [address]- Care Team Providers Care Store Merchandiser Name Role Phone Darnell RAMÍREZ, Kinga Mcgrath Primary Care Physician Encounter [facility] Date(s): 11/10/21 - 12/10/21 [facility] Care [place] [address] [place] [address]- Allergies, Adverse Reactions, Alerts No Known Allergies [...] last 30 days entered on: 05/15/21 Sex Care Team Personnel Name: Kinga Patrick MD Address: [address] [place] [address]
--- OUTSIDE RECORDS SUMMARY | 2022-10-01 14:25 | XMS_ITS | Continuity of Care Document ---
Author Name Unknown Organization [facility] [place] Address [address] [place] [address]- Care Team Providers Care Swine Nutritionist Name Role Phone Darnell RAMÍREZ, Kinga Mcgrath Primary Care Physician ( [phone] Encounter [facility] Date(s): 10/12/20 - 11/11/20 [facility] [place] [address] [place], [place] [address] Allergies, Adverse Reactions, Alerts Substance Reaction Severity [...]
--- OUTSIDE RECORDS SUMMARY | 2022-10-01 14:25 | XMS_ITS | Continuity of Care Document ---
Author Name Unknown Organization [facility] [place] Address [address] [place] [address]- Care Team Providers Care Public Relations Representative Name Role Phone Darnell RAMÍREZ, Kinga Mcgrath Primary Care Physician ( [phone] Encounter [facility] Date(s): 01/03/22 - 02/02/22 [facility] [address] [place], [place] [address] Attending Physician: Fabio Marshall Admitting Physician: Fabio [...] influenza virus vaccine, inactivated 01/17/07 Jesus rded [id number] 12y+ bivalent booster vax 12/27/21 Recorded SARS-CoV-2 mRNA ([id number]) vax 10/24/21 Recorded pneumococcal 23-valent vaccine 12/14/20 [...] Maintenance, 06/05/21 11:19:00 EST,Route to Pharmacy Electronically, [facility]/pharmacy #[id number], Partial fill upon patient request if [...] 0 Refills, Maintenance, 06/05/21 11:19:00 EST, Capsule, [facility]/pharmacy #[id number], Partial fill upon patient request if [...] 06/05/21 11:21:00 EST, Route to Pharmacy Electronically, [facility]/pharmacy #[id number], Partial fill upon patient request if the prescription is f... Start Date: 06/05/21 Status: Ordered valACYclovir 500 mg oral tablet 1, tablet, By Mouth, Daily at bedtime, # 90 tablet, Refills 1, Route to Pharmacy Electronically, [id number], 177.8, cm, 01/24/21 10:25:00 EDT, Height Start [...] Name: Darnell RAMÍREZ, Kinga Mcgrath Address: Address: [address] [place] [id number]
--- OUTSIDE RECORDS SUMMARY | 2022-10-01 14:25 | XMS_ITS | Continuity of Care Document ---
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 [email or web address] for referrals to smoking cessation programs. ?? The National Suicide Prevention Hotline is available 05/11 if you or someone you know needs to find a reason to keep living. By calling 3-037-367-[employer] (6427) you'll be connected to a skilled, trained counselor at a crisis center in your area. INPATIENT DISCHARGE INSTRUCTIONS SIGNATURE PAGE MIR WILLAM Location:[facility] Registration Date and Time:06/27/2022 19:01 EDT Primary Care Physician: Darnell RAMÍREZ, Kinga Mcgrath, I WILLAM HESTER, have received the above patient education materials/instructions and have verbalized understanding. If ambulance or transport services are being used I further acknowledge being given a choice of service. ?? If you need to contact me, please call me at this number: . Patient/Recruiter Coordinator Name: Patient/Recruiter Coordinator Signature: Relationship to Patient: Witness Name/Signature: Date: * [facility] , CIS S: TRANSCRIBE Anders Scanlon MD: VERIFY Event Display: Result: Authored Date: [id number] Chest 2 Views Frontal and Lat Reason: Shortness of breath.(s): Other:; Order Comment: COMPARISON: 05/24/2021 FINDINGS: LINES AND TUBES: None. LUNGS AND PLEURA: Clear hyperinflated lungs. Normal pulmonary vascularity. No pleural effusion. No pneumothorax. HEART, MEDIASTINUM AND STEPHANIE: Heart is normal in size. Normal mediastinal and hilar contour. BONES AND SOFT TISSUES: No acute abnormality. IMPRESSION: No pneumonia or CHF. Hyperinflation consistent with COPD. WSN: [id number] Ordering Physician: Miroslava Maharaj Dictated By: Anders Scanlon MD Dictated Date/Time: 07/05/22 11:43 p Reviewed By: Anders Scanlon MD Signed By: Anders Scanlon MD Signed Date/Time: 07/05/22 11:43 pm Transcribed By: LEONOR Transcribed Date/Time: 07/05/22 11:[address] Head WO contrast * [facility]SP[facility] , CIS S: TRANSCRIBE Haven Allred MD: VERIFY Event Display: Result: Authored Date: [id number] CT Head/Brain W/O Contrast INDICATION: Reason: Behavior Problem; Clinical Question(s): Hematoma TECHNIQUE: Noncontrast head CT using axial technique and reconstructed in axial and coronal planes.Iterative reconstruction techniques are used to optimize dose and image quality. CTDIvol Head: 48.37 mGy, DLP Head: 793 mGy*cm. COMPARISON: None. FINDINGS: Glass Presser view findings, lines and tubes: None. BRAIN AND EXTRA-AXIAL SPACES: No parenchymal hemorrhage, midline shift, or mass effect. Panchal-white matter differentiation is wellpreserved. No acute infarct. Mild prominence of the ventricles and sulci consistent with parenchymal volume loss. Up to 4.5 cm area of simple fluid density anterior to the LEFT temporal lobe with the appearance of an middle cranial fossa arachnoid cyst. No white matter lesions. No subarachnoid hemorrhage. No subdural or epidural collection. CALVARIUM, SKULL BASE, AND SOFT TISSUES: No fractures or suspicious bony lesions. The paranasal sinuses and mastoid air cells are clear. Visualized orbits and globes are intact. The extracranial soft tissues are unremarkable. IMPRESSION: No acute intracranial hemorrhage or mass effect. Benign anterior LEFT middle cranial fossa arachnoid cyst, not clinically significant. WSN: [id number] Ordering Physician: Marimar Garcia Dictated By: Haven Allred MD Dictated Date/Time: 06/30/22 5:12 pm Reviewed By: Haven Allred MD Signed By: Haven Allred MD Signed Date/Time: 06/30/22 5:12 pm Transcribed By: LEONOR Transcribed Date/Time: 06/30/22 5:09 pm Patient Care team information Care Team Personnel Name: Kinga Patrick MD Position: [facility] Primary Care Physician Member Role: PCP Address: Address: [address] [place] [address] Name: Tory Rangel RN Position: [facility] RN Member Role: Primary Care Nurse Name: Sue Blanchard RN Position: [facility] RN Member Role: Primary Care Nurse Name: Lisbeth Gay RN Position: [facility] RN Member Role: Primary Care Nurse Name: Maci Agosto RN Position: [facility] RN Member Role: Primary Care Nurse Name: [facility] Attending Position: [facility] ED Medicine MD Name: Ondina Rivas Position: [facility] ED TA [facility] Member Role: Patient Care Provider Name: Jaqueline Blank Position: [facility] ED OA Charge Member Role: ED Associate Name: Ana Paula Mancia RN Position: [facility] ED RN W/OE and Tasks Member Role: Patient Care Provider Name: Skinny Nash MD Position: [facility] ED Medicine MD Member Role: ED Attending Physician Address: Address: [address] [place] [address] [place] [address]- [place] Care Team Related Persons Name: TWILA DIAMOND Address: home [address] [place] [address] Name: BRIANA TENORIO Address: home [address] [place] [address] Name: ESEQUIEL HESTER Address: home [address] [place] [address] Name: DAO BURTON Address: home [address] [place] [address]
--- OUTSIDE RECORDS SUMMARY | 2022-10-01 14:25 | XMS_ITS | Continuity of Care Document ---
Author Name Unknown Organization [facility] Address [address] [place] [address]- Care Team Providers Care Robot Technician Name Role Phone Darnell RAMÍREZ, Kinga Mcgrath Primary Care Physician Encounter [facility] Date(s): 05/15/21 - 05/15/[address] [address]- Discharge Disposition: A-D/C Home Attending Physician: Jay Toro MD Admitting Physician: [...] Maintenance, 06/19/13 16:50:17 EST, ER Tablet, [id number] Start Date: 06/19/13 Status: Ordered Problem List Condition Effective Dates Status Health Status Inform ant Mild bipolar I disorder, cur rent or most recent episode depressed, with anxious distress(Confirmed) Active Vital Signs Most recent to oldest [Reference Range]: 1 Height 183 cm (05/15/21 7:31 AM) Weight 82 kg (05/15/21 7:31 AM) Oxygen Saturation [94-100 %] 99 % (05/15/21 7:30 AM) Pulse Rate [55-90 bpm] 83 bpm (05/15/21 7:30 AM) Blood Pressure [90-138/55-84 mm Hg] 135/ 53mm Hg (05/15/21 7:30 AM) Temperature [96.8-100.4 DegF] 98.3 DegF (05/15/21 7:30 AM) Mode of Delivery (Oxygen) Room air (05/15/21 7:30 AM) Blood pressure sites Arm, left (05/15/21 7:30 AM) Temperature Route Oral (05/15/21 7:30 AM) Dry Weight 82 kg (05/15/21 7:31 AM) Weight Obtained Via Patient/family state d (05/15/21 7:31 AM) Dry Weight Obtained Via Patient/family s tated (05/15/21 7:31 AM) Social History Social History Type Response Smoking Status 10 or more cigarette s (1/2 pack or more)/day in last 30 days entered on: 05/15/21 Sex
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
[2022-10-01 18:00] VITALS: BP 152/100; PULSE 64; RESP 16; TEMP 36.3; O2SAT 98
[2022-10-01] MEDS: hydrOXYzine HCL 25 MG TABLET PO (19:57)
[2022-10-01] MEDS: Divalproex Sodium 250 MG TABLET.DR 750 MG PO (19:57)
[2022-10-01] MEDS: risperiDONE 0.5 MG TABLET PO (19:58)
[2022-10-01] MEDS: Mirtazapine 15 MG TABLET PO (19:58)
[2022-10-01] MEDS: DULoxetine HCl 20 MG CAPSULE.DR PO (19:58)
[2022-10-01] MEDS: risperiDONE 0.25 MG TABLET PO (19:58)
[2022-10-02 07:57] VITALS: BP 142/70; PULSE 79; RESP 18; TEMP 36.3; O2SAT 97
[2022-10-02] MEDS: risperiDONE 0.5 MG TABLET PO (08:00)
[2022-10-02] MEDS: amLODIPine Besylate 5 MG TABLET PO (08:00)
[2022-10-02] MEDS: Divalproex Sodium 250 MG TABLET.DR 750 MG PO ×2 (08:00→20:09)
[2022-10-02] MEDS: DULoxetine HCl 20 MG CAPSULE.DR PO ×2 (08:01→20:09)
[2022-10-02] MEDS: Folic Acid 1 MG TABLET PO (08:01)
[2022-10-02] MEDS: hydrOXYzine HCL 25 MG TABLET PO ×3 (08:01→20:10)
[2022-10-02] MEDS: Thiamine HCL 100 MG TABLET PO (08:01)
[2022-10-02 08:56] LABS: Alanine Aminotransferase 21 U/L (0-40); Albumin Level 3.8 g/dL (3.5-5.0); Alkaline Phosphatase 77 U/L (39-117); Anion Gap 11 (12-20); Aspartate Amino Transferase 18 U/L (5-37); Bilirubin Total 0.4 mg/dL (0.0-1.0); Blood Urea Nitrogen 14 mg/dL (9-16); Calcium 9.5 mg/dL (8.4-10.2); Carbon Dioxide 28 mmol/L (22-29); Chloride 106 mmol/L (96-108); Cholesterol 145 mg/dL; Estimated Glomerular Filt Rate > 60; Glucose Fasting 99 mg/dL (60-99); HDL Cholesterol 50 mg/dL; LDL Cholesterol Calculated 52 mg/dl; Potassium 4.7 mmol/L (3.3-5.1); Sodium 140 mmol/L (135-145); Total Protein 6.4 g/dL (6.5-8.0); Triglycerides 217 mg/dL
--- NOTE | 2022-10-02 10:16 | ECG_ITS ---
Test Reason : ANDRADE Blood Pressure : / mmHG Vent. Rate : 067 BPM Atrial Rate : 067 BPM P-R Int : 150 ms QRS Dur : 104 ms QT Int : 390 ms P-R-T Axes : 078 -64 058 degrees QTc Int : 412 ms Normal sinus rhythm Left axis deviation Abnormal ECG When compared with ECG of 27-AUG-2021 00:44, Nonspecific T wave abnormality no longer evident in Inferior leads QT has shortened Referred By: Miguel Chin Electronically Signed By:BEKAH LANCASTER
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
[2022-10-02] MEDS: NaPROXEN 250 MG TABLET PO ×2 (10:39→16:22)
--- NOTE | 2022-10-02 11:39 | HO.PSYADMNOT ---
HPI Date of Service: 10/02/22 Chief Complaint: Schizoaffective Sources of Information: patient interviewed, chart reviewed and crisis/core team assessment reviewed HPI Subjective Notes: [place] Warning and Conditional Voluntary Narrative: The patient is a 67-year-old male, , father of 2 children were not involved in his care, living alone with his toe with a prior history of schizoaffective disorder bipolar type. The patient is very well known by this team since he was admitted for similar presentation last year. According to the crisis assessment, the patient presented that when hospital and he became agitated, nonsensical and agitated and needed to be chemically restrain. 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 According to the chart he had 2 admissions with a similar presentation of disorganization and psychosis in the last 2 months twice in different hospitals. On interview the patient is pleasantly confused, cooperative, with word salad but redirectable. He stated that he needs to get his driving license and that the [employer] dog is not compatible with his vibes . The patient is in agreement of continue medication. I offered long-acting antipsychotics and he agreed on the plan. At this moment the patient is grossly disorganized and he is willing to follow treatment. Past Psychiatric History: -Past meds: Depakote 500 mg QHS, vraylar 3 mg. -Pt recently seen at [facility] ED 06/06/21 for acute psychosis, admitted to [facility], was re-started on vraylar 1.5 mg but has been non-adherent. -he was admitted twice in the last 2 months from July and September 2022 for similar presentation -Prev psych provider was [facility]ie Dangelo, kay Shaw Medical Evaluation Reviewed: Yes 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 However, unable to sustain employment due to his alcohol use. -Reports he resides alone and housing is stable and safe to return. -, for nine years, has two children. Estranged from family. Says he has a guru. Substance History: Past abuse of alcohol Trauma History: Unknown Diagnostics Vital Signs (24Hr): Vital Signs - 24 hr 10/01/22 18:00 10/02/22 07:57 Temperature 97.3 F 97.3 F Pulse Rate 64 79 Respiratory Rate 16 18 Blood Pressure 152/100 H 142/70 H Pulse Oximetry 98 97 Oxygen Delivery Method Room Air Room Air Labs 10/02/22 08:04 Labs: Laboratory Results - last 48 hr 10/02/22 08:04 Sodium 140 Potassium 4.7 Chloride 106 Carbon Dioxide 28 Anion Gap 11 L BUN 14 Creatinine 0.90 Estim Creat Clear Calc TNP Estimated GFR > 60 Fasting Glucose 99 Calcium 9.5 Total Bilirubin 0.4 AST 18 ALT 21 Alkaline Phosphatase 77 Total Protein 6.4 L Albumin 3.8 Triglycerides 217 Cholesterol 145 LDL Cholesterol, Calc 52 HDL Cholesterol 50 Imaging Radiology Impressions: ITS Impressions Hand X-Ray 10/01/22 16:20 IMPRESSION: No acute fracture. Slight flexion at the PIP joint of the fifth finger and periarticular soft tissue swelling. Question evidence of old trauma. Irregular periosteal or thickening of the proximal phalanx, question related to old trauma versus infection. Clinical correlation recommended. Meds/Allergies Meds Home Medications Medication Instructions Recorded Confirmed Type amlodipine 5 mg tablet 5 mg PO DAILY 10/01/22 10/01/22 History divalproex 250 mg tablet,delayed 750 mg PO BID depressive disorder 10/01/22 10/01/22 History release duloxetine 20 mg capsule,delayed 20 mg PO BID 10/01/22 10/01/22 History release hydroxyzine HCl 25 mg tablet 25 mg PO TID 10/01/22 10/01/22 History melatonin 3 mg capsule 9 mg PO BEDTIME PRN Insomnia 10/01/22 10/01/22 History mirtazapine 15 mg tablet 15 mg PO BEDTIME 10/01/22 10/01/22 History naproxen 250 mg tablet 250 mg PO BID 10/01/22 10/01/22 History risperidone 0.25 mg tablet 0.25 mg PO BEDTIME 10/01/22 10/01/22 History risperidone 0.5 mg tablet 0.5 mg PO BID psychosis 10/01/22 10/01/22 History thiamine HCl (vitamin B1) 100 mg 100 mg PO DAILY 10/01/22 10/01/22 History tablet Allergies Allergies Allergy/AdvReac Type Severity Reaction Status Date / Time No Known Allergies Allergy Verified 08/26/21 13:36 Mental Status Exam Mental Status Exam Patient Appearance: Inappropriate and Unkempt Patient Orientation: Person Level of Consciousness: Restless and Inappropriate Patient Behavior: Talkative and Passive Mood Description: Withdrawn Affect Description: Labile Patient Cognition Impaired: Yes Ability to Follow Directions: Fair Speech Pattern: Impoverished, Difficulty Finding Words, Spontaneous Speech and Poor Articulation Hallucinations: Auditory Delusions: Grandiose, Ideas of Reference and Bizarre Thought Process: Incoherent and Illogical Thought Content: positive for Loose Associations, positive for Thought Blocking and positive for Incoherent Judgement: Poor Assessment & Plan Assessment & Plan (1) Schizoaffective disorder, bipolar type: Status: Acute Code(s): F25.0 - Schizoaffective disorder, bipolar type Plan The patient is an elderly male with a past history of alcohol abuse and 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 The patient is very well known by this team since he was admitted here last year. Plan 1. Gather collateral information. 2. Continue with same medications. 3. 15 minute checks. 4. Follow-up with medical treatment. 5. EKG. 6. I offered Invega Guido he agreed on the plan, will follow with the possibility of continuing this treatment in the community. Patient educated on: diagnosis and therapeutic strategies Informed Consent: further education needed Reason for continued inpatient stay Substantial Risk for: inability to function, rapid decompensation and med/psych decompensation Statement Statement: I have reviewed the history and physical and performed a pertinent examination on my patient. No changes have occurred unless specified. If the History and Physical was not performed prior to admission, the Hospitalist's service will be consulted for completing the admission physical. Time Spent With Patient Time: Total time managing care of this patient today _45___ minutes.
[2022-10-02 18:00] VITALS: BP 141/63; PULSE 68; RESP 16; TEMP 36.1; O2SAT 97
[2022-10-02] MEDS: risperiDONE 1 MG TABLET PO (20:10)
[2022-10-02] MEDS: Mirtazapine 15 MG TABLET PO (20:10)
[2022-10-03] MEDS: Nicotine 21 MG PATCH.TD24 TRANSDERMA (06:19)
[2022-10-03] MEDS: Nicotine Polacrilex 2 MG GUM 4 MG BUCCAL (06:53)
[2022-10-03 08:15] VITALS: BP 125/63; PULSE 66; RESP 18; TEMP 36.4; O2SAT 97
[2022-10-03] MEDS: risperiDONE 1 MG TABLET PO (09:02)
[2022-10-03] MEDS: Divalproex Sodium 250 MG TABLET.DR 750 MG PO ×2 (09:02→20:11)
[2022-10-03] MEDS: Folic Acid 1 MG TABLET PO (09:02)
[2022-10-03] MEDS: amLODIPine Besylate 5 MG TABLET PO (09:03)
[2022-10-03] MEDS: Thiamine HCL 100 MG TABLET PO (09:03)
[2022-10-03] MEDS: NaPROXEN 250 MG TABLET PO ×2 (09:03→17:32)
[2022-10-03] MEDS: DULoxetine HCl 20 MG CAPSULE.DR PO ×2 (09:03→20:12)
[2022-10-03] MEDS: hydrOXYzine HCL 25 MG TABLET PO ×3 (09:03→20:12)
--- NOTE | 2022-10-03 14:00 | P.PNPSI_ITS ---
Subjective Subjective Date of Service: 10/03/22 Reason For Visit: Schizoaffective Subjective Notes: Conditional Voluntary Interim History: The nursing staff reported the patient had been fully compliant with medications he has been happy, cooperative but disorganized. The social media job titles reported that she contact her sister and he wants him placed since he had being in an out of the hospital several times due to lack of compliance. On interview the patient looks more oriented, less manic pleasant cooperative. Today we discussed the possibility of using a long compliance and we will check his insurance to assure continuation of care in the community. Mental Status Exam Mental Status Exam Patient Appearance: Appropriate Patient Orientation: Person and Situation Level of Consciousness: Awake and Appropriate Patient Behavior: Appropriate and Restless Mood Description: Withdrawn Affect Description: Labile Patient Cognition Impaired: Yes Ability to Follow Directions: Good Speech Pattern: Clear Hallucinations: None Delusions: Not Present Thought Process: Incoherent and Distracted Thought Content: positive for [place] Judgement: Fair Diagnostics Vital Signs (24Hr): Vital Signs - 24 hr 10/02/22 18:00 10/03/22 08:15 Temperature 97 F 97.6 F Pulse Rate 68 66 Respiratory Rate 16 18 Blood Pressure 141/63 H 125/63 Pulse Oximetry 97 97 Oxygen Delivery Method Room Air Room Air Labs 10/02/22 08:04 Labs: Laboratory Results - last 48 hr 10/02/22 08:04 Sodium 140 Potassium 4.7 Chloride 106 Carbon Dioxide 28 Anion Gap 11 L BUN 14 Creatinine 0.90 Estim Creat Clear Calc TNP Estimated GFR > 60 Fasting Glucose 99 Calcium 9.5 Total Bilirubin 0.4 AST 18 ALT 21 Alkaline Phosphatase 77 Total Protein 6.4 L Albumin 3.8 Triglycerides 217 Cholesterol 145 LDL Cholesterol, Calc 52 HDL Cholesterol 50 Imaging Radiology Impressions: ITS Impressions Hand X-Ray 10/01/22 16:20 IMPRESSION: No acute fracture. Slight flexion at the PIP joint of the fifth finger and periarticular soft tissue swelling. Question evidence of old trauma. Irregular periosteal or thickening of the proximal phalanx, question related to old trauma versus infection. Clinical correlation recommended. Medications Medications Current Medications Acetaminophen (Acetaminophen 325 Mg Tablet) 650 mg PO Q6H PRN PRN Reason: Headache/Pain Mild Scale (1-3) Al Hydroxide/Mg Hydroxide (Magnesium Hydrox/Alum Hydrox 30 Ml Oral.Susp) 30 ml PO Q6H PRN PRN Reason: Heartburn/Nausea Amlodipine Besylate (Amlodipine Besylate 5 Mg Tablet) 5 mg PO DAILY [facility]; Protocol Last Admin: 10/03/22 09:03 Dose: 5 mg Divalproex Sodium (Divalproex Sodium 250 Mg Tablet.) 750 mg PO BID [facility] Last Admin: 10/03/22 09:02 Dose: 750 mg Duloxetine HCl (Duloxetine Hcl 20 Mg Capsule.Dr) 20 mg PO BID [facility] Last Admin: 10/03/22 09:03 Dose: 20 mg Folic Acid (Folic Acid 1 Mg Tablet) 1 mg PO DAILY [facility] Last Admin: 10/03/22 09:02 Dose: 1 mg Hydroxyzine HCl (Hydroxyzine Hcl 25 Mg Tablet) 25 mg PO Q6H PRN PRN Reason: Anxiety Hydroxyzine HCl (Hydroxyzine Hcl 25 Mg Tablet) 25 mg PO TID [facility] Last Admin: 10/03/22 09:03 Dose: 25 mg Magnesium Hydroxide (Milk Of Magnesia 30 Ml Oral.Susp) 30 ml PO DAILY PRN PRN Reason: Constipation Melatonin (Melatonin 3 Mg Tablet) 9 mg PO BEDTIME PRN PRN Reason: Insomnia Mirtazapine (Mirtazapine 15 Mg Tablet) 15 mg PO BEDTIME [facility] Last Admin: 10/02/22 20:10 Dose: 15 mg Naproxen (Naproxen 250 Mg Tablet) 250 mg PO BIDWM [facility] Last Admin: 10/03/22 09:03 Dose: 250 mg Nicotine (Nicotine 21 Mg Patch.Td24) 21 mg TRANSDERMA DAILY PRN PRN Reason: smoking cessation Last Admin: 10/03/22 06:19 Dose: 21 mg Nicotine Polacrilex (Nicotine Polacrilex 2 Mg Gum) 4 mg BUCCAL Q2H PRN PRN Reason: nicotine cravings Last Admin: 10/03/22 06:53 Dose: 4 mg Risperidone (Risperidone 2 Mg Tablet) 2 mg PO BID [facility] Thiamine HCl (Thiamine Hcl 100 Mg Tablet) 100 mg PO DAILY [facility] Last Admin: 10/03/22 09:03 Dose: 100 mg Trazodone HCl (Trazodone Hcl 50 Mg Tablet) 50 mg PO BEDTIME MRX1 PRN PRN Reason: Insomnia Allergies Allergies Allergy/AdvReac Type Severity Reaction Status Date / Time No Known Allergies Allergy Verified 08/26/21 13:36 Assessment & Plan Assessment & Plan (1) Schizoaffective disorder, bipolar type: Status: Acute Code(s): F25.0 - Schizoaffective disorder, bipolar type Plan The patient is an elderly male with a past history of alcohol abuse and 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 The patient is very well known by this team since he was admitted here last year. Plan 1. Gather collateral information. 2. Continue with same medications. 3. 15 minute checks. 4. Follow-up with medical treatment. 5. EKG. 6. I offered Invega Guido he agreed on the plan, will follow with the possibility of continuing this treatment in the community. 7. Risperdal increased up to 2 mg p.o. b.i.d. on 10/03 Reason for continued inpatient stay Substantial Risk for: inability to function, rapid decompensation and med/psych decompensation Time Spent With Patient Time: Total time managing care of this patient today _20___ minutes.
[2022-10-03] MEDS: Mirtazapine 15 MG TABLET PO (20:12)
[2022-10-03] MEDS: Acetaminophen 325 MG TABLET 650 MG PO (20:12)
[2022-10-03] MEDS: Melatonin 3 MG TABLET 9 MG PO (20:12)
[2022-10-03] MEDS: risperiDONE 2 MG TABLET PO (20:12)
[2022-10-03 20:43] VITALS: BP 148/68; PULSE 62; RESP 18; TEMP 35.7; O2SAT 96
[2022-10-04 07:00] VITALS: BMI 23.1
[2022-10-04 08:30] VITALS: BP 135/63; PULSE 76; RESP 18; TEMP 36.4; O2SAT 97
[2022-10-04] MEDS: NaPROXEN 250 MG TABLET PO ×2 (09:04→17:23)
[2022-10-04] MEDS: risperiDONE 2 MG TABLET PO ×2 (09:04→20:53)
[2022-10-04] MEDS: Folic Acid 1 MG TABLET PO (09:04)
[2022-10-04] MEDS: DULoxetine HCl 20 MG CAPSULE.DR PO ×2 (09:04→20:53)
[2022-10-04] MEDS: Thiamine HCL 100 MG TABLET PO (09:04)
[2022-10-04] MEDS: Divalproex Sodium 250 MG TABLET.DR 750 MG PO ×2 (09:04→20:53)
[2022-10-04] MEDS: hydrOXYzine HCL 25 MG TABLET PO ×3 (09:05→20:53)
[2022-10-04] MEDS: amLODIPine Besylate 5 MG TABLET PO (09:05)
[2022-10-04] MEDS: Acetaminophen 325 MG TABLET 650 MG PO (15:25)
--- NOTE | 2022-10-04 15:36 | HO.PSYCHPN ---
Subjective Subjective Date of Service: 10/04/22 Reason For Visit: Schizoaffective Subjective Notes: Conditional Voluntary Interim History: The nursing staff reported the patient has been compliant with medication, he has been pleasant and cooperative nonsensical At times but easily redirectable. 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 Mental Status Exam Mental Status Exam Patient Appearance: Well Grooomed and Appropriate Patient Orientation: Person and Situation Level of Consciousness: Awake and Appropriate Patient Behavior: Guarded and Cooperative Mood Description: Withdrawn Affect Description: Labile Patient Cognition Impaired: Yes Ability to Follow Directions: Good Speech Pattern: Spontaneous Speech Hallucinations: None Delusions: Grandiose Thought Process: Racing and Distracted Thought Content: positive for [place], positive for [place] and positive for [place] of Content Judgement: Fair Diagnostics Vital Signs (24Hr): Vital Signs - 24 hr 10/03/22 20:43 Temperature 96.3 F L Pulse Rate 62 Respiratory Rate 18 Blood Pressure 148/68 H Pulse Oximetry 96 Oxygen Delivery Method Room Air BMI result Body Mass Index 23.1 Labs 10/02/22 08:04 Imaging Radiology Impressions: ITS Impressions Hand X-Ray 10/01/22 16:20 IMPRESSION: No acute fracture. Slight flexion at the PIP joint of the fifth finger and periarticular soft tissue swelling. Question evidence of old trauma. Irregular periosteal or thickening of the proximal phalanx, question related to old trauma versus infection. Clinical correlation recommended. Medications Medications Current Medications Acetaminophen (Acetaminophen 325 Mg Tablet) 650 mg PO Q6H PRN PRN Reason: Headache/Pain Mild Scale (1-3) Last Admin: 10/03/22 20:12 Dose: 650 mg Al Hydroxide/Mg Hydroxide (Magnesium Hydrox/Alum Hydrox 30 Ml Oral.Susp) 30 ml PO Q6H PRN PRN Reason: Heartburn/Nausea Amlodipine Besylate (Amlodipine Besylate 5 Mg Tablet) 5 mg PO DAILY [facility]; Protocol Last Admin: 10/04/22 09:05 Dose: 5 mg Divalproex Sodium (Divalproex Sodium 250 Mg Tablet.) 750 mg PO BID [facility] Last Admin: 10/04/22 09:04 Dose: 750 mg Duloxetine HCl (Duloxetine Hcl 20 Mg Capsule.) 20 mg PO BID [facility] Last Admin: 10/04/22 09:04 Dose: 20 mg Folic Acid (Folic Acid 1 Mg Tablet) 1 mg PO DAILY [facility] Last Admin: 10/04/22 09:04 Dose: 1 mg Hydroxyzine HCl (Hydroxyzine Hcl 25 Mg Tablet) 25 mg PO Q6H PRN PRN Reason: Anxiety Hydroxyzine HCl (Hydroxyzine Hcl 25 Mg Tablet) 25 mg PO TID [facility] Last Admin: 10/04/22 14:39 Dose: 25 mg Magnesium Hydroxide (Milk Of Magnesia 30 Ml Oral.Susp) 30 ml PO DAILY PRN PRN Reason: Constipation Melatonin (Melatonin 3 Mg Tablet) 9 mg PO BEDTIME PRN PRN Reason: Insomnia Last Admin: 10/03/22 20:12 Dose: 9 mg Mirtazapine (Mirtazapine 15 Mg Tablet) 15 mg PO BEDTIME [facility] Last Admin: 10/03/22 20:12 Dose: 15 mg Naproxen (Naproxen 250 Mg Tablet) 250 mg PO BIDWM [facility] Last Admin: 10/04/22 09:04 Dose: 250 mg Nicotine (Nicotine 21 Mg Patch.Td24) 21 mg TRANSDERMA DAILY PRN PRN Reason: smoking cessation Last Admin: 10/03/22 06:19 Dose: 21 mg Nicotine Polacrilex (Nicotine Polacrilex 2 Mg Gum) 4 mg BUCCAL Q2H PRN PRN Reason: nicotine cravings Last Admin: 10/03/22 06:53 Dose: 4 mg Risperidone (Risperidone 2 Mg Tablet) 2 mg PO BID [facility] Last Admin: 10/04/22 09:04 Dose: 2 mg Thiamine HCl (Thiamine Hcl 100 Mg Tablet) 100 mg PO DAILY [facility] Last Admin: 10/04/22 09:04 Dose: 100 mg Trazodone HCl (Trazodone Hcl 50 Mg Tablet) 50 mg PO BEDTIME MRX1 PRN PRN Reason: Insomnia Allergies Allergies Allergy/AdvReac Type Severity Reaction Status Date / Time No Known Allergies Allergy Verified 08/26/21 13:36 Assessment & Plan Assessment & Plan (1) Schizoaffective disorder, bipolar type: Status: Acute Code(s): F25.0 - Schizoaffective disorder, bipolar type Plan The patient is an elderly male with a past history of alcohol abuse and 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 The patient is very well known by this team since he was admitted here last year. Plan 1. Gather collateral information. 2. Continue with same medications. 3. 15 minute checks. 4. Follow-up with medical treatment. 5. EKG. 6. I offered Shira Lora he agreed on the plan, will follow with the possibility of continuing this treatment in the community. 7. Risperdal increased up to 2 mg p.o. b.i.d. on 10/03 Reason for continued inpatient stay Substantial Risk for: inability to function, rapid decompensation and med/psych decompensation Time Spent With Patient Time: Total time managing care of this patient today __20__ minutes.
[2022-10-04 18:00] VITALS: BP 143/67; PULSE 66; RESP 18; TEMP 36.2; O2SAT 97
[2022-10-04] MEDS: Mirtazapine 15 MG TABLET PO (20:53)
[2022-10-05] MEDS: amLODIPine Besylate 5 MG TABLET PO (08:36)
[2022-10-05] MEDS: risperiDONE 2 MG TABLET PO ×2 (08:36→20:58)
[2022-10-05] MEDS: hydrOXYzine HCL 25 MG TABLET PO ×3 (08:36→20:58)
[2022-10-05] MEDS: Thiamine HCL 100 MG TABLET PO (08:36)
[2022-10-05] MEDS: Folic Acid 1 MG TABLET PO (08:36)
[2022-10-05] MEDS: NaPROXEN 250 MG TABLET PO ×2 (08:36→16:23)
[2022-10-05] MEDS: Divalproex Sodium 250 MG TABLET.DR 750 MG PO ×2 (08:37→20:57)
[2022-10-05] MEDS: DULoxetine HCl 20 MG CAPSULE.DR PO ×2 (08:37→20:58)
[2022-10-05 09:10] VITALS: BP 127/58; PULSE 70; RESP 16; TEMP 36.1; O2SAT 95
--- NOTE | 2022-10-05 12:48 | P.PNPSI_ITS ---
Subjective Subjective Date of Service: 10/05/22 Reason For Visit: Schizoaffective Subjective Notes: Conditional Voluntary Interim History: The nursing staff reported the patient had been hyperverbal, cooperative and pleasant fully compliant with treatment. He was asking about Invega Sustenna injection instead of the pill. On interview I explained him that I need to check with his insurance so he can have the injection in the community. He still is slightly hypomanic no side effects with Risperdal 2 mg p.o. b.i.d. we will keep it over the weekend in CV is main improves more. Historically, he has been on Risperdal 3 mg p.o. b.i.d.. But, if he responds well with a lower dose of Risperdal, we will keep it at 4 mg/day. Mental Status Exam Mental Status Exam Patient Appearance: Well Grooomed and Appropriate Patient Orientation: Person and Situation Level of Consciousness: Awake and Appropriate Patient Behavior: Guarded and Passive Mood Description: Calm Affect Description: Labile Patient Cognition Impaired: Yes Ability to Follow Directions: Fair Speech Pattern: Spontaneous Speech and Rapid Hallucinations: None Delusions: Grandiose Thought Process: Racing and Distracted Thought Content: positive for Circumstantial and positive for Tangential Judgement: Fair Diagnostics Vital Signs (24Hr): Vital Signs - 24 hr 10/04/22 18:00 10/05/22 09:10 Temperature 97.1 F 96.9 F Pulse Rate 66 70 Respiratory Rate 18 16 Blood Pressure 143/67 H 127/58 L Pulse Oximetry 97 95 Oxygen Delivery Method Room Air Room Air BMI result Body Mass Index 23.1 Labs 10/02/22 08:04 Imaging Radiology Impressions: ITS Impressions Hand X-Ray 10/01/22 16:20 IMPRESSION: No acute fracture. Slight flexion at the PIP joint of the fifth finger and periarticular soft tissue swelling. Question evidence of old trauma. Irregular periosteal or thickening of the proximal phalanx, question related to old trauma versus infection. Clinical correlation recommended. Medications Medications Current Medications Acetaminophen (Acetaminophen 325 Mg Tablet) 650 mg PO Q6H PRN PRN Reason: Headache/Pain Mild Scale (1-3) Last Admin: 10/04/22 15:25 Dose: 650 mg Al Hydroxide/Mg Hydroxide (Magnesium Hydrox/Alum Hydrox 30 Ml Oral.Susp) 30 ml PO Q6H PRN PRN Reason: Heartburn/Nausea Amlodipine Besylate (Amlodipine Besylate 5 Mg Tablet) 5 mg PO DAILY [facility]; Protocol Last Admin: 10/05/22 08:36 Dose: 5 mg Divalproex Sodium (Divalproex Sodium 250 Mg Tablet.) 750 mg PO BID [facility] Last Admin: 10/05/22 08:37 Dose: 750 mg Duloxetine HCl (Duloxetine Hcl 20 Mg Capsule.) 20 mg PO BID [facility] Last Admin: 10/05/22 08:37 Dose: 20 mg Folic Acid (Folic Acid 1 Mg Tablet) 1 mg PO DAILY [facility] Last Admin: 10/05/22 08:36 Dose: 1 mg Hydroxyzine HCl (Hydroxyzine Hcl 25 Mg Tablet) 25 mg PO Q6H PRN PRN Reason: Anxiety Hydroxyzine HCl (Hydroxyzine Hcl 25 Mg Tablet) 25 mg PO TID [facility] Last Admin: 10/05/22 08:36 Dose: 25 mg Magnesium Hydroxide (Milk Of Magnesia 30 Ml Oral.Susp) 30 ml PO DAILY PRN PRN Reason: Constipation Melatonin (Melatonin 3 Mg Tablet) 9 mg PO BEDTIME PRN PRN Reason: Insomnia Last Admin: 10/03/22 20:12 Dose: 9 mg Mirtazapine (Mirtazapine 15 Mg Tablet) 15 mg PO BEDTIME [facility] Last Admin: 10/04/22 20:53 Dose: 15 mg Naproxen (Naproxen 250 Mg Tablet) 250 mg PO BIDWM [facility] Last Admin: 10/05/22 08:36 Dose: 250 mg Nicotine (Nicotine 21 Mg Patch.Td24) 21 mg TRANSDERMA DAILY PRN PRN Reason: smoking cessation Last Admin: 10/03/22 06:19 Dose: 21 mg Nicotine Polacrilex (Nicotine Polacrilex 2 Mg Gum) 4 mg BUCCAL Q2H PRN PRN Reason: nicotine cravings Last Admin: 10/03/22 06:53 Dose: 4 mg Risperidone (Risperidone 2 Mg Tablet) 2 mg PO BID [facility] Last Admin: 10/05/22 08:36 Dose: 2 mg Thiamine HCl (Thiamine Hcl 100 Mg Tablet) 100 mg PO DAILY [facility] Last Admin: 10/05/22 08:36 Dose: 100 mg Trazodone HCl (Trazodone Hcl 50 Mg Tablet) 50 mg PO BEDTIME MRX1 PRN PRN Reason: Insomnia Allergies Allergies Allergy/AdvReac Type Severity Reaction Status Date / Time No Known Allergies Allergy Verified 08/26/21 13:36 Assessment & Plan Assessment & Plan (1) Schizoaffective disorder, bipolar type: Status: Acute Code(s): F25.0 - Schizoaffective disorder, bipolar type Plan The patient is an elderly male with a past history of alcohol abuse and 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 The patient is very well known by this team since he was admitted here last year. Plan 1. Gather collateral information. 2. Continue with same medications. 3. 15 minute checks. 4. Follow-up with medical treatment. 5. EKG. 6. I offered Shira Lora he agreed on the plan, will follow with the possibility of continuing this treatment in the community. 7. Risperdal increased up to 2 mg p.o. b.i.d. on 10/03 Reason for continued inpatient stay Substantial Risk for: inability to function, rapid decompensation and med/psych decompensation Time Spent With Patient Time: Total time managing care of this patient today __20__ minutes.
[2022-10-05 18:00] VITALS: BP 119/59; PULSE 65; RESP 16; TEMP 36.2; O2SAT 94
[2022-10-05] MEDS: Mirtazapine 15 MG TABLET PO (20:59)
[2022-10-06 08:00] VITALS: BP 122/62; PULSE 67; RESP 18; TEMP 36.6; O2SAT 96
[2022-10-06] MEDS: NaPROXEN 250 MG TABLET PO ×2 (08:37→16:48)
[2022-10-06] MEDS: Thiamine HCL 100 MG TABLET PO (08:37)
[2022-10-06] MEDS: Folic Acid 1 MG TABLET PO (08:37)
[2022-10-06] MEDS: amLODIPine Besylate 5 MG TABLET PO (08:37)
[2022-10-06] MEDS: hydrOXYzine HCL 25 MG TABLET PO ×3 (08:37→20:40)
[2022-10-06] MEDS: Divalproex Sodium 250 MG TABLET.DR 750 MG PO ×2 (08:37→20:40)
[2022-10-06] MEDS: DULoxetine HCl 20 MG CAPSULE.DR PO ×2 (08:37→20:40)
[2022-10-06] MEDS: risperiDONE 2 MG TABLET PO ×2 (08:37→20:40)
--- NOTE | 2022-10-06 11:51 | P.PNPSI_ITS ---
Subjective Subjective Date of Service: 10/06/22 Reason For Visit: Schizoaffective Interim History: calm, pleasantly disorganized. 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 per staff, pleasant, active, social. easily redirected. med and meal compliant. slept well. Mental Status Exam Mental Status Exam Patient Appearance: Well Grooomed and Appropriate Patient Orientation: Person and Situation Level of Consciousness: Awake and Appropriate Patient Behavior: Guarded and Passive Mood Description: Calm Affect Description: Relaxed Patient Cognition Impaired: Yes Ability to Follow Directions: Fair Speech Pattern: Spontaneous Speech and Rapid Hallucinations: None Delusions: Grandiose Thought Process: Racing and Distracted Thought Content: positive for Circumstantial and positive for Tangential Judgement: Fair Diagnostics Vital Signs (24Hr): Vital Signs - 24 hr 10/05/22 18:00 10/06/22 08:00 Temperature 97.1 F 97.9 F Pulse Rate 65 67 Respiratory Rate 16 18 Blood Pressure 119/59 L 122/62 Pulse Oximetry 94 96 Oxygen Delivery Method Room Air Room Air BMI result Body Mass Index 23.1 Labs 10/02/22 08:04 Imaging Radiology Impressions: ITS Impressions Hand X-Ray 10/01/22 16:20 IMPRESSION: No acute fracture. Slight flexion at the PIP joint of the fifth finger and periarticular soft tissue swelling. Question evidence of old trauma. Irregular periosteal or thickening of the proximal phalanx, question related to old trauma versus infection. Clinical correlation recommended. Medications Medications Current Medications Acetaminophen (Acetaminophen 325 Mg Tablet) 650 mg PO Q6H PRN PRN Reason: Headache/Pain Mild Scale (1-3) Last Admin: 10/04/22 15:25 Dose: 650 mg Al Hydroxide/Mg Hydroxide (Magnesium Hydrox/Alum Hydrox 30 Ml Oral.Susp) 30 ml PO Q6H PRN PRN Reason: Heartburn/Nausea Amlodipine Besylate (Amlodipine Besylate 5 Mg Tablet) 5 mg PO DAILY [facility]; Protocol Last Admin: 10/06/22 08:37 Dose: 5 mg Divalproex Sodium (Divalproex Sodium 250 Mg Tablet.) 750 mg PO BID [facility] Last Admin: 10/06/22 08:37 Dose: 750 mg Duloxetine HCl (Duloxetine Hcl 20 Mg Capsule.) 20 mg PO BID [facility] Last Admin: 10/06/22 08:37 Dose: 20 mg Folic Acid (Folic Acid 1 Mg Tablet) 1 mg PO DAILY [facility] Last Admin: 10/06/22 08:37 Dose: 1 mg Hydroxyzine HCl (Hydroxyzine Hcl 25 Mg Tablet) 25 mg PO Q6H PRN PRN Reason: Anxiety Hydroxyzine HCl (Hydroxyzine Hcl 25 Mg Tablet) 25 mg PO TID [facility] Last Admin: 10/06/22 08:37 Dose: 25 mg Magnesium Hydroxide (Milk Of Magnesia 30 Ml Oral.Susp) 30 ml PO DAILY PRN PRN Reason: Constipation Melatonin (Melatonin 3 Mg Tablet) 9 mg PO BEDTIME PRN PRN Reason: Insomnia Last Admin: 10/03/22 20:12 Dose: 9 mg Mirtazapine (Mirtazapine 15 Mg Tablet) 15 mg PO BEDTIME [facility] Last Admin: 10/05/22 20:59 Dose: 15 mg Naproxen (Naproxen 250 Mg Tablet) 250 mg PO BIDWM [facility] Last Admin: 10/06/22 08:37 Dose: 250 mg Nicotine (Nicotine 21 Mg Patch.Td24) 21 mg TRANSDERMA DAILY PRN PRN Reason: smoking cessation Last Admin: 10/03/22 06:19 Dose: 21 mg Nicotine Polacrilex (Nicotine Polacrilex 2 Mg Gum) 4 mg BUCCAL Q2H PRN PRN Reason: nicotine cravings Last Admin: 10/03/22 06:53 Dose: 4 mg Risperidone (Risperidone 2 Mg Tablet) 2 mg PO BID [facility] Last Admin: 10/06/22 08:37 Dose: 2 mg Thiamine HCl (Thiamine Hcl 100 Mg Tablet) 100 mg PO DAILY [facility] Last Admin: 10/06/22 08:37 Dose: 100 mg Trazodone HCl (Trazodone Hcl 50 Mg Tablet) 50 mg PO BEDTIME MRX1 PRN PRN Reason: Insomnia Allergies Allergies Allergy/AdvReac Type Severity Reaction Status Date / Time No Known Allergies Allergy Verified 08/26/21 13:36 Assessment & Plan Assessment & Plan (1) Schizoaffective disorder, bipolar type: Status: Acute Code(s): F25.0 - Schizoaffective disorder, bipolar type Plan The patient is an elderly male with a past history of alcohol abuse and 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 The patient is very well known by this team since he was admitted here last year. Plan 1. Gather collateral information. 2. Continue with same medications. 3. 15 minute checks. 4. Follow-up with medical treatment. 5. EKG. 6. I offered Inv[place] Lora he agreed on the plan, will follow with the possibility of continuing this treatment in the community. 7. Risperdal increased up to 2 mg p.o. b.i.d. on 10/03 Reason for continued inpatient stay Substantial Risk for: inability to function and rapid decompensation Time Spent With Patient Time: Total time managing care of this patient today ____ minutes.
[2022-10-06] MEDS: Mirtazapine 15 MG TABLET PO (20:40)
[2022-10-06 20:45] VITALS: BP 155/64; PULSE 66; RESP 18; TEMP 36.1; O2SAT 96
[2022-10-07 06:00] VITALS: BP 122/58; PULSE 69; TEMP 36.5; O2SAT 96
[2022-10-07] MEDS: Divalproex Sodium 250 MG TABLET.DR 750 MG PO ×2 (09:11→20:38)
[2022-10-07] MEDS: Folic Acid 1 MG TABLET PO (09:11)
[2022-10-07] MEDS: amLODIPine Besylate 5 MG TABLET PO (09:12)
[2022-10-07] MEDS: NaPROXEN 250 MG TABLET PO ×2 (09:12→16:07)
[2022-10-07] MEDS: hydrOXYzine HCL 25 MG TABLET PO ×3 (09:12→20:37)
[2022-10-07] MEDS: DULoxetine HCl 20 MG CAPSULE.DR PO ×2 (09:12→20:37)
[2022-10-07] MEDS: Thiamine HCL 100 MG TABLET PO (09:12)
[2022-10-07] MEDS: risperiDONE 2 MG TABLET PO ×2 (09:12→20:38)
--- NOTE | 2022-10-07 11:29 | P.PNPSI_ITS ---
Subjective Subjective Date of Service: 10/07/22 Reason For Visit: Schizoaffective Interim History: asking about whether or not he should add salt to his coffee in light of his hypertension. no other questions, complaints, or concerns. per staff, no issues. Mental Status Exam Mental Status Exam Patient Appearance: Well Grooomed and Appropriate Patient Orientation: Person and Situation Level of Consciousness: Awake and Appropriate Patient Behavior: Guarded and Passive Mood Description: Calm Affect Description: Relaxed Patient Cognition Impaired: Yes Ability to Follow Directions: Fair Speech Pattern: Spontaneous Speech and Rapid Hallucinations: None Delusions: Grandiose Thought Process: Racing and Distracted Thought Content: positive for Circumstantial and positive for Tangential Judgement: Fair Diagnostics Vital Signs (24Hr): Vital Signs - 24 hr 10/06/22 20:45 10/07/22 06:00 Temperature 96.9 F 97.7 F Pulse Rate 66 69 Respiratory Rate 18 Blood Pressure 155/64 H 122/58 L Pulse Oximetry 96 96 Oxygen Delivery Method Room Air Room Air BMI result Body Mass Index 23.1 Labs 10/02/22 08:04 Imaging Radiology Impressions: ITS Impressions Hand X-Ray 10/01/22 16:20 IMPRESSION: No acute fracture. Slight flexion at the PIP joint of the fifth finger and periarticular soft tissue swelling. Question evidence of old trauma. Irregular periosteal or thickening of the proximal phalanx, question related to old trauma versus infection. Clinical correlation recommended. Medications Medications Current Medications Acetaminophen (Acetaminophen 325 Mg Tablet) 650 mg PO Q6H PRN PRN Reason: Headache/Pain Mild Scale (1-3) Last Admin: 10/04/22 15:25 Dose: 650 mg Al Hydroxide/Mg Hydroxide (Magnesium Hydrox/Alum Hydrox 30 Ml Oral.Susp) 30 ml PO Q6H PRN PRN Reason: Heartburn/Nausea Amlodipine Besylate (Amlodipine Besylate 5 Mg Tablet) 5 mg PO DAILY [facility]; Protocol Last Admin: 10/07/22 09:12 Dose: 5 mg Divalproex Sodium (Divalproex Sodium 250 Mg Tablet.) 750 mg PO BID [facility] Last Admin: 10/07/22 09:11 Dose: 750 mg Duloxetine HCl (Duloxetine Hcl 20 Mg Capsule.) 20 mg PO BID [facility] Last Admin: 10/07/22 09:12 Dose: 20 mg Folic Acid (Folic Acid 1 Mg Tablet) 1 mg PO DAILY [facility] Last Admin: 10/07/22 09:11 Dose: 1 mg Hydroxyzine HCl (Hydroxyzine Hcl 25 Mg Tablet) 25 mg PO Q6H PRN PRN Reason: Anxiety Hydroxyzine HCl (Hydroxyzine Hcl 25 Mg Tablet) 25 mg PO TID [facility] Last Admin: 10/07/22 09:12 Dose: 25 mg Magnesium Hydroxide (Milk Of Magnesia 30 Ml Oral.Susp) 30 ml PO DAILY PRN PRN Reason: Constipation Melatonin (Melatonin 3 Mg Tablet) 9 mg PO BEDTIME PRN PRN Reason: Insomnia Last Admin: 10/03/22 20:12 Dose: 9 mg Mirtazapine (Mirtazapine 15 Mg Tablet) 15 mg PO BEDTIME [facility] Last Admin: 10/06/22 20:40 Dose: 15 mg Naproxen (Naproxen 250 Mg Tablet) 250 mg PO BIDWM [facility] Last Admin: 10/07/22 09:12 Dose: 250 mg Nicotine (Nicotine 21 Mg Patch.Td24) 21 mg TRANSDERMA DAILY PRN PRN Reason: smoking cessation Last Admin: 10/03/22 06:19 Dose: 21 mg Nicotine Polacrilex (Nicotine Polacrilex 2 Mg Gum) 4 mg BUCCAL Q2H PRN PRN Reason: nicotine cravings Last Admin: 10/03/22 06:53 Dose: 4 mg Risperidone (Risperidone 2 Mg Tablet) 2 mg PO BID [facility] Last Admin: 10/07/22 09:12 Dose: 2 mg Thiamine HCl (Thiamine Hcl 100 Mg Tablet) 100 mg PO DAILY [facility] Last Admin: 10/07/22 09:12 Dose: 100 mg Trazodone HCl (Trazodone Hcl 50 Mg Tablet) 50 mg PO BEDTIME MRX1 PRN PRN Reason: Insomnia Allergies Allergies Allergy/AdvReac Type Severity Reaction Status Date / Time No Known Allergies Allergy Verified 08/26/21 13:36 Assessment & Plan Assessment & Plan (1) Schizoaffective disorder, bipolar type: Status: Acute Code(s): F25.0 - Schizoaffective disorder, bipolar type Plan The patient is an elderly male with a past history of alcohol abuse and 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 The patient is very well known by this team since he was admitted here last year. Plan 1. Gather collateral information. 2. Continue with same medications. 3. 15 minute checks. 4. Follow-up with medical treatment. 5. EKG. 6. I offered Shira Lora he agreed on the plan, will follow with the possibility of continuing this treatment in the community. 7. Risperdal increased up to 2 mg p.o. b.i.d. on 10/03 Reason for continued inpatient stay Substantial Risk for: inability to function and rapid decompensation Time Spent With Patient Time: Total time managing care of this patient today ____ minutes.
[2022-10-07 15:58] VITALS: BP 131/61; PULSE 76
[2022-10-07 18:00] VITALS: BP 141/65; PULSE 68; RESP 18; TEMP 36.3; O2SAT 97
[2022-10-07] MEDS: Mirtazapine 15 MG TABLET PO (20:39)
[2022-10-08 09:19] VITALS: BP 116/57; PULSE 70; RESP 18; TEMP 36.3; O2SAT 97
[2022-10-08] MEDS: hydrOXYzine HCL 25 MG TABLET PO ×3 (09:33→20:15)
[2022-10-08] MEDS: DULoxetine HCl 20 MG CAPSULE.DR PO ×2 (09:33→20:14)
[2022-10-08] MEDS: Folic Acid 1 MG TABLET PO (09:34)
[2022-10-08] MEDS: NaPROXEN 250 MG TABLET PO ×2 (09:34→17:19)
[2022-10-08] MEDS: Thiamine HCL 100 MG TABLET PO (09:34)
[2022-10-08] MEDS: Divalproex Sodium 250 MG TABLET.DR 750 MG PO ×2 (09:34→20:15)
[2022-10-08] MEDS: risperiDONE 2 MG TABLET PO (09:34)
[2022-10-08] MEDS: amLODIPine Besylate 5 MG TABLET PO (09:34)
--- NOTE | 2022-10-08 10:17 | HO.PSYCHPN ---
Subjective Subjective Date of Service: 10/08/22 Reason For Visit: Schizoaffective Subjective Notes: Conditional Voluntary Interim History: The nursing staff reported the patient had been fully compliant with treatment, he has been visible in the common areas, pleasant and cooperative social with staff and peers. On interview the patient denies new symptoms but he still manic. We will try to contact his pharmacy to see if he can be eligible for Invega Sustenna or Risperdal Consta as long-acting injectable. Mental Status Exam Mental Status Exam Patient Appearance: Well Grooomed and Appropriate Patient Orientation: Person and Situation Level of Consciousness: Awake and Restless Patient Behavior: Appropriate Mood Description: Cheerful Affect Description: Labile Patient Cognition Impaired: Yes Ability to Follow Directions: Good Speech Pattern: Clear Hallucinations: None Delusions: Grandiose Thought Process: Racing Thought Content: positive for Brock and positive for Poverty of Content Judgement: Fair Diagnostics Vital Signs (24Hr): Vital Signs - 24 hr 10/07/22 15:58 10/07/22 18:00 10/08/22 09:19 Temperature 97.4 F 97.3 F Pulse Rate 76 68 70 Respiratory Rate 18 18 Blood Pressure 131/61 141/65 H 116/57 L Pulse Oximetry 97 97 Oxygen Delivery Method Room Air Room Air BMI result Body Mass Index 23.1 Labs 10/02/22 08:04 Imaging Radiology Impressions: ITS Impressions Hand X-Ray 10/01/22 16:20 IMPRESSION: No acute fracture. Slight flexion at the PIP joint of the fifth finger and periarticular soft tissue swelling. Question evidence of old trauma. Irregular periosteal or thickening of the proximal phalanx, question related to old trauma versus infection. Clinical correlation recommended. Medications Medications Current Medications Acetaminophen (Acetaminophen 325 Mg Tablet) 650 mg PO Q6H PRN PRN Reason: Headache/Pain Mild Scale (1-3) Last Admin: 10/04/22 15:25 Dose: 650 mg Al Hydroxide/Mg Hydroxide (Magnesium Hydrox/Alum Hydrox 30 Ml Oral.Susp) 30 ml PO Q6H PRN PRN Reason: Heartburn/Nausea Amlodipine Besylate (Amlodipine Besylate 5 Mg Tablet) 5 mg PO DAILY [facility]; Protocol Last Admin: 10/08/22 09:34 Dose: 5 mg Divalproex Sodium (Divalproex Sodium 250 Mg Tablet.) 750 mg PO BID [facility] Last Admin: 10/08/22 09:34 Dose: 750 mg Duloxetine HCl (Duloxetine Hcl 20 Mg Capsule.Dr) 20 mg PO BID [facility] Last Admin: 10/08/22 09:33 Dose: 20 mg Folic Acid (Folic Acid 1 Mg Tablet) 1 mg PO DAILY [facility] Last Admin: 10/08/22 09:34 Dose: 1 mg Hydroxyzine HCl (Hydroxyzine Hcl 25 Mg Tablet) 25 mg PO Q6H PRN PRN Reason: Anxiety Hydroxyzine HCl (Hydroxyzine Hcl 25 Mg Tablet) 25 mg PO TID [facility] Last Admin: 10/08/22 09:33 Dose: 25 mg Magnesium Hydroxide (Milk Of Magnesia 30 Ml Oral.Susp) 30 ml PO DAILY PRN PRN Reason: Constipation Melatonin (Melatonin 3 Mg Tablet) 9 mg PO BEDTIME PRN PRN Reason: Insomnia Last Admin: 10/03/22 20:12 Dose: 9 mg Mirtazapine (Mirtazapine 15 Mg Tablet) 15 mg PO BEDTIME [facility] Last Admin: 10/07/22 20:39 Dose: 15 mg Naproxen (Naproxen 250 Mg Tablet) 250 mg PO BIDWM [facility] Last Admin: 10/08/22 09:34 Dose: 250 mg Nicotine (Nicotine 21 Mg Patch.Td24) 21 mg TRANSDERMA DAILY PRN PRN Reason: smoking cessation Last Admin: 10/03/22 06:19 Dose: 21 mg Nicotine Polacrilex (Nicotine Polacrilex 2 Mg Gum) 4 mg BUCCAL Q2H PRN PRN Reason: nicotine cravings Last Admin: 10/03/22 06:53 Dose: 4 mg Risperidone (Risperidone 2 Mg Tablet) 2 mg PO BID [facility] Last Admin: 10/08/22 09:34 Dose: 2 mg Thiamine HCl (Thiamine Hcl 100 Mg Tablet) 100 mg PO DAILY [facility] Last Admin: 10/08/22 09:34 Dose: 100 mg Trazodone HCl (Trazodone Hcl 50 Mg Tablet) 50 mg PO BEDTIME MRX1 PRN PRN Reason: Insomnia Allergies Allergies Allergy/AdvReac Type Severity Reaction Status Date / Time No Known Allergies Allergy Verified 08/26/21 13:36 Assessment & Plan Assessment & Plan (1) Schizoaffective disorder, bipolar type: Status: Acute Code(s): F25.0 - Schizoaffective disorder, bipolar type Plan The patient is an elderly male with a past history of alcohol abuse and 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 The patient is very well known by this team since he was admitted here last year. Plan 1. Gather collateral information. 2. Continue with same medications. 3. 15 minute checks. 4. Follow-up with medical treatment. 5. EKG. 6. I offered Shira Lora he agreed on the plan, will follow with the possibility of continuing this treatment in the community. 7. Risperdal increased up to 2 mg p.o. b.i.d. on 10/03 Reason for continued inpatient stay Substantial Risk for: inability to function, rapid decompensation and med/psych decompensation Time Spent With Patient Time: Total time managing care of this patient today _20___ minutes.
[2022-10-08] MEDS: Paliperidone Palmitate 156 MG/ML SYRINGE IM (15:13)
[2022-10-08 18:00] VITALS: BP 128/58; PULSE 68; RESP 16; TEMP 36.3; O2SAT 95
[2022-10-08] MEDS: Mirtazapine 15 MG TABLET PO (20:14)
[2022-10-09 06:00] VITALS: BP 124/58; PULSE 65; RESP 16; TEMP 36.4; O2SAT 95
[2022-10-09 07:39] LABS: MANUAL DIFF FLAG NO
[2022-10-09 08:06] LABS: Basophils Absolute Auto 0.1 X10*3/uL (0.0-0.2); Basophils Percent Auto 0.9 % (0-2); Eosinophils Absolute Auto 0.3 X10*3/uL (0.0-0.4); Eosinophils Percent Auto 5.9 % (0-4); Hematocrit 33.9 % (42.0-52.0); Imm Gran Abs Auto 0.03 X10*3/uL (0.00-0.03); Imm Gran Pct Auto 0.5 % (0.0-0.4); Lymphocytes Absolute Auto 1.6 X10*3/uL (1.2-4.9); Lymphocytes Percent Auto 28.3 % (20-40); Mean Corpuscular HGB Conc 32.4 g/dl (31.0-36.0); Mean Corpuscular Hemoglobin 29.4 pg (27.0-33.0); Mean Corpuscular Volume 90.6 fL (80.0-98.0); Mean Platelet Volume 9.8 fL (9.4-12.4); Monocytes Absolute Auto 0.9 X10*3/uL (0.1-1.2); Monocytes Percent Auto 15.9 % (2-11); Neutrophils Absolute Auto 2.8 x10*3/uL (2.0-8.3); Neutrophils Percent Auto 48.5 % (45-73); Platelet Count 180 X10*3/uL (160-400); Red Blood Count 3.74 X10*6/uL (4.60-5.80); Red Cell Distribution Width 16.2 % (11.0-16.0); White Blood Count 5.8 X10*3/uL (4.8-10.8)
[2022-10-09 08:36] LABS: Estimated Average Glucose 94 mg/dL; Hemoglobin A1c % 4.9 %
[2022-10-09 08:43] LABS: Anion Gap 11 (12-20); Blood Urea Nitrogen 25 mg/dL (9-16); Calcium 9.1 mg/dL (8.4-10.2); Carbon Dioxide 28 mmol/L (22-29); Chloride 106 mmol/L (96-108); Creatinine Clr Calc Pharmacy 89.4; Estimated Glomerular Filt Rate > 60; Glucose Random 82 mg/dL (60-115); Potassium 4.3 mmol/L (3.3-5.1); Sodium 141 mmol/L (135-145)
[2022-10-09] MEDS: hydrOXYzine HCL 25 MG TABLET PO ×3 (08:50→22:55)
[2022-10-09] MEDS: Thiamine HCL 100 MG TABLET PO (08:50)
[2022-10-09] MEDS: Divalproex Sodium 250 MG TABLET.DR 750 MG PO ×2 (08:50→22:51)
[2022-10-09] MEDS: DULoxetine HCl 20 MG CAPSULE.DR PO ×2 (08:50→22:53)
[2022-10-09 08:51] LABS: Valproate 45.9 mcg/mL (50.0-100.0)
[2022-10-09] MEDS: amLODIPine Besylate 5 MG TABLET PO (08:51)
[2022-10-09] MEDS: Folic Acid 1 MG TABLET PO (08:51)
[2022-10-09] MEDS: NaPROXEN 250 MG TABLET PO ×2 (08:51→17:15)
--- NOTE | 2022-10-09 11:28 | P.PNPSI_ITS ---
Subjective Subjective Date of Service: 10/09/22 Reason For Visit: Schizoaffective Subjective Notes: Conditional Voluntary Interim History: The nursing staff reported the patient slept well, he is feeling much better after the Invega shot. Today the occupational therapist did a [place] test and he scored 27/30 and he scored 5.0 on the Richard test. On interview the patient feels much better, we discussed about Invega Sustenna and he was psycho educated on how to use it. He was in agreement of the discharge planning at this moment he is doing much better. Mental Status Exam Mental Status Exam Patient Appearance: Well Grooomed and Appropriate Patient Orientation: Person, Place and Situation Level of Consciousness: Awake and Appropriate Patient Behavior: Appropriate and Cooperative Mood Description: Calm Affect Description: Calm Patient Cognition Impaired: No Ability to Follow Directions: Good Speech Pattern: Clear Hallucinations: None Delusions: Not Present Thought Process: Linear Thought Content: positive for Intact and positive for Circumstantial Judgement: Fair Diagnostics Vital Signs (24Hr): Vital Signs - 24 hr 10/08/22 18:00 10/09/22 06:00 Temperature 97.4 F 97.6 F Pulse Rate 68 65 Respiratory Rate 16 16 Blood Pressure 128/58 L 124/58 L Pulse Oximetry 95 95 Oxygen Delivery Method Room Air Room Air BMI result Body Mass Index 23.1 Labs 10/09/22 07:13 10/09/22 07:13 Labs: Laboratory Results - last 48 hr 10/09/22 10/09/22 10/09/22 07:13 07:13 07:13 WBC 5.8 RBC 3.74 L D Hgb 11.0 L D Hct 33.9 L D MCV 90.6 MCH 29.4 MCHC 32.4 RDW 16.2 H Plt Count 180 MPV 9.8 Immature Gran % (Auto) 0.5 H Neut % (Auto) 48.5 Lymph % (Auto) 28.3 [place] % (Auto) 15.9 H Eos % (Auto) 5.9 H Baso % (Auto) 0.9 Lymph # (Auto) 1.6 [place] # (Auto) 0.9 Eos # (Auto) 0.3 Baso # (Auto) 0.1 Abs Immat Gran (auto) 0.03 Absolute Neuts (auto) 2.8 Absolute Nucleated RBC 0.000 Nucleated RBC % (auto) 0.0 Sodium 141 Potassium 4.3 Chloride 106 Carbon Dioxide 28 Anion Gap 11 L BUN 25 H Creatinine 0.85 Estim Creat Clear Calc 89.4 Estimated GFR > 60 Random Glucose 82 Estimat Average Glucose 94 Hemoglobin A1c % 4.9 Calcium 9.1 Valproic Acid 10/09/22 07:13 WBC RBC Hgb Hct MCV MCH MCHC RDW Plt Count MPV Immature Gran % (Auto) Neut % (Auto) Lymph % (Auto) [place] % (Auto) Eos % (Auto) Baso % (Auto) Lymph # (Auto) [place] # (Auto) Eos # (Auto) Baso # (Auto) Abs Immat Gran (auto) Absolute Neuts (auto) Absolute Nucleated RBC Nucleated RBC % (auto) Sodium Potassium Chloride Carbon Dioxide Anion Gap BUN Creatinine Estim Creat Clear Calc Estimated GFR Random Glucose Estimat Average Glucose Hemoglobin A1c % Calcium Valproic Acid 45.9 L Imaging Radiology Impressions: ITS Impressions Hand X-Ray 10/01/22 16:20 IMPRESSION: No acute fracture. Slight flexion at the PIP joint of the fifth finger and periarticular soft tissue swelling. Question evidence of old trauma. Irregular periosteal or thickening of the proximal phalanx, question related to old trauma versus infection. Clinical correlation recommended. Medications Medications Current Medications Acetaminophen (Acetaminophen 325 Mg Tablet) 650 mg PO Q6H PRN PRN Reason: Headache/Pain Mild Scale (1-3) Last Admin: 10/04/22 15:25 Dose: 650 mg Al Hydroxide/Mg Hydroxide (Magnesium Hydrox/Alum Hydrox 30 Ml Oral.Susp) 30 ml PO Q6H PRN PRN Reason: Heartburn/Nausea Amlodipine Besylate (Amlodipine Besylate 5 Mg Tablet) 5 mg PO DAILY [facility]; Protocol Last Admin: 10/09/22 08:51 Dose: 5 mg Divalproex Sodium (Divalproex Sodium 250 Mg Tablet.) 750 mg PO BID [facility] Last Admin: 10/09/22 08:50 Dose: 750 mg Duloxetine HCl (Duloxetine Hcl 20 Mg Capsule.) 20 mg PO BID [facility] Last Admin: 10/09/22 08:50 Dose: 20 mg Folic Acid (Folic Acid 1 Mg Tablet) 1 mg PO DAILY [facility] Last Admin: 10/09/22 08:51 Dose: 1 mg Hydroxyzine HCl (Hydroxyzine Hcl 25 Mg Tablet) 25 mg PO Q6H PRN PRN Reason: Anxiety Hydroxyzine HCl (Hydroxyzine Hcl 25 Mg Tablet) 25 mg PO TID [facility] Last Admin: 10/09/22 08:50 Dose: 25 mg Magnesium Hydroxide (Milk Of Magnesia 30 Ml Oral.Susp) 30 ml PO DAILY PRN PRN Reason: Constipation Melatonin (Melatonin 3 Mg Tablet) 9 mg PO BEDTIME PRN PRN Reason: Insomnia Last Admin: 10/03/22 20:12 Dose: 9 mg Mirtazapine (Mirtazapine 15 Mg Tablet) 15 mg PO BEDTIME [facility] Last Admin: 10/08/22 20:14 Dose: 15 mg Naproxen (Naproxen 250 Mg Tablet) 250 mg PO BIDWM [facility] Last Admin: 10/09/22 08:51 Dose: 250 mg Nicotine (Nicotine 21 Mg Patch.Td24) 21 mg TRANSDERMA DAILY PRN PRN Reason: smoking cessation Last Admin: 10/03/22 06:19 Dose: 21 mg Nicotine Polacrilex (Nicotine Polacrilex 2 Mg Gum) 4 mg BUCCAL Q2H PRN PRN Reason: nicotine cravings Last Admin: 10/03/22 06:53 Dose: 4 mg Thiamine HCl (Thiamine Hcl 100 Mg Tablet) 100 mg PO DAILY [facility] Last Admin: 10/09/22 08:50 Dose: 100 mg Trazodone HCl (Trazodone Hcl 50 Mg Tablet) 50 mg PO BEDTIME MRX1 PRN PRN Reason: Insomnia Allergies Allergies Allergy/AdvReac Type Severity Reaction Status Date / Time No Known Allergies Allergy Verified 08/26/21 13:36 Assessment & Plan Assessment & Plan (1) Schizoaffective disorder, bipolar type: Status: Acute Code(s): F25.0 - Schizoaffective disorder, bipolar type Plan The patient is an elderly male with a past history of alcohol abuse and 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 The patient is ve ry well known by this team since he was admitted here last year. Plan 1. Gather collateral information. 2. Continue with same medications. 3. 15 minute checks. 4. Follow-up with medical treatment. 5. EKG. 6. I offered Invega Vikasenna he agreed on the plan, will follow with the possibility of continuing this treatment in the community. 7. Risperdal increased up to 2 mg p.o. b.i.d. on 10/03 . We discontinue Risperdal and start Invega Sustenna. Discharge for next Saturday Reason for continued inpatient stay Substantial Risk for: inability to function, rapid decompensation and med/psych decompensation Time Spent With Patient Time: Total time managing care of this patient today __20__ minutes.
[2022-10-09] MEDS: Mirtazapine 15 MG TABLET PO (22:52)
[2022-10-09] MEDS: Melatonin 3 MG TABLET 9 MG PO (22:54)
[2022-10-10 08:59] VITALS: BP 125/65; PULSE 72; RESP 18; TEMP 36; O2SAT 95
[2022-10-10] MEDS: NaPROXEN 250 MG TABLET PO (09:04)
[2022-10-10] MEDS: Thiamine HCL 100 MG TABLET PO (09:04)
[2022-10-10] MEDS: Folic Acid 1 MG TABLET PO (09:05)
[2022-10-10] MEDS: DULoxetine HCl 20 MG CAPSULE.DR PO ×2 (09:05→21:15)
[2022-10-10] MEDS: Divalproex Sodium 250 MG TABLET.DR 750 MG PO ×2 (09:05→21:15)
[2022-10-10] MEDS: amLODIPine Besylate 5 MG TABLET PO (09:05)
[2022-10-10] MEDS: hydrOXYzine HCL 25 MG TABLET PO ×2 (09:06→15:39)
--- NOTE | 2022-10-10 11:34 | P.PNPSI_ITS ---
Subjective Subjective Date of Service: 10/10/22 Reason For Visit: Schizoaffective Subjective Notes: Conditional Voluntary Interim History: The nursing staff reported the patient had been cooperative pleasant, no evidence of susie. The staff has noticed that his thought process is more linear. On interview the patient denies new symptoms, he feels much better with Invega Sustenna. The social media campaign manager reported that his sister called and we explained now that he will be more compliant since he is on a long-acting injectable. We discussed with the patient the discharge plan and he will be discharged on Saturday after he has Invega shot in the morning. Mental Status Exam Mental Status Exam Patient Appearance: Well Grooomed and Appropriate Patient Orientation: Person and Situation Level of Consciousness: Awake and Appropriate Patient Behavior: Guarded and Passive Mood Description: Withdrawn Affect Description: Constricted Patient Cognition Impaired: Yes Ability to Follow Directions: Good Speech Pattern: Clear Hallucinations: None Delusions: Not Present Thought Process: Distracted and Evasive Thought Content: positive for [place] and positive for Circumstantial Judgement: Fair Diagnostics Vital Signs (24Hr): Vital Signs - 24 hr 10/10/22 08:59 Temperature 96.8 F Pulse Rate 72 Respiratory Rate 18 Blood Pressure 125/65 Pulse Oximetry 95 Oxygen Delivery Method Room Air BMI result Body Mass Index 23.1 Labs 10/09/22 07:13 10/09/22 07:13 Labs: Laboratory Results - last 48 hr 10/09/22 10/09/22 10/09/22 07:13 07:13 07:13 WBC 5.8 RBC 3.74 L D Hgb 11.0 L D Hct 33.9 L D MCV 90.6 MCH 29.4 MCHC 32.4 RDW 16.2 H Plt Count 180 MPV 9.8 Immature Gran % (Auto) 0.5 H Neut % (Auto) 48.5 Lymph % (Auto) 28.3 [place] % (Auto) 15.9 H Eos % (Auto) 5.9 H Baso % (Auto) 0.9 Lymph # (Auto) 1.6 [place] # (Auto) 0.9 Eos # (Auto) 0.3 Baso # (Auto) 0.1 Abs Immat Gran (auto) 0.03 Absolute Neuts (auto) 2.8 Absolute Nucleated RBC 0.000 Nucleated RBC % (auto) 0.0 Sodium 141 Potassium 4.3 Chloride 106 Carbon Dioxide 28 Anion Gap 11 L BUN 25 H Creatinine 0.85 Estim Creat Clear Calc 89.4 Estimated GFR > 60 Random Glucose 82 Estimat Average Glucose 94 Hemoglobin A1c % 4.9 Calcium 9.1 Valproic Acid 10/09/22 07:13 WBC RBC Hgb Hct MCV MCH MCHC RDW Plt Count MPV Immature Gran % (Auto) Neut % (Auto) Lymph % (Auto) [place] % (Auto) Eos % (Auto) Baso % (Auto) Lymph # (Auto) [place] # (Auto) Eos # (Auto) Baso # (Auto) Abs Immat Gran (auto) Absolute Neuts (auto) Absolute Nucleated RBC Nucleated RBC % (auto) Sodium Potassium Chloride Carbon Dioxide Anion Gap BUN Creatinine Estim Creat Clear Calc Estimated GFR Random Glucose Estimat Average Glucose Hemoglobin A1c % Calcium Valproic Acid 45.9 L Imaging Radiology Impressions: ITS Impressions Hand X-Ray 10/01/22 16:20 IMPRESSION: No acute fracture. Slight flexion at the PIP joint of the fifth finger and periarticular soft tissue swelling. Question evidence of old trauma. Irregular periosteal or thickening of the proximal phalanx, question related to old trauma versus infection. Clinical correlation recommended. Medications Medications Current Medications Acetaminophen (Acetaminophen 325 Mg Tablet) 650 mg PO Q6H PRN PRN Reason: Headache/Pain Mild Scale (1-3) Last Admin: 10/04/22 15:25 Dose: 650 mg Al Hydroxide/Mg Hydroxide (Magnesium Hydrox/Alum Hydrox 30 Ml Oral.Susp) 30 ml PO Q6H PRN PRN Reason: Heartburn/Nausea Amlodipine Besylate (Amlodipine Besylate 5 Mg Tablet) 5 mg PO DAILY [facility]; [facility] col Last Admin: 10/10/22 09:05 Dose: 5 mg Divalproex Sodium (Divalproex Sodium 250 Mg Tablet.) 750 mg PO BID [facility] Last Admin: 10/10/22 09:05 Dose: 750 mg Duloxetine HCl (Duloxetine Hcl 20 Mg Capsule.) 20 mg PO BID [facility] Last Admin: 10/10/22 09:05 Dose: 20 mg Folic Acid (Folic Acid 1 Mg Tablet) 1 mg PO DAILY [facility] Last Admin: 10/10/22 09:05 Dose: 1 mg Hydroxyzine HCl (Hydroxyzine Hcl 25 Mg Tablet) 25 mg PO Q6H PRN PRN Reason: Anxiety Hydroxyzine HCl (Hydroxyzine Hcl 25 Mg Tablet) 25 mg PO TID [facility] Last Admin: 10/10/22 09:06 Dose: 25 mg Magnesium Hydroxide (Milk Of Magnesia 30 Ml Oral.Susp) 30 ml PO DAILY PRN PRN Reason: Constipation Melatonin (Melatonin 3 Mg Tablet) 9 mg PO BEDTIME PRN PRN Reason: Insomnia Last Admin: 10/09/22 22:54 Dose: 9 mg Mirtazapine (Mirtazapine 15 Mg Tablet) 15 mg PO BEDTIME [facility] Last Admin: 10/09/22 22:52 Dose: 15 mg Naproxen (Naproxen 250 Mg Tablet) 250 mg PO BIDWM [facility] Last Admin: 10/10/22 09:04 Dose: 250 mg Nicotine (Nicotine 21 Mg Patch.Td24) 21 mg TRANSDERMA DAILY PRN PRN Reason: smoking cessation Last Admin: 10/03/22 06:19 Dose: 21 mg Nicotine Polacrilex (Nicotine Polacrilex 2 Mg Gum) 4 mg BUCCAL Q2H PRN PRN Reason: nicotine cravings Last Admin: 10/03/22 06:53 Dose: 4 mg Thiamine HCl (Thiamine Hcl 100 Mg Tablet) 100 mg PO DAILY [facility] Last Admin: 10/10/22 09:04 Dose: 100 mg Trazodone HCl (Trazodone Hcl 50 Mg Tablet) 50 mg PO BEDTIME MRX1 PRN PRN Reason: Insomnia Allergies Allergies Allergy/AdvReac Type Severity Reaction Status Date / Time No Known Allergies Allergy Verified 08/26/21 13:36 Assessment & Plan Assessment & Plan (1) Schizoaffective disorder, bipolar type: Status: Acute Code(s): F25.0 - Schizoaffective disorder, bipolar type Plan The patient is an elderly male with a past history of alcohol abuse and 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 The patient is very well known by this team since he was admitted here last year. Plan 1. Gather collateral information. 2. Continue with same medications. 3. 15 minute checks. 4. Follow-up with medical treatment. 5. EKG. 6. I offered Invega Sustenna he agreed on the plan, will follow with the possibility of continuing this treatment in the community. 7. Risperdal increased up to 2 mg p.o. b.i.d. on 10/03 . We discontinue Risperdal and start Invega Sustenna. Discharge for next Saturday Reason for continued inpatient stay Substantial Risk for: inability to function, rapid decompensation and med/psych decompensation Time Spent With Patient Time: Total time managing care of this patient today __20__ minutes.
[2022-10-10 18:00] VITALS: BP 143/63; PULSE 82; RESP 16; TEMP 36.3; O2SAT 97
[2022-10-10] MEDS: Melatonin 3 MG TABLET 9 MG PO (21:16)
[2022-10-10] MEDS: Mirtazapine 15 MG TABLET PO (21:16)
[2022-10-11 07:00] VITALS: BMI 23.2
[2022-10-11 08:30] VITALS: BP 149/72; PULSE 69; RESP 18; TEMP 36.4; O2SAT 98
[2022-10-11] MEDS: Divalproex Sodium 250 MG TABLET.DR 750 MG PO ×2 (08:49→21:23)
[2022-10-11] MEDS: amLODIPine Besylate 5 MG TABLET PO (08:50)
[2022-10-11] MEDS: DULoxetine HCl 20 MG CAPSULE.DR PO ×2 (08:51→21:24)
[2022-10-11] MEDS: Thiamine HCL 100 MG TABLET PO (08:51)
[2022-10-11] MEDS: Folic Acid 1 MG TABLET PO (08:51)
--- NOTE | 2022-10-11 14:29 | P.PNPSI_ITS ---
Subjective Subjective Date of Service: 10/11/22 Reason For Visit: Schizoaffective Subjective Notes: Conditional Voluntary Interim History: The nursing staff reported the patient had been pleasant and cooperative, he slept all night and he has been very clear. The staff has noticed that there is no thought process disorganization at all that he was seen at the beginning. On interview the patient is excited that he can be discharged tomorrow and he is willing to continue having long-acting injectables to assure compliance and stability. Mental Status Exam Mental Status Exam Patient Appearance: Well Grooomed and Appropriate Patient Orientation: Person and Situation Level of Consciousness: Awake and Appropriate Patient Behavior: Guarded and Passive Mood Description: Withdrawn Affect Description: Constricted Patient Cognition Impaired: Yes Ability to Follow Directions: Good Speech Pattern: Clear Hallucinations: None Delusions: Paranoid Ideation Thought Process: Distracted and Linear Thought Content: positive for Intact Judgement: Fair Diagnostics Vital Signs (24Hr): Vital Signs - 24 hr 10/10/22 18:00 10/11/22 08:30 Temperature 97.4 F 97.5 F Pulse Rate 82 69 Respiratory Rate 16 18 Blood Pressure 143/63 H 149/72 H Pulse Oximetry 97 98 Oxygen Delivery Method Room Air Room Air BMI result Body Mass Index 23.2 Labs 10/09/22 07:13 10/09/22 07:13 Imaging Radiology Impressions: ITS Impressions Hand X-Ray 10/01/22 16:20 IMPRESSION: No acute fracture. Slight flexion at the PIP joint of the fifth finger and periarticular soft tissue swelling. Question evidence of old trauma. Irregular periosteal or thickening of the proximal phalanx, question related to old trauma versus infection. Clinical correlation recommended. Medications Medications Current Medications Acetaminophen (Acetaminophen 325 Mg Tablet) 650 mg PO Q6H PRN PRN Reason: Headache/Pain Mild Scale (1-3) Last Admin: 10/04/22 15:25 Dose: 650 mg Al Hydroxide/Mg Hydroxide (Magnesium Hydrox/Alum Hydrox 30 Ml Oral.Susp) 30 ml PO Q6H PRN PRN Reason: Heartburn/Nausea Amlodipine Besylate (Amlodipine Besylate 5 Mg Tablet) 5 mg PO DAILY [facility]; Protocol Last Admin: 10/11/22 08:50 Dose: 5 mg Divalproex Sodium (Divalproex Sodium 250 Mg Tablet.) 750 mg PO BID [facility] Last Admin: 10/11/22 08:49 Dose: 750 mg Duloxetine HCl (Duloxetine Hcl 20 Mg Capsule.Dr) 20 mg PO BID [facility] Last Admin: 10/11/22 08:51 Dose: 20 mg Folic Acid (Folic Acid 1 Mg Tablet) 1 mg PO DAILY [facility] Last Admin: 10/11/22 08:51 Dose: 1 mg Hydroxyzine HCl (Hydroxyzine Hcl 25 Mg Tablet) 25 mg PO Q6H PRN PRN Reason: Anxiety Hydroxyzine HCl (Hydroxyzine Hcl 25 Mg Tablet) 25 mg PO TID [facility] Last Admin: 10/11/22 08:51 Dose: Not Given Magnesium Hydroxide (Milk Of Magnesia 30 Ml Oral.Susp) 30 ml PO DAILY PRN PRN Reason: Constipation Melatonin (Melatonin 3 Mg Tablet) 9 mg PO BEDTIME PRN PRN Reason: Insomnia Last Admin: 10/10/22 21:16 Dose: 3 mg Mirtazapine (Mirtazapine 15 Mg Tablet) 15 mg PO BEDTIME [facility] Last Admin: 10/10/22 21:16 Dose: 15 mg Naproxen (Naproxen 250 Mg Tablet) 250 mg PO BIDWM [facility] Last Admin: 10/11/22 08:52 Dose: Not Given Nicotine (Nicotine 21 Mg Patch.Td24) 21 mg TRANSDERMA DAILY PRN PRN Reason: smoking cessation Last Admin: 10/03/22 06:19 Dose: 21 mg Nicotine Polacrilex (Nicotine Polacrilex 2 Mg Gum) 4 mg BUCCAL Q2H PRN PRN Reason: nicotine cravings Last Admin: 10/03/22 06:53 Dose: 4 mg Thiamine HCl (Thiamine Hcl 100 Mg Tablet) 100 mg PO DAILY [facility] Last Admin: 10/11/22 08:51 Dose: 100 mg Trazodone HCl (Trazodone Hcl 50 Mg Tablet) 50 mg PO BEDTIME MRX1 PRN PRN Reason: Insomnia Allergies Allergies Allergy/AdvReac Type Severity Reaction Status Date / Time No Known Allergies Allergy Verified 08/26/21 13:36 Assessment & Plan Assessment & Plan (1) Schizoaffective disorder, bipolar type: Status: Acute Code(s): F25.0 - Schizoaffective disorder, bipolar type Plan The patient is an elderly male with a past history of alcohol abuse and 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 The patient is very well known by this team since he was admitted here last year. Plan 1. Gather collateral information. 2. Continue with same medications. 3. 15 minute checks. 4. Follow-up with medical treatment. 5. EKG. 6. I offered Invega Sustenna he agreed on the plan, will follow with the possibility of continuing this treatment in the community. 7. Risperdal increased up to 2 mg p.o. b.i.d. on 10/03 . We discontinue Risperdal and start Invega Sustenna. Discharge for next Saturday Reason for continued inpatient stay Substantial Risk for: inability to function, rapid decompensation and med/psych decompensation Time Spent With Patient Time: Total time managing care of this patient today __20__ minutes.
[2022-10-11 18:00] VITALS: BP 115/59; PULSE 66; RESP 16; TEMP 36.5; O2SAT 97
[2022-10-12 08:00] VITALS: BP 113/59; PULSE 72; RESP 18; TEMP 36.4; O2SAT 98
--- NOTE | 2022-10-12 08:12 | P.DS_ITS ---
DS: Providers Provider Date of Service: 10/12/22 Date of admission: 10/01/22 14:22 Date of discharge: 10/12/22 Primary care physician: Unknown Physician Consults: 10/01/22 14:29 Consult to Hospitalist Routine Comment: Consulting Provider: Hospitalist Reason For Exam: Direct admission Attending physician on discharge: Miguel Chin DS: Diagnosis Discharge Diagnosis (1) Schizoaffective disorder, bipolar type: Status: Acute DS: Medications Discharge Medications Home Medications: Home Medications Medication Instructions Recorded Confirmed amlodipine 5 mg tablet 5 mg PO DAILY 10/01/22 10/01/22 divalproex 250 mg tablet,delayed 750 mg PO BID depressive disorder 10/01/22 10/01/22 release duloxetine 20 mg capsule,delayed 20 mg PO BID 10/01/22 10/01/22 release hydroxyzine HCl 25 mg tablet 25 mg PO TID 10/01/22 10/01/22 melatonin 3 mg capsule 9 mg PO BEDTIME PRN Insomnia 10/01/22 10/01/22 mirtazapine 15 mg tablet 15 mg PO BEDTIME 10/01/22 10/01/22 naproxen 250 mg tablet 250 mg PO BID 10/01/22 10/01/22 risperidone 0.25 mg tablet 0.25 mg PO BEDTIME 10/01/22 10/01/22 risperidone 0.5 mg tablet 0.5 mg PO BID psychosis 10/01/22 10/01/22 thiamine HCl (vitamin B1) 100 mg 100 mg PO DAILY 10/01/22 10/01/22 tablet Previous Rx's Medication Instructions Recorded folic acid 1 mg tablet 1 mg PO DAILY 30 days #30 tabs 09/28/21 Mental Status Exam Mental Status Exam Patient Appearance: Well Grooomed and Appropriate Patient Orientation: Person, Place and Situation Level of Consciousness: Awake and Appropriate Patient Behavior: Appropriate and Cooperative Mood Description: Calm Affect Description: Constricted Patient Cognition Impaired: No Ability to Follow Directions: Good Speech Pattern: Clear Hallucinations: None Delusions: Not Present Thought Process: Goal Oriented and Linear Thought Content: positive for Circumstantial Judgement: Fair Data Data Completed and Pending Completed studies during hospitalization [Text1]: 10/09/22 10/09/22 10/09/22 07:13 07:13 07:13 WBC 5.8 RBC 3.74 L D Hgb 11.0 L D Hct 33.9 L D MCV 90.6 MCH 29.4 MCHC 32.4 RDW 16.2 H Plt Count 180 MPV 9.8 Immature Gran % (Auto) 0.5 H Neut % (Auto) 48.5 Lymph % (Auto) 28.3 [place] % (Auto) 15.9 H Eos % (Auto) 5.9 H Baso % (Auto) 0.9 Lymph # (Auto) 1.6 [place] # (Auto) 0.9 Eos # (Auto) 0.3 Baso # (Auto) 0.1 Abs Immat Gran (auto) 0.03 Absolute Neuts (auto) 2.8 Absolute Nucleated RBC 0.000 Nucleated RBC % (auto) 0.0 Sodium 141 Potassium 4.3 Chloride 106 Carbon Dioxide 28 Anion Gap 11 L BUN 25 H Creatinine 0.85 Estim Creat Clear Calc 89.4 Estimated GFR > 60 Random Glucose 82 Estimat Average Glucose 94 Hemoglobin A1c % 4.9 Calcium 9.1 Valproic Acid 10/09/22 07:13 WBC RBC Hgb Hct MCV MCH MCHC RDW Plt Count MPV Immature Gran % (Auto) Neut % (Auto) Lymph % (Auto) [place] % (Auto) Eos % (Auto) Baso % (Auto) Lymph # (Auto) [place] # (Auto) Eos # (Auto) Baso # (Auto) Abs Immat Gran (auto) Absolute Neuts (auto) Absolute Nucleated RBC Nucleated RBC % (auto) Sodium Potassium Chloride Carbon Dioxide Anion Gap BUN Creatinine Estim Creat Clear Calc Estimated GFR Random Glucose Estimat Average Glucose Hemoglobin A1c % Calcium Valproic Acid 45.9 L Imaging Diagnostic Imaging Impressions Hand X-Ray 10/01/22 16:20 IMPRESSION: No acute fracture. Slight flexion at the PIP joint of the fifth finger and periarticular soft tissue swelling. Question evidence of old trauma. Irregular periosteal or thickening of the proximal phalanx, question related to old trauma versus infection. Clinical correlation recommended. DS: Summary Hospital Course Hospital Course: The patient is a 67-year-old male with a diagnosis of schizoaffective disorder bipolar type, very well known by this team since we admitted last year with a similar presentation. The patient was initially brought to another emergency room from a local hospital with disorganized thought process, word salad and agitation he needed to be medicated IM. The patient was transferring to this facility for continuation of care. On interview, the patient was severely disorganized with disorganized behavior, word salad, loose of associations but redirectable and compliant with treatment. The patient is very well known by this prescriber since I treated him last year and I have tried in the past several antipsychotics but he responds very well to Risperdal. He was started on Risperdal titrated up to 2 mg p.o. b.i.d. and in less than 5 days he was logical, goal oriented with no evidence of manic symptoms or psychosis. The patient has a prior history of alcohol use disorder and previously we did a full workout to rule out Wernicke-Korsakoff syndrome and it came back negative in the last admission. At this moment, alcohol use disorder is in early remission. He refused naltrexone or other medications to prevent relapses. His sister who lives out of the state contacted as and stated that the patient had been admitted several times in the last months due to noncompliance. She even explored the possibility of long-term placement. The occupational therapist did a Morrison test and he scored 27/30 and his Richard test was 5.0. That means that the patient can not live independently. I explored with the patient several treatment options and he agreed to change Risperdal to Invega Sustenna. The patient received 1st injection of Invega Sustenna 156 and later on Invega Sustenna 117 and he is willing to continue treatment. We did coordination of care and his VNA come put injection monthly. Since there were no safety concerns discharge planning was discussed. Time spent discussing smoking cessation with patient: 3 to 10 minutes Status at Discharge Cognitive/behavioral status at discharge: Stable at baseline Functional status at discharge: independent ambulation Overall status at discharge: patient is back to baseline Time Spent with Patient Time attestation: Total time managing care of this patient today __30__ minutes. Time spent: Less than 30 minutes Discharge Plan Discharge Anticipated Discharge Date/Time: 10/12/22 13:00 Patient Disposition: Home, Self-Care Discharge Diagnosis: Schizoaffective disorder bipolar type Alcohol use disorder in remission Referrals: Dr. Andrez Lauren - [facility] [Other] - 11/07/22 12:45 pm (Appointment scheduled for: 11/07/2022 @ 12:45 --- Telehealth (by phone) ) [facility] [Other] - 1 Week (Please Note: [facility] - is the [facility]NA [facility] will dispense all medication, including giving Invega injection on the scheduled date. All medication will be sent to: [facility] [address], [place] [address]) Srinath Hendrix MD - PCP [Other] - 12/27/22 10:00 am (Patient will be a new patient to this Doctor. Appointment is in-person. ) Physician,Unknown J [Primary Care Provider] - 1 Week Discharge Medications: New acetaminophen 325 mg Tablet 650 mg PO Q6H PRN (Reason: Headache/Pain Mild Scale (1-3)) 30 Days Qty: 60 0RF Invega Sustenna 117 mg/0.75 mL syringe 117 mg IM Q30D Qty: 0.75 2RF Rx Instructions: Next dose on 11/11/2022 Continued divalproex 250 mg tablet,delayed release (DR/EC) 750 mg PO BID 30 Days Qty: 180 0RF naproxen 250 mg tablet 250 mg PO BID 30 Days Qty: 60 0RF thiamine HCl (vitamin B1) 100 mg tablet 100 mg PO DAILY Qty: 30 0RF amlodipine 5 mg tablet 5 mg PO DAILY 30 Days Qty: 30 0RF folic acid 1 mg Tablet 1 mg PO DAILY 30 Days Qty: 30 0RF hydroxyzine HCl 25 mg tablet 25 mg PO TID 30 Days Qty: 90 0RF mirtazapine 15 mg tablet 15 mg PO BEDTIME 30 Days Qty: 30 0RF duloxetine 20 mg capsule,delayed release(DR/EC) 20 mg PO BID 30 Days Qty: 60 0RF melatonin 3 mg Capsule 9 mg PO BEDTIME PRN (Reason: Insomnia) Qty: 90 0RF Discontinued risperidone 0.25 mg tablet 0.25 mg PO BEDTIME risperidone 0.5 mg tablet 0.5 mg PO BID Discharge Orders: Discharge Order (Routine); Ordered 10/12/22 Ordered By: Miguel Chin Diet: Advance to usual diet Activity on Discharge: As tolerated Stand Alone Forms: Patient Portal Discharge page Care Plan Goals: Care plan goals achieved in this admission Health Concerns: Continue treatment with primary care physician Plan of Treatment: Continue with psychiatric outpatient providers, now on Invega Sustenna 117 once a month last dose October 12 Assessment: Elderly male with a long history of schizoaffective disorder bipolar type and alcohol use disorder in early remission admitted for exacerbation of psychosis in the context of noncompliance. The patient at this moment is back at baseline no evidence of cognitive impairment or safety concerns. He agreed to take Invega Sustenna once a month target mood lability and psychosis.
[2022-10-12] MEDS: Thiamine HCL 100 MG TABLET PO (08:43)
[2022-10-12] MEDS: amLODIPine Besylate 5 MG TABLET PO (08:43)
[2022-10-12] MEDS: Folic Acid 1 MG TABLET PO (08:43)
[2022-10-12] MEDS: Divalproex Sodium 250 MG TABLET.DR 750 MG PO (08:43)
[2022-10-12] MEDS: DULoxetine HCl 20 MG CAPSULE.DR PO (08:43)
[2022-10-12] MEDS: Paliperidone Palmitate 156 MG/ML SYRINGE IM (10:05)
== END 2022-10-12 13:55 | disposition home or self-care (01) | DRG 885 ==
PROVIDERS: Admitting Provider Psychiatry & Neurology Psychiatry; Visit Provider Psychiatry & Neurology Psychiatry
DX: F25.0 Schizoaffective disorder, bipolar type (principal); F17.210 Nicotine dependence, cigarettes, uncomplicated; Z71.6 Tobacco abuse counseling; F10.11 Alcohol abuse, in remission; Z91.148 Patient's other noncompliance with medication regimen for other reason; Z79.899 Other long term (current) drug therapy
CPT/HCPCS: 36415; 73120; 80048; 80053; 80061; 80164; 83036; 85025; 93005; J2426

== ENCOUNTER 2023-01-17 18:57 | Inpatient (IN) | payer MEDICARE, SELFPAY ==
[2023-01-17 20:05] VITALS: BP 175/79; PULSE 68; RESP 18; TEMP 36.5; O2SAT 100
[2023-01-17 22:46] VITALS: BMI 20.4
--- NOTE | 2023-01-18 00:15 | PC.ADMIT ---
Patient arrived at [facility] to [facility] by EMS. CV signed before entry. Patient is manic, speaking non sensical, thought process disorganized. He appears slightly dishoveled and came in with 4 bags of clothes and a milk crate of belongings. He states he recently lost his home and his car and has been staying at a [facility] as well as [facility] for a night. History of ETOH but not alchohol level this admit, marijuana in belongings. Patient reports smoking 2 1/2 packs of cigarellos a day. Nicotine replacement addressed with patient. He can only give pieces of information between jibberish. He is speaking like petar mouse currently. He is well known to this Hospital. Could not get accurate med reconcilliation because his pharmacy was closed. He did get Ativan and trazadone to help with current state. An hour after patient took the meds he went to bed and has been quiet. He is independent in ADL's, healing wound between thumb and pointer finger from what looks like a popped blister. His contact is his sister Raysa. Unknown medical/ personal history. Will continue to monitor sleep pattern overnight and report off to the team in the morning.
[2023-01-18 06:00] VITALS: BP 130/58; PULSE 69; RESP 19; TEMP 36.6; O2SAT 97
--- NOTE | 2023-01-18 09:01 | HO.PSYADMNOT ---
HPI Date of Service: 01/18/23 Chief Complaint: Schizoaffective d/o, bipolar type Sources of Information: patient interviewed, chart reviewed and crisis/core team assessment reviewed HPI Subjective Notes: Tron[place]soo Warning (given and shows understanding) and Conditional Voluntary Narrative: Mr. Durant is a 67 year-old male with hx of Bipolar Disorder and alcohol use disorder who brought to [facility] after he was found wondering [facility], pulled over by police, non sensical and cover in urine and stool. In the ED, his utox was negative. BAL negative. Pt in ED described as disorganized, taking about God, preoccupied with safety of food. On the unit, pt appears not oriented to situation. He does know this is [facility] but lacks insight into events leading to this admission. Pt reports I am here because God brought me here. He reports he is able to change the weather with his mind. He reports eating only certain food as he worries about whether is healthy or not. He denies SI/HI. He does know the year and the month. He reports he was evicted from his apartment. He does not know why. 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 He appears internally preoccupied. He is guarded and suspicious but not aggressive. He is not able to have a coherent conversation due to severe disorganization and poor attention. He reports he does not have outpatient providers. He states he was given AGUAYO injection but could not find RN to give it to him. 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 However, unable to sustain employment due to his alcohol use. -Reports he resides [place], reports recently evicted -, for nine years, has two children. Estranged from family. Says he has a guru. Substance History: alcohol use- unclear amount and last use Trauma History: Unknown Diagnostics Vital Signs (24Hr): Vital Signs - 24 hr 01/17/23 20:05 01/18/23 06:00 Temperature 97.7 F 97.9 F Pulse Rate 68 69 Respiratory Rate 18 19 Blood Pressure 175/79 H 130/58 L Pulse Oximetry 100 97 Oxygen Delivery Method Room Air Room Air BMI result Body Mass Index 20.4 Meds/Allergies Meds Home Medications Medication Instructions Recorded Confirmed Type Vitamin B Complex-100 mg PO 1XD 01/18/23 History chlorpromazine 10 mg tablet 10 mg PO QID PRN Anxiety 01/18/23 01/18/23 History folic acid 1 mg tablet 1 mg PO DAILY 01/18/23 01/18/23 History hydroxyzine HCl 25 mg tablet 25 mg PO TID PRN anxiety 01/18/23 01/18/23 History paliperidone palmitate 117 mg/0.75 mg IM 01/18/23 History mL intramuscular syringe (Invega Sustenna) Allergies Allergies Allergy/AdvReac Type Severity Reaction Status Date / Time No Known Allergies Allergy Verified 08/26/21 13:36 Mental Status Exam Mental Status Exam Narrative: Appearance:disheveled, thin, malnourished, poor hygiene, in NAD behavior:guarded and suspicious Psychomotor:no agitation or retardation noted Speech:mostly clear, regular rate/verbose not pressured, spontaneous TP:disorganized, flight of ideas TC:not sure why he is here but not bothered by fact of being here, preoccupied with presybeterian themes and quality of food Mood: fine Affect:expansive SI:denies HI:denies VH/AH:appears internally preoccupied Delusions:presybeterian, some grandiose ideas ( I can change the weather with my mind ) Insight/judgment:impaired x 2. memory/cog: alert, oriented x 3. Not oriented to situation, very poor attention Assessment & Plan Assessment & Plan (1) Bipolar affective, manic: Status: Acute Code(s): F31.10 - Bipolar disorder, current episode manic without psychotic features, unspecified (2) Alcohol use disorder, moderate, dependence: Status: Acute Code(s): F10.20 - Alcohol dependence, uncomplicated Plan Mr. 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 IN the ED utox was negative. BAL was negative. Pt continues to present with disorganized thought process and some flight of ideas that makes it difficult to follow any coherent train of thought. He presents with themes of grandiosity and presybeterian ideas. Reviewed records, it appears he does respond well to risperidone. 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 Continue CIWA q4, prn ativan. Start risperidone 1mg po BID PLAN 1. Admit to S1, 15 minutes checks for safety 2. continue CIWA, VS stable so far SBP<150, HR<100. continue thiamine, folic acid 3. Start risperidone 1mg po BID 4. obtain collateral information 5. Aftercare planning Patient educated on: diagnosis, medication risk/benefits and substance abuse Informed Consent: understands Reason for continued inpatient stay Substantial Risk for: inability to function Statement Statement: I have reviewed the history and physical and performed a pertinent examination on my patient. No changes have occurred unless specified. If the History and Physical was not performed prior to admission, the Hospitalist's service will be consulted for completing the admission physical. Time Spent With Patient Time: Total time managing care of this patient today ____ minutes.
--- NOTE | 2023-01-18 11:35 | HO.PM.IMCN ---
History of Present Illness Data of Consult Service Date: 01/18/23 Requesting physician: Ford Wilson Primary Care Provider: Unknown Physician HPI Reason for consult: medical H&P 67 year old male with history of schizoaffective disorder and alcohol use disorder admitted to psychiatry with consult placed to hospitalist service for medical H&P. Unfortunately, patient is unavailable for examination at the time. [facility] records reviewed and VSS in ED. Head Ct negative. He has a normocytic anemia with H/H 11/33.9%. Chemistries WNL. EKG NSR, rate 75, no AYAD or depression. No acute medical issues. Review of Systems Review of Systems: Yes Other (pt unavailable) [facility] Medical History Sinus bradycardia Alcohol use with alcohol-induced disorder Schizoaffective disorder, bipolar type Social History Household Members: None Household Members Other:: patient is currently homeless Housing: Homeless Do you presently have visiting nurse or other home services: Yes (NURSING. LAUNDRY SERVICES REQUESTED) Unable to assess alcohol history related to: Refusing to respond Alcohol intake: unknown Patient Tobacco Use Status: Current everyday Tobacco user Tobacco use type: Cigarette Cigarette Packs Per Day: 2.5 Cigarettes Per Day: 50.0 Years Smoked: Unknown; pt unable to participate due to mental status. Smoked in Last 30 Days: Yes e-Cigarette/Vaping Use: Never Used Patient Interested in Nicotine Replacement: Yes Patient Given Instructions on How to Stop Smoking: Yes Date Education Initiated: 01/17/23 Second Hand Smoke Exposure: No Use of substances other than those prescribed or required for medical reasons: Refusing to respond Substance Use Type: Caffiene Last Used Substance: Unknown Currently Displaying Signs/Symptoms of Drug Intoxication Withdrawal: No Have you been hit, kicked, punched, or otherwise hurt by someone within the past year? If so, by whom?: No Do you feel safe in your current relationship?: No Current Relationship Is there a partner from a previous relationship who is making you feel unsafe now?: No Are you made to feel afraid or neglected: No Spiritual Healthcare Practices: patient is unable to answer currently Advance Directives: No Advance Directives Information Provided: No Advance Directives on File: Yes Advance Directives Date on File: 08/27/21 Do you have thoughts of harming others: None Do you have a plan to hurt others: No Plan Recently lost weight without trying: No Nutrition Risks: No Nutritional Risk Poor oral hygiene: No service: No Sexual orientation: Straight/Heterosexual Meds Allergies Allergy/AdvReac Type Severity Reaction Status Date / Time No Known Allergies Allergy Verified 08/26/21 13:36 Active Medications: Current Medications Acetaminophen (Acetaminophen 325 Mg Tablet) 650 mg PO Q6H PRN PRN Reason: Headache/Pain Mild Scale (1-3) Last Admin: 01/17/23 22:42 Dose: 650 mg Al Hydroxide/Mg Hydroxide (Magnesium Hydrox/Alum Hydrox 30 Ml Oral.Susp) 30 ml PO Q6H PRN PRN Reason: Heartburn/Nausea Folic Acid (Folic Acid 1 Mg Tablet) 1 mg PO DAILY [facility] Last Admin: 01/18/23 07:40 Dose: 1 mg Lorazepam (Lorazepam 1 Mg Tablet) 1 mg PO Q2H PRN PRN Reason: CIWA 6-10 Last Admin: 01/17/23 22:05 Dose: 1 mg Lorazepam (Lorazepam 1 Mg Tablet) 2 mg PO Q2H PRN PRN Reason: CIWA 11 and above Magnesium Hydroxide (Milk Of Magnesia 30 Ml Oral.Susp) 30 ml PO DAILY PRN PRN Reason: Constipation Multivitamins/Vitamin C (Multivitamin Tablet) 1 tab PO DAILY [facility] Last Admin: 01/18/23 07:40 Dose: 1 tab Nicotine Polacrilex (Nicotine Polacrilex 2 Mg Gum) 4 mg BUCCAL Q2H PRN PRN Reason: Nicotine Cravings Olanzapine (Olanzapine 5 Mg Tablet) 5 mg PO TID PRN PRN Reason: agitation Thiamine HCl (Thiamine Hcl 100 Mg Tablet) 100 mg PO DAILY [facility] Last Admin: 01/18/23 07:40 Dose: 100 mg Trazodone HCl (Trazodone Hcl 50 Mg Tablet) 50 mg PO BEDTIME MRX1 PRN PRN Reason: Insomnia Last Admin: 01/17/23 22:43 Dose: 50 mg Home Medications Medication Instructions Recorded Confirmed Last Taken Type Vitamin B Complex-100 mg PO 1XD 01/18/23 Unknown History chlorpromazine 10 mg tablet 10 mg PO QID PRN Anxiety 01/18/23 01/18/23 Unknown History folic acid 1 mg tablet 1 mg PO DAILY 01/18/23 01/18/23 Unknown History hydroxyzine HCl 25 mg tablet 25 mg PO TID PRN anxiety 01/18/23 01/18/23 Unknown History paliperidone palmitate 117 mg/0.75 mg IM 01/18/23 Unknown History mL intramuscular syringe (Invega Sustenna) Physical Exam Vital Signs and Narrative: Vital Signs: Last Vital Signs Temp 97.9 F 01/18/23 06:00 Pulse 69 01/18/23 06:00 Resp 19 01/18/23 06:00 BP 130/58 L 01/18/23 06:00 Pulse Ox 97 01/18/23 06:00 O2 Del Method Room Air 01/18/23 06:00 BMI result Body Mass Index 20.4 pt unavailable for exam Results Labs Labs: Laboratory Results - last 24 hr 01/18/23 08:47 Estimat Average Glucose 100 Hemoglobin A1c % 5.1 Triglycerides 84 Cholesterol 125 LDL Cholesterol, Calc 61 HDL Cholesterol 48 Assessment and Plan (1) Routine medical exam: Status: Acute Plan 67 year old male with history of schizoaffective disorder and alcohol use disorder admitted to psychiatry with consult placed to hospitalist service for medical H&P. #Schizoaffective disorder -plan per psychiatry #Alcohol use disorder -ethyl alcohol level undetectale in ED -plan per psychiatry No acute medical issues noted. Unfortunately pt available for exam. [facility] records reviewed. Thank you for allowing me to participate in this consult. Signing off at this time. Please do not hesitate to call for further questions or for any acute medical issues. Time Spent With Patient Time: Total time managing care of this patient today ____ minutes.
[2023-01-18 12:22] VITALS: BMI 20.4
[2023-01-18 12:27] VITALS: BP 138/63; PULSE 76
--- NOTE | 2023-01-18 12:43 | MHC.CLN ---
NUTRITION DIET=REGULAR. ADDING ENSURE MAX TID TO INCREASE NUTRITIONAL INTAKE. PROVIDES 450 KCALS, 90 G PROTEIN. SIGNIFICANT WEIGHT LOSS X 4 MONTHS, LIKELY DUE TO SOCIAL, BEHAVIORAL, ENVIRONMENTAL CIRCUMSTANCES. PATIENT IS THIN BUT DOES NOT APPEAR MALNOURISHED. FOLLOW FOR PO INTAKE.
[2023-01-18 18:00] VITALS: BP 112/57; PULSE 68; RESP 18; TEMP 36.6; O2SAT 97
--- NOTE | 2023-01-18 18:41 | PC.NURSE ---
Patient had 2 small circles of blood on the back of his pants when changing into new clothes before dinner. Patient has what looks like a fissure above the anus and a scab, but nothing looked open to cause the blood on the pants. Provider made aware and response is pending.
[2023-01-19 02:02] VITALS: BP 132/62; PULSE 73; RESP 17; TEMP 36.2; O2SAT 96
[2023-01-19 08:00] VITALS: BP 138/87; PULSE 75; RESP 18; TEMP 36.9; O2SAT 94
--- NOTE | 2023-01-19 13:20 | HO.PSYCHPN ---
Subjective Subjective Date of Service: 01/19/23 Reason For Visit: Schizoaffective d/o, bipolar type Interim History: Pt seen and discussed with the team. Plan of care reviewed. Pt is visable and engaging in the milieu. Team reports a refusal of medications this a.m. No current concerns, engaging in a group [employer] game with peers. Reports adequate sleep and appetite. Medication Compliance: Intermittent Attending Groups: Yes Review of Systems Acute medical concerns: No Medical Review of Systems: unchanged Mental Status Exam Mental Status Exam Patient Appearance: Appropriate Patient Orientation: Person and Place Level of Consciousness: Alert Patient Behavior: Talkative and Good Eye Contact Mood Description: Flat Affect Description: Flat Patient Cognition Impaired: Yes Ability to Follow Directions: Fair Speech Pattern: Spontaneous Speech Memory Description: Remote Impaired Thought Content: positive for Circumstantial Judgement: Poor (Team reports assessments indicate pt is unsafe to live alone) Diagnostics Vital Signs (24Hr): Vital Signs - 24 hr 01/18/23 18:00 01/19/23 02:02 01/19/23 08:00 Temperature 98 F 97.1 F 98.5 F Pulse Rate 68 73 75 Respiratory Rate 18 17 18 Blood Pressure 112/57 L 132/62 138/87 Pulse Oximetry 97 96 94 Oxygen Delivery Method Room Air Room Air Room Air BMI result Body Mass Index 20.4 Labs Labs: Laboratory Results - last 48 hr 01/18/23 01/18/23 08:47 12:18 Estimat Average Glucose 100 Hemoglobin A1c % 5.1 Iron 58 TIBC 321 % Saturation 18 Unsat Iron Binding 263 Triglycerides 84 Cholesterol 125 LDL Cholesterol, Calc 61 HDL Cholesterol 48 Vitamin B12 555 Folate > 20.0 Medications Medications Current Medications Acetaminophen (Acetaminophen 325 Mg Tablet) 650 mg PO Q6H PRN PRN Reason: Headache/Pain Mild Scale (1-3) Last Admin: 01/17/23 22:42 Dose: 650 mg Al Hydroxide/Mg Hydroxide (Magnesium Hydrox/Alum Hydrox 30 Ml Oral.Susp) 30 ml PO Q6H PRN PRN Reason: Heartburn/Nausea Folic Acid (Folic Acid 1 Mg Tablet) 1 mg PO DAILY [facility] Last Admin: 01/19/23 11:58 Dose: Not Given Lorazepam (Lorazepam 1 Mg Tablet) 1 mg PO Q2H PRN PRN Reason: CIWA 6-10 Last Admin: 01/17/23 22:05 Dose: 1 mg Lorazepam (Lorazepam 1 Mg Tablet) 2 mg PO Q2H PRN PRN Reason: CIWA 11 and above Magnesium Hydroxide (Milk Of Magnesia 30 Ml Oral.Susp) 30 ml PO DAILY PRN PRN Reason: Constipation Multivitamins/Vitamin C (Multivitamin Tablet) 1 tab PO DAILY [facility] Last Admin: 01/19/23 11:58 Dose: Not Given Nicotine Polacrilex (Nicotine Polacrilex 2 Mg Gum) 4 mg BUCCAL Q2H PRN PRN Reason: Nicotine Cravings Olanzapine (Olanzapine 5 Mg Tablet) 5 mg PO TID PRN PRN Reason: agitation Risperidone (Risperidone 1 Mg Tablet) 1 mg PO BID [facility] Last Admin: 01/19/23 11:58 Dose: Not Given Thiamine HCl (Thiamine Hcl 100 Mg Tablet) 100 mg PO DAILY [facility] Last Admin: 01/19/23 11:58 Dose: Not Given Trazodone HCl (Trazodone Hcl 50 Mg Tablet) 50 mg PO BEDTIME MRX1 PRN PRN Reason: Insomnia Last Admin: 01/18/23 21:02 Dose: 50 mg Allergies Allergies Allergy/AdvReac Type Severity Reaction Status Date / Time No Known Allergies Allergy Verified 08/26/21 13:36 Assessment & Plan Assessment & Plan (1) Bipolar affective, manic: Status: Acute Code(s): F31.10 - Bipolar disorder, current episode manic without psychotic features, unspecified (2) Alcohol use disorder, moderate, dependence: Status: Acute Code(s): F10.20 - Alcohol dependence, uncomplicated Plan Mr. 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 IN the ED utox was negative. BAL was negative. Pt continues to present with disorganized thought process and some flight of ideas that makes it difficult to follow any coherent train of thought. He presents with themes of grandiosity and evangelical ideas. Reviewed records, it appears he does respond well to risperidone. 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 Continue CIWA q4, prn ativan. Start risperidone 1mg po BID PLAN 1. Admit to S1, 15 minutes checks for safety 2. continue CIWA, VS stable so far SBP<150, HR<100. continue thiamine, folic acid 3. Start risperidone 1mg po BID 4. obtain collateral information 5. Aftercare planning 01/19/23 continue regime and plan of care Informed Consent: further education needed Reason for continued inpatient stay Substantial Risk for: rapid decompensation Time Spent With Patient Time: Total time managing care of this patient today ____ minutes.
[2023-01-19 18:00] VITALS: BP 136/61; PULSE 76; RESP 18; TEMP 36.9; O2SAT 98
[2023-01-20 08:00] VITALS: BP 134/65; PULSE 70; RESP 16; TEMP 36.3; O2SAT 97
--- NOTE | 2023-01-20 13:35 | HO.PSYCHPN ---
Subjective Subjective Date of Service: 01/20/23 Reason For Visit: Schizoaffective d/o, bipolar type Interim History: Pt seen, discussed with team. Plan of care reviewed. Asking about filing a three day notice per team Slept only 3 hours Themes of discrimination with confusion when meeting today. Medication Compliance: Intermittent Side effects from medications: No Attending Groups: Yes Review of Systems Acute medical concerns: No Medical Review of Systems: unchanged Mental Status Exam Mental Status Exam Patient Appearance: Appropriate Patient Orientation: Person and Place Level of Consciousness: Alert Patient Behavior: Talkative, Confused and Good Eye Contact Mood Description: Flat Affect Description: Flat Patient Cognition Impaired: Yes Ability to Follow Directions: Fair Speech Pattern: Spontaneous Speech Memory Description: Remote Impaired Thought Process: Confusion Thought Content: positive for Circumstantial Judgement: Poor (Team reports assessments indicate pt is unsafe to live alone) Diagnostics Vital Signs (24Hr): Vital Signs - 24 hr 01/19/23 18:00 01/20/23 08:00 Temperature 98.4 F 97.4 F Pulse Rate 76 70 Respiratory Rate 18 16 Blood Pressure 136/61 134/65 Pulse Oximetry 98 97 Oxygen Delivery Method Room Air Room Air BMI result Body Mass Index 20.4 Labs Labs: Laboratory Results - last 48 hr 01/18/23 12:18 Iron 58 TIBC 321 % Saturation 18 Unsat Iron Binding 263 Vitamin B12 555 Folate > 20.0 Medications Medications Current Medications Acetaminophen (Acetaminophen 325 Mg Tablet) 650 mg PO Q6H PRN PRN Reason: Headache/Pain Mild Scale (1-3) Last Admin: 01/20/23 06:39 Dose: 650 mg Al Hydroxide/Mg Hydroxide (Magnesium Hydrox/Alum Hydrox 30 Ml Oral.Susp) 30 ml PO Q6H PRN PRN Reason: Heartburn/Nausea Folic Acid (Folic Acid 1 Mg Tablet) 1 mg PO DAILY [facility] Last Admin: 01/20/23 06:40 Dose: 1 mg Lorazepam (Lorazepam 1 Mg Tablet) 1 mg PO Q2H PRN PRN Reason: CIWA 6-10 Last Admin: 01/17/23 22:05 Dose: 1 mg Lorazepam (Lorazepam 1 Mg Tablet) 2 mg PO Q2H PRN PRN Reason: CIWA 11 and above Magnesium Hydroxide (Milk Of Magnesia 30 Ml Oral.Susp) 30 ml PO DAILY PRN PRN Reason: Constipation Multivitamins/Vitamin C (Multivitamin Tablet) 1 tab PO DAILY [facility] Last Admin: 01/20/23 06:40 Dose: 1 tab Nicotine Polacrilex (Nicotine Polacrilex 2 Mg Gum) 4 mg BUCCAL Q2H PRN PRN Reason: Nicotine Cravings Olanzapine (Olanzapine 5 Mg Tablet) 5 mg PO TID PRN PRN Reason: agitation Last Admin: 01/19/23 20:42 Dose: 5 mg Risperidone (Risperidone 1 Mg Tablet) 1 mg PO BID [facility] Last Admin: 01/20/23 06:40 Dose: 1 mg Thiamine HCl (Thiamine Hcl 100 Mg Tablet) 100 mg PO DAILY [facility] Last Admin: 01/20/23 06:40 Dose: 100 mg Trazodone HCl (Trazodone Hcl 50 Mg Tablet) 50 mg PO BEDTIME MRX1 PRN PRN Reason: Insomnia Last Admin: 01/19/23 20:42 Dose: 50 mg Allergies Allergies Allergy/AdvReac Type Severity Reaction Status Date / Time No Known Allergies Allergy Verified 08/26/21 13:36 Assessment & Plan Assessment & Plan (1) Bipolar affective, manic: Status: Acute Code(s): F31.10 - Bipolar disorder, current episode manic without psychotic features, unspecified (2) Alcohol use disorder, moderate, dependence: Status: Acute Code(s): F10.20 - Alcohol dependence, uncomplicated Plan Mr. 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 IN the ED utox was negative. BAL was negative. Pt continues to present with disorganized thought process and some flight of ideas that makes it difficult to follow any coherent train of thought. He presents with themes of grandiosity and christianity ideas. Reviewed records, it appears he does respond well to risperidone. 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 Continue CIWA q4, prn ativan. Start risperidone 1mg po BID PLAN 1. Admit to S1, 15 minutes checks for safety 2. continue CIWA, VS stable so far SBP<150, HR<100. continue thiamine, folic acid 3. Start risperidone 1mg po BID 4. obtain collateral information 5. Aftercare planning 01/19/23 continue regime and plan of care 01/20/23 continue regime and plan of care Informed Consent: does not understand Reason for continued inpatient stay Substantial Risk for: rapid decompensation Time Spent With Patient Time: Total time managing care of this patient today ____ minutes.
[2023-01-20 19:57] VITALS: BP 141/66; PULSE 67; RESP 20; TEMP 36.1; O2SAT 95
[2023-01-21 06:00] VITALS: BP 134/68; PULSE 67; RESP 18; TEMP 36.2; O2SAT 96
--- NOTE | 2023-01-21 13:31 | HO.PSYCHPN ---
Subjective Subjective Date of Service: 01/21/23 Reason For Visit: Schizoaffective d/o, bipolar type Interim History: Pt seen, discussed with team. Plan of care reviewed. Pt is awake at night, calling 911, discussing government theories He has filed a three day notice. Medication Compliance: Intermittent Side effects from medications: No Attending Groups: Yes Review of Systems Acute medical concerns: No Medical Review of Systems: unchanged Mental Status Exam Mental Status Exam Patient Appearance: Appropriate Patient Orientation: Person and Place Level of Consciousness: Alert Patient Behavior: Talkative, Confused and Good Eye Contact Mood Description: Flat Affect Description: Flat Patient Cognition Impaired: Yes Ability to Follow Directions: Fair Speech Pattern: Spontaneous Speech Memory Description: Remote Impaired Thought Process: Confusion Thought Content: positive for Circumstantial Judgement: Poor (Team reports assessments indicate pt is unsafe to live alone) Diagnostics Vital Signs (24Hr): Vital Signs - 24 hr 01/20/23 19:57 01/21/23 06:00 Temperature 97 F 97.1 F Pulse Rate 67 67 Respiratory Rate 20 18 Blood Pressure 141/66 H 134/68 Pulse Oximetry 95 96 Oxygen Delivery Method Room Air Room Air BMI result Body Mass Index 20.4 Medications Medications Current Medications Acetaminophen (Acetaminophen 325 Mg Tablet) 650 mg PO Q6H PRN PRN Reason: Headache/Pain Mild Scale (1-3) Last Admin: 01/20/23 06:39 Dose: 650 mg Al Hydroxide/Mg Hydroxide (Magnesium Hydrox/Alum Hydrox 30 Ml Oral.Susp) 30 ml PO Q6H PRN PRN Reason: Heartburn/Nausea Folic Acid (Folic Acid 1 Mg Tablet) 1 mg PO DAILY [facility] Last Admin: 01/21/23 08:53 Dose: 1 mg Lorazepam (Lorazepam 1 Mg Tablet) 1 mg PO Q2H PRN PRN Reason: CIWA 6-10 Last Admin: 01/17/23 22:05 Dose: 1 mg Lorazepam (Lorazepam 1 Mg Tablet) 2 mg PO Q2H PRN PRN Reason: CIWA 11 and above Last Admin: 01/20/23 22:22 Dose: 2 mg Magnesium Hydroxide (Milk Of Magnesia 30 Ml Oral.Susp) 30 ml PO DAILY PRN PRN Reason: Constipation Multivitamins/Vitamin C (Multivitamin Tablet) 1 tab PO DAILY [facility] Last Admin: 01/21/23 08:52 Dose: 1 tab Nicotine Polacrilex (Nicotine Polacrilex 2 Mg Gum) 4 mg BUCCAL Q2H PRN PRN Reason: Nicotine Cravings Olanzapine (Olanzapine 5 Mg Tablet) 5 mg PO TID PRN PRN Reason: agitation Last Admin: 01/20/23 20:47 Dose: 5 mg Risperidone (Risperidone 1 Mg Tablet) 1 mg PO BID [facility] Last Admin: 01/21/23 08:52 Dose: 1 mg Thiamine HCl (Thiamine Hcl 100 Mg Tablet) 100 mg PO DAILY [facility] Last Admin: 01/21/23 08:52 Dose: 100 mg Trazodone HCl (Trazodone Hcl 50 Mg Tablet) 50 mg PO BEDTIME MRX1 PRN PRN Reason: Insomnia Last Admin: 01/20/23 20:47 Dose: 50 mg Allergies Allergies Allergy/AdvReac Type Severity Reaction Status Date / Time No Known Allergies Allergy Verified 08/26/21 13:36 Assessment & Plan Assessment & Plan (1) Bipolar affective, manic: Status: Acute Code(s): F31.10 - Bipolar disorder, current episode manic without psychotic features, unspecified (2) Alcohol use disorder, moderate, dependence: Status: Acute Code(s): F10.20 - Alcohol dependence, uncomplicated Plan Mr. 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 IN the ED utox was negative. BAL was negative. Pt continues to present with disorganized thought process and some flight of ideas that makes it difficult to follow any coherent train of thought. He presents with themes of grandiosity and yarsani ideas. Reviewed records, it appears he does respond well to risperidone. 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 Continue CIWA q4, prn ativan. Start risperidone 1mg po BID PLAN 1. Admit to S1, 15 minutes checks for safety 2. continue CIWA, VS stable so far SBP<150, HR<100. continue thiamine, folic acid 3. Start risperidone 1mg po BID 4. obtain collateral information 5. Aftercare planning 01/19/23 continue regime and plan of care 01/21/23 Increase Risperdal to 1.5 mg bid Depakote 250 mg ER at HS. Informed Consent: does not understand and further education needed Reason for continued inpatient stay Substantial Risk for: rapid decompensation Time Spent With Patient Time: Total time managing care of this patient today ____ minutes.
--- NOTE | 2023-01-21 15:17 | MHC.CLN ---
F/U DIET=REGULAR. ENSURE MAX TID TO INCREASE NUTRITIONAL INTAKE. PROVIDES 450 KCALS, 90 G PROTEIN. SIGNIFICANT WEIGHT LOSS X 4 MONTHS. INTAKE APPEARS EXCELLENT, TAKING 100% AT BOTH MEALS TODAY. RD TO FOLLOW WEEKLY,
[2023-01-21 18:00] VITALS: BP 126/67; PULSE 72; RESP 16; TEMP 36.6; O2SAT 97
[2023-01-22 07:55] VITALS: BP 121/58; PULSE 71; RESP 18; TEMP 36.8; O2SAT 98
--- NOTE | 2023-01-22 11:45 | HO.PSYCHPN ---
Subjective Subjective Date of Service: 01/22/23 Reason For Visit: Schizoaffective d/o, bipolar type Subjective Notes: Conditional Voluntary and 3 Day Interim History: The nursing staff reported the patient signed a 3 day notice. He looked tired and he was laying on bed. He denies suicidal ideation. According to the staff the patient remains disorganized with delusional thinking. On interview the patient remembered me from the previous admission and stated that he was doing fine and he wants to leave. I asked him to be fully compliant with treatment. Still delusive with word salad. He requested Invega Sustenna. Mental Status Exam Mental Status Exam Patient Appearance: Appropriate Patient Orientation: Person and Situation Level of Consciousness: Awake Patient Behavior: Guarded and Passive Mood Description: Withdrawn Affect Description: Constricted Patient Cognition Impaired: Yes Ability to Follow Directions: Good Speech Pattern: Clear, Poor Articulation and Long Pauses Hallucinations: None Delusions: Paranoid Ideation and Grandiose Thought Process: Illogical, Distracted and Slowed Thinking Thought Content: positive for [place], positive for Poverty of Content and positive for Thought Blocking Judgement: Poor Diagnostics Vital Signs (24Hr): Vital Signs - 24 hr 01/21/23 18:00 01/22/23 07:55 Temperature 97.8 F 98.2 F Pulse Rate 72 71 Respiratory Rate 16 18 Blood Pressure 126/67 121/58 L Pulse Oximetry 97 98 Oxygen Delivery Method Room Air Room Air BMI result Body Mass Index 20.4 Medications Medications Current Medications Acetaminophen (Acetaminophen 325 Mg Tablet) 650 mg PO Q6H PRN PRN Reason: Headache/Pain Mild Scale (1-3) Last Admin: 01/20/23 06:39 Dose: 650 mg Al Hydroxide/Mg Hydroxide (Magnesium Hydrox/Alum Hydrox 30 Ml Oral.Susp) 30 ml PO Q6H PRN PRN Reason: Heartburn/Nausea Divalproex Sodium (Divalproex Sodium Er 250 Mg Tab.Er.24h) 250 mg PO BEDTIME IAN Last Admin: 01/21/23 21:05 Dose: 250 mg Folic Acid (Folic Acid 1 Mg Tablet) 1 mg PO DAILY IAN Last Admin: 01/22/23 08:23 Dose: 1 mg Lorazepam (Lorazepam 1 Mg Tablet) 1 mg PO Q2H PRN PRN Reason: CIWA 6-10 Last Admin: 01/17/23 22:05 Dose: 1 mg Lorazepam (Lorazepam 1 Mg Tablet) 2 mg PO Q2H PRN PRN Reason: CIWA 11 and above Last Admin: 01/20/23 22:22 Dose: 2 mg Magnesium Hydroxide (Milk Of Magnesia 30 Ml Oral.Susp) 30 ml PO DAILY PRN PRN Reason: Constipation Multivitamins/Vitamin C (Multivitamin Tablet) 1 tab PO DAILY IAN Last Admin: 01/22/23 08:23 Dose: 1 tab Nicotine Polacrilex (Nicotine Polacrilex 2 Mg Gum) 4 mg BUCCAL Q2H PRN PRN Reason: Nicotine Cravings Olanzapine (Olanzapine 5 Mg Tablet) 5 mg PO TID PRN PRN Reason: agitation Last Admin: 01/20/23 20:47 Dose: 5 mg Risperidone (Risperidone 0.5 Mg Tablet) 1.5 mg PO BID [facility] Last Admin: 01/22/23 08:23 Dose: 1.5 mg Thiamine HCl (Thiamine Hcl 100 Mg Tablet) 100 mg PO DAILY [facility] Last Admin: 01/22/23 08:23 Dose: 100 mg Trazodone HCl (Trazodone Hcl 50 Mg Tablet) 50 mg PO BEDTIME MRX1 PRN PRN Reason: Insomnia Last Admin: 01/21/23 21:05 Dose: 50 mg Allergies Allergies Allergy/AdvReac Type Severity Reaction Status Date / Time No Known Allergies Allergy Verified 08/26/21 13:36 Assessment & Plan Assessment & Plan (1) Bipolar affective, manic: Status: Acute Code(s): F31.10 - Bipolar disorder, current episode manic without psychotic features, unspecified (2) Alcohol use disorder, moderate, dependence: Status: Acute Code(s): F10.20 - Alcohol dependence, uncomplicated Plan Mr. 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 IN the ED utox was negative. BAL was negative. Pt continues to present with disorganized thought process and some flight of ideas that makes it difficult to follow any coherent train of thought. He presents with themes of grandiosity and orthodoxy ideas. Reviewed records, it appears he does respond well to risperidone. He is not able to tell this director underwriter sales last time he received Invega sustenna. Continue CIWA q4, prn ativan. Start risperidone 1mg po BID PLAN 1. Admit to S1, 15 minutes checks for safety 2. continue CIWA, VS stable so far SBP<150, HR<100. continue thiamine, folic acid. CIWA was discontinue since he was not scoring anymore. 3. Start risperidone 1mg po BID.01/21/23 Increase Risperdal to 1.5 mg bid Depakote 250 mg ER at HS. 4. obtain collateral information 5. Aftercare planning 6. If the patient remains delusional probably will be to filed for Section 7 and 8 7. Invega Sustenna 234 mg IM tomorrow AM or today.. Reason for continued inpatient stay Substantial Risk for: inability to function, rapid decompensation and med/psych decompensation Time Spent With Patient Time: Total time managing care of this patient today __20__ minutes.
[2023-01-22 18:00] VITALS: BP 146/67; PULSE 90; RESP 16; TEMP 36.4; O2SAT 98
[2023-01-23 08:00] VITALS: BP 134/72; PULSE 72; RESP 18; TEMP 36.4; O2SAT 98
--- NOTE | 2023-01-23 14:47 | HO.PSYCHPN ---
Subjective Subjective Date of Service: 01/23/23 Reason For Visit: Schizoaffective d/o, bipolar type Subjective Notes: Conditional Voluntary and 3 Day (Revoked in the afternoon) Interim History: The nursing staff reported that he remains nonsensical with word salad very disorganized. He refuses medication last night he took his Invega shot today in the morning. The social worker clinical reported that her sister contacting and he wants to be the power of environmental attorney. Apparently he lost his apartment and we will have a meeting over Zoom pretty soon. On interview the patient reported that he is doing fine, he had word salad and disorganized behavior but easily redirectable. I explained him that we need to put his 2nd shot over the weekend he cannot be too close but he was unable to process this information. Eventually in the afternoon, he revoked his 3 day notice letter. Mental Status Exam Mental Status Exam Patient Appearance: Appropriate Patient Orientation: Person and Situation Level of Consciousness: Awake and Appropriate Patient Behavior: Guarded and Passive Mood Description: Labile Affect Description: Withdrawn Ability to Follow Directions: Good Speech Pattern: Impoverished and Soft-Spoken Hallucinations: Auditory Delusions: Paranoid Ideation and Grandiose Thought Process: Incoherent, Illogical and Distracted Thought Content: positive for [place], positive for Perseveration and positive for Poverty of Content Judgement: Poor Diagnostics Vital Signs (24Hr): Vital Signs - 24 hr 01/22/23 18:00 01/23/23 08:00 Temperature 97.6 F 97.6 F Pulse Rate 90 72 Respiratory Rate 16 18 Blood Pressure 146/67 H 134/72 Pulse Oximetry 98 98 Oxygen Delivery Method Room Air Room Air BMI result Body Mass Index 20.4 Medications Medications Current Medications Acetaminophen (Acetaminophen 325 Mg Tablet) 650 mg PO Q6H PRN PRN Reason: Headache/Pain Mild Scale (1-3) Last Admin: 01/20/23 06:39 Dose: 650 mg Al Hydroxide/Mg Hydroxide (Magnesium Hydrox/Alum Hydrox 30 Ml Oral.Susp) 30 ml PO Q6H PRN PRN Reason: Heartburn/Nausea Divalproex Sodium (Divalproex Sodium Er 250 Mg Tab.Er.24h) 250 mg PO BEDTIME [facility] Last Admin: 01/22/23 22:04 Dose: Not Given Folic Acid (Folic Acid 1 Mg Tablet) 1 mg PO DAILY [facility] Last Admin: 01/23/23 08:23 Dose: 1 mg Magnesium Hydroxide (Milk Of Magnesia 30 Ml Oral.Susp) 30 ml PO DAILY PRN PRN Reason: Constipation Multivitamins/Vitamin C (Multivitamin Tablet) 1 tab PO DAILY [facility] Last Admin: 01/23/23 08:24 Dose: 1 tab Nicotine Polacrilex (Nicotine Polacrilex 2 Mg Gum) 4 mg BUCCAL Q2H PRN PRN Reason: Nicotine Cravings Olanzapine (Olanzapine 5 Mg Tablet) 5 mg PO TID PRN PRN Reason: agitation Last Admin: 01/20/23 20:47 Dose: 5 mg Risperidone (Risperidone 0.5 Mg Tablet) 1.5 mg PO BID [facility] Last Admin: 01/23/23 08:24 Dose: Not Given Thiamine HCl (Thiamine Hcl 100 Mg Tablet) 100 mg PO DAILY [facility] Last Admin: 01/23/23 08:23 Dose: 100 mg Trazodone HCl (Trazodone Hcl 50 Mg Tablet) 50 mg PO BEDTIME MRX1 PRN PRN Reason: Insomnia Last Admin: 01/21/23 21:05 Dose: 50 mg Allergies Allergies Allergy/AdvReac Type Severity Reaction Status Date / Time No Known Allergies Allergy Verified 08/26/21 13:36 Assessment & Plan Assessment & Plan (1) Bipolar affective, manic: Status: Acute Code(s): F31.10 - Bipolar disorder, current episode manic without psychotic features, unspecified (2) Alcohol use disorder, moderate, dependence: Status: Acute Code(s): F10.20 - Alcohol dependence, uncomplicated Plan Mr. 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 IN the ED utox was negative. BAL was negative. Pt continues to present with disorganized thought process and some flight of ideas that makes it difficult to follow any coherent train of thought. He presents with themes of grandiosity and caodaism ideas. Reviewed records, it appears he does respond well to risperidone. He is not able to tell this va underwriter last time he received Invega sustenna. Continue CIWA q4, prn ativan. Start risperidone 1mg po BID PLAN 1. Admit to S1, 15 minutes checks for safety 2. continue CIWA, VS stable so far SBP<150, HR<100. continue thiamine, folic acid. CIWA was discontinue since he was not scoring anymore. 3. Start risperidone 1mg po BID.01/21/23 Increase Risperdal to 1.5 mg bid Depakote 250 mg ER at HS. 4. obtain collateral information 5. Aftercare planning 6. If the patient remains delusional probably will be to filed for Section 7 and 8 7. Invega Sustenna 156 mg IM for Saturday, 2nd dose. 8. Risperdal has been discontinue since he is already on Invega Sustenna Reason for continued inpatient stay Substantial Risk for: inability to function, rapid decompensation and med/psych decompensation Time Spent With Patient Time: Total time managing care of this patient today __20__ minutes.
[2023-01-23 18:00] VITALS: BP 125/77; PULSE 93; RESP 18; TEMP 36.6; O2SAT 97
[2023-01-23] MEDS: Nicotine Polacrilex 2 MG GUM 4 MG BUCCAL ×2 (18:12→23:32)
[2023-01-23] MEDS: Divalproex Sodium ER 250 MG TAB.ER.24H PO (19:52)
[2023-01-23] MEDS: risperiDONE 0.5 MG TABLET 1.5 MG PO (19:52)
[2023-01-23] MEDS: traZODone HCL 50 MG TABLET PO (22:53)
[2023-01-24 07:00] VITALS: BMI 21.2
[2023-01-24 07:50] VITALS: BP 131/68; PULSE 78; RESP 18; TEMP 36.4; O2SAT 98
[2023-01-24] MEDS: risperiDONE 0.5 MG TABLET 1.5 MG PO (08:05)
[2023-01-24] MEDS: Multivitamin TABLET 1 TAB PO (08:05)
[2023-01-24] MEDS: Folic Acid 1 MG TABLET PO (08:05)
[2023-01-24] MEDS: Thiamine HCL 100 MG TABLET PO (08:05)
--- NOTE | 2023-01-24 08:36 | HO.PSYCHPN ---
Subjective Subjective Date of Service: 01/24/23 Reason For Visit: Schizoaffective d/o, bipolar type Subjective Notes: Conditional Voluntary Interim History: The nursing staff reported the patient recanted his 3 day notice. He slept well last night and he had been upset with another peer who has been abusive towards staff. Even though, he remains with word salad but easily redirectable. The social services director reported the patient want to go to the [facility] homeless residential in her [place]. Today I explained him that he is going to get his 2nd shot on Saturday so he can be discharged early next week. Still with word salad and thought process disorganization. Mental Status Exam Mental Status Exam Patient Appearance: Appropriate Patient Orientation: Person and Situation Level of Consciousness: Awake and Appropriate Patient Behavior: Guarded and Passive Mood Description: Calm Affect Description: Constricted Ability to Follow Directions: Fair Speech Pattern: Clear Hallucinations: None Delusions: Paranoid Ideation Thought Process: Incoherent, Illogical and Distracted Thought Content: positive for [place], positive for Perseveration and positive for Poverty of Content Judgement: Poor Diagnostics Vital Signs (24Hr): Vital Signs - 24 hr 01/23/23 18:00 01/24/23 07:50 Temperature 97.8 F 97.5 F Pulse Rate 93 78 Respiratory Rate 18 18 Blood Pressure 125/77 131/68 Pulse Oximetry 97 98 Oxygen Delivery Method Room Air Room Air BMI result Body Mass Index 20.4 Medications Medications Current Medications Acetaminophen (Acetaminophen 325 Mg Tablet) 650 mg PO Q6H PRN PRN Reason: Headache/Pain Mild Scale (1-3) Last Admin: 01/20/23 06:39 Dose: 650 mg Al Hydroxide/Mg Hydroxide (Magnesium Hydrox/Alum Hydrox 30 Ml Oral.Susp) 30 ml PO Q6H PRN PRN Reason: Heartburn/Nausea Divalproex Sodium (Divalproex Sodium Er 250 Mg Tab.Er.24h) 250 mg PO BEDTIME [facility] Last Admin: 01/23/23 19:52 Dose: 250 mg Folic Acid (Folic Acid 1 Mg Tablet) 1 mg PO DAILY [facility] Last Admin: 01/24/23 08:05 Dose: 1 mg Magnesium Hydroxide (Milk Of Magnesia 30 Ml Oral.Susp) 30 ml PO DAILY PRN PRN Reason: Constipation Multivitamins/Vitamin C (Multivitamin Tablet) 1 tab PO DAILY [facility] Last Admin: 01/24/23 08:05 Dose: 1 tab Nicotine Polacrilex (Nicotine Polacrilex 2 Mg Gum) 4 mg BUCCAL Q2H PRN PRN Reason: Nicotine Cravings Last Admin: 01/23/23 23:32 Dose: 4 mg Olanzapine (Olanzapine 5 Mg Tablet) 5 mg PO TID PRN PRN Reason: agitation Last Admin: 01/20/23 20:47 Dose: 5 mg Risperidone (Risperidone 0.5 Mg Tablet) 1.5 mg PO BID [facility] Last Admin: 01/24/23 08:05 Dose: 1.5 mg Thiamine HCl (Thiamine Hcl 100 Mg Tablet) 100 mg PO DAILY I[facility] Last Admin: 01/24/23 08:05 Dose: 100 mg Trazodone HCl (Trazodone Hcl 50 Mg Tablet) 50 mg PO BEDTIME MRX1 PRN PRN Reason: Insomnia Last Admin: 01/23/23 22:53 Dose: 50 mg Allergies Allergies Allergy/AdvReac Type Severity Reaction Status Date / Time No Known Allergies Allergy Verified 08/26/21 13:36 Assessment & Plan Assessment & Plan (1) Bipolar affective, manic: Status: Acute Code(s): F31.10 - Bipolar disorder, current episode manic without psychotic features, unspecified (2) Alcohol use disorder, moderate, dependence: Status: Acute Code(s): F10.20 - Alcohol dependence, uncomplicated Plan Mr. 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 IN the ED utox was negative. BAL was negative. Pt continues to present with disorganized thought process and some flight of ideas that makes it difficult to follow any coherent train of thought. He presents with themes of grandiosity and anabaptism ideas. Reviewed records, it appears he does respond well to risperidone. He is not able to tell this personal lines underwriter last time he received Invega sustenna. Continue CIWA q4, prn ativan. Start risperidone 1mg po BID PLAN 1. Admit to S1, 15 minutes checks for safety 2. continue CIWA, VS stable so far SBP<150, HR<100. continue thiamine, folic acid. CIWA was discontinue since he was not scoring anymore. 3. Start risperidone 1mg po BID.10/9/23 Increase Risperdal to 1.5 mg bid , Risperdal was discontinue on January 24. Depakote 250 mg ER at HS. 4. obtain collateral information 5. Aftercare planning 6. If the patient remains delusional probably will be to filed for Section 7 and 8 7. Invega Sustenna 156 mg IM for Saturday Reason for continued inpatient stay Substantial Risk for: inability to function, rapid decompensation and med/psych decompensation Time Spent With Patient Time: Total time managing care of this patient today ___20_ minutes.
[2023-01-24 18:00] VITALS: BP 148/67; PULSE 75; RESP 18; TEMP 36.9; O2SAT 97
[2023-01-24] MEDS: Divalproex Sodium ER 250 MG TAB.ER.24H PO (20:34)
[2023-01-24] MEDS: OLANZapine 5 MG TABLET PO (20:49)
[2023-01-24] MEDS: traZODone HCL 50 MG TABLET PO (20:49)
[2023-01-24] MEDS: Nicotine Polacrilex 2 MG GUM 4 MG BUCCAL (20:49)
[2023-01-25 08:00] VITALS: BP 143/66; PULSE 78; RESP 18; TEMP 36.6; O2SAT 96
[2023-01-25] MEDS: Folic Acid 1 MG TABLET PO (08:30)
[2023-01-25] MEDS: Multivitamin TABLET 1 TAB PO (08:30)
[2023-01-25] MEDS: Thiamine HCL 100 MG TABLET PO (08:30)
--- NOTE | 2023-01-25 08:37 | P.PNPSI_ITS ---
Subjective Subjective Date of Service: 01/25/23 Reason For Visit: Schizoaffective d/o, bipolar type Subjective Notes: Conditional Voluntary Interim History: The staff reported the patient slept well, he has been pacing hand been nonsensical but easily redirectable. On interview the patient remains with word salad and disorganized but easily redirectable. He will get his 2nd shot of Invega Sustenna on Saturday. Mental Status Exam Mental Status Exam Patient Appearance: Appropriate Patient Orientation: Person and Situation Level of Consciousness: Awake and Appropriate Patient Behavior: Guarded and Passive Mood Description: Withdrawn Affect Description: Constricted Patient Cognition Impaired: Yes Ability to Follow Directions: Good Speech Pattern: Clear Hallucinations: Auditory Delusions: Paranoid Ideation, Grandiose and Ideas of Reference Thought Process: Incoherent, Illogical and Distracted Thought Content: positive for [place], positive for Poverty of Content, positive for Thought Blocking and positive for Incoherent Judgement: Poor Diagnostics Vital Signs (24Hr): Vital Signs - 24 hr 01/24/23 18:00 01/25/23 08:00 Temperature 98.4 F 97.8 F Pulse Rate 75 78 Respiratory Rate 18 18 Blood Pressure 148/67 H 143/66 H Pulse Oximetry 97 96 Oxygen Delivery Method Room Air Room Air BMI result Body Mass Index 21.2 Medications Medications Current Medications Acetaminophen (Acetaminophen 325 Mg Tablet) 650 mg PO Q6H PRN PRN Reason: Headache/Pain Mild Scale (1-3) Last Admin: 01/20/23 06:39 Dose: 650 mg Al Hydroxide/Mg Hydroxide (Magnesium Hydrox/Alum Hydrox 30 Ml Oral.Susp) 30 ml PO Q6H PRN PRN Reason: Heartburn/Nausea Divalproex Sodium (Divalproex Sodium Er 250 Mg Tab.Er.24h) 250 mg PO BEDTIME [facility] Last Admin: 01/24/23 20:34 Dose: 250 mg Folic Acid (Folic Acid 1 Mg Tablet) 1 mg PO DAILY [facility] Last Admin: 01/25/23 08:30 Dose: 1 mg Magnesium Hydroxide (Milk Of Magnesia 30 Ml Oral.Susp) 30 ml PO DAILY PRN PRN Reason: Constipation Multivitamins/Vitamin C (Multivitamin Tablet) 1 tab PO DAILY [facility] Last Admin: 01/25/23 08:30 Dose: 1 tab Nicotine Polacrilex (Nicotine Polacrilex 2 Mg Gum) 4 mg BUCCAL Q2H PRN PRN Reason: Nicotine Cravings Last Admin: 01/24/23 20:49 Dose: 4 mg Olanzapine (Olanzapine 5 Mg Tablet) 5 mg PO TID PRN PRN Reason: agitation Last Admin: 01/24/23 20:49 Dose: 5 mg Paliperidone Palmitate (Paliperidone Palmitate 156 Mg/Ml Syringe) 156 mg IM ONCE ONE Stop: 01/27/23 09:01 Thiamine HCl (Thiamine Hcl 100 Mg Tablet) 100 mg PO DAILY IAN Last Admin: 01/25/23 08:30 Dose: 100 mg Trazodone HCl (Trazodone Hcl 50 Mg Tablet) 50 mg PO BEDTIME MRX1 PRN PRN Reason: Insomnia Last Admin: 01/24/23 20:49 Dose: 50 mg Allergies Allergies Allergy/AdvReac Type Severity Reaction Status Date / Time No Known Allergies Allergy Verified 08/26/21 13:36 Assessment & Plan Assessment & Plan (1) Bipolar affective, manic: Status: Acute Code(s): F31.10 - Bipolar disorder, current episode manic without psychotic features, unspecified (2) Alcohol use disorder, moderate, dependence: Status: Acute Code(s): F10.20 - Alcohol dependence, uncomplicated Plan Mr. 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 IN the ED utox was negative. BAL was negative. Pt continues to present with disorganized thought process and some flight of ideas that makes it difficult to follow any coherent train of thought. He presents with themes of grandiosity and roman catholic ideas. Reviewed records, it appears he does respond well to risperidone. He is not able to tell this senior medical writer last time he received Invega sustenna. Continue CIWA q4, prn ativan. Start risperidone 1mg po BID PLAN 1. Admit to S1, 15 minutes checks for safety 2. continue CIWA, VS stable so far SBP<150, HR<100. continue thiamine, folic acid. CIWA was discontinue since he was not scoring anymore. 3. Start risperidone 1mg po BID.01/21/23 Increase Risperdal to 1.5 mg bid , Risperdal was discontinue on January 24. Depakote 250 mg ER at HS. 4. obtain collateral information 5. Aftercare planning 6. If the patient remains delusional probably will be to filed for Section 7 and 8 but he recanted his 3 day notice. 7. Invega Sustenna 156 mg IM for Saturday Reason for continued inpatient stay Substantial Risk for: inability to function, rapid decompensation and med/psych decompensation Time Spent With Patient Time: Total time managing care of this patient today __20__ minutes.
[2023-01-25] MEDS: OLANZapine 5 MG TABLET PO ×2 (11:06→18:00)
[2023-01-25] MEDS: Nicotine Polacrilex 2 MG GUM 4 MG BUCCAL (11:06)
[2023-01-25] MEDS: Acetaminophen 325 MG TABLET 650 MG PO (14:46)
[2023-01-25 18:00] VITALS: BP 122/58; PULSE 78; RESP 18; TEMP 36.9; O2SAT 96
[2023-01-25] MEDS: LORazepam 1 MG TABLET PO (19:38)
[2023-01-25] MEDS: OLANZapine 10 MG TABLET PO (19:38)
[2023-01-25] MEDS: traZODone HCL 50 MG TABLET PO (20:40)
[2023-01-25] MEDS: Divalproex Sodium ER 250 MG TAB.ER.24H PO (20:40)
[2023-01-26] MEDS: Thiamine HCL 100 MG TABLET PO (09:13)
[2023-01-26] MEDS: Folic Acid 1 MG TABLET PO (09:13)
[2023-01-26] MEDS: Multivitamin TABLET 1 TAB PO (09:13)
[2023-01-26 09:30] VITALS: BP 142/65; PULSE 102; RESP 18; TEMP 36.1; O2SAT 98
[2023-01-26] MEDS: Nicotine Polacrilex 2 MG GUM 4 MG BUCCAL ×2 (09:47→12:53)
[2023-01-26] MEDS: Acetaminophen 325 MG TABLET 650 MG PO (12:53)
[2023-01-26 18:00] VITALS: BP 112/68; PULSE 79; RESP 18; TEMP 36.3; O2SAT 96
[2023-01-26] MEDS: Divalproex Sodium ER 250 MG TAB.ER.24H PO (20:28)
--- NOTE | 2023-01-26 20:58 | P.PNPSI_ITS ---
Subjective Subjective Date of Service: 01/26/23 Reason For Visit: Schizoaffective d/o, bipolar type Interim History: The staff report he had episode of yelling and susie last night- had zyprexa 10 mg and ativan 1 mg prn last night with good effect; He intermittenly gets loud and yells but less hypomanic today; the patient has been nonsensical but easily redirectable. On interview the patient remains with word salad and disorganized but easily redirectable. He will get his 2nd shot of Invega Sustenna tomorrow Medication Compliance: Yes Side effects from medications: No Attending Groups: Intermittent Review of Systems Acute medical concerns: No Medical Review of Systems: unchanged Review of Systems Review of Systems He denies pain, including chest pain. No SOB He does have wound between left thumb and index finger-?necrotizing look. He denies GI s/s no diarrhea, loose stools or constipation. Yes Other (pt unavailable) Mental Status Exam Mental Status Exam Narrative: Appearance:disheveled, thin, malnourished, poor hygiene, in NAD behavior:guarded and suspicious Psychomotor:no agitation or retardation noted Speech:mostly clear, regular rate/verbose not pressured, spontaneous TP:disorganized, flight of ideas TC:not sure why he is here but not bothered by fact of being here, preoccupied with yarsani themes and quality of food Mood: fine Affect:expansive SI:denies HI:denies VH/AH:appears internally preoccupied Delusions:yarsani, some grandiose ideas ( I can change the weather with my mind ) Insight/judgment:impaired x 2. memory/cog: alert, oriented x 3. Not oriented to situation, very poor attention Patient Appearance: Appropriate Patient Orientation: Person and Situation Level of Consciousness: Awake and Appropriate Patient Behavior: Guarded and Passive Mood Description: Withdrawn Affect Description: Constricted Patient Cognition Impaired: Yes Ability to Follow Directions: Good Speech Pattern: Clear Memory Description: Remote Impaired Diagnostics Vital Signs (24Hr): Vital Signs - 24 hr 01/26/23 09:30 Temperature 97 F Pulse Rate 102 H Respiratory Rate 18 Blood Pressure 142/65 H Pulse Oximetry 98 Oxygen Delivery Method Room Air BMI result Body Mass Index 21.2 Medications Medications Current Medications Acetaminophen (Acetaminophen 325 Mg Tablet) 650 mg PO Q6H PRN PRN Reason: Headache/Pain Mild Scale (1-3) Last Admin: 01/26/23 12:53 Dose: 650 mg Al Hydroxide/Mg Hydroxide (Magnesium Hydrox/Alum Hydrox 30 Ml Oral.Susp) 30 ml PO Q6H PRN PRN Reason: Heartburn/Nausea Divalproex Sodium (Divalproex Sodium Er 250 Mg Tab.Er.24h) 250 mg PO BEDTIME [facility] Last Admin: 01/26/23 20:28 Dose: 250 mg Folic Acid (Folic Acid 1 Mg Tablet) 1 mg PO DAILY [facility] Last Admin: 01/26/23 09:13 Dose: 1 mg Magnesium Hydroxide (Milk Of Magnesia 30 Ml Oral.Susp) 30 ml PO DAILY PRN PRN Reason: Constipation Multivitamins/Vitamin C (Multivitamin Tablet) 1 tab PO DAILY [facility] Last Admin: 01/26/23 09:13 Dose: 1 tab Nicotine Polacrilex (Nicotine Polacrilex 2 Mg Gum) 4 mg BUCCAL Q2H PRN PRN Reason: Nicotine Cravings Last Admin: 01/26/23 12:53 Dose: 4 mg Olanzapine (Olanzapine 5 Mg Tablet) 5 mg PO TID PRN PRN Reason: agitation Last Admin: 01/25/23 18:00 Dose: 5 mg Paliperidone Palmitate (Paliperidone Palmitate 156 Mg/Ml Syringe) 156 mg IM ONCE ONE Stop: 01/27/23 09:01 Thiamine HCl (Thiamine Hcl 100 Mg Tablet) 100 mg PO DAILY [facility] Last Admin: 01/26/23 09:13 Dose: 100 mg Trazodone HCl (Trazodone Hcl 50 Mg Tablet) 50 mg PO BEDTIME MRX1 PRN PRN Reason: Insomnia Last Admin: 01/25/23 20:40 Dose: 50 mg Allergies Allergies Allergy/AdvReac Type Severity Reaction Status Date / Time No Known Allergies Allergy Verified 08/26/21 13:36 Assessment & Plan Assessment & Plan (1) Bipolar affective, manic: Status: Acute Code(s): F31.10 - Bipolar disorder, current episode manic without psychotic features, unspecified (2) Alcohol use disorder, moderate, dependence: Status: Acute Code(s): F10.20 - Alcohol dependence, uncomplicated Plan Mr. 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 IN the ED utox was negative. BAL was negative. Pt continues to present with disorganized thought process and some flight of ideas that makes it difficult to follow any coherent train of thought. He presents with themes of grandiosity and yarsani ideas. Reviewed records, it appears he does respond well to risperidone. He is not able to tell this policy writer typist last time he received Invega sustenna. Continue CIWA q4, prn ativan. Start risperidone 1mg po BID PLAN 1. Admit to S1, 15 minutes checks for safety 2. continue CIWA, VS stable so far SBP<150, HR<100. continue thiamine, folic acid. CIWA was discontinue since he was not scoring anymore. 3. Start risperidone 1mg po BID.01/21/23 Increase Risperdal to 1.5 mg bid , Risperdal was discontinue on January 24. Depakote 250 mg ER at HS. 4. obtain collateral information 5. Aftercare planning 6. If the patient remains delusional probably will be to filed for Section 7 and 8 but he recanted his 3 day notice. 7. Invega Sustenna 156 mg IM for Saturday01/26/23 continue above plan Patient educated on: therapeutic strategies Informed Consent: does not understand Reason for continued inpatient stay Substantial Risk for: harm to self, inability to function and rapid decompensation Time Spent With Patient Time: Total time managing care of this patient today ____ minutes.
[2023-01-27 07:55] VITALS: BP 126/62; PULSE 84; RESP 18; TEMP 36.1; O2SAT 99
[2023-01-27] MEDS: Thiamine HCL 100 MG TABLET PO (08:38)
[2023-01-27] MEDS: Folic Acid 1 MG TABLET PO (08:38)
[2023-01-27] MEDS: Multivitamin TABLET 1 TAB PO (08:39)
[2023-01-27] MEDS: Paliperidone Palmitate 156 MG/ML SYRINGE IM (09:05)
[2023-01-27] MEDS: Nicotine Polacrilex 2 MG GUM 4 MG BUCCAL ×2 (10:24→20:35)
--- NOTE | 2023-01-27 11:02 | P.PNPSI_ITS ---
Subjective Subjective Date of Service: 01/27/23 Reason For Visit: Schizoaffective d/o, bipolar type Interim History: Pt wanting to engage; talking illogically most of the time interspersed with some coherent statements; he had episode of yelling and susie last night- and today; had zyprexa 10 mg and ativan 1 mg prn last night with good effect; and zyprexa 10 mg prn today; He was asking for thorazine but explained to him that zyprexa has safer side effect profile and he relented. He intermittently gets loud and yells but less hypomanic today; the patient has been nonsensical but easily redirectable. On interview the patient remains with word salad and disorganized but easily redirectable. He got his 2nd shot of Invega Sustenna today Medication Compliance: Yes Side effects from medications: No Attending Groups: Intermittent Review of Systems Acute medical concerns: No Medical Review of Systems: unchanged Review of Systems Review of Systems He denies pain, including chest pain. No SOB He does have wound between left thumb and index finger-?necrotizing look. He denies GI s/s no diarrhea, loose stools or constipation. Yes Other (pt unavailable) Mental Status Exam Mental Status Exam Narrative: Appearance:disheveled, thin, malnourished, poor hygiene, in NAD behavior:guarded and suspicious Psychomotor:no agitation or retardation noted Speech:mostly clear, regular rate/verbose not pressured, spontaneous TP:disorganized, flight of ideas TC:not sure why he is here but not bothered by fact of being here, preoccupied with orthodoxy themes and quality of food Mood: fine Affect:expansive SI:denies HI:denies VH/AH:appears internally preoccupied Delusions:orthodoxy, some grandiose ideas ( I can change the weather with my mind ) Insight/judgment:impaired x 2. memory/cog: alert, oriented x 3. Not oriented to situation, very poor attention Patient Appearance: Appropriate Patient Orientation: Person and Situation Level of Consciousness: Awake and Appropriate Patient Behavior: Guarded and Passive Mood Description: Withdrawn Affect Description: Constricted Patient Cognition Impaired: Yes Ability to Follow Directions: Good Speech Pattern: Clear Memory Description: Remote Impaired Diagnostics Vital Signs (24Hr): Vital Signs - 24 hr 01/26/23 18:00 01/27/23 07:55 Temperature 97.3 F 96.9 F Pulse Rate 79 84 Respiratory Rate 18 18 Blood Pressure 112/68 126/62 Pulse Oximetry 96 99 Oxygen Delivery Method Room Air Room Air BMI result Body Mass Index 21.2 Medications Medications Current Medications Acetaminophen (Acetaminophen 325 Mg Tablet) 650 mg PO Q6H PRN PRN Reason: Headache/Pain Mild Scale (1-3) Last Admin: 01/26/23 12:53 Dose: 650 mg Al Hydroxide/Mg Hydroxide (Magnesium Hydrox/Alum Hydrox 30 Ml Oral.Susp) 30 ml PO Q6H PRN PRN Reason: Heartburn/Nausea Divalproex Sodium (Divalproex Sodium Er 250 Mg Tab.Er.24h) 250 mg PO BEDTIME [facility] Last Admin: 01/26/23 20:28 Dose: 250 mg Folic Acid (Folic Acid 1 Mg Tablet) 1 mg PO DAILY [facility] Last Admin: 01/27/23 08:38 Dose: 1 mg Magnesium Hydroxide (Milk Of Magnesia 30 Ml Oral.Susp) 30 ml PO DAILY PRN PRN Reason: Constipation Multivitamins/Vitamin C (Multivitamin Tablet) 1 tab PO DAILY [facility] Last Admin: 01/27/23 08:39 Dose: 1 tab Nicotine Polacrilex (Nicotine Polacrilex 2 Mg Gum) 4 mg BUCCAL Q2H PRN PRN Reason: Nicotine Cravings Last Admin: 01/27/23 10:24 Dose: 4 mg Olanzapine (Olanzapine 5 Mg Tablet) 5 mg PO TID PRN PRN Reason: agitation Last Admin: 01/25/23 18:00 Dose: 5 mg Thiamine HCl (Thiamine Hcl 100 Mg Tablet) 100 mg PO DAILY [facility] Last Admin: 01/27/23 08:38 Dose: 100 mg Trazodone HCl (Trazodone Hcl 50 Mg Tablet) 50 mg PO BEDTIME MRX1 PRN PRN Reason: Insomnia Last Admin: 01/25/23 20:40 Dose: 50 mg Allergies Allergies Allergy/AdvReac Type Severity Reaction Status Date / Time No Known Allergies Allergy Verified 08/26/21 13:36 Assessment & Plan Assessment & Plan (1) Bipolar affective, manic: Status: Acute Code(s): F31.10 - Bipolar disorder, current episode manic without psychotic features, unspecified (2) Alcohol use disorder, moderate, dependence: Status: Acute Code(s): F10.20 - Alcohol dependence, uncomplicated Plan Mr. 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 IN the ED utox was negative. BAL was negative. Pt continues to present with disorganized thought process and some flight of ideas that makes it difficult to follow any coherent train of thought. He presents with themes of grandiosity and orthodoxy ideas. Reviewed records, it appears he does respond well to risperidone. He is not able to tell this data analyst report writer last time he received Invega sustenna. Continue CIWA q4, prn ativan. Start risperidone 1mg po BID PLAN 1. Admit to S1, 15 minutes checks for safety 2. continue CIWA, VS stable so far SBP<150, HR<100. continue thiamine, folic acid. CIWA was discontinue since he was not scoring anymore. 3. Start risperidone 1mg po BID.01/21/23 Increase Risperdal to 1.5 mg bid , Risperdal was discontinue on January 24. Depakote 250 mg ER at HS. 4. obtain collateral information 5. Aftercare planning 6. If the patient remains delusional probably will be to filed for Section 7 and 8 but he recanted his 3 day notice. 7. Invega Sustenna 156 mg IM Saturday01/26/23 continue above plan 01/27/23 contine above treamtent plan Reason for continued inpatient stay Substantial Risk for: inability to function and rapid decompensation Time Spent With Patient Time: Total time managing care of this patient today ____ minutes.
[2023-01-27] MEDS: OLANZapine 5 MG TABLET PO (13:02)
[2023-01-27] MEDS: Nicotine 14 MG PATCH.TD24 TRANSDERMA (13:15)
[2023-01-27 19:30] VITALS: BP 157/80; PULSE 94; RESP 16; TEMP 36.7; O2SAT 97
[2023-01-27] MEDS: Divalproex Sodium ER 250 MG TAB.ER.24H PO (20:34)
[2023-01-27] MEDS: Acetaminophen 325 MG TABLET 650 MG PO (21:56)
[2023-01-27] MEDS: traZODone HCL 50 MG TABLET PO (23:18)
[2023-01-28 08:00] VITALS: BP 142/63; PULSE 86; RESP 18; TEMP 36.6; O2SAT 98
[2023-01-28] MEDS: Multivitamin TABLET 1 TAB PO (09:41)
[2023-01-28] MEDS: Thiamine HCL 100 MG TABLET PO (09:41)
[2023-01-28] MEDS: Folic Acid 1 MG TABLET PO (09:41)
[2023-01-28] MEDS: Nicotine 14 MG PATCH.TD24 TRANSDERMA (10:22)
[2023-01-28] MEDS: Acetaminophen 325 MG TABLET 650 MG PO (13:03)
--- NOTE | 2023-01-28 14:24 | HO.PSYCHPN ---
Subjective Subjective Date of Service: 01/28/23 Reason For Visit: Schizoaffective d/o, bipolar type Subjective Notes: Conditional Voluntary Interim History: The nursing staff reported the patient had been compliant with treatment. He was seen responding to internal stimuli nonsensical at times, he could name 1 1 over the weekend. He had been engaging in to discussions with a peer. The staff reported that yesterday got his Invega shot but so far remains psychotic. On interview the patient denies new symptoms he is still psychotic and nonsensical Mental Status Exam Mental Status Exam Patient Appearance: Appropriate Patient Orientation: Person and Situation Level of Consciousness: Awake and Appropriate Patient Behavior: Guarded Mood Description: Constricted Affect Description: Labile Patient Cognition Impaired: Yes Ability to Follow Directions: Good Speech Pattern: Inappropriate, Excessive and Animated Hallucinations: Auditory Delusions: Paranoid Ideation and Ideas of Reference Thought Process: Illogical and Distracted Thought Content: positive for [place], positive for [place] and positive for Poverty of Content Judgement: Poor Diagnostics Vital Signs (24Hr): Vital Signs - 24 hr 01/27/23 19:30 01/28/23 08:00 Temperature 98.0 F 97.8 F Pulse Rate 94 86 Respiratory Rate 16 18 Blood Pressure 157/80 H 142/63 H Pulse Oximetry 97 98 Oxygen Delivery Method Room Air Room Air BMI result Body Mass Index 21.2 Medications Medications Current Medications Acetaminophen (Acetaminophen 325 Mg Tablet) 650 mg PO Q6H PRN PRN Reason: Headache/Pain Mild Scale (1-3) Last Admin: 01/28/23 13:03 Dose: 650 mg Al Hydroxide/Mg Hydroxide (Magnesium Hydrox/Alum Hydrox 30 Ml Oral.Susp) 30 ml PO Q6H PRN PRN Reason: Heartburn/Nausea Divalproex Sodium (Divalproex Sodium Er 250 Mg Tab.Er.24h) 250 mg PO BEDTIME [facility] Last Admin: 01/27/23 20:34 Dose: 250 mg Folic Acid (Folic Acid 1 Mg Tablet) 1 mg PO DAILY [facility] Last Admin: 01/28/23 09:41 Dose: 1 mg Magnesium Hydroxide (Milk Of Magnesia 30 Ml Oral.Susp) 30 ml PO DAILY PRN PRN Reason: Constipation Multivitamins/Vitamin C (Multivitamin Tablet) 1 tab PO DAILY [facility] Last Admin: 01/28/23 09:41 Dose: 1 tab Nicotine (Nicotine 14 Mg Patch.Td24) 14 mg TRANSDERMA DAILY [facility] Last Admin: 01/28/23 10:22 Dose: 14 mg Nicotine Polacrilex (Nicotine Polacrilex 2 Mg Gum) 4 mg BUCCAL Q2H PRN PRN Reason: Nicotine Cravings Last Admin: 01/27/23 20:35 Dose: 4 mg Olanzapine (Olanzapine 5 Mg Tablet) 5 mg PO TID PRN PRN Reason: agitation Last Admin: 01/27/23 13:02 Dose: 5 mg Thiamine HCl (Thiamine Hcl 100 Mg Tablet) 100 mg PO DAILY [facility] Last Admin: 01/28/23 09:41 Dose: 100 mg Trazodone HCl (Trazodone Hcl 50 Mg Tablet) 50 mg PO BEDTIME MRX1 PRN PRN Reason: Insomnia Last Admin: 01/27/23 23:18 Dose: 50 mg Allergies Allergies Allergy/AdvReac Type Severity Reaction Status Date / Time No Known Allergies Allergy Verified 08/26/21 13:36 Assessment & Plan Assessment & Plan (1) Bipolar affective, manic: Status: Acute Code(s): F31.10 - Bipolar disorder, current episode manic without psychotic features, unspecified (2) Alcohol use disorder, moderate, dependence: Status: Acute Code(s): F10.20 - Alcohol dependence, uncomplicated Plan Mr. 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 IN the ED utox was negative. BAL was negative. Pt continues to present with disorganized thought process and some flight of ideas that makes it difficult to follow any coherent train of thought. He presents with themes of grandiosity and jain ideas. Reviewed records, it appears he does respond well to risperidone. He is not able to tell this aligner typewriter last time he received Invega sustenna. Continue CIWA q4, prn ativan. Start risperidone 1mg po BID PLAN 1. Admit to S1, 15 minutes checks for safety 2. continue CIWA, VS stable so far SBP<150, HR<100. continue thiamine, folic acid. CIWA was discontinue since he was not scoring anymore. 3. Start risperidone 1mg po BID.01/21/23 Increase Risperdal to 1.5 mg bid , Risperdal was discontinue on January 24. Depakote 250 mg ER at HS. 4. obtain collateral information 5. Aftercare planning 6. If the patient remains delusional probably will be to filed for Section 7 and 8 but he recanted his 3 day notice. 7. Invega Sustenna 156 mg IM Saturday 8. Reassessment with results Reason for continued inpatient stay Substantial Risk for: inability to function, rapid decompensation and med/psych decompensation Time Spent With Patient Time: Total time managing care of this patient today __20__ minutes.
--- NOTE | 2023-01-28 14:56 | MHC.CLN ---
F/U DIET=REGULAR. ENSURE MAX TID TO INCREASE NUTRITIONAL INTAKE. PROVIDES 450 KCALS, 90 G PROTEIN. INTAKE AT MEALS APPEARS TO BE 100%. SHOWS FAVORABLE 6% WEIGHT GAIN SINCE ADMISSION. RD TO FOLLOW WEEKLY.
[2023-01-28] MEDS: Nicotine Polacrilex 2 MG GUM 4 MG BUCCAL (15:32)
[2023-01-28 18:00] VITALS: BP 153/77; PULSE 81; RESP 18; TEMP 36.6; O2SAT 97
[2023-01-28] MEDS: traZODone HCL 50 MG TABLET PO ×2 (20:02→22:47)
[2023-01-28] MEDS: Divalproex Sodium ER 250 MG TAB.ER.24H PO (20:02)
[2023-01-29 06:00] VITALS: BP 140/65; PULSE 77; RESP 18; TEMP 36.9; O2SAT 100
[2023-01-29] MEDS: Multivitamin TABLET 1 TAB PO (09:37)
[2023-01-29] MEDS: Nicotine 14 MG PATCH.TD24 TRANSDERMA (09:37)
[2023-01-29] MEDS: Folic Acid 1 MG TABLET PO (09:37)
[2023-01-29] MEDS: Thiamine HCL 100 MG TABLET PO (09:37)
[2023-01-29] MEDS: OLANZapine 5 MG TABLET PO (11:27)
[2023-01-29] MEDS: Nicotine Polacrilex 2 MG GUM 4 MG BUCCAL (11:28)
--- NOTE | 2023-01-29 13:50 | P.PNPSI_ITS ---
Subjective Subjective Date of Service: 01/29/23 Reason For Visit: Schizoaffective d/o, bipolar type Subjective Notes: Conditional Voluntary Interim History: The nursing staff reported that he had been wandering restless hyperverbal, with poor sleep, last night he slept only 5 hours. On the morning he was still grossly disorganized with irritability the times. In the afternoon he was a little restless and we needed to for him p.r.n. Zyprexa that he refused. So far, we did not need to chemically restrain him yet. Mental Status Exam Mental Status Exam Patient Appearance: Appropriate and Unkempt Patient Orientation: Person and Situation Level of Consciousness: Awake and Appropriate Patient Behavior: Guarded and Restless Mood Description: Hostile, Angry and Nervous Affect Description: Labile Patient Cognition Impaired: No Ability to Follow Directions: Fair Speech Pattern: Impoverished and Rapid Hallucinations: None Delusions: Paranoid Ideation, Grandiose and Ideas of Reference Thought Process: Racing and Illogical Thought Content: positive for [place] and positive for Poverty of Content Judgement: Poor Diagnostics Vital Signs (24Hr): Vital Signs - 24 hr 01/28/23 18:00 01/29/23 06:00 Temperature 98 F 98.5 F Pulse Rate 81 77 Respiratory Rate 18 18 Blood Pressure 153/77 H 140/65 H Pulse Oximetry 97 100 Oxygen Delivery Method Room Air Room Air BMI result Body Mass Index 21.2 Medications Medications Current Medications Acetaminophen (Acetaminophen 325 Mg Tablet) 650 mg PO Q6H PRN PRN Reason: Headache/Pain Mild Scale (1-3) Last Admin: 01/28/23 13:03 Dose: 650 mg Al Hydroxide/Mg Hydroxide (Magnesium Hydrox/Alum Hydrox 30 Ml Oral.Susp) 30 ml PO Q6H PRN PRN Reason: Heartburn/Nausea Divalproex Sodium (Divalproex Sodium Er 250 Mg Tab.Er.24h) 250 mg PO BEDTIME [facility] Last Admin: 01/28/23 20:02 Dose: 250 mg Folic Acid (Folic Acid 1 Mg Tablet) 1 mg PO DAILY [facility] Last Admin: 01/29/23 09:37 Dose: 1 mg Magnesium Hydroxide (Milk Of Magnesia 30 Ml Oral.Susp) 30 ml PO DAILY PRN PRN Reason: Constipation Multivitamins/Vitamin C (Multivitamin Tablet) 1 tab PO DAILY [facility] Last Admin: 01/29/23 09:37 Dose: 1 tab Nicotine (Nicotine 14 Mg Patch.Td24) 14 mg TRANSDERMA DAILY [facility] Last Admin: 01/29/23 09:37 Dose: 14 mg Nicotine Polacrilex (Nicotine Polacrilex 2 Mg Gum) 4 mg BUCCAL Q2H PRN PRN Reason: Nicotine Cravings Last Admin: 01/29/23 11:28 Dose: 4 mg Olanzapine (Olanzapine 5 Mg Tablet) 5 mg PO TID PRN PRN Reason: agitation Last Admin: 01/29/23 11:27 Dose: 5 mg Thiamine HCl (Thiamine Hcl 100 Mg Tablet) 100 mg PO DAILY [facility] Last Admin: 01/29/23 09:37 Dose: 100 mg Trazodone HCl (Trazodone Hcl 50 Mg Tablet) 50 mg PO BEDTIME MRX1 PRN PRN Reason: Insomnia Last Admin: 01/28/23 22:47 Dose: 50 mg Allergies Allergies Allergy/AdvReac Type Severity Reaction Status Date / Time No Known Allergies Allergy Verified 08/26/21 13:36 Assessment & Plan Assessment & Plan (1) Bipolar affective, manic: Status: Acute Code(s): F31.10 - Bipolar disorder, current episode manic without psychotic features, unspecified (2) Alcohol use disorder, moderate, dependence: Status: Acute Code(s): F10.20 - Alcohol dependence, uncomplicated Plan Mr. 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 IN the ED utox was negative. BAL was negative. Pt continues to present with disorganized thought process and some flight of ideas that makes it difficult to follow any coherent train of thought. He presents with themes of grandiosity and moravian ideas. Reviewed records, it appears he does respond well to risperidone. He is not able to tell this television script writer last time he received Invega sustenna. Continue CIWA q4, prn ativan. Start risperidone 1mg po BID PLAN 1. Admit to S1, 15 minutes checks for safety 2. continue CIWA, VS stable so far SBP<150, HR<100. continue thiamine, folic acid. CIWA was discontinue since he was not scoring anymore. 3. Start risperidone 1mg po BID.01/21/23 Increase Risperdal to 1.5 mg bid , Risperdal was discontinue on January 24. Depakote 250 mg ER at HS. 4. obtain collateral information 5. Aftercare planning 6. If the patient remains delusional probably will be to filed for Section 7 and 8 but he recanted his 3 day notice. 7. Invega Sustenna 156 mg IM Saturday 8. Reassessment with results Reason for continued inpatient stay Substantial Risk for: inability to function, rapid decompensation and med/psych decompensation Time Spent With Patient Time: Total time managing care of this patient today __20__ minutes.
[2023-01-30] MEDS: Divalproex Sodium ER 250 MG TAB.ER.24H PO ×2 (00:57→20:21)
[2023-01-30] MEDS: traZODone HCL 50 MG TABLET PO ×2 (00:57→20:21)
[2023-01-30] MEDS: OLANZapine 5 MG TABLET PO (00:57)
[2023-01-30 07:58] VITALS: BP 136/67; PULSE 89; RESP 17; TEMP 36.7; O2SAT 99
--- NOTE | 2023-01-30 08:01 | P.PNPSI_ITS ---
Subjective Subjective Date of Service: 01/30/23 Reason For Visit: Schizoaffective d/o, bipolar type Subjective Notes: Conditional Voluntary and 3 Day Interim History: The nursing staff reported the patient had been visible in the unit, hyperverbal, disorganized at times. He has been requesting to be discharged to the longterm as soon as possible. Today, he sign a 3 day notice, he remains disorganized but slightly more redirectable. He received his 2nd dose of Invega Sustenna last Saturday, historically, he used to resolved his psychosis and susie pretty fast but in this location it is taking longer.. Mental Status Exam Mental Status Exam Patient Appearance: Appropriate and Unkempt Patient Orientation: Person and Situation Level of Consciousness: Awake and Restless Patient Behavior: Guarded and Passive Mood Description: Euphoric Affect Description: Labile Patient Cognition Impaired: Yes Ability to Follow Directions: Good Speech Pattern: Impoverished, Spontaneous Speech and Rambling Hallucinations: None Delusions: Paranoid Ideation and Grandiose Thought Process: Distracted and Evasive Thought Content: positive for Poverty of Content, positive for Thought Blocking and positive for Incoherent Judgement: Poor Diagnostics Vital Signs (24Hr): Vital Signs - 24 hr 01/30/23 07:58 Temperature 98.1 F Pulse Rate 89 Respiratory Rate 17 Blood Pressure 136/67 Pulse Oximetry 99 Oxygen Delivery Method Room Air BMI result Body Mass Index 21.2 Medications Medications Current Medications Acetaminophen (Acetaminophen 325 Mg Tablet) 650 mg PO Q6H PRN PRN Reason: Headache/Pain Mild Scale (1-3) Last Admin: 01/28/23 13:03 Dose: 650 mg Al Hydroxide/Mg Hydroxide (Magnesium Hydrox/Alum Hydrox 30 Ml Oral.Susp) 30 ml PO Q6H PRN PRN Reason: Heartburn/Nausea Divalproex Sodium (Divalproex Sodium Er 250 Mg Tab.Er.24h) 250 mg PO BEDTIME [facility] Last Admin: 01/30/23 00:57 Dose: 250 mg Folic Acid (Folic Acid 1 Mg Tablet) 1 mg PO DAILY [facility] Last Admin: 01/29/23 09:37 Dose: 1 mg Magnesium Hydroxide (Milk Of Magnesia 30 Ml Oral.Susp) 30 ml PO DAILY PRN PRN Reason: Constipation Multivitamins/Vitamin C (Multivitamin Tablet) 1 tab PO DAILY [facility] Last Admin: 01/29/23 09:37 Dose: 1 tab Nicotine (Nicotine 14 Mg Patch.Td24) 14 mg TRANSDERMA DAILY [facility] Last Admin: 01/29/23 09:37 Dose: 14 mg Nicotine Polacrilex (Nicotine Polacrilex 2 Mg Gum) 4 mg BUCCAL Q2H PRN PRN Reason: Nicotine Cravings Last Admin: 01/29/23 11:28 Dose: 4 mg Olanzapine (Olanzapine 5 Mg Tablet) 5 mg PO TID PRN PRN Reason: agitation Last Admin: 01/30/23 00:57 Dose: 5 mg Thiamine HCl (Thiamine Hcl 100 Mg Tablet) 100 mg PO DAILY [facility] Last Admin: 01/29/23 09:37 Dose: 100 mg Trazodone HCl (Trazodone Hcl 50 Mg Tablet) 50 mg PO BEDTIME MRX1 PRN PRN Reason: Insomnia Last Admin: 01/30/23 00:57 Dose: 50 mg Allergies Allergies Allergy/AdvReac Type Severity Reaction Status Date / Time No Known Allergies Allergy Verified 08/26/21 13:36 Assessment & Plan Assessment & Plan (1) Bipolar affective, manic: Status: Acute Code(s): F31.10 - Bipolar disorder, current episode manic without psychotic features, unspecified (2) Alcohol use disorder, moderate, dependence: Status: Acute Code(s): F10.20 - Alcohol dependence, uncomplicated Plan Mr. 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 IN the ED utox was negative. BAL was negative. Pt continues to present with disorganized thought process and some flight of ideas that makes it difficult to follow any coherent train of thought. He presents with themes of grandiosity and anglican ideas. Reviewed records, it appears he does respond well to risperidone. He is not able to tell this senior copywriter last time he received Invega sustenna. Continue CIWA q4, prn ativan. Start risperidone 1mg po BID PLAN 1. Admit to S1, 15 minutes checks for safety 2. continue CIWA, VS stable so far SBP<150, HR<100. continue thiamine, folic acid. CIWA was discontinue since he was not scoring anymore. 3. Start risperidone 1mg po BID.01/21/23 Increase Risperdal to 1.5 mg bid , Risperdal was discontinue on January 24. Depakote 250 mg ER at HS. 4. obtain collateral information 5. Aftercare planning 6. If the patient remains delusional probably will be to filed for Section 7 and 8 but he recanted his 3 day notice. 7. Invega Sustenna 156 mg IM Saturday 8. Reassessment with results Reason for continued inpatient stay Substantial Risk for: inability to function, rapid decompensation and med/psych decompensation Time Spent With Patient Time: Total time managing care of this patient today __20__ minutes.
[2023-01-30] MEDS: Multivitamin TABLET 1 TAB PO (08:06)
[2023-01-30] MEDS: Nicotine 14 MG PATCH.TD24 TRANSDERMA (08:06)
[2023-01-30] MEDS: Folic Acid 1 MG TABLET PO (08:06)
[2023-01-30] MEDS: Thiamine HCL 100 MG TABLET PO (08:06)
[2023-01-30 15:45] LABS: Glucose, Whole Blood 114 mg/dL (60-115)
[2023-01-30 19:35] VITALS: BP 148/70; PULSE 79; RESP 17; TEMP 36.2; O2SAT 98
[2023-01-31 07:00] VITALS: BMI 21.6
[2023-01-31 08:10] VITALS: BP 137/62; PULSE 92; RESP 18; TEMP 36.3; O2SAT 97
[2023-01-31] MEDS: Nicotine 14 MG PATCH.TD24 TRANSDERMA (08:47)
[2023-01-31] MEDS: Thiamine HCL 100 MG TABLET PO (08:48)
[2023-01-31] MEDS: Multivitamin TABLET 1 TAB PO (08:48)
[2023-01-31] MEDS: Folic Acid 1 MG TABLET PO (08:48)
[2023-01-31] MEDS: Nicotine Polacrilex 2 MG GUM 4 MG BUCCAL (13:11)
[2023-01-31] MEDS: OLANZapine 5 MG TABLET PO ×2 (14:24→20:43)
--- NOTE | 2023-01-31 14:27 | HO.PSYCHPN ---
Subjective Subjective Date of Service: 01/31/23 Reason For Visit: Schizoaffective d/o, bipolar type Subjective Notes: Conditional Voluntary and 3 Day Interim History: The nursing staff reported the patient remains psychotic, self dialogue in, loud and nonsensical at times. On interview the patient him and to be discharged today explaining that he is in a 3 day notice and he will next Saturday. He was very loud and needed to be medicated p.r.n.. Mental Status Exam Mental Status Exam Patient Appearance: Appropriate Patient Orientation: Person Level of Consciousness: Restless Patient Behavior: Restless and Belligerent Mood Description: Suspicious and Hostile Affect Description: Labile Patient Cognition Impaired: Yes Ability to Follow Directions: Good Speech Pattern: Clear Hallucinations: None Delusions: Paranoid Ideation, Grandiose and Ideas of Reference Thought Process: Distracted and Linear Thought Content: positive for [place], positive for Loose Associations and positive for Thought Blocking Judgement: Poor Diagnostics Vital Signs (24Hr): Vital Signs - 24 hr 01/30/23 19:35 01/31/23 08:10 Temperature 97.1 F 97.4 F Pulse Rate 79 92 Respiratory Rate 17 18 Blood Pressure 148/70 H 137/62 Pulse Oximetry 98 97 Oxygen Delivery Method Room Air Room Air BMI result Body Mass Index 21.6 Labs Labs: Laboratory Results - last 48 hr 01/30/23 15:40 POC Glucose 114 Medications Medications Current Medications Acetaminophen (Acetaminophen 325 Mg Tablet) 650 mg PO Q6H PRN PRN Reason: Headache/Pain Mild Scale (1-3) Last Admin: 01/28/23 13:03 Dose: 650 mg Al Hydroxide/Mg Hydroxide (Magnesium Hydrox/Alum Hydrox 30 Ml Oral.Susp) 30 ml PO Q6H PRN PRN Reason: Heartburn/Nausea Divalproex Sodium (Divalproex Sodium Er 250 Mg Tab.Er.24h) 250 mg PO BEDTIME [facility] Last Admin: 01/30/23 20:21 Dose: 250 mg Folic Acid (Folic Acid 1 Mg Tablet) 1 mg PO DAILY [facility] Last Admin: 01/31/23 08:48 Dose: 1 mg Magnesium Hydroxide (Milk Of Magnesia 30 Ml Oral.Susp) 30 ml PO DAILY PRN PRN Reason: Constipation Multivitamins/Vitamin C (Multivitamin Tablet) 1 tab PO DAILY [facility] Last Admin: 01/31/23 08:48 Dose: 1 tab Nicotine (Nicotine 14 Mg Patch.Td24) 14 mg TRANSDERMA DAILY [facility] Last Admin: 01/31/23 08:47 Dose: 14 mg Nicotine Polacrilex (Nicotine Polacrilex 2 Mg Gum) 4 mg BUCCAL Q2H PRN PRN Reason: Nicotine Cravings Last Admin: 01/31/23 13:11 Dose: 4 mg Olanzapine (Olanzapine 5 Mg Tablet) 5 mg PO TID PRN PRN Reason: agitation Last Admin: 01/31/23 14:24 Dose: 5 mg Thiamine HCl (Thiamine Hcl 100 Mg Tablet) 100 mg PO DAILY [facility] Last Admin: 01/31/23 08:48 Dose: 100 mg Trazodone HCl (Trazodone Hcl 50 Mg Tablet) 50 mg PO BEDTIME MRX1 PRN PRN Reason: Insomnia Last Admin: 01/30/23 20:21 Dose: 50 mg Allergies Allergies Allergy/AdvReac Type Severity Reaction Status Date / Time No Known Allergies Allergy Verified 08/26/21 13:36 Assessment & Plan Assessment & Plan (1) Bipolar affective, manic: Status: Acute Code(s): F31.10 - Bipolar disorder, current episode manic without psychotic features, unspecified (2) Alcohol use disorder, moderate, dependence: Status: Acute Code(s): F10.20 - Alcohol dependence, uncomplicated Plan Mr. 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 IN the ED utox was negative. BAL was negative. Pt continues to present with disorganized thought process and some flight of ideas that makes it difficult to follow any coherent train of thought. He presents with themes of grandiosity and yarsanism ideas. Reviewed records, it appears he does respond well to risperidone. He is not able to tell this ticket writer last time he received Invega sustenna. Continue CIWA q4, prn ativan. Start risperidone 1mg po BID PLAN 1. Admit to S1, 15 minutes checks for safety 2. continue CIWA, VS stable so far SBP<150, HR<100. continue thiamine, folic acid. CIWA was discontinue since he was not scoring anymore. 3. Start risperidone 1mg po BID.01/21/23 Increase Risperdal to 1.5 mg bid , Risperdal was discontinue on January 24. Depakote 250 mg ER at HS. 4. obtain collateral information 5. Aftercare planning 6. If the patient remains delusional probably will be to filed for Section 7 and 8 but he recanted his 3 day notice. 7. Invega Sustenna 156 mg IM Saturday 8. Reassessment with results Reason for continued inpatient stay Substantial Risk for: inability to function, rapid decompensation and med/psych decompensation Time Spent With Patient Time: Total time managing care of this patient today __20__ minutes.
[2023-01-31 20:10] VITALS: BP 163/70; PULSE 82; RESP 18; TEMP 36.7; O2SAT 97
[2023-01-31] MEDS: Divalproex Sodium ER 250 MG TAB.ER.24H PO (20:43)
[2023-02-01 07:45] VITALS: BP 115/62; PULSE 74; RESP 18; TEMP 36.6; O2SAT 99
[2023-02-01] MEDS: Multivitamin TABLET 1 TAB PO (09:09)
[2023-02-01] MEDS: Folic Acid 1 MG TABLET PO (09:10)
[2023-02-01] MEDS: Nicotine 14 MG PATCH.TD24 TRANSDERMA (09:10)
[2023-02-01] MEDS: Thiamine HCL 100 MG TABLET PO (09:10)
--- NOTE | 2023-02-01 13:03 | HO.PSYCHPN ---
Subjective Subjective Date of Service: 02/01/23 Reason For Visit: Schizoaffective d/o, bipolar type Subjective Notes: Conditional Voluntary Interim History: The nursing staff reported the patient had several outburst in the unit, the patient gets agitated when another patient becomes violent against staff. Last night he was very agitated. On interview the patient remains disorganized but less irritable than yesterday. He wants to be discharged on Saturday. He signed a 3 day notice and expires on Saturday. Mental Status Exam Mental Status Exam Patient Appearance: Appropriate Patient Orientation: Person and Situation Level of Consciousness: Awake and Appropriate Patient Behavior: Guarded and Passive Mood Description: Elated Affect Description: Labile Patient Cognition Impaired: Yes Ability to Follow Directions: Good Speech Pattern: Clear Hallucinations: None Delusions: Paranoid Ideation and Grandiose Thought Process: Illogical and Distracted Thought Content: positive for [place], positive for Poverty of Content and positive for Loose Associations Judgement: Poor Diagnostics Vital Signs (24Hr): Vital Signs - 24 hr 01/31/23 20:10 02/01/23 07:45 Temperature 98.1 F 98 F Pulse Rate 82 74 Respiratory Rate 18 18 Blood Pressure 163/70 H 115/62 Pulse Oximetry 97 99 Oxygen Delivery Method Room Air Room Air BMI result Body Mass Index 21.6 Labs Labs: Laboratory Results - last 48 hr 01/30/23 15:40 POC Glucose 114 Medications Medications Current Medications Acetaminophen (Acetaminophen 325 Mg Tablet) 650 mg PO Q6H PRN PRN Reason: Headache/Pain Mild Scale (1-3) Last Admin: 01/28/23 13:03 Dose: 650 mg Al Hydroxide/Mg Hydroxide (Magnesium Hydrox/Alum Hydrox 30 Ml Oral.Susp) 30 ml PO Q6H PRN PRN Reason: Heartburn/Nausea Divalproex Sodium (Divalproex Sodium Er 500 Mg Tab.Er.24h) 500 mg PO BEDTIME [facility] Folic Acid (Folic Acid 1 Mg Tablet) 1 mg PO DAILY [facility] Last Admin: 02/01/23 09:10 Dose: 1 mg Magnesium Hydroxide (Milk Of Magnesia 30 Ml Oral.Susp) 30 ml PO DAILY PRN PRN Reason: Constipation Multivitamins/Vitamin C (Multivitamin Tablet) 1 tab PO DAILY [facility] Last Admin: 02/01/23 09:09 Dose: 1 tab Nicotine (Nicotine 14 Mg Patch.Td24) 14 mg TRANSDERMA DAILY [facility] Last Admin: 02/01/23 09:10 Dose: 14 mg Nicotine Polacrilex (Nicotine Polacrilex 2 Mg Gum) 4 mg BUCCAL Q2H PRN PRN Reason: Nicotine Cravings Last Admin: 01/31/23 13:11 Dose: 4 mg Olanzapine (Olanzapine 5 Mg Tablet) 5 mg PO TID PRN PRN Reason: agitation Last Admin: 01/31/23 20:43 Dose: 5 mg Thiamine HCl (Thiamine Hcl 100 Mg Tablet) 100 mg PO DAILY [facility] Last Admin: 02/01/23 09:10 Dose: 100 mg Trazodone HCl (Trazodone Hcl 50 Mg Tablet) 50 mg PO BEDTIME MRX1 PRN PRN Reason: Insomnia Last Admin: 01/30/23 20:21 Dose: 50 mg Allergies Allergies Allergy/AdvReac Type Severity Reaction Status Date / Time No Known Allergies Allergy Verified 08/26/21 13:36 Assessment & Plan Assessment & Plan (1) Bipolar affective, manic: Status: Acute Code(s): F31.10 - Bipolar disorder, current episode manic without psychotic features, unspecified (2) Alcohol use disorder, moderate, dependence: Status: Acute Code(s): F10.20 - Alcohol dependence, uncomplicated Plan Mr. 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 IN the ED utox was negative. BAL was negative. Pt continues to present with disorganized thought process and some flight of ideas that makes it difficult to follow any coherent train of thought. He presents with themes of grandiosity and anglican ideas. Reviewed records, it appears he does respond well to risperidone. He is not able to tell this underwriter solicitation director last time he received Invega sustenna. Continue CIWA q4, prn ativan. Start risperidone 1mg po BID PLAN 1. Admit to S1, 15 minutes checks for safety 2. continue CIWA, VS stable so far SBP<150, HR<100. continue thiamine, folic acid. CIWA was discontinue since he was not scoring anymore. 3. Start risperidone 1mg po BID.01/21/23 Increase Risperdal to 1.5 mg bid , Risperdal was discontinue on January 24. Depakote 250 mg ER at HS. 4. obtain collateral information 5. Aftercare planning 6. If the patient remains delusional probably will be to filed for Section 7 and 8 but he recanted his 3 day notice. 7. Invega Sustenna 156 mg IM Saturday 8. Reassessment with results. 9. Increase Depakote up to 500 mg p.o. q.h.s. Reason for continued inpatient stay Substantial Risk for: inability to function, rapid decompensation and med/psych decompensation Time Spent With Patient Time: Total time managing care of this patient today __20__ minutes.
[2023-02-01] MEDS: Nicotine Polacrilex 2 MG GUM 4 MG BUCCAL ×2 (13:57→16:22)
[2023-02-01 18:00] VITALS: BP 140/72; PULSE 78; RESP 18; TEMP 36.6; O2SAT 97
[2023-02-01] MEDS: Divalproex Sodium ER 500 MG TAB.ER.24H PO (20:43)
[2023-02-02] MEDS: OLANZapine 5 MG TABLET PO ×2 (00:55→13:12)
[2023-02-02 06:00] VITALS: BP 148/69; PULSE 85; RESP 18; TEMP 36.8; O2SAT 98
[2023-02-02] MEDS: Folic Acid 1 MG TABLET PO (09:18)
[2023-02-02] MEDS: Multivitamin TABLET 1 TAB PO (09:18)
[2023-02-02] MEDS: Nicotine 14 MG PATCH.TD24 TRANSDERMA (09:18)
[2023-02-02] MEDS: Thiamine HCL 100 MG TABLET PO (09:18)
[2023-02-02 19:40] VITALS: BP 159/65; PULSE 92; RESP 16; TEMP 37.1; O2SAT 95
[2023-02-02] MEDS: Acetaminophen 325 MG TABLET 650 MG PO (20:21)
[2023-02-02] MEDS: Divalproex Sodium ER 500 MG TAB.ER.24H PO (20:49)
[2023-02-02] MEDS: Nicotine Polacrilex 2 MG GUM 4 MG BUCCAL (21:48)
--- NOTE | 2023-02-03 00:18 | HO.PSYCHPN ---
Subjective Subjective Date of Service: 02/02/23 Reason For Visit: Schizoaffective d/o, bipolar type Interim History: He is cooperative with care taking medication maintaining his nutrition and ADL function Patient not overly agitated or combative. When seen he is tense be somewhat grandiose pressured Medication Compliance: Yes Mental Status Exam Mental Status Exam Patient Appearance: Appropriate Patient Orientation: Person, Place and Situation Level of Consciousness: Awake and Appropriate Patient Behavior: Distractible and Good Eye Contact Mood Description: Elated Affect Description: Labile and Apprehensive Patient Cognition Impaired: Yes Ability to Follow Directions: Good Speech Pattern: Clear, Perseverating, Rambling and Pressured Hallucinations: None Delusions: Paranoid Ideation and Grandiose Thought Process: Illogical and Distracted Thought Content: positive for Circ[place], negative for Suicidal Ideation or negative for Homicidal Ideation Judgement: Poor Judgement and Insight: Flight of ideas somewhat rambling Diagnostics Vital Signs (24Hr): Vital Signs - 24 hr 02/02/23 06:00 02/02/23 19:40 Temperature 98.2 F 98.7 F Pulse Rate 85 92 Respiratory Rate 18 16 Blood Pressure 148/69 H 159/65 H Pulse Oximetry 98 95 Oxygen Delivery Method Room Air Room Air BMI result Body Mass Index 21.6 Medications Medications Current Medications Acetaminophen (Acetaminophen 325 Mg Tablet) 650 mg PO Q6H PRN PRN Reason: Headache/Pain Mild Scale (1-3) Last Admin: 02/02/23 20:21 Dose: 650 mg Al Hydroxide/Mg Hydroxide (Magnesium Hydrox/Alum Hydrox 30 Ml Oral.Susp) 30 ml PO Q6H PRN PRN Reason: Heartburn/Nausea Divalproex Sodium (Divalproex Sodium Er 500 Mg Tab.Er.24h) 500 mg PO BEDTIME [facility] Last Admin: 02/02/23 20:49 Dose: 500 mg Folic Acid (Folic Acid 1 Mg Tablet) 1 mg PO DAILY [facility] Last Admin: 02/02/23 09:18 Dose: 1 mg Magnesium Hydroxide (Milk Of Magnesia 30 Ml Oral.Susp) 30 ml PO DAILY PRN PRN Reason: Constipation Multivitamins/Vitamin C (Multivitamin Tablet) 1 tab PO DAILY [facility] Last Admin: 02/02/23 09:18 Dose: 1 tab Nicotine (Nicotine 14 Mg Patch.Td24) 14 mg TRANSDERMA DAILY [facility] Last Admin: 02/02/23 09:18 Dose: 14 mg Nicotine Polacrilex (Nicotine Polacrilex 2 Mg Gum) 4 mg BUCCAL Q2H PRN PRN Reason: Nicotine Cravings Last Admin: 02/02/23 21:48 Dose: 4 mg Olanzapine (Olanzapine 5 Mg Tablet) 5 mg PO TID PRN PRN Reason: agitation Last Admin: 02/02/23 13:12 Dose: 5 mg Thiamine HCl (Thiamine Hcl 100 Mg Tablet) 100 mg PO DAILY [facility] Last Admin: 02/02/23 09:18 Dose: 100 mg Trazodone HCl (Trazodone Hcl 50 Mg Tablet) 50 mg PO BEDTIME MRX1 PRN PRN Reason: Insomnia Last Admin: 01/30/23 20:21 Dose: 50 mg Allergies Allergies Allergy/AdvReac Type Severity Reaction Status Date / Time No Known Allergies Allergy Verified 08/26/21 13:36 Assessment & Plan Assessment & Plan (1) Bipolar affective, manic: Status: Acute Code(s): F31.10 - Bipolar disorder, current episode manic without psychotic features, unspecified (2) Alcohol use disorder, moderate, dependence: Status: Acute Code(s): F10.20 - Alcohol dependence, uncomplicated Plan Mr. 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 IN the ED utox was negative. BAL was negative. Pt continues to present with disorganized thought process and some flight of ideas that makes it difficult to follow any coherent train of thought. He presents with themes of grandiosity and yazdanism ideas. Reviewed records, it appears he does respond well to risperidone. He is not able to tell this auto service writer last time he received Invega sustenna. Continue CIWA q4, prn ativan. Start risperidone 1mg po BID PLAN 1. Admit to S1, 15 minutes checks for safety 2. continue CIWA, VS stable so far SBP<150, HR<100. continue thiamine, folic acid. CIWA was discontinue since he was not scoring anymore. 3. Start risperidone 1mg po BID.01/21/23 Increase Risperdal to 1.5 mg bid , Risperdal was discontinue on January 24. Depakote 250 mg ER at HS. 4. obtain collateral information 5. Aftercare planning 6. If the patient remains delusional probably will be to filed for Section 7 and 8 but he recanted his 3 day notice. 7. Invega Sustenna 156 mg IM Saturday 8. Reassessment with results. 9. Increase Depakote up to 500 mg p.o. q.h.s. 02/02/23 Patient on Invega sustain a Depakote flight of ideas noted somewhat grandiose illogical irritable some degree when feeling frustrated In regards to his grandiose ideas Informed Consent: further education needed Reason for continued inpatient stay Substantial Risk for: inability to function and rapid decompensation Time Spent With Patient Time: Total time managing care of this patient today ____ minutes.
[2023-02-03 06:00] VITALS: BP 122/74; PULSE 78; RESP 16; TEMP 36.7; O2SAT 98
[2023-02-03] MEDS: Nicotine 14 MG PATCH.TD24 TRANSDERMA (08:39)
[2023-02-03] MEDS: Thiamine HCL 100 MG TABLET PO (08:41)
[2023-02-03] MEDS: Folic Acid 1 MG TABLET PO (08:41)
[2023-02-03] MEDS: OLANZapine 5 MG TABLET PO (08:41)
[2023-02-03] MEDS: Multivitamin TABLET 1 TAB PO (08:41)
[2023-02-03] MEDS: Nicotine Polacrilex 2 MG GUM 4 MG BUCCAL (09:06)
[2023-02-03 19:35] VITALS: BP 150/73; PULSE 86; RESP 16; TEMP 36.6; O2SAT 96
[2023-02-03] MEDS: Divalproex Sodium ER 500 MG TAB.ER.24H PO (20:35)
--- NOTE | 2023-02-04 00:42 | P.PNPSI_ITS ---
Subjective Subjective Date of Service: 02/03/23 Reason For Visit: Schizoaffective d/o, bipolar type Subjective Notes: Conditional Voluntary and 3 Day Interim History: Patient is noted to have a 3 day notice their concerns regarding his ability to care for himself in the community. Patient is somewhat rambling during discussion has thoughts to work with [facility] so and be placed in [place] for appeared of time at other times starts talking about finding his dog and being discharged to train station [place] and trying to find belongings Medication Compliance: Yes Mental Status Exam Mental Status Exam Patient Appearance: Appropriate Patient Orientation: Person, Place and Situation Level of Consciousness: Awake and Appropriate Patient Behavior: Distractible and Good Eye Contact Mood Description: Elated and Apprehensive Affect Description: Labile and Apprehensive Patient Cognition Impaired: Yes Ability to Follow Directions: Good Speech Pattern: Clear, Perseverating, Rambling, Pressured and Excited Hallucinations: None Delusions: Grandiose Thought Process: Illogical and Distracted Thought Content: positive for Circumstantial, negative for Suicidal Ideation or negative for Homicidal Ideation Judgement: Poor Judgement and Insight: Flight of ideas somewhat rambling unclear regarding what he would do after discharge at times talking about working with [facility] at other times talking about taking a bus to [place] [facility] Vital Signs (24Hr): Vital Signs - 24 hr 02/03/23 06:00 02/03/23 19:35 Temperature 98.1 F 97.8 F Pulse Rate 78 86 Respiratory Rate 16 16 Blood Pressure 122/74 150/73 H Pulse Oximetry 98 96 Oxygen Delivery Method Room Air Room Air BMI result Body Mass Index 21.6 Medications Medications Current Medications Acetaminophen (Acetaminophen 325 Mg Tablet) 650 mg PO Q6H PRN PRN Reason: Headache/Pain Mild Scale (1-3) Last Admin: 02/02/23 20:21 Dose: 650 mg Al Hydroxide/Mg Hydroxide (Magnesium Hydrox/Alum Hydrox 30 Ml Oral.Susp) 30 ml PO Q6H PRN PRN Reason: Heartburn/Nausea Divalproex Sodium (Divalproex Sodium Er 500 Mg Tab.Er.24h) 500 mg PO BEDTIME [facility] Last Admin: 02/03/23 20:35 Dose: 500 mg Folic Acid (Folic Acid 1 Mg Tablet) 1 mg PO DAILY [facility] Last Admin: 02/03/23 08:41 Dose: 1 mg Magnesium Hydroxide (Milk Of Magnesia 30 Ml Oral.Susp) 30 ml PO DAILY PRN PRN Reason: Constipation Multivitamins/Vitamin C (Multivitamin Tablet) 1 tab PO DAILY [facility] Last Admin: 02/03/23 08:41 Dose: 1 tab Nicotine (Nicotine 14 Mg Patch.Td24) 14 mg TRANSDERMA DAILY [facility] Last Admin: 02/03/23 08:39 Dose: 14 mg Nicotine Polacrilex (Nicotine Polacrilex 2 Mg Gum) 4 mg BUCCAL Q2H PRN PRN Reason: Nicotine Cravings Last Admin: 02/03/23 09:06 Dose: 4 mg Olanzapine (Olanzapine 5 Mg Tablet) 5 mg PO TID PRN PRN Reason: agitation Last Admin: 02/03/23 08:41 Dose: 5 mg Thiamine HCl (Thiamine Hcl 100 Mg Tablet) 100 mg PO DAILY [facility] Last Admin: 02/03/23 08:41 Dose: 100 mg Trazodone HCl (Trazodone Hcl 50 Mg Tablet) 50 mg PO BEDTIME MRX1 PRN PRN Reason: Insomnia Last Admin: 01/30/23 20:21 Dose: 50 mg Allergies Allergies Allergy/AdvReac Type Severity Reaction Status Date / Time No Known Allergies Allergy Verified 08/26/21 13:36 Assessment & Plan Assessment & Plan (1) Bipolar affective, manic: Status: Acute Code(s): F31.10 - Bipolar disorder, current episode manic without psychotic features, unspecified (2) Alcohol use disorder, moderate, dependence: Status: Acute Code(s): F10.20 - Alcohol dependence, uncomplicated Plan Mr. 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 IN the ED utox was negative. BAL was negative. Pt continues to present with disorganized thought process and some flight of ideas that makes it difficult to follow any coherent train of thought. He presents with themes of grandiosity and sikh ideas. Reviewed records, it appears he does respond well to risperidone. 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 Continue CIWA q4, prn ativan. Start risperidone 1mg po BID PLAN 1. Admit to S1, 15 minutes checks for safety 2. continue CIWA, VS stable so far SBP<150, HR<100. continue thiamine, folic acid. CIWA was discontinue since he was not scoring anymore. 3. Start risperidone 1mg po BID.01/21/23 Increase Risperdal to 1.5 mg bid , Risperdal was discontinue on January 24. Depakote 250 mg ER at [facility]. 4. obtain collateral information 5. Aftercare planning 6. If the patient remains delusional probably will be to filed for Section 7 and 8 but he recanted his 3 day notice. 7. Invega Sustenna 156 mg IM Saturday 8. Reassessment with results. 9. Increase Depakote up to 500 mg p.o. q.h.s. 02/02/23 Patient on Invega sustain a Depakote flight of ideas noted somewhat grandiose illogical irritable some degree when feeling frustrated In regards to his grandiose ideas 02/03/2023 Patient's ability to cooperate post discharge unclear he is quite variable regarding this. I do not see labs from this admission check CBC Depakote level LFT Reason for continued inpatient stay Substantial Risk for: inability to function and rapid decompensation Time Spent With Patient Time: Total time managing care of this patient today ____ minutes.
[2023-02-04 07:45] VITALS: BP 148/69; PULSE 86; RESP 18; TEMP 36.5; O2SAT 99
[2023-02-04] MEDS: Folic Acid 1 MG TABLET PO (08:15)
[2023-02-04] MEDS: Thiamine HCL 100 MG TABLET PO (08:15)
[2023-02-04] MEDS: Multivitamin TABLET 1 TAB PO (08:15)
[2023-02-04] MEDS: Nicotine 14 MG PATCH.TD24 TRANSDERMA (08:15)
[2023-02-04 08:28] LABS: MANUAL DIFF FLAG NO
[2023-02-04 08:36] LABS: Basophils Percent Auto 0.6 % (0-2); Eosinophils Absolute Auto 0.1 X10*3/uL (0.0-0.4); Eosinophils Percent Auto 2.2 % (0-4); Hemoglobin 12.6 g/dl (14.0-18.0); Imm Gran Abs Auto 0.02 X10*3/uL (0.00-0.03); Imm Gran Pct Auto 0.3 % (0.0-0.4); Lymphocytes Absolute Auto 1.4 X10*3/uL (1.2-4.9); Lymphocytes Percent Auto 22.3 % (20-40); Mean Corpuscular HGB Conc 32.3 g/dl (31.0-36.0); Mean Corpuscular Hemoglobin 30.4 pg (27.0-33.0); Mean Platelet Volume 9.1 fL (9.4-12.4); Monocytes Absolute Auto 0.7 X10*3/uL (0.1-1.2); Monocytes Percent Auto 10.7 % (2-11); Neutrophils Percent Auto 63.9 % (45-73); Platelet Count 230 X10*3/uL (160-400); Red Blood Count 4.15 X10*6/uL (4.60-5.80); Red Cell Distribution Width 15.4 % (11.0-16.0); White Blood Count 6.2 X10*3/uL (4.8-10.8)
[2023-02-04 08:45] LABS: Valproate 26.7 mcg/mL (50.0-100.0)
[2023-02-04 08:52] LABS: Alanine Aminotransferase 16 U/L (0-40); Albumin Level 4.2 g/dL (3.5-5.0); Alkaline Phosphatase 106 U/L (39-117); Anion Gap 11 (12-20); Aspartate Amino Transferase 20 U/L (5-37); Bilirubin Total 0.5 mg/dL (0.0-1.0); Blood Urea Nitrogen 22 mg/dL (9-16); Calcium 9.6 mg/dL (8.4-10.2); Carbon Dioxide 30 mmol/L (22-29); Chloride 102 mmol/L (96-108); Estimated Glomerular Filt Rate > 60; Glucose Fasting 154 mg/dL (60-99); Potassium 4.9 mmol/L (3.3-5.1); Sodium 138 mmol/L (135-145); Total Protein 6.7 g/dL (6.5-8.0)
--- NOTE | 2023-02-04 11:49 | P.DS_ITS ---
DS: Providers Provider Date of Service: 02/04/23 Date of admission: 01/17/23 18:57 Date of discharge: 02/04/23 Primary care physician: Unknown Physician Consults: 01/17/23 21:02 Consult to Hospitalist Routine Comment: Consulting Provider: Hospitalist Reason For Exam: admission physical Attending physician on discharge: Miguel Chin DS: Diagnosis Discharge Diagnosis (1) Bipolar affective, manic: Status: Acute (2) Alcohol use disorder, moderate, dependence: Status: Acute DS: Medications Discharge Medications Home Medications: Home Medications Medication Instructions Recorded Confirmed Vitamin B Complex-100 mg PO 1XD 01/18/23 chlorpromazine 10 mg tablet 10 mg PO QID PRN Anxiety 01/18/23 01/18/23 folic acid 1 mg tablet 1 mg PO DAILY 01/18/23 01/18/23 hydroxyzine HCl 25 mg tablet 25 mg PO TID PRN anxiety 01/18/23 01/18/23 paliperidone palmitate 117 mg/0.75 mg IM 01/18/23 mL intramuscular syringe (Invega Sustenna) Mental Status Exam Mental Status Exam Patient Appearance: Appropriate Patient Orientation: Person and Situation Level of Consciousness: Awake and Appropriate Patient Behavior: Guarded and Passive Mood Description: Suspicious Affect Description: Constricted Patient Cognition Impaired: No Ability to Follow Directions: Fair Speech Pattern: Clear Hallucinations: None Delusions: Paranoid Ideation Thought Process: Distracted and Evasive Thought Content: positive for [place], positive for Circumstantial and positive for Poverty of Content Judgement: Poor Data Data Completed and Pending Completed studies during hospitalization [Text1]: 01/30/23 02/04/23 15:40 08:24 WBC 6.2 RBC 4.15 L Hgb 12.6 L Hct 39.0 L MCV 94.0 MCH 30.4 MCHC 32.3 RDW 15.4 Plt Count 230 D MPV 9.1 L Immature Gran % (Auto) 0.3 Neut % (Auto) 63.9 Lymph % (Auto) 22.3 [place] % (Auto) 10.7 Eos % (Auto) 2.2 Baso % (Auto) 0.6 Lymph # (Auto) 1.4 [place] # (Auto) 0.7 Eos # (Auto) 0.1 Baso # (Auto) 0.0 Abs Immat Gran (auto) 0.02 Absolute Neuts (auto) 4.0 Absolute Nucleated RBC 0.000 Nucleated RBC % (auto) 0.0 Sodium 138 Potassium 4.9 Chloride 102 Carbon Dioxide 30 H Anion Gap 11 L BUN 22 H Creatinine 0.96 Estim Creat Clear Calc 74.0 Estimated GFR > 60 POC Glucose 114 Fasting Glucose 154 H Calcium 9.6 Total Bilirubin 0.5 AST 20 ALT 16 Alkaline Phosphatase 106 Total Protein 6.7 Albumin 4.2 Valproic Acid 26.7 L DS: Summary Hospital Course Hospital Course: The patient is a 67-year-old male, chronically homeless with a long history of schizoaffective disorder bipolar type and alcohol use disorder who was admitted to the emergency room of another hospital due to disorganization and psychosis. The patient is very well known by this team since he had been admitted here at least twice. Please see the HPI of the admission note for further details. On admission, the patient was grossly disorganized with word salad, unable to make any logical decisions. Even though he was able to understand that he needed help and he signed himself in a conditional voluntary. The patient remembered me and he stated that he wants to have Invega Sustenna again so we started with Invega 234 mg and then 1 week later on 156. The patient took longer to went back to his baseline. He signed a 3 day notice and he recanted twice and he wanted to be discharged. The patient is fully aware that he is homeless and he wants to go to the residential in her [place]. I advised him to stay him for a few days more but he refused. The patient adamantly denied suicidal or homicidal thoughts, he is able to take care of himself and since there were no safety concerns discharge planning was done. Time spent discussing smoking cessation with patient: 3 to 10 minutes Status at Discharge Functional status at discharge: independent ambulation Overall status at discharge: patient is progressing back to baseline Time Spent with Patient Time attestation: Total time managing care of this patient today __30__ minutes. Time spent: Less than 30 minutes Discharge Plan Discharge Anticipated Discharge Date/Time: 02/04/23 11:45 Patient Disposition: Prison Discharge Diagnosis: Schizoaffective disorder bipolar type. Alcohol use disorder in remission Referrals: Physician,Unknown J [Primary Care Provider] - 1 Week Discharge Medications: New multivitamin [Daily-Eugene] Tablet 1 tab PO DAILY Qty: 30 0RF olanzapine 5 mg Tablet 5 mg PO TID PRN (Reason: agitation) 30 Days Qty: 60 0RF divalproex 500 mg Tablet Extended Release 24 Hr 500 mg PO BEDTIME 30 Days Qty: 30 0RF folic acid 1 mg Tablet 1 mg PO DAILY 30 Days Qty: 30 0RF thiamine mononitrate (vit B1) 100 mg Tablet 100 mg PO DAILY Qty: 30 0RF Invega Sustenna 156 mg/mL syringe 156 mg IM QMONTH Qty: 1 0RF Rx Instructions: Next dose February 22 2023 Discontinued chlorpromazine 10 mg tablet 10 mg PO QID PRN (Reason: Anxiety) folic acid 1 mg tablet 1 mg PO DAILY hydroxyzine HCl 25 mg tablet 25 mg PO TID PRN (Reason: anxiety) Invega Sustenna 117 mg/0.75 mL syringe IM Vitamin B Complex-100 100 mg PO 1XD Discharge Orders: Discharge Order (Routine); Ordered 02/04/23 Ordered By: Miguel Chin Diet: Advance to usual diet Activity on Discharge: As tolerated Stand Alone Forms: Patient Portal Discharge page Care Plan Goals: Care plan goals achieved in this admission Health Concerns: Continue treatment with primary care physician Plan of Treatment: Continue medication management by outpatient providers Assessment: Elderly male with a past history of schizoaffective disorder and alcohol use disorder in early remission admitted for exacerbation of psychosis in the context of noncompliance with Invega Sustenna. The patient was restarted on his medications and he psychosis improved even though that he still have some residual symptoms and he has refused to stay longer. At this moment no safety concerns no suicidal or homicidal thoughts able to contract for safety and he is able to manage himself in the community. Discharged and residential as per his request.
--- NOTE | 2023-02-04 13:49 | HO.PSYCHPN ---
Subjective Subjective Date of Service: 02/04/23 Reason For Visit: Schizoaffective d/o, bipolar type Subjective Notes: Conditional Voluntary and 3 Day (retracted today) Interim History: The nursing staff reported the patient had been compliant with his treatment, still he was seen responding to internal stimuli at times but less irritable. Today he retracted his 3 day notice. He is fully aware that he is currently homeless and he is going to a senior living. On interview the patient reports that he is doing much better but still not at baseline. Mental Status Exam Mental Status Exam Patient Appearance: Appropriate Patient Orientation: Person and Situation Level of Consciousness: Awake and Appropriate Patient Behavior: Guarded and Passive Mood Description: Calm Affect Description: Calm Patient Cognition Impaired: No Ability to Follow Directions: Good Speech Pattern: Clear Hallucinations: Auditory Delusions: Ideas of Reference Thought Process: Distracted and Slowed Thinking Thought Content: positive for [place] and positive for Poverty of Content Judgement: Fair Diagnostics Vital Signs (24Hr): Vital Signs - 24 hr 02/03/23 19:35 02/04/23 07:45 Temperature 97.8 F 97.7 F Pulse Rate 86 86 Respiratory Rate 16 18 Blood Pressure 150/73 H 148/69 H Pulse Oximetry 96 99 Oxygen Delivery Method Room Air Room Air BMI result Body Mass Index 21.6 Labs 02/04/23 08:24 02/04/23 08:24 Labs: Laboratory Results - last 48 hr 02/04/23 08:24 WBC 6.2 RBC 4.15 L Hgb 12.6 L Hct 39.0 L MCV 94.0 MCH 30.4 MCHC 32.3 RDW 15.4 Plt Count 230 D MPV 9.1 L Immature Gran % (Auto) 0.3 Neut % (Auto) 63.9 Lymph % (Auto) 22.3 [place] % (Auto) 10.7 Eos % (Auto) 2.2 Baso % (Auto) 0.6 Lymph # (Auto) 1.4 [place] # (Auto) 0.7 Eos # (Auto) 0.1 Baso # (Auto) 0.0 Abs Immat Gran (auto) 0.02 Absolute Neuts (auto) 4.0 Absolute Nucleated RBC 0.000 Nucleated RBC % (auto) 0.0 Sodium 138 Potassium 4.9 Chloride 102 Carbon Dioxide 30 H Anion Gap 11 L BUN 22 H Creatinine 0.96 Estim Creat Clear Calc 74.0 Estimated GFR > 60 Fasting Glucose 154 H Calcium 9.6 Total Bilirubin 0.5 AST 20 ALT 16 Alkaline Phosphatase 106 Total Protein 6.7 Albumin 4.2 Valproic Acid 26.7 L Medications Medications Current Medications Acetaminophen (Acetaminophen 325 Mg Tablet) 650 mg PO Q6H PRN PRN Reason: Headache/Pain Mild Scale (1-3) Last Admin: 02/02/23 20:21 Dose: 650 mg Al Hydroxide/Mg Hydroxide (Magnesium Hydrox/Alum Hydrox 30 Ml Oral.Susp) 30 ml PO Q6H PRN PRN Reason: Heartburn/Nausea Divalproex Sodium (Divalproex Sodium Er 500 Mg Tab.Er.24h) 500 mg PO BEDTIME [facility] Last Admin: 02/03/23 20:35 Dose: 500 mg Folic Acid (Folic Acid 1 Mg Tablet) 1 mg PO DAILY [facility] Last Admin: 02/04/23 08:15 Dose: 1 mg Magnesium Hydroxide (Milk Of Magnesia 30 Ml Oral.Susp) 30 ml PO DAILY PRN PRN Reason: Constipation Multivitamins/Vitamin C (Multivitamin Tablet) 1 tab PO DAILY [facility] Last Admin: 02/04/23 08:15 Dose: 1 tab Nicotine (Nicotine 14 Mg Patch.Td24) 14 mg TRANSDERMA DAILY [facility] Last Admin: 02/04/23 08:15 Dose: 14 mg Nicotine Polacrilex (Nicotine Polacrilex 2 Mg Gum) 4 mg BUCCAL Q2H PRN PRN Reason: Nicotine Cravings Last Admin: 02/03/23 09:06 Dose: 4 mg Olanzapine (Olanzapine 5 Mg Tablet) 5 mg PO TID PRN PRN Reason: agitation Last Admin: 02/03/23 08:41 Dose: 5 mg Thiamine HCl (Thiamine Hcl 100 Mg Tablet) 100 mg PO DAILY [facility] Last Admin: 02/04/23 08:15 Dose: 100 mg Trazodone HCl (Trazodone Hcl 50 Mg Tablet) 50 mg PO BEDTIME MRX1 PRN PRN Reason: Insomnia Last Admin: 01/30/23 20:21 Dose: 50 mg Allergies Allergies Allergy/AdvReac Type Severity Reaction Status Date / Time No Known Allergies Allergy Verified 08/26/21 13:36 Assessment & Plan Assessment & Plan (1) Bipolar affective, manic: Status: Acute Code(s): F31.10 - Bipolar disorder, current episode manic without psychotic features, unspecified (2) Alcohol use disorder, moderate, dependence: Status: Acute Code(s): F10.20 - Alcohol dependence, uncomplicated Plan Mr. 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 IN the ED utox was negative. BAL was negative. Pt continues to present with disorganized thought process and some flight of ideas that makes it difficult to follow any coherent train of thought. He presents with themes of grandiosity and moravian ideas. Reviewed records, it appears he does respond well to risperidone. 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 Continue CIWA q4, prn ativan. Start risperidone 1mg po BID PLAN 1. Admit to S1, 15 minutes checks for safety 2. continue CIWA, VS stable so far SBP<150, HR<100. continue thiamine, folic acid. CIWA was discontinue since he was not scoring anymore. 3. Start risperidone 1mg po BID.01/21/23 Increase Risperdal to 1.5 mg bid , Risperdal was discontinue on January 24. Depakote 250 mg ER at HS. 4. obtain collateral information 5. Aftercare planning 6. If the patient remains delusional probably will be to filed for Section 7 and 8 but he recanted his 3 day notice. 7. Invega Sustenna 156 mg IM Saturday 8. Reassessment with results. 9. Increase Depakote up to 500 mg p.o. q.h.s. 10. Start working on discharge planning Reason for continued inpatient stay Substantial Risk for: inability to function, rapid decompensation and med/psych decompensation Time Spent With Patient Time: Total time managing care of this patient today __20__ minutes.
--- NOTE | 2023-02-04 15:58 | PC.NURSE ---
The patient was supposed to be discharged today to a long term in [place] but he rescinded his 3 day and is staying at least another day.
[2023-02-04 18:00] VITALS: BP 151/69; PULSE 88; RESP 18; TEMP 36.3; O2SAT 95
[2023-02-04] MEDS: Divalproex Sodium ER 500 MG TAB.ER.24H PO (20:33)
[2023-02-04] MEDS: traZODone HCL 50 MG TABLET PO (23:42)
[2023-02-04] MEDS: Acetaminophen 325 MG TABLET 650 MG PO (23:45)
[2023-02-05 06:00] VITALS: BP 134/67; PULSE 85; RESP 18; TEMP 36.6; O2SAT 96
[2023-02-05] MEDS: Thiamine HCL 100 MG TABLET PO (08:40)
[2023-02-05] MEDS: Multivitamin TABLET 1 TAB PO (08:40)
[2023-02-05] MEDS: Folic Acid 1 MG TABLET PO (08:40)
[2023-02-05] MEDS: Nicotine 14 MG PATCH.TD24 TRANSDERMA (08:40)
--- NOTE | 2023-02-05 15:18 | P.PNPSI_ITS ---
Subjective Subjective Date of Service: 02/05/23 Reason For Visit: Schizoaffective d/o, bipolar type Subjective Notes: Conditional Voluntary Interim History: The nursing staff reported the patient had been pleasant and cooperative, slightly nonsensical at times but easily redirectable. On interview the patient denies new symptoms he looks more organized unfortunately he was unable to find a bed on the shoulder today so he is going to be discharged tomorrow. No safety concerns at this moment Mental Status Exam Mental Status Exam Patient Appearance: Well Grooomed and Appropriate Patient Orientation: Person and Situation Level of Consciousness: Awake and Appropriate Patient Behavior: Guarded and Passive Mood Description: Withdrawn Affect Description: Constricted Patient Cognition Impaired: Yes Ability to Follow Directions: Good Speech Pattern: Clear Hallucinations: None Delusions: Not Present Thought Process: Distracted and Slowed Thinking Thought Content: positive for [place] and positive for Poverty of Content Judgement: Fair Diagnostics Vital Signs (24Hr): Vital Signs - 24 hr 02/04/23 18:00 02/05/23 06:00 Temperature 97.4 F 97.8 F Pulse Rate 88 85 Respiratory Rate 18 18 Blood Pressure 151/69 H 134/67 Pulse Oximetry 95 96 Oxygen Delivery Method Room Air Room Air BMI result Body Mass Index 21.6 Labs 02/04/23 08:24 02/04/23 08:24 Labs: Laboratory Results - last 48 hr 02/04/23 08:24 WBC 6.2 RBC 4.15 L Hgb 12.6 L Hct 39.0 L MCV 94.0 MCH 30.4 MCHC 32.3 RDW 15.4 Plt Count 230 D MPV 9.1 L Immature Gran % (Auto) 0.3 Neut % (Auto) 63.9 Lymph % (Auto) 22.3 [place] % (Auto) 10.7 Eos % (Auto) 2.2 Baso % (Auto) 0.6 Lymph # (Auto) 1.4 [place] # (Auto) 0.7 Eos # (Auto) 0.1 Baso # (Auto) 0.0 Abs Immat Gran (auto) 0.02 Absolute Neuts (auto) 4.0 Absolute Nucleated RBC 0.000 Nucleated RBC % (auto) 0.0 Sodium 138 Potassium 4.9 Chloride 102 Carbon Dioxide 30 H Anion Gap 11 L BUN 22 H Creatinine 0.96 Estim Creat Clear Calc 74.0 Estimated GFR > 60 Fasting Glucose 154 H Calcium 9.6 Total Bilirubin 0.5 AST 20 ALT 16 Alkaline Phosphatase 106 Total Protein 6.7 Albumin 4.2 Valproic Acid 26.7 L Medications Medications Current Medications Acetaminophen (Acetaminophen 325 Mg Tablet) 650 mg PO Q6H PRN PRN Reason: Headache/Pain Mild Scale (1-3) Last Admin: 02/04/23 23:45 Dose: 650 mg Al Hydroxide/Mg Hydroxide (Magnesium Hydrox/Alum Hydrox 30 Ml Oral.Susp) 30 ml PO Q6H PRN PRN Reason: Heartburn/Nausea Divalproex Sodium (Divalproex Sodium Er 500 Mg Tab.Er.24h) 500 mg PO BEDTIME [facility] Last Admin: 02/04/23 20:33 Dose: 500 mg Folic Acid (Folic Acid 1 Mg Tablet) 1 mg PO DAILY [facility] Last Admin: 02/05/23 08:40 Dose: 1 mg Magnesium Hydroxide (Milk Of Magnesia 30 Ml Oral.Susp) 30 ml PO DAILY PRN PRN Reason: Constipation Multivitamins/Vitamin C (Multivitamin Tablet) 1 tab PO DAILY [facility] Last Admin: 02/05/23 08:40 Dose: 1 tab Nicotine (Nicotine 14 Mg Patch.Td24) 14 mg TRANSDERMA DAILY [facility] Last Admin: 02/05/23 08:40 Dose: 14 mg Nicotine Polacrilex (Nicotine Polacrilex 2 Mg Gum) 4 mg BUCCAL Q2H PRN PRN Reason: Nicotine Cravings Last Admin: 02/03/23 09:06 Dose: 4 mg Olanzapine (Olanzapine 5 Mg Tablet) 5 mg PO TID PRN PRN Reason: agitation Last Admin: 02/03/23 08:41 Dose: 5 mg Thiamine HCl (Thiamine Hcl 100 Mg Tablet) 100 mg PO DAILY [facility] Last Admin: 02/05/23 08:40 Dose: 100 mg Trazodone HCl (Trazodone Hcl 50 Mg Tablet) 50 mg PO BEDTIME MRX1 PRN PRN Reason: Insomnia Last Admin: 02/04/23 23:42 Dose: 50 mg Allergies Allergies Allergy/AdvReac Type Severity Reaction Status Date / Time No Known Allergies Allergy Verified 08/26/21 13:36 Assessment & Plan Assessment & Plan (1) Bipolar affective, manic: Status: Acute Code(s): F31.10 - Bipolar disorder, current episode manic without psychotic features, unspecified (2) Alcohol use disorder, moderate, dependence: Status: Acute Code(s): F10.20 - Alcohol dependence, uncomplicated Plan Mr. 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 IN the ED utox was negative. BAL was negative. Pt continues to present with disorganized thought process and some flight of ideas that makes it difficult to follow any coherent train of thought. He presents with themes of grandiosity and sikhism ideas. Reviewed records, it appears he does respond well to risperidone. 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 Continue CIWA q4, prn ativan. Start risperidone 1mg po BID PLAN 1. Admit to S1, 15 minutes checks for safety 2. continue CIWA, VS stable so far SBP<150, HR<100. continue thiamine, folic acid. CIWA was discontinue since he was not scoring anymore. 3. Start risperidone 1mg po BID.01/21/23 Increase Risperdal to 1.5 mg bid , Risperdal was discontinue on January 24. Depakote 250 mg ER at HS. 4. obtain collateral information 5. Aftercare planning 6. If the patient remains delusional probably will be to filed for Section 7 and 8 but he recanted his 3 day notice. 7. Invega Sustenna 156 mg IM Saturday 8. Reassessment with results. 9. Increase Depakote up to 500 mg p.o. q.h.s. 10. Start working on discharge planning Reason for continued inpatient stay Substantial Risk for: inability to function, rapid decompensation and med/psych decompensation Time Spent With Patient Time: Total time managing care of this patient today __20__ minutes.
[2023-02-05 18:00] VITALS: BP 137/70; PULSE 84; RESP 18; TEMP 36.7; O2SAT 98
[2023-02-05] MEDS: Divalproex Sodium ER 500 MG TAB.ER.24H PO (20:15)
[2023-02-05] MEDS: traZODone HCL 50 MG TABLET PO (20:15)
[2023-02-06 06:00] VITALS: BP 148/61; PULSE 80; RESP 18; TEMP 36.5; O2SAT 98
[2023-02-06] MEDS: Nicotine 14 MG PATCH.TD24 TRANSDERMA (09:05)
[2023-02-06] MEDS: Folic Acid 1 MG TABLET PO (09:06)
[2023-02-06] MEDS: Multivitamin TABLET 1 TAB PO (09:06)
[2023-02-06] MEDS: Thiamine HCL 100 MG TABLET PO (09:06)
--- NOTE | 2023-02-06 14:51 | MHC.CLN ---
F/U DIET=REGULAR. ENSURE MAX TID TO INCREASE NUTRITIONAL INTAKE. PROVIDES 450 KCALS, 90 G PROTEIN. INTAKE AT MEALS APPEARS TO BE 100%. RD TO FOLLOW WEEKLY.
[2023-02-06 18:00] VITALS: BP 131/63; PULSE 75; TEMP 37.1; O2SAT 94
[2023-02-07 07:00] VITALS: BMI 22.1
[2023-02-07 08:00] VITALS: BP 149/68; PULSE 77; RESP 18; TEMP 36.8; O2SAT 95
[2023-02-07] MEDS: Thiamine HCL 100 MG TABLET PO (08:40)
[2023-02-07] MEDS: Folic Acid 1 MG TABLET PO (08:40)
[2023-02-07] MEDS: Multivitamin TABLET 1 TAB PO (08:40)
[2023-02-07] MEDS: Nicotine 14 MG PATCH.TD24 TRANSDERMA (08:48)
--- NOTE | 2023-02-07 15:33 | PC.NURSE ---
Pt aware of discharge, reported readiness for discharge. D/C instructions + prescriptions given to the patient. Alert, oriented x4. Ambulates with steady gai, denies pain. Denies SI/HI. VSS. Pt discharged with belongings. Left the [facility] at 14:40 by García to [facility]. Info given to see a provider at [facility] at [address] [facility] in 1 week.
== END 2023-02-07 14:40 | disposition home or self-care (01) | DRG 885 ==
PROVIDERS: Psychiatry & Neurology Psychiatry; Admitting Provider Psychiatry & Neurology Psychiatry; Visit Provider Psychiatry & Neurology Psychiatry
DX: F25.0 Schizoaffective disorder, bipolar type (principal); Z59.02 Unsheltered homelessness; F17.210 Nicotine dependence, cigarettes, uncomplicated; Z71.6 Tobacco abuse counseling; F10.20 Alcohol dependence, uncomplicated; Z79.899 Other long term (current) drug therapy
CPT/HCPCS: 36415; 80053; 80061; 80164; 82607; 82746; 82947; 83036; 83540; 85025; J2426

== ENCOUNTER → 2023-01-17 18:57 | Outpatient (BNV) | payer MEDICARE, SELFPAY | PROVIDERS: Admitting Provider Psychiatry & Neurology Psychiatry; Visit Provider Social Worker | DX: F31.10 Bipolar disorder, current episode manic without psychotic features, unspecified (principal); F10.20 Alcohol dependence, uncomplicated | CPT/HCPCS: 90792; 99231; 99232 ==

== ENCOUNTER → 2023-01-17 18:57 | Outpatient (BNV) | payer MEDICARE, SELFPAY | PROVIDERS: Admitting Provider Psychiatry & Neurology Psychiatry; Visit Provider Physician Assistant | DX: Z02.2 Encounter for examination for admission to residential institution (principal) | CPT/HCPCS: 99429 ==

== ENCOUNTER → 2023-01-17 18:57 | Outpatient (BNV) | payer MEDICARE, SELFPAY | PROVIDERS: Admitting Provider Psychiatry & Neurology Psychiatry; Visit Provider Psychiatry & Neurology Psychiatry | DX: F31.10 Bipolar disorder, current episode manic without psychotic features, unspecified (principal); F10.20 Alcohol dependence, uncomplicated | CPT/HCPCS: 99231 ==

== ENCOUNTER 2023-03-21 16:23 | Outpatient (AMB) | payer MEDICARE, SELFPAY ==
--- NOTE | 2023-03-21 16:25 | A.OFFPC_ITS ---
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 Allergies No Known Allergies Allergy (Verified 03/21/23 16:36) Medication List - Last Reconciled 03/21/23 by JASSON Gunn divalproex ER 500 mg PO BEDTIME 30 days folic acid 1 mg PO DAILY 30 days multivitamin (Daily-Eugene tablet) 1 tab PO DAILY paliperidone palmitate (Invega Sustenna) 156 mg IM Q30D paliperidone palmitate (Invega Sustenna) 156 mg IM QMONTH risperidone mg PO PRN thiamine mononitrate (vit B1) 100 mg PO DAILY Tobacco use date assessed: 03/21/23 Fall risk assessment: No Falls in past year Last assessed Fall Risk: 03/21/23 Dental Screening Dental Screen Date: 03/21/23 Did you have a dental visit in the last 12 months?: No Did you have a dental problem in the last 6 months where you did not have access to dental care?: No HPI 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 Medical history significant for alcohol use with alcohol-induced disorder-patie nt reports stopping drinking alcohol 1 month ago, schizoaffective disorder- reports recently being discharged from [facility] 02/07/2023 from [facility] unit-reports was discharged home on Invega Sustenna injection and he is requesting this injection today in the office-he brought his injection - reports last injection 02/06/2023, next 1 supposed to be 02/22/2023 (did not have) reports lost contact with VNA nurse due to not having phone anymore. Also has bipolar affective manic disorder. Denies shortness of breath or chest pain. Alert and oriented times 3. Reports he lives in [place] in an apartment by himself, has sister in the area. Reports he already had 7 injections of Invega. [facility] Medical History (Updated 03/26/23 @ 10:45 by JASSON Gunn) Schizoaffective disorder Altered mental status Sinus bradycardia Alcohol use with alcohol-induced disorder Schizoaffective disorder, bipolar type Surgical History History of appendectomy History of surgery on lower extremity Social History Household Members: None Household Members Other:: patient is currently homeless Housing: Homeless Do you presently have visiting nurse or other home services: Yes (NURSING. LAUNDRY SERVICES REQUESTED) Unable to assess alcohol history related to: Refusing to respond Alcohol intake: unknown Comment: 5 checks Patient Tobacco Use Status: Current everyday Tobacco user Tobacco use type: Cigarette Cigarette Packs Per Day: 2.5 Cigarettes Per Day: 50.0 Years Smoked: Unknown; pt unable to participate due to mental status. e-Cigarette/Vaping Use: Never Used Second Hand Smoke Exposure: No Substance Use Type: Caffiene Advance Directives Date on File: 08/27/21 service: No Sexual orientation: Straight/Heterosexual Cognitive needs: No Hearing needs: No Vision needs: No Questionnaire PHQ-9 Over the last 2 weeks, how often have you been bothered by any of the following problems? 1. Little interest or pleasure in doing things: not at all 2. Feeling down, depressed, or hopeless: not at all 3. Trouble falling or staying asleep, or sleeping too much: not at all 4. Feeling tired or having little energy: not at all 5. Poor appetite or overeating: not at all 6. Feeling bad about yourself - or that you are a failure or have let yourself or your family down: not at all 7. Trouble concentrating on things, such as reading the newspaper or watching television: not at all 8. Moving or speaking so slowly that other people could have noticed. Or the opposite - being so fidgety or restless that you have been moving around a lot more than usual: not at all 9. Thoughts that you would be better off or of hurting yourself in some way: not at all Total score: 0 Depression Screening Interpretation: Negative Depression Screening Done: Yes 24731 - PHQ-9 Billing: Yes Source: Developed by Drs. Nicolas Myers, Komal Chew, Neeraj Ayala and colleagues, with an educational rozina from [employer]. Thrive Questionnaire Date Thrive assessed: 01/18/23 I am a: Patient What is your living situation today?: I do not have a steady places to live Within the past 12 months, did the food you bought not last and you didn't have the money to get more?: Never true Within the past 12 months, did you worry whether your food would run out before you got money to buy more?: Never true Do you have trouble paying for medicines?: No Do you have trouble getting transportation to medical appointments?: Yes Do you have trouble paying your heating and electricity bill?: No Do you have trouble taking care of your child, family member or friend?: No Do you have trouble with day-to-day activities such as bathing, preparing meals, shopping, managing finances, etc.?: No Are you currently unemployed and looking for a job?: No Are you interested in more education?: No Please select the resources that you would like help with: Housing/Alf, Paying for medicine and Transportation Currently or been in a relationship where the following occur: no concerns reported AUDIT C Alcohol Use Questionnaire (AUDIT-C) 1. How often do you have a drink containing alcohol?: Monthly or less 2. How many drinks containing alcohol do you have on a typical day when you are drinking?: 1 or 2 3. How often do you have six or more drinks on one occasion?: Never Total Score: 1 Score Reviewed/Action Taken: No ZAYDA-7 AMB Questionnaire ZAYAD-7 Date ZAYDA - 7 assessed: 03/21/23 Feeling nervous, anxious, or on edge: 0 = Not at all Not being able to stop or control worryin = Not at all Worrying too much about different things: 0 = Not at all Trouble relaxin = Not at all Being so restless that it is hard to sit still: 0 = Not at all Becoming easily annoyed or irritable: 0 = Not at all Feeling afraid as if something awful might happen: 0 = Not at all Total ZAYDA-7 score (0-4 normal; 5-9 mild; 10-14 moderate; 15-21 severe): 0 Source: Developed by Drs. Nicolas Myers, Komal Chew, Neeraj Ayala and colleagues, with an educational rozina from [employer]. ZAYDA-7 Assessment Billing ZAYDA-7 Assessment Tool: ZAYDA-7 Assessment 65657 Review of Systems Const Denies body aches, Denies chills, Denies fever(s) and Denies headache(s) Eyes Denies change in vision ENT Denies dizziness, Denies otalgia, Denies headache(s), Denies nasal discharge, Denies sinus pain and Denies sore throat Card Denies chest pain, Denies edema, Denies lightheadedness and Denies dyspnea Resp Denies cough, Denies dyspnea and Denies wheezing GI Denies constipation, Denies diarrhea, Denies nausea and Denies vomiting Denies dysuria Musc Denies myalgias Skin/Breast Denies rash Neuro Denies dizziness and Denies headache(s) Psych Reports as per HPI Aller/Immun Denies wheezing Physical exam (Primary Care) Vital Signs: Last Vital Signs Pulse 100 03/21/23 16:26 BP 118/54 L 03/21/23 16:26 Pulse Ox 91 L 03/21/23 16:50 Oxygen Delivery Method Room Air 03/21/23 16:50 BMI result Body Mass Index 20.5 Tobacco/Smoking Status: Tobacco use Status Tobacco use date assessed 03/21/23 03/21/23 16:36 Patient Tobacco Use Status Current everyday Tobacco 03/21/23 16:25 Tobacco use type Cigarette 03/21/23 16:25 e-Cigarette/Vaping Use Never Used 03/21/23 16:25 PHQ-9: PHQ-9 Score PHQ-9: Total score 0 03/21/23 17:19 Depression Screening Interpretation: Negative Thrive Assessment: Date of Thrive Assessment Date Thrive assessed 01/18/23 03/21/23 16:25 Currently or been in a relationship where the following occur: no concerns reported Const General: cooperative and no acute distress Orientation/consciousness: patient oriented x3 HENMT Head: Yes normocephalic and Yes atraumatic Ears: TM's normal bilaterally Face and sinus: Yes sinuses nontender Mouth: oropharynx normal and moist mucous membranes Throat: Yes posterior oropharynx normal Eyes General: appearance normal, both eyes and all related structures Pupils: Equal, round and reactive pupils present EOM: EOMs intact bilaterally Neck Neck: Yes normal visual inspection, Yes full ROM and Yes no lymphadenopathy Thyroid: Thyroid normal Resp Effort & Inspection: normal respiratory effort and able to speak in complete sentences Auscultation: clear to auscultation bilaterally, no crackles, no rales, no rhonchi and no wheezes Cardio Rate: regular rate Rhythm: regular rhythm Heart sounds: S1 normal heart sound present, S2 normal heart sound present and no murmurs GI Palpation (GI): Soft to palpation, not firm, nontender, no guarding, not rigid and no hepatosplenomegaly Auscultation: normal bowel sounds General: No CVA tenderness Back/Spine/Pelvis Back: No CVA tenderness Skin General skin exam: no rashes or lesions noted Neuro General: patient oriented x3 Cranial nerves: Yes Equal, round and reactive pupils present Gait exam (Neuro): Normal gait present Extrem General: Yes full ROM and No edema Assessment and Plan Assessment & Plan (1) Alcohol use disorder, moderate, dependence: Code(s): F10.20 - Alcohol dependence, uncomplicated Plan: Patient reports no alcohol consumption in the past 1 month Continue vitamin B1 and folic acid (2) Schizoaffective disorder, bipolar type: Code(s): F25.0 - Schizoaffective disorder, bipolar type Plan: Continue divalproex at bedtime Patient reports that he was due for Invega injection 02/22/2023 (did not have this) would like this injection today - injection was given by RN Next injection 04/22/2022 - will request nursing to do injection in the office until established with Psychiatry Urgent referral to Psychiatry (3) Bipolar affective, manic: Code(s): F31.10 - Bipolar disorder, current episode manic without psychotic features, unspecified Plan: Same as above (4) Encounter to establish care: Code(s): Z76.89 - Persons encountering health services in other specified circumstances Plan: Patient presents to establish care Blood work ordered Plan Follow-up for PE in 3 months Patient agreed with the plan Orders: Orders TSH reflex Free T4 03/21/23 F25.0 - Schizoaffective disorder, bipolar type Comprehensive Met. Panel 03/21/23 F25.0 - Schizoaffective disorder, bipolar type Complete Blood Count Auto Diff 03/21/23 F25.0 - Schizoaffective disorder, bipolar type Referrals Psychiatry Referral F25.0 - Schizoaffective disorder, bipolar type, F31.10 - Bipolar disorder, current episode manic without psychotic features, unspecified Medications: Refilled divalproex ER 500 mg PO BEDTIME 30 days 30 tabs 2RF F25.0 - Schizoaffective disorder, bipolar type, F31.10 - Bipolar disorder, current episode manic without psychotic features, unspecified folic acid 1 mg PO DAILY 30 days 30 tabs 2RF F10.99 - Alcohol use, unspecified with unspecified alcohol-induced disorder thiamine mononitrate (vit B1) 100 mg PO DAILY 30 tabs 2RF F10.20 - Alcohol dependence, uncomplicated Coding Level of Care Code New Pt Level 3 (91441) Diagnoses Alcohol use disorder, moderate, dependence F10.20 Schizoaffective disorder, bipolar type F25.0 Bipolar affective, manic F31.10 Encounter to establish care Z76.89 Additional Codes ZAYDA-7 Assessment Billing - ZAYDA-7 Assessment Tool: ZAYDA-7 Assessment 37208 ([id number])
[2023-03-21 16:26] VITALS: BP 118/54; PULSE 100; O2SAT 90; BMI 20.5
[2023-03-21 16:50] VITALS: O2SAT 91
--- NOTE | 2023-03-21 17:05 | AM.OFFVISNUR ---
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 pt gets these IM injections every 30 days. pt no longer has VNA services and needs this RN to inject his medication into him for him. INVEGA SUSTENNA 156mg/mL LOT [id number] EXP 07/[address] [facility] [id number]. pt tolerated injection into his left deltoid well. Coding
== END 2023-03-21 17:20 | disposition home or self-care (01) ==
PROVIDERS: Visit Provider Nurse Practitioner Family
DX: F10.20 Alcohol dependence, uncomplicated (principal); F25.0 Schizoaffective disorder, bipolar type; F31.10 Bipolar disorder, current episode manic without psychotic features, unspecified; Z76.89 Persons encountering health services in other specified circumstances
CPT/HCPCS: 99203